=== PATIENT | female | born 1970 | race African-American/Black ===

== ENCOUNTER 2017-03-31 08:49 | Inpatient (IN) | payer OTHER ==
[2017-03-31 09:19] VITALS: BMI 19.3
--- NOTE | 2017-03-31 11:04 | HP ---
COWS - Scale Resting Pulse: 0= [place] 80 or Below Sweatin= Chills/Flushing Restless Observation: 3= Extraneous Movement Pupil Size: 2= Moderately Dilated Bone or Joint Aches: 4=Acute Joint/Muscle Pain Runny Nose/ Eye Tearin= Nasal Congestion GI Upset > 30mins: 1= Stomach Cramp Tremor Observation: 1= Tremor [place], Not Seen Yawning Observation: 1= 1-2x During Session Anxiety or Irritability: 1=Feels Anxious/Irritable Goose Flesh Skin: 0=Smooth Skin COWS Score: 15 Admission ROS S - HPI Chief Complaint: DETOX TX FOR HEROIN DEPENDENCE Allergies/Adverse Reactions: Allergies Allergy/AdvReac Type Severity Reaction Status Date / Time No Known Allergies Allergy Verified 03/31/17 10:29 History of Present Illness: 46 Y/O AA/FEMALE WITH A HX OF HEROIN AND COCAINE DEPENDENCE SEEKING DETOX TX Exam Limitations: No Limitations - Ebola screening Have you traveled outside of the country in the last 21 days: No Have you had contact with anyone from an Ebola affected area: No Have you been sick,other than usual withdrawal symptoms: No Do you have a fever: No - Review of Systems Constitutional: Chills, Loss of Appetite, Night Sweats, Changes in sleep, Unintentional Wgt. Loss EENT: reports: Blurred Vision (WEARS RX GLASSES), Tearing, Nose Congestion, Dental Problems (MISSING TEETH) Respiratory: reports: No Symptoms reported Cardiac: reports: Lightheadedness GI: reports: Constipated, Diarrhea, Nausea, Poor Appetite, Poor Fluid Intake, Vomiting, Abdominal cramping : reports: Frequency Musculoskeletal: reports: Back Pain, Joint Pain, Muscle Pain Integumentary: reports: No Symptoms Reported Neuro: reports: Headache, Numbness, Tingling, Unsteady Gait, Dizziness Endocrine: reports: No Symptoms Reported Hematology: reports: Anemia (HX SICKLE CELL TRAIT) Psychiatric: reports: Orientated x3 Other Systems: Reviewed and Negative Patient History - Patient Medical History Hx Anemia: Yes (ALSO " I HAVE SICKLE CELL TRAIT".) Hx Asthma: No Hx Chronic Obstructive Pulmonary Disease (COPD): No Hx Cancer: No Hx Cardiac Disorders: No Hx Congestive Heart Failure: No Hx Hypertension: No Hx Hypercholesterolemia: No Hx Pacemaker: No HX Cerebrovascular Accident: No Hx Seizures: No Hx Dementia: No Hx Diabetes: No Hx Gastrointestinal Disorders: No Hx Liver Disease: No Hx Genitourinary Disorders: No Hx Sexually Transmitted Disorders: No (DENIES) Hx Renal Disease (ESRD): No Hx Thyroid Disease: No Hx Human Immunodeficiency Virus (HIV): No (NEGATIVE HX) Hx Hepatitis C: No Hx Depression: No Hx Suicide Attempt: No (DENIES) Hx Bipolar Disorder: No Hx Schizophrenia: No - Patient Surgical History Past Surgical History: No Hx Neurologic Surgery: No Hx Cataract Extraction: No Hx Cardiac Surgery: No Hx Lung Surgery: No Hx Breast Surgery: No Hx Breast Biopsy: No Hx Abdominal Surgery: No Hx Appendectomy: No Hx Cholecystectomy: No Hx Genitourinary Surgery: No Hx Section: No Hx Orthopedic Surgery: No Hx Hysterectomy: No Anesthesia Reaction: No - PPD History Previous Implant?: Yes Documented Results: Negative w/proof Date: 07/26/16 Results: 0MM PPD to be Administered?: No - Reproductive History Patient is a Female of Child Bearing Age (11 -55 yrs old): Yes Last Menstrual Period: 03/24/17 Patient : No - Smoking Cessation Smoking history: Current every day smoker Have you smoked in the past 12 months: Yes Aproximately how many cigarettes per day: 6 Cigars Per Day: 0 Hx Chewing Tobacco Use: No Initiated information on smoking cessation: Yes 'Breaking Loose' booklet given: 03/31/17 - Substance & Tx. History Hx Alcohol Use: No Hx Substance Use: Yes (HEROIN/COCAINE) Substance Use Type: Cocaine, Heroin Hx Substance Use Treatment: Yes (LAST TX AT [facility] 3 MONTHS AGO) - Substances Abused Heroin Route: Inhalation Frequency: Daily Amount used: 4-5 BAGS Age of first use: 23 Date of Last Use: 03/30/17 Cocaine Route: Smoking Frequency: Daily Amount used: $60 Age of first use: 23 Date of Last Use: 03/30/17 Family Disease History - Family Disease History Family Disease History: Respiratory: Brother, Sister Admission Physical Exam BHS - Vital Signs Vital Signs: Vital Signs - 24 hr 03/31/17 09:16 Temperature 97 F L Pulse Rate 77 Respiratory 20 Rate Blood Pressure 126/93 - Physical General Appearance: Yes: Moderate Distress, Thin, Anxious, Other (DROWSY BUT EASILY AROUSABLE.) HEENTM: Yes: EOMI, Normocephalic, MAREN, Pharynx Normal, Nasal Congestion, Rhinorrhea Respiratory: Yes: Chest Non-Tender, Lungs Clear, Normal Breath Sounds, No Respiratory Distress Neck: Yes: No masses,lesions,Nodules, Supple, Trachea in good position Breast: Yes: Breast Exam Deferred Cardiology: Yes: Regular Rhythm, Regular Rate, S1, S2 Abdominal: Yes: Normal Bowel Sounds, Non Tender, Flat, Soft Genitourinary: Yes: Other (N/C) Back: Yes: Within Normal Limits Musculoskeletal: Yes: full range of Motion, Gait Steady Extremities: Yes: Normal Range of Motion, Non-Tender, Swelling (SLIGHT BILATERAL NON-PITTING.) 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, Fully Oriented, Alert Integumentary: Yes: Dry, Warm Lymphatic: Yes: Within Normal Limits - Diagnostic (1) Opioid dependence with withdrawal Current Visit: Yes Status: Acute (2) Anemia Current Visit: Yes Status: Chronic Qualifiers: Anemia type: iron deficiency Iron deficiency anemia type: inadequate dietary iron intake Qualified Code(s): D50.8 - Other iron deficiency anemias Comment: LAB PENDING (3) Nicotine dependence Current Visit: Yes Status: Acute Qualifiers: Nicotine product type: cigarettes Substance use status: in withdrawal Qualified Code(s): F17.213 - Nicotine dependence, cigarettes, with withdrawal (4) Cocaine dependence, uncomplicated Current Visit: Yes Status: Acute Cleared for Admission [facility] - Detox or Rehab [facility] Level of Care: Medically Managed Detox Regimen/Protocol: Methadone [facility] Breath Alcohol Content Breath Alcohol Content: 0 Urine Pregancy Test - Result Urine Test Results: Negative- NO Line Present Urine Drug Screen - Results Drug Screen Negative: No Urine Drug Screen Results: EMILY-Cocaine, OPI-Opiates
[2017-03-31] MEDS ORDERED: MAGNESIUM HYDROX 2400MG/30ML ORAL SUSPENSION 30 ML CUP PO PRN (11:11)
[2017-03-31] MEDS ORDERED: NICOTINE POLACRILEX 2 MG GUM BUC PRN (11:11)
[2017-03-31] MEDS ORDERED: P-EPHED 60MG/TRIPROLIDI 2.5MG TABLET PO PRN (11:11)
[2017-03-31] MEDS ORDERED: MENTHOL/PHENOL 1 EACH UD MM PRN (11:11)
[2017-03-31] MEDS ORDERED: guaiFENesin/D-METHORPHAN HB 10 ML UNIT-DOSE CUPS PO PRN (11:11)
[2017-03-31] MEDS ORDERED: MAG HYDROX/AL HYDROX/SIMETH 30 ML UNIT-DOSE CUP PO PRN (11:11)
[2017-03-31] MEDS ORDERED: diphenhydrAMINE HCL 50 MG CAPSULE PO PRN (11:11)
[2017-03-31] MEDS ORDERED: LOPERAMIDE HCL 2 MG CAPSULE PO PRN (11:11)
[2017-03-31] MEDS ORDERED: MAGNESIUM CITRATE 300 ML BOTTLE PO PRN (11:11)
[2017-03-31] MEDS ORDERED: METHADONE HCL 10 MG TABLET (FOR DETOX USE ONLY) PO ONE ×2 (12:11→23:00)
[2017-03-31] MEDS: diazePAM 5 MG TABLET PO PRN ×2 (13:39→22:58)
[2017-03-31] MEDS: NICOTINE 14 MG/24 HOURS TOPICAL PATCH TD SCH (13:41)
[2017-03-31 15:42] LABS: MCH 30.5 pg (25.7-33.7); MCHC 33.3 g/dl (32.0-36.0); MEAN CELL VOLUME 91.4 fl (80-96); PLATELET COUNT 240 K/MM3 (134-434); RDW 13.8 % (11.6-15.6); WHITE BLOOD COUNT 4.6 K/mm3 (4.0-10.0)
[2017-03-31 17:25] LABS: ALK PHOS 83 U/L (45-117); ANION GAP 9 (8-16); BILIRUBIN,TOTAL 0.4 mg/dL (0.2-1.0); CALCIUM 9.1 mg/dL (8.5-10.1); CO2 29 mmol/L (21-32); CREATININE 0.8 mg/dL (0.55-1.02); GLUCOSE,RANDOM 83 mg/dL (74-106); SGOT/AST 21 U/L (15-37); SGPT/ALT 30 U/L (12-78); TOT PROT 7.2 g/dl (6.4-8.2)
[2017-03-31 21:22] LABS: URINE APPEARANCE SLCLOUDY; URINE BILIRUBIN NEGATIVE (NEGATIVE); URINE BLOOD NEGATIVE (NEGATIVE); URINE COLOR YELLOW; URINE GLUCOSE (UA) NEGATIVE (NEGATIVE); URINE KETONE NEGATIVE (NEGATIVE); URINE LEUK ESTERASE NEGATIVE (NEGATIVE); URINE NITRITE NEGATIVE (NEGATIVE); URINE PROTEIN NEGATIVE (NEGATIVE)
[2017-03-31] MEDS: THIAMINE HCL 100 MG TABLET (FP) PO SCH (22:58)
[2017-03-31] MEDS: IBUPROFEN 400 MG TABLET (FP) PO PRN (23:00)
[2017-04-01 08:51] LABS: HIV 1 & 2 AB NEGATIVE; HIV 1 AGp24 NEGATIVE
[2017-04-01] MEDS ORDERED: METHADONE HCL 10 MG TABLET (FOR DETOX USE ONLY) PO ONE (10:00)
[2017-04-01] MEDS ORDERED: TRIMETHOBENZAMIDE HCL 300 MG CAPSULE PO PRN (10:16)
--- NOTE | 2017-04-01 10:16 | PN ---
BHS COWS - Scale Resting Pulse: 1= [place] 81-100 Sweatin=Flushed/Facial Moisture Restless Observation: 1= Difficult to Sit Still Pupil Size: 0= Normal to Room Light Bone or Joint Aches: 2= Severe Diffuse Aches Runny Nose/ Eye Tearin= Runny Nose/Eyes GI Upset > 30mins: 0= None Tremor Observation of Outstretched Hands: 2= Slight Tremor Visible Yawning Observation: 2= >3x During Session Anxiety or Irritability: 2=Irritable/Anxious Goose Flesh Skin: 0=Smooth Skin COWS Score: 14 BHS Progress Note (SOAP) Subjective: irritable agitation anxiety restless shakes sweats nausea back ache headache Objective: 04/01/17 10:15 Vital Signs Temperature 97.7 F 04/01/17 10:00 Pulse Rate 88 04/01/17 10:00 Respiratory Rate 18 04/01/17 10:00 Blood Pressure 141/87 04/01/17 10:00 O2 Sat by Pulse Oximetry (%) Laboratory Tests 03/31/17 03/31/17 03/31/17 10:00 10:00 10:00 WBC 4.6 RBC 4.04 Hgb 12.3 Hct 36.9 MCV 91.4 MCH 30.5 MCHC 33.3 RDW 13.8 Plt Count 240 D MPV 10.0 Sodium 143 Potassium 4.1 Chloride 105 Carbon Dioxide 29 Anion Gap 9 BUN 8 D Creatinine 0.8 Creat Clearance w eGFR > 60 Random Glucose 83 Calcium 9.1 Total Bilirubin 0.4 AST 21 ALT 30 D Alkaline Phosphatase 83 D Total Protein 7.2 Albumin 4.0 Urine Color Urine Appearance Urine pH Urine Protein Urine Glucose (UA) Urine Ketones Urine Blood Urine Nitrite Urine Bilirubin Urine Urobilinogen Ur Leukocyte Esterase RPR Titer Nonreactive HIV 1&2 Antibody Screen HIV P24 Antigen 03/31/17 03/31/17 10:40 20:59 WBC RBC Hgb Hct MCV MCH MCHC RDW Plt Count MPV Sodium Potassium Chloride Carbon Dioxide Anion Gap BUN Creatinine Creat Clearance w eGFR Random Glucose Calcium Total Bilirubin AST ALT Alkaline Phosphatase Total Protein Albumin Urine Color Yellow Urine Appearance Slcloudy Urine pH 7.0 Urine Protein Negative Urine Glucose (UA) Negative Urine Ketones Negative Urine Blood Negative Urine Nitrite Negative Urine Bilirubin Negative Urine Urobilinogen 2.0 H Ur Leukocyte Esterase Negative RPR Titer HIV 1&2 Antibody Screen Negative HIV P24 Antigen Negative awake/alert ambulating no acute distress Assessment: 04/01/17 10:16 withdrawal sx Plan: continue detox increase fluids tigan prn motrin prn
[2017-04-01] MEDS: PRENATAL VITAMINS W/ FOLIC ACID TABLET (FP) PO SCH (10:46)
[2017-04-01] MEDS: diazePAM 5 MG TABLET PO PRN ×3 (10:46→22:30)
[2017-04-01] MEDS: IBUPROFEN 400 MG TABLET (FP) PO PRN ×2 (10:47→20:33)
[2017-04-01] MEDS: NICOTINE 14 MG/24 HOURS TOPICAL PATCH TD SCH (10:47)
[2017-04-01] MEDS: THIAMINE HCL 100 MG TABLET (FP) PO SCH (22:30)
[2017-04-02] MEDS: ACETAMINOPHEN 325 MG TABLET (FP) PO PRN ×2 (08:39→22:30)
--- NOTE | 2017-04-02 09:16 | PN ---
BHS COWS - Scale Resting Pulse: 0= [place] 80 or Below Sweatin=Flushed/Facial Moisture Restless Observation: 1= Difficult to Sit Still Pupil Size: 0= Normal to Room Light Bone or Joint Aches: 2= Severe Diffuse Aches Runny Nose/ Eye Tearin= Nasal Congestion GI Upset > 30mins: 0= None Tremor Observation of Outstretched Hands: 2= Slight Tremor Visible Yawning Observation: 2= >3x During Session Anxiety or Irritability: 2=Irritable/Anxious Goose Flesh Skin: 0=Smooth Skin COWS Score: 12 S Progress Note (SOAP) Subjective: irritable agitation interrupted sleep headache agitation Objective: 04/02/17 09:15 Vital Signs Temperature 98.2 F 04/02/17 06:27 Pulse Rate 77 04/02/17 06:27 Respiratory Rate 18 04/02/17 06:27 Blood Pressure 119/71 04/02/17 06:27 O2 Sat by Pulse Oximetry (%) Laboratory Tests 03/31/17 03/31/17 03/31/17 10:00 10:00 10:00 WBC 4.6 RBC 4.04 Hgb 12.3 Hct 36.9 MCV 91.4 MCH 30.5 MCHC 33.3 RDW 13.8 Plt Count 240 D MPV 10.0 Sodium 143 Potassium 4.1 Chloride 105 Carbon Dioxide 29 Anion Gap 9 BUN 8 D Creatinine 0.8 Creat Clearance w eGFR > 60 Random Glucose 83 Calcium 9.1 Total Bilirubin 0.4 AST 21 ALT 30 D Alkaline Phosphatase 83 D Total Protein 7.2 Albumin 4.0 Urine Color Urine Appearance Urine pH Ur Specific [place] Urine Protein Urine Glucose (UA) Urine Ketones Urine Blood Urine Nitrite Urine Bilirubin Urine Urobilinogen Ur Leukocyte Esterase RPR Titer Nonreactive HIV 1&2 Antibody Screen HIV P24 Antigen 03/31/17 03/31/17 10:40 20:59 WBC RBC Hgb Hct MCV MCH MCHC RDW Plt Count MPV Sodium Potassium Chloride Carbon Dioxide Anion Gap BUN Creatinine Creat Clearance w eGFR Random Glucose Calcium Total Bilirubin AST ALT Alkaline Phosphatase Total Protein Albumin Urine Color Yellow Urine Appearance Slcloudy Urine pH 7.0 Ur Specific [place] 1.015 Urine Protein Negative Urine Glucose (UA) Negative Urine Ketones Negative Urine Blood Negative Urine Nitrite Negative Urine Bilirubin Negative Urine Urobilinogen 2.0 H Ur Leukocyte Esterase Negative RPR Titer HIV 1&2 Antibody Screen Negative HIV P24 Antigen Negative awake/alert ambulating no acute distress Assessment: 04/02/17 09:16 withdrawal sx Plan: continue detox increase fluids tylenol or motrin prn
[2017-04-02] MEDS ORDERED: METHADONE HCL 5 MG TABLET (FOR DETOX USE ONLY) PO ONE (10:00)
[2017-04-02] MEDS: NICOTINE 14 MG/24 HOURS TOPICAL PATCH TD SCH (10:37)
[2017-04-02] MEDS: diazePAM 5 MG TABLET PO PRN ×2 (10:37→22:30)
[2017-04-02] MEDS: IBUPROFEN 400 MG TABLET (FP) PO PRN ×2 (10:37→11:57)
[2017-04-02] MEDS: PRENATAL VITAMINS W/ FOLIC ACID TABLET (FP) PO SCH (10:37)
--- NOTE | 2017-04-02 20:03 | EKG ---
Test Reason : Blood Pressure : / mmHG Vent. Rate : 070 BPM Atrial Rate : 070 BPM P-R Int : 148 ms QRS Dur : 086 ms QT Int : 406 ms P-R-T Axes : -88 081 056 degrees QTc Int : 438 ms UNUSUAL P AXIS, POSSIBLE ECTOPIC ATRIAL RHYTHM WITH OCCASIONAL PREMATURE VENTRICULAR COMPLEXES MINIMAL VOLTAGE CRITERIA FOR LVH, MAY BE NORMAL VARIANT ABNORMAL ECG NO PREVIOUS ECGS AVAILABLE Confirmed by SHEIKH ISMAEL, MEGHNA ([id number] on 04/02/2017 8:02:59 PM Referred By: Annie Smith Confirmed By:MEGHNA BELCHER MD
[2017-04-02] MEDS: THIAMINE HCL 100 MG TABLET (FP) PO SCH (22:30)
[2017-04-03] MEDS: IBUPROFEN 400 MG TABLET (FP) PO PRN (05:39)
[2017-04-03] MEDS: diazePAM 5 MG TABLET PO PRN ×2 (05:39→10:57)
[2017-04-03] MEDS ORDERED: METHADONE HCL 5 MG TABLET (FOR DETOX USE ONLY) PO ONE (10:00)
[2017-04-03 10:45] VITALS: BP 108/89; PULSE 91; TEMP 98.4
[2017-04-03] MEDS: PRENATAL VITAMINS W/ FOLIC ACID TABLET (FP) PO SCH (10:57)
[2017-04-03] MEDS: ACETAMINOPHEN 325 MG TABLET (FP) PO PRN (10:57)
[2017-04-03] MEDS: NICOTINE 14 MG/24 HOURS TOPICAL PATCH TD SCH (10:59)
--- NOTE | 2017-04-03 11:52 | PN ---
BHS Progress Note (SOAP) Subjective: sweats body aches interrupted sleep Objective: 04/03/17 11:51 Vital Signs Temperature 98.4 F 04/03/17 10:44 Pulse Rate 91 H 04/03/17 10:44 Respiratory Rate 18 04/03/17 10:44 Blood Pressure 108/89 04/03/17 10:44 O2 Sat by Pulse Oximetry (%) awake/alert ambulating no acute distress Assessment: 04/03/17 11:51 withdrawal sx Plan: continue detox increase fluids
--- NOTE | 2017-04-03 14:01 | PN ---
S Progress Note Note: pt states " I need to go home and deal with my personal issues with my son." Pt insists to leave and signed out AMA.
--- NOTE | 2017-04-03 14:03 | DS ---
[facility] Detox Discharge Summary Admission Date: 03/31/17 Discharge Date: 04/03/17 - History Present History: Cocaine Dependence, Opioid Dependence - Physical Exam Results Vital Signs: Vital Signs Temperature 98.4 F 04/03/17 10:44 Pulse Rate 91 H 04/03/17 10:44 Respiratory Rate 18 04/03/17 10:44 Blood Pressure 108/89 04/03/17 10:44 O2 Sat by Pulse Oximetry (%) - Treatment Hospital Course: Responded well, Discharged Condition Good - Medication Discharge Medications: Ambulatory Orders Docusate Sodium [Colace -] 100 mg PO BID #60 capsule 08/01/16 Ergocalciferol [Drisdol -] 50,000 unit PO Q7D@1000 #7 capsule 08/01/16 Ferrous Sulfate [Feosol] 325 mg PO BID #60 ud 08/01/16 - Diagnosis (1) Cocaine dependence, uncomplicated Current Visit: Yes Status: Chronic (2) Nicotine dependence Current Visit: Yes Status: Chronic Qualifiers: Nicotine product type: cigarettes Substance use status: uncomplicated Qualified Code(s): F17.210 - Nicotine dependence, cigarettes, uncomplicated (3) Opioid dependence with withdrawal Current Visit: Yes Status: Chronic (4) Anemia Current Visit: Yes Status: Chronic Qualifiers: Anemia type: iron deficiency Iron deficiency anemia type: inadequate dietary iron intake Qualified Code(s): D50.8 - Other iron deficiency anemias (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
[2017-04-04] MEDS ORDERED: METHADONE HCL 10 MG TABLET (FOR DETOX USE ONLY) PO ONE (10:00)
[2017-04-05] MEDS ORDERED: METHADONE HCL 5 MG TABLET (FOR DETOX USE ONLY) PO ONE (06:00)
== END 2017-04-03 13:52 | disposition left against medical advice (07) | DRG 770 ==
LOC: YASAS 08:49 → Y6N 12:01
PROVIDERS: ADMIT Internal Medicine; ATTEND Internal Medicine
PROC: HZ2ZZZZ Detoxification Services for Substance Abuse Treatment (ICD-10-PCS; principal; 2017-03-31)
DX: F11.23 Opioid dependence with withdrawal (principal); F14.20 Cocaine dependence, uncomplicated; F17.210 Nicotine dependence, cigarettes, uncomplicated; F19.282 Other psychoactive substance dependence with psychoactive substance-induced sleep disorder; D50.9 Iron deficiency anemia, unspecified; D57.3 Sickle-cell trait
CPT/HCPCS: 36415; 80053; 81003; 85027; 86593; 87389; 93005; 93010

== ENCOUNTER 2017-05-06 13:23 | Inpatient (IN) | payer OTHER ==
[2017-05-06 15:08] VITALS: BMI 18.7
[2017-05-06] MEDS ORDERED: MAGNESIUM HYDROX 2400MG/30ML ORAL SUSPENSION 30 ML CUP PO PRN (16:23)
[2017-05-06] MEDS ORDERED: LOPERAMIDE HCL 2 MG CAPSULE PO PRN (16:23)
[2017-05-06] MEDS ORDERED: guaiFENesin/D-METHORPHAN HB 10 ML UNIT-DOSE CUPS PO PRN (16:23)
[2017-05-06] MEDS ORDERED: MAG HYDROX/AL HYDROX/SIMETH 30 ML UNIT-DOSE CUP PO PRN (16:23)
[2017-05-06] MEDS ORDERED: MENTHOL/PHENOL 1 EACH UD MM PRN (16:23)
[2017-05-06] MEDS ORDERED: P-EPHED 60MG/TRIPROLIDI 2.5MG TABLET PO PRN (16:23)
[2017-05-06] MEDS ORDERED: diphenhydrAMINE HCL 50 MG CAPSULE PO PRN (16:23)
[2017-05-06] MEDS ORDERED: MAGNESIUM CITRATE 300 ML BOTTLE PO PRN (16:23)
--- NOTE | 2017-05-06 16:27 | HP ---
COWS - Scale Resting Pulse: 0= [place] 80 or Below Sweatin= Chills/Flushing Restless Observation: 1= Difficult to Sit Still Pupil Size: 1= Pupils >than Normal Bone or Joint Aches: 1= Mild Discomfort Runny Nose/ Eye Tearin= Nasal Congestion GI Upset > 30mins: 2= Nausea/Diarrhea Tremor Observation: 2= Slight Tremor Visible Yawning Observation: 1= 1-2x During Session Anxiety or Irritability: 2=Irritable/Anxious Goose Flesh Skin: 3=Piloerection COWS Score: 15 Admission ROS S - HPI Chief Complaint: heroin withdrawal sx, ready to quit signed out AMA last visit Allergies/Adverse Reactions: Allergies Allergy/AdvReac Type Severity Reaction Status Date / Time No Known Allergies Allergy Verified 05/06/17 16:19 History of Present Illness: 46yo f with h/o opioid, cocaine, and nictoien dependence now in withdrawals last used yesteray deneies alcohol or benzodiazepien use PMHX depression , no suicidal ideation or suicide attempts in past. no on any medication, no h/o seizure , or DTS. Exam Limitations: No Limitations - Ebola screening Have you traveled outside of the country in the last 21 days: No Have you had contact with anyone from an Ebola affected area: No Have you been sick,other than usual withdrawal symptoms: No Do you have a fever: No - Review of Systems Constitutional: Chills, Diaphoresis, Malaise, Unintentional Wgt. Loss EENT: reports: Nose Congestion Respiratory: reports: No Symptoms reported Cardiac: reports: No Symptoms Reported GI: reports: Constipated, Nausea, Poor Appetite, Poor Fluid Intake, Abdominal cramping : reports: No Symptoms Reported Musculoskeletal: reports: Back Pain (withdrawal sx), Muscle Pain Integumentary: reports: Flushing, Sweating Neuro: reports: Headache, Weakness Endocrine: reports: No Symptoms Reported Hematology: reports: No Symptoms Reported Psychiatric: reports: Judgement Intact, Orientated x3, Anxious, Depressed Other Systems: Reviewed and Negative Patient History - Patient Medical History Hx Anemia: Yes (ALSO " I HAVE SICKLE CELL TRAIT".) Hx Asthma: No Hx Chronic Obstructive Pulmonary Disease (COPD): No Hx Cancer: No Hx Cardiac Disorders: No Hx Congestive Heart Failure: No Hx Hypertension: No Hx Hypercholesterolemia: No Hx Pacemaker: No HX Cerebrovascular Accident: No Hx Seizures: No Hx Dementia: No Hx Diabetes: No Hx Gastrointestinal Disorders: No Hx Liver Disease: No Hx Genitourinary Disorders: No Hx Sexually Transmitted Disorders: No (DENIES) Hx Renal Disease (ESRD): No Hx Thyroid Disease: No Hx Human Immunodeficiency Virus (HIV): No (NEGATIVE HX) Hx Hepatitis C: No Hx Depression: No Hx Suicide Attempt: No (DENIES) Hx Bipolar Disorder: No Hx Schizophrenia: No - Patient Surgical History Past Surgical History: No Hx Neurologic Surgery: No Hx Cataract Extraction: No Hx Cardiac Surgery: No Hx Lung Surgery: No Hx Breast Surgery: No Hx Breast Biopsy: No Hx Abdominal Surgery: No Hx Appendectomy: No Hx Cholecystectomy: No Hx Genitourinary Surgery: No Hx Section: No Hx Orthopedic Surgery: No Hx Hysterectomy: No Anesthesia Reaction: No - PPD History Previous Implant?: Yes Documented Results: Negative w/proof Date: 07/26/16 Results: 0MM PPD to be Administered?: No - Reproductive History Patient is a Female of Child Bearing Age (11 -55 yrs old): No Last Menstrual Period: 03/24/17 Patient : No - Smoking Cessation Smoking history: Current every day smoker Have you smoked in the past 12 months: Yes Aproximately how many cigarettes per day: 6 Cigars Per Day: 0 Hx Chewing Tobacco Use: No Initiated information on smoking cessation: Yes 'Breaking Loose' booklet given: 05/06/17 - Substance & Tx. History Hx Alcohol Use: No Hx Substance Use: No Substance Use Type: Cocaine, Heroin, Opiates Hx Substance Use Treatment: Yes ([facility] signed out [facility]) - Substances Abused Heroin Route: Inhalation Frequency: Daily Amount used: 5-6 BAGS Age of first use: 23 Date of Last Use: 05/05/17 Crack Route: Smoking Frequency: Daily Amount used: $60 Age of first use: 23 Date of Last Use: 05/05/17 Family Disease History - Family Disease History Family Disease History: Respiratory: Brother, Sister Admission Physical Exam BHS - Vital Signs Vital Signs: Vital Signs - 24 hr 05/06/17 15:04 Temperature 97.8 F Pulse Rate 78 Respiratory 20 Rate Blood Pressure 125/76 - Physical General Appearance: Yes: Appropriately Dressed, Disheveled, Mild Distress, Cachetic, Thin, Tremorous, Irritable, Sweating, Anxious HEENTM: Yes: EOMI, Hearing grossly Normal, Normal ENT Inspection, Normocephalic , Normal Voice, Pharynx Normal, Tm's normal, Nasal Congestion, Rhinorrhea Respiratory: Yes: Within Normal Limits, Chest Non-Tender, Lungs Clear, Normal Breath Sounds, No Respiratory Distress, No Accessory Muscle Use Neck: Yes: Within Normal Limits, No masses,lesions,Nodules, Supple, Trachea in good position Breast: Yes: Breast Exam Deferred Cardiology: Yes: Within Normal Limits, Regular Rhythm, Regular Rate, S1, S2 Abdominal: Yes: Within Normal Limits, Normal Bowel Sounds, Non Tender, Flat, Soft Genitourinary: Yes: Vaginal Discharge Back: Yes: Normal Inspection, Vertebral Tenderness Musculoskeletal: Yes: full range of Motion, Gait Steady, Pelvis Stable, Back pain, Muscle Pain Extremities: Yes: Normal Capillary Refill, Normal Inspection, Normal Range of Motion, Non-Tender, Tremors 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, Fully Oriented, Alert, Motor Strength 5/5, Normal Mood/Affect, Normal Response, Depressed Affect Integumentary: Yes: Normal Color, Warm, Diaphoresis, Moist Lymphatic: Yes: Within Normal Limits - Addiitonal Findings: withdrawal sx - Diagnostic (1) Anemia Current Visit: No Status: Chronic Qualifiers: Anemia type: iron deficiency Iron deficiency anemia type: inadequate dietary iron intake Qualified Code(s): D50.8 - Other iron deficiency anemias Comment: LAB PENDING (2) Cocaine dependence, uncomplicated Current Visit: No Status: Chronic (3) Nicotine dependence Current Visit: No Status: Chronic Qualifiers: Nicotine product type: cigarettes Substance use status: uncomplicated Qualified Code(s): F17.210 - Nicotine dependence, cigarettes, uncomplicated (4) Opioid dependence with withdrawal Current Visit: No Status: Chronic (5) Substance-induced sleep disorder Current Visit: No Status: Chronic Cleared for Admission [facility] - Detox or Rehab [facility] Level of Care: Medically Managed Detox Regimen/Protocol: Methadone [facility] Breath Alcohol Content Breath Alcohol Content: 0 Urine Pregancy Test - Result Urine Test Results: Negative- NO Line Present Urine Drug Screen - Results Drug Screen Negative: No Urine Drug Screen Results: EMILY-Cocaine, OPI-Opiates, MTD-Methadone
[2017-05-06] MEDS ORDERED: METHADONE HCL 10 MG TABLET (FOR DETOX USE ONLY) PO ONE ×2 (17:15→23:00)
[2017-05-06] MEDS: NICOTINE 14 MG/24 HOURS TOPICAL PATCH TD SCH (17:35)
[2017-05-06] MEDS: FERROUS SO4 325 MG TABLET (FP) PO SCH (17:36)
[2017-05-06] MEDS: diazePAM 5 MG TABLET PO PRN ×2 (17:36→22:37)
[2017-05-06] MEDS: THIAMINE HCL 100 MG TABLET (FP) PO SCH (22:37)
[2017-05-06] MEDS: DOCUSATE SODIUM 100 MG CAPSULE (FP) PO SCH (22:37)
[2017-05-06] MEDS: MICONAZOLE NITRATE 100 MG SUPP SUPP.VAG PV SCH (22:56)
[2017-05-06 23:14] LABS: URINE APPEARANCE SLCLOUDY; URINE BILIRUBIN NEGATIVE (NEGATIVE); URINE BLOOD NEGATIVE (NEGATIVE); URINE COLOR YELLOW; URINE GLUCOSE (UA) NEGATIVE (NEGATIVE); URINE KETONE NEGATIVE (NEGATIVE); URINE LEUK ESTERASE TRACE (NEGATIVE); URINE NITRITE NEGATIVE (NEGATIVE); URINE PROTEIN NEGATIVE (NEGATIVE); URINE UROBILINOGEN NEGATIVE mg/dL (0.2-1.0)
[2017-05-06 23:39] LABS: URINE BACTERIA RARE /hpf (NONE SEEN); URINE RBC 2 /hpf (0-3); URINE WBC 4 /hpf (3-5)
[2017-05-07] MEDS: FERROUS SO4 325 MG TABLET (FP) PO SCH ×2 (07:18→16:39)
[2017-05-07] MEDS ORDERED: METHADONE HCL 10 MG TABLET (FOR DETOX USE ONLY) PO ONE (10:00)
[2017-05-07 10:07] LABS: MCH 29.9 pg (25.7-33.7); MCHC 33.5 g/dl (32.0-36.0); MEAN CELL VOLUME 89.1 fl (80-96); MEAN PLT VOLUME 9.6 fl (7.5-11.1); PLATELET COUNT 193 K/MM3 (134-434); RDW 13.7 % (11.6-15.6); WHITE BLOOD COUNT 3.6 K/mm3 (4.0-10.0)
[2017-05-07] MEDS: PRENATAL VITAMINS W/ FOLIC ACID TABLET (FP) PO SCH (10:33)
[2017-05-07] MEDS: NICOTINE 14 MG/24 HOURS TOPICAL PATCH TD SCH (10:34)
[2017-05-07] MEDS: IBUPROFEN 400 MG TABLET (FP) PO PRN ×2 (10:34→22:38)
--- NOTE | 2017-05-07 10:34 | EKG ---
Test Reason : Blood Pressure : / mmHG Vent. Rate : 069 BPM Atrial Rate : 069 BPM P-R Int : 144 ms QRS Dur : 080 ms QT Int : 418 ms P-R-T Axes : 044 081 071 degrees QTc Int : 447 ms NORMAL SINUS RHYTHM NONSPECIFIC T WAVE ABNORMALITY ABNORMAL ECG WHEN COMPARED WITH ECG OF 31-MAR-2017 12:43, SINUS RHYTHM HAS REPLACED ECTOPIC ATRIAL RHYTHM Confirmed by DAMIAN GUEVARA, IZABEL ([id number]) on 05/07/2017 10:34:29 AM Referred By: Confirmed By:IZABEL SALGADO MD
[2017-05-07 10:40] LABS: ALBUMIN 2.9 g/dl (3.4-5.0); ALK PHOS 80 U/L (45-117); ANION GAP 5 (8-16); BILIRUBIN,TOTAL 0.5 mg/dL (0.2-1.0); CALCIUM 8.3 mg/dL (8.5-10.1); CO2 28 mmol/L (21-32); CREATININE 0.6 mg/dL (0.55-1.02); GLUCOSE,RANDOM 110 mg/dL (74-106); SGOT/AST 25 U/L (15-37); SGPT/ALT 27 U/L (12-78); TOT PROT 5.7 g/dl (6.4-8.2)
[2017-05-07] MEDS ORDERED: FLU VACCINE QUAD 60 MCG/0.5 ML (MDV 17-18) IM ONE (12:00)
--- NOTE | 2017-05-07 12:44 | PN ---
BHS COWS - Scale Resting Pulse: 1= [place] 81-100 Sweatin=Flushed/Facial Moisture Restless Observation: 1= Difficult to Sit Still Pupil Size: 0= Normal to Room Light Bone or Joint Aches: 2= Severe Diffuse Aches Runny Nose/ Eye Tearin= Runny Nose/Eyes GI Upset > 30mins: 1= Stomach Cramp Tremor Observation of Outstretched Hands: 2= Slight Tremor Visible Yawning Observation: 2= >3x During Session Anxiety or Irritability: 2=Irritable/Anxious Goose Flesh Skin: 3=Piloerection COWS Score: 18 BHS Progress Note (SOAP) Subjective: shakes sweats interrupted sleep agitation body aches Objective: 05/07/17 12:43 Vital Signs Temperature 98.4 F 05/07/17 10:29 Pulse Rate 82 05/07/17 10:29 Respiratory Rate 18 05/07/17 10:29 Blood Pressure 135/85 05/07/17 10:29 O2 Sat by Pulse Oximetry (%) Laboratory Tests 05/06/17 05/07/17 05/07/17 22:38 07:00 07:00 WBC 3.6 L RBC 3.62 Hgb 10.8 D Hct 32.2 L MCV 89.1 MCH 29.9 MCHC 33.5 RDW 13.7 Plt Count 193 MPV 9.6 Sodium 139 Potassium 4.0 Chloride 106 Carbon Dioxide 28 Anion Gap 5 L BUN 10 D Creatinine 0.6 D Creat Clearance w eGFR > 60 Random Glucose 110 H D Calcium 8.3 L Total Bilirubin 0.5 D AST 25 ALT 27 Alkaline Phosphatase 80 Total Protein 5.7 L D Albumin 2.9 L D Urine Color Yellow Urine Appearance Slcloudy Urine pH 7.0 Ur Specific [place] 1.020 Urine Protein Negative Urine Glucose (UA) Negative Urine Ketones Negative Urine Blood Negative Urine Nitrite Negative Urine Bilirubin Negative Urine Urobilinogen Negative Urine RBC 2 Urine WBC 4 Ur Epithelial Cells Few Urine Bacteria Rare aaox3 ambulating no acute distress Assessment: 05/07/17 12:43 withdrawal sx Plan: continue detox increase fluids
[2017-05-07] MEDS: ACETAMINOPHEN 325 MG TABLET (FP) PO PRN (16:38)
[2017-05-07] MEDS: NICOTINE POLACRILEX 2 MG GUM BC PRN (16:39)
[2017-05-07] MEDS: diazePAM 5 MG TABLET PO PRN (22:29)
[2017-05-07] MEDS: DOCUSATE SODIUM 100 MG CAPSULE (FP) PO SCH (22:29)
[2017-05-07] MEDS: MICONAZOLE NITRATE 100 MG SUPP SUPP.VAG PV SCH (22:29)
[2017-05-07] MEDS: THIAMINE HCL 100 MG TABLET (FP) PO SCH (22:29)
[2017-05-08] MEDS: diazePAM 5 MG TABLET PO PRN ×2 (06:00→17:16)
[2017-05-08] MEDS: IBUPROFEN 400 MG TABLET (FP) PO PRN (06:02)
[2017-05-08] MEDS: FERROUS SO4 325 MG TABLET (FP) PO SCH ×2 (07:01→17:15)
[2017-05-08] MEDS: ACETAMINOPHEN 325 MG TABLET (FP) PO PRN (08:59)
[2017-05-08] MEDS ORDERED: METHADONE HCL 5 MG TABLET (FOR DETOX USE ONLY) PO ONE (10:00)
[2017-05-08] MEDS: PRENATAL VITAMINS W/ FOLIC ACID TABLET (FP) PO SCH (10:43)
[2017-05-08] MEDS: NICOTINE 14 MG/24 HOURS TOPICAL PATCH TD SCH (10:45)
[2017-05-08] MEDS ORDERED: IBUPROFEN 400 MG TABLET (FP) PO PRN (12:57)
--- NOTE | 2017-05-08 13:01 | PN ---
[facility] CIWA - CIWA Score Nausea/Vomitin-No Nausea/No Vomiting Muscle Tremors: 4-Moderate,w/Arms Extend Anxiety: 4-Mod. Anxious/Guarded Agitation: 3 Paroxysmal Sweats: 3 Orientation: 0-Oriented Tacttile Disturbances: 0-None Auditory Disturbances: 0-None Visual Disturbances: 0-None Headache: 0-None Present CIWA-Ar Total Score: 14 BHS Progress Note (SOAP) Subjective: low back pain sweats irritable interrupted sleep Objective: 05/08/17 12:59 Vital Signs Temperature 96.8 F L 05/08/17 09:55 Pulse Rate 92 H 05/08/17 09:55 Respiratory Rate 18 05/08/17 09:55 Blood Pressure 115/85 05/08/17 09:55 O2 Sat by Pulse Oximetry (%) Laboratory Tests 05/06/17 05/07/17 05/07/17 22:38 07:00 07:00 WBC 3.6 L RBC 3.62 Hgb 10.8 D Hct 32.2 L MCV 89.1 MCH 29.9 MCHC 33.5 RDW 13.7 Plt Count 193 MPV 9.6 Sodium 139 Potassium 4.0 Chloride 106 Carbon Dioxide 28 Anion Gap 5 L BUN 10 D Creatinine 0.6 D Creat Clearance w eGFR > 60 Random Glucose 110 H D Calcium 8.3 L Total Bilirubin 0.5 D AST 25 ALT 27 Alkaline Phosphatase 80 Total Protein 5.7 L D Albumin 2.9 L D Urine Color Yellow Urine Appearance Slcloudy Urine pH 7.0 Ur Specific [place] 1.020 Urine Protein Negative Urine Glucose (UA) Negative Urine Ketones Negative Urine Blood Negative Urine Nitrite Negative Urine Bilirubin Negative Urine Urobilinogen Negative Urine RBC 2 Urine WBC 4 Ur Epithelial Cells Few Urine Bacteria Rare RPR Titer 05/07/17 07:00 WBC RBC Hgb Hct MCV MCH MCHC RDW Plt Count MPV Sodium Potassium Chloride Carbon Dioxide Anion Gap BUN Creatinine Creat Clearance w eGFR Random Glucose Calcium Total Bilirubin AST ALT Alkaline Phosphatase Total Protein Albumin Urine Color Urine Appearance Urine pH Ur Specific [place] Urine Protein Urine Glucose (UA) Urine Ketones Urine Blood Urine Nitrite Urine Bilirubin Urine Urobilinogen Urine RBC Urine WBC Ur Epithelial Cells Urine Bacteria RPR Titer Nonreactive aaox3 lying in bed no acute distress Assessment: 05/08/17 13:00 withdrawals sx Plan: continue detox increase fluids lidocaine patch naproxyen bid
[2017-05-08] MEDS ORDERED: LIDOCAINE 5% TOPICAL PATCH TP ONE (14:07)
[2017-05-08] MEDS ORDERED: NAPROXEN 500 MG TABLET (FP) PO ONE (14:08)
[2017-05-08] MEDS: DOCUSATE SODIUM 100 MG CAPSULE (FP) PO SCH (22:43)
[2017-05-08] MEDS: LIDOCAINE PATCH REMOVAL MC SCH (22:44)
[2017-05-08] MEDS: MICONAZOLE NITRATE 100 MG SUPP SUPP.VAG PV SCH (22:44)
[2017-05-08] MEDS: hydrOXYzine PAMOATE 50 MG CAPSULE (FP) PO PRN (22:44)
[2017-05-08] MEDS: NAPROXEN 500 MG TABLET (FP) PO SCH (22:44)
[2017-05-08] MEDS: THIAMINE HCL 100 MG TABLET (FP) PO SCH (22:44)
[2017-05-09] MEDS: diazePAM 5 MG TABLET PO PRN ×2 (06:13→11:05)
[2017-05-09] MEDS: FERROUS SO4 325 MG TABLET (FP) PO SCH ×2 (07:56→17:27)
--- NOTE | 2017-05-09 08:42 | PN ---
BHS Progress Note (SOAP) Subjective: nausea, sweats, interrupted sleep, anxiety, tremors, body aches Objective: 05/09/17 08:40 Vital Signs - 24 hr 05/08/17 05/08/17 05/08/17 09:55 13:42 17:15 Temperature 96.8 F L 98.2 F 97.9 F Pulse Rate 92 H 81 71 Respiratory 18 18 18 Rate Blood Pressure 115/85 122/84 112/58 05/08/17 05/09/17 05/09/17 21:42 00:30 03:30 Temperature 98.1 F Pulse Rate 64 Respiratory 18 18 18 Rate Blood Pressure 112/84 05/09/17 07:24 Temperature 97.5 F L Pulse Rate 82 Respiratory 18 Rate Blood Pressure 121/72 Laboratory Tests 05/06/17 05/07/17 05/07/17 22:38 07:00 07:00 WBC 3.6 L RBC 3.62 Hgb 10.8 D Hct 32.2 L MCV 89.1 MCH 29.9 MCHC 33.5 RDW 13.7 Plt Count 193 MPV 9.6 Sodium 139 Potassium 4.0 Chloride 106 Carbon Dioxide 28 Anion Gap 5 L BUN 10 D Creatinine 0.6 D Creat Clearance w eGFR > 60 Random Glucose 110 H D Calcium 8.3 L Total Bilirubin 0.5 D AST 25 ALT 27 Alkaline Phosphatase 80 Total Protein 5.7 L D Albumin 2.9 L D Urine Color Yellow Urine Appearance Slcloudy Urine pH 7.0 Ur Specific [place] 1.020 Urine Protein Negative Urine Glucose (UA) Negative Urine Ketones Negative Urine Blood Negative Urine Nitrite Negative Urine Bilirubin Negative Urine Urobilinogen Negative Urine RBC 2 Urine WBC 4 Ur Epithelial Cells Few Urine Bacteria Rare RPR Titer 05/07/17 07:00 WBC RBC Hgb Hct MCV MCH MCHC RDW Plt Count MPV Sodium Potassium Chloride Carbon Dioxide Anion Gap BUN Creatinine Creat Clearance w eGFR Random Glucose Calcium Total Bilirubin AST ALT Alkaline Phosphatase Total Protein Albumin Urine Color Urine Appearance Urine pH Ur Specific [place] Urine Protein Urine Glucose (UA) Urine Ketones Urine Blood Urine Nitrite Urine Bilirubin Urine Urobilinogen Urine RBC Urine WBC Ur Epithelial Cells Urine Bacteria RPR Titer Nonreactive Assessment: 05/09/17 08:40 withdrawal sx Plan: cont detox, fluids, encourage ambulation
[2017-05-09] MEDS ORDERED: METHADONE HCL 5 MG TABLET (FOR DETOX USE ONLY) PO ONE (10:00)
[2017-05-09] MEDS: cloNIDine HCL 0.1 MG TABLET PO SCH ×2 (11:05→23:41)
[2017-05-09] MEDS: PRENATAL VITAMINS W/ FOLIC ACID TABLET (FP) PO SCH (11:05)
[2017-05-09] MEDS: NAPROXEN 500 MG TABLET (FP) PO SCH ×2 (11:05→21:40)
[2017-05-09] MEDS: PANTOPRAZOLE 40 MG TABLET (FP) PO SCH (11:06)
[2017-05-09] MEDS: LORATADINE 10 MG TABLET PO SCH (11:06)
[2017-05-09] MEDS: LIDOCAINE 5% TOPICAL PATCH TP SCH (11:06)
[2017-05-09] MEDS: FLUTICASONE PROP 0.05% 16 GM NASAL SPRAY NS SCH (11:06)
[2017-05-09] MEDS: NICOTINE 14 MG/24 HOURS TOPICAL PATCH TD SCH (11:10)
[2017-05-09] MEDS: THIAMINE HCL 100 MG TABLET (FP) PO SCH (21:40)
[2017-05-09] MEDS: DOCUSATE SODIUM 100 MG CAPSULE (FP) PO SCH (21:40)
[2017-05-09] MEDS ORDERED: ZOLPIDEM TARTRATE 10 MG TABLET (PARK CARE ONLY) PO PRN (22:00)
[2017-05-09] MEDS: LIDOCAINE PATCH REMOVAL MC SCH (23:41)
[2017-05-09] MEDS: MICONAZOLE NITRATE 100 MG SUPP SUPP.VAG PV SCH (23:41)
[2017-05-10] MEDS: hydrOXYzine PAMOATE 50 MG CAPSULE (FP) PO PRN (06:12)
[2017-05-10] MEDS: FERROUS SO4 325 MG TABLET (FP) PO SCH ×2 (08:04→17:10)
[2017-05-10] MEDS ORDERED: METHADONE HCL 10 MG TABLET (FOR DETOX USE ONLY) PO ONE (10:00)
[2017-05-10] MEDS: PRENATAL VITAMINS W/ FOLIC ACID TABLET (FP) PO SCH (10:32)
[2017-05-10] MEDS: FLUTICASONE PROP 0.05% 16 GM NASAL SPRAY NS SCH (10:32)
[2017-05-10] MEDS: cloNIDine HCL 0.1 MG TABLET PO SCH ×2 (10:32→22:36)
[2017-05-10] MEDS: LORATADINE 10 MG TABLET PO SCH (10:33)
[2017-05-10] MEDS: NAPROXEN 500 MG TABLET (FP) PO SCH ×2 (10:34→22:36)
[2017-05-10] MEDS: PANTOPRAZOLE 40 MG TABLET (FP) PO SCH (10:34)
[2017-05-10] MEDS: NICOTINE 14 MG/24 HOURS TOPICAL PATCH TD SCH (10:36)
[2017-05-10] MEDS: LIDOCAINE 5% TOPICAL PATCH TP SCH (10:36)
--- NOTE | 2017-05-10 15:50 | PN ---
BHS Progress Note (SOAP) Subjective: alert,irrtiable,interrupted sleep Objective: 05/10/17 15:49 Vital Signs Temperature 97.7 F 05/10/17 15:08 Pulse Rate 80 05/10/17 15:08 Respiratory Rate 18 05/10/17 15:08 Blood Pressure 108/87 05/10/17 15:08 O2 Sat by Pulse Oximetry (%) Assessment: 05/10/17 15:49 withdrawal symptom Plan: continue detox,discharge in am
[2017-05-10] MEDS: ACETAMINOPHEN 325 MG TABLET (FP) PO PRN (19:30)
[2017-05-10] MEDS: LIDOCAINE PATCH REMOVAL MC SCH (21:24)
[2017-05-10 21:35] VITALS: TEMP 98.2
[2017-05-10] MEDS: THIAMINE HCL 100 MG TABLET (FP) PO SCH (22:36)
[2017-05-10] MEDS: DOCUSATE SODIUM 100 MG CAPSULE (FP) PO SCH (22:36)
[2017-05-10] MEDS: MICONAZOLE NITRATE 100 MG SUPP SUPP.VAG PV SCH (22:36)
[2017-05-11] MEDS ORDERED: METHADONE HCL 5 MG TABLET (FOR DETOX USE ONLY) PO ONE (06:00)
[2017-05-11] MEDS: FERROUS SO4 325 MG TABLET (FP) PO SCH (07:58)
--- NOTE | 2017-05-11 08:27 | DS ---
[facility] Detox Discharge Summary Admission Date: 05/06/17 Discharge Date: 05/11/17 - History Present History: Cocaine Dependence, Opioid Dependence Additional Comments: FOLLOW UP WITH [facility] ARRANGEMENT Pertinent Past History: ANEMIA NICOTINE DEPENDENCE - Physical Exam Results Vital Signs: Vital Signs Temperature 98.2 F 05/11/17 06:00 Pulse Rate 83 05/11/17 06:00 Respiratory Rate 18 05/11/17 06:00 Blood Pressure 110/78 05/11/17 06:00 O2 Sat by Pulse Oximetry (%) Pertinent Admission Physical Exam Findings: WITHDRAWAL SYMPTOM - Treatment Hospital Course: Detox Protocol Followed, Detoxed Safely, Responded well, Discharged Condition Good, Rehab Referral Accepted Patient has Accepted a Rehab Referral to: [facility] - Medication Discharge Medications: Ambulatory Orders Docusate Sodium [Colace -] 100 mg PO BID #60 capsule 08/01/16 Ergocalciferol [Vitamin D2] 50,000 unit PO Q7D@1000 #7 capsule 08/01/16 Ferrous Sulfate [Feosol] 325 mg PO BID #60 ud 08/01/16 - Diagnosis (1) Opioid dependence with withdrawal Current Visit: Yes Status: Chronic (2) Cocaine dependence, uncomplicated Current Visit: Yes Status: Chronic (3) Anemia Current Visit: No Status: Chronic Qualifiers: Anemia type: iron deficiency Iron deficiency anemia type: inadequate dietary iron intake Qualified Code(s): D50.8 - Other iron deficiency anemias (4) Nicotine dependence Current Visit: No Status: Chronic Qualifiers: Nicotine product type: cigarettes Substance use status: uncomplicated Qualified Code(s): F17.210 - Nicotine dependence, cigarettes, uncomplicated (5) Substance-induced sleep disorder Current Visit: No Status: Chronic - AMA Did Patient Leave Against Medical Advice: No
[2017-05-11 10:09] VITALS: BP 131/72; PULSE 85
[2017-05-11] MEDS: FLUTICASONE PROP 0.05% 16 GM NASAL SPRAY NS SCH (10:41)
[2017-05-11] MEDS: cloNIDine HCL 0.1 MG TABLET PO SCH (10:42)
[2017-05-11] MEDS: PANTOPRAZOLE 40 MG TABLET (FP) PO SCH (10:42)
[2017-05-11] MEDS: LORATADINE 10 MG TABLET PO SCH (10:42)
[2017-05-11] MEDS: PRENATAL VITAMINS W/ FOLIC ACID TABLET (FP) PO SCH (10:42)
[2017-05-11] MEDS: NAPROXEN 500 MG TABLET (FP) PO SCH (10:42)
[2017-05-11] MEDS: LIDOCAINE 5% TOPICAL PATCH TP SCH (10:44)
[2017-05-11] MEDS: NICOTINE POLACRILEX 2 MG GUM BC PRN (10:44)
[2017-05-11] MEDS: NICOTINE 14 MG/24 HOURS TOPICAL PATCH TD SCH (11:12)
== END 2017-05-11 11:35 | disposition other institution (70) | DRG 773 ==
LOC: YASAS 13:23 → Y6N 16:54
PROVIDERS: ADMIT Internal Medicine; ATTEND Internal Medicine
PROC: HZ2ZZZZ Detoxification Services for Substance Abuse Treatment (ICD-10-PCS; principal; 2017-05-06)
DX: F11.23 Opioid dependence with withdrawal (principal); F14.20 Cocaine dependence, uncomplicated; F17.210 Nicotine dependence, cigarettes, uncomplicated; F19.282 Other psychoactive substance dependence with psychoactive substance-induced sleep disorder; D50.9 Iron deficiency anemia, unspecified
CPT/HCPCS: 36415; 80053; 81003; 81015; 85027; 86593; 90688; 93005; 93010; G0008

== ENCOUNTER 2017-05-11 11:42 | Inpatient (IN) | payer OTHER ==
[2017-05-11] MEDS ORDERED: MENTHOL/PHENOL 1 EACH UD MM PRN (13:05)
[2017-05-11] MEDS ORDERED: LOPERAMIDE HCL 2 MG CAPSULE PO PRN (13:05)
[2017-05-11] MEDS ORDERED: NICOTINE POLACRILEX 2 MG GUM BUC PRN (13:05)
[2017-05-11] MEDS ORDERED: MAGNESIUM HYDROX 2400MG/30ML ORAL SUSPENSION 30 ML CUP PO PRN (13:05)
[2017-05-11] MEDS ORDERED: P-EPHED 60MG/TRIPROLIDI 2.5MG TABLET PO PRN (13:05)
[2017-05-11] MEDS ORDERED: MAGNESIUM CITRATE 300 ML BOTTLE PO PRN (13:05)
[2017-05-11] MEDS ORDERED: IBUPROFEN 400 MG TABLET (FP) PO PRN (13:05)
[2017-05-11] MEDS ORDERED: guaiFENesin/D-METHORPHAN HB 10 ML UNIT-DOSE CUPS PO PRN (13:05)
--- NOTE | 2017-05-11 13:10 | HP ---
Admission [facility] - [facility] Allergies/Adverse Reactions: Allergies Allergy/AdvReac Type Severity Reaction Status Date / Time No Known Allergies Allergy Verified 05/06/17 16:19 - Ebola screening Have you traveled outside of the country in the last 21 days: No Have you had contact with anyone from an Ebola affected area: No Do you have a fever: No Patient History - Patient Medical History Hx Anemia: Yes (ALSO " I HAVE SICKLE CELL TRAIT".) Hx Asthma: No Hx Chronic Obstructive Pulmonary Disease (COPD): No Hx Cancer: No Hx Cardiac Disorders: No Hx Congestive Heart Failure: No Hx Hypertension: No Hx Hypercholesterolemia: No Hx Pacemaker: No HX Cerebrovascular Accident: No Hx Seizures: No Hx Dementia: No Hx Diabetes: No Hx Gastrointestinal Disorders: No Hx Liver Disease: No Hx Genitourinary Disorders: No Hx Sexually Transmitted Disorders: No Hx Renal Disease (ESRD): No Hx Thyroid Disease: No Hx Human Immunodeficiency Virus (HIV): No (NEGATIVE HX) Hx Hepatitis C: No Hx Depression: Yes Hx Suicide Attempt: No Hx Bipolar Disorder: No Hx Schizophrenia: No - Patient Surgical History Past Surgical History: No Hx Neurologic Surgery: No Hx Cataract Extraction: No Hx Cardiac Surgery: No Hx Lung Surgery: No Hx Breast Surgery: No Hx Breast Biopsy: No Hx Abdominal Surgery: No Hx Appendectomy: No Hx Cholecystectomy: No Hx Genitourinary Surgery: No Hx Section: No Hx Orthopedic Surgery: No Hx Hysterectomy: No Anesthesia Reaction: No - PPD History Previous Implant?: Yes Documented Results: Negative w/proof Date: 07/26/16 Results: 0mm - Reproductive History Last Menstrual Period: 05/05/17 - Smoking Cessation Smoking history: Current every day smoker Have you smoked in the past 12 months: Yes Aproximately how many cigarettes per day: 6 Cigars Per Day: 0 Hx Chewing Tobacco Use: No Initiated information on smoking cessation: Yes 'Breaking Loose' booklet given: 05/11/17 - Substances Abused Crack Route: Smoking Frequency: Daily Amount used: $60 Age of first use: 23 Date of Last Use: 05/05/17 Heroin Route: Inhalation Frequency: Daily Amount used: 5-6 bags Age of first use: 23 Date of Last Use: 05/05/17 Family Disease History - Family Disease History Family Disease History: Respiratory: Brother, Sister Admission Physical Exam S - Vital Signs Vital Signs: Vital Signs - 24 hr 05/11/17 12:07 Temperature 98.1 F Pulse Rate 79 Respiratory 18 Rate Blood Pressure 100/65 BHS Breath Alcohol Content Breath Alcohol Content: 0 Inpatient Rehab Admission - Initial Determination Are CD services needed?: Yes Free of communicable disease: Yes Not in need of hospitalization: Yes - Rehab Admission Criteria Poor recovery environment: Yes Comorbidities: Yes Patient is meeting Inpatient Rehab admission criteria:: Yes
--- NOTE | 2017-05-11 13:11 | HP ---
DONALD [facility] Rehab Assess/Revision - Admission History Admitted to Rehab from: [facility] Date of Admission to Rehab: 05/11/17 - Vital signs Vital Signs: Vital Signs Period Temp Pulse Resp BP Sys/Topete Pulse Ox Last 24 Hr 98.1 F 79 18 100/65 - Findings Detox History & Physical reviewed: Yes Concur with findings: Yes Comments/Additional Findings: FOR REHAB PROTOCOL
[2017-05-11] MEDS: ACETAMINOPHEN 325 MG TABLET (FP) PO PRN (20:18)
[2017-05-11] MEDS: MAG HYDROX/AL HYDROX/SIMETH 30 ML UNIT-DOSE CUP PO PRN (20:21)
[2017-05-11] MEDS: NAPROXEN 500 MG TABLET (FP) PO SCH (21:47)
[2017-05-11] MEDS: DOCUSATE SODIUM 100 MG CAPSULE (FP) PO SCH (21:47)
[2017-05-11] MEDS: THIAMINE HCL 100 MG TABLET (FP) PO SCH (21:47)
[2017-05-11] MEDS: MICONAZOLE NITRATE 100 MG SUPP SUPP.VAG PV SCH (21:48)
[2017-05-11] MEDS: FERROUS SO4 325 MG TABLET (FP) PO SCH (21:48)
[2017-05-12] MEDS: ACETAMINOPHEN 325 MG TABLET (FP) PO PRN ×2 (06:09→17:11)
[2017-05-12] MEDS: PRENATAL VITAMINS W/ FOLIC ACID TABLET (FP) PO SCH (09:45)
[2017-05-12] MEDS: FERROUS SO4 325 MG TABLET (FP) PO SCH ×2 (09:45→21:46)
[2017-05-12] MEDS: PANTOPRAZOLE 40 MG TABLET (FP) PO SCH (09:45)
[2017-05-12] MEDS: NAPROXEN 500 MG TABLET (FP) PO SCH ×2 (09:46→21:48)
[2017-05-12] MEDS: FLUTICASONE PROP 0.05% 16 GM NASAL SPRAY NS SCH (09:46)
[2017-05-12] MEDS: LIDOCAINE 5% TOPICAL PATCH TP SCH (09:46)
--- NOTE | 2017-05-12 09:46 | HP ---
Psychiatrist Admission - Data Date of interview: 05/12/17 Admission source: [address] [place] [address] Identifying data: This is the second admission to [address] [place] [address] for this 46 yeaRS OLD AA FEMALE MOTHER OF 11 CHILDREN,UNDOMICILED ,SUPPORTED BY PA. Medical History: Significant for traits of sickle cell anemia. Psychiatric History: Patient reports some sleeping difficulties on and off.She was on Ambien 10 mg po hs prn for insomnia with good response.Patient is willing to start Belsomra 10 mg po hs as needed. Physical/Sexual Abuse/Trauma History: denies history of abuse. Vital Signs: Vital Signs - 24 hr 05/11/17 05/12/17 05/12/17 12:07 03:30 06:57 Temperature 98.1 F 98.4 F Pulse Rate 79 81 Respiratory 18 18 18 Rate Blood Pressure 100/65 100/67 Allergies/Adverse Reactions: Allergies Allergy/AdvReac Type Severity Reaction Status Date / Time No Known Allergies Allergy Verified 05/06/17 16:19 Date of last physical exam: 05/06/17 Concur with the findings of this exam: Yes - Substance Abuse/Tx History Hx Alcohol Use: No Hx Substance Use: Yes (crack/cocaine since 23 yo,heroin sniffing since 23 yo about 6 bags daily) Substance Use Type: Cocaine, Heroin Hx Substance Use Treatment: Yes (completed this program in Jul 2016) Mental Status Exam - Mental Status Exam Alert and Oriented to: Time, Place, Person Cognitive Function: Grossly Intact Patient Appearance: Unkempt Mood: Anxious Affect: Mood Congruent Patient Behavior: Cooperative Speech Pattern: Clear Voice Loudness: Normal Thought Process: Goal Oriented Thought Disorder: Not Present Hallucinations: Denies Suicidal Ideation: Denies Homicidal Ideation: Denies Insight/Judgement: Fair Sleep: Difficulty falling asleep Appetite: Good Muscle strength/Tone: Normal Gait/Station: Normal Psychiatric Findings - Problem List ([place] 1, 2,3) (1) Anemia Current Visit: Yes Status: Chronic Qualifiers: Anemia type: iron deficiency Iron deficiency anemia type: inadequate dietary iron intake Qualified Code(s): D50.8 - Other iron deficiency anemias Comment: LAB PENDING (2) Nicotine dependence Current Visit: Yes Status: Chronic Qualifiers: Nicotine product type: cigarettes Substance use status: uncomplicated Qualified Code(s): F17.210 - Nicotine dependence, cigarettes, uncomplicated (3) Substance-induced sleep disorder Current Visit: Yes Status: Chronic (4) Cocaine dependence Current Visit: Yes Status: Chronic (5) Opioid dependence Current Visit: Yes Status: Chronic - Initial Treatment Plan Initial Treatment Plan: Belsomra 10 mg po hs.Will monitor progress.
[2017-05-12 13:53] LABS: HIV 1 & 2 AB NEGATIVE; HIV 1 AGp24 NEGATIVE
[2017-05-12] MEDS ORDERED: FLUCONAZOLE 50 MG TABLET PO ONE (15:13)
[2017-05-12] MEDS: hydrOXYzine PAMOATE 50 MG CAPSULE (FP) PO PRN (17:12)
[2017-05-12] MEDS: THIAMINE HCL 100 MG TABLET (FP) PO SCH (21:45)
[2017-05-12] MEDS: DOCUSATE SODIUM 100 MG CAPSULE (FP) PO SCH (21:46)
[2017-05-12] MEDS: MICONAZOLE NITRATE 100 MG SUPP SUPP.VAG PV SCH (21:47)
[2017-05-12] MEDS ORDERED: SUVOREXANT 10 MG TABLET PO PRN (22:00)
[2017-05-13] MEDS: ACETAMINOPHEN 325 MG TABLET (FP) PO PRN ×2 (06:18→18:14)
[2017-05-13] MEDS: hydrOXYzine PAMOATE 50 MG CAPSULE (FP) PO PRN (08:30)
[2017-05-13] MEDS: LIDOCAINE 5% TOPICAL PATCH TP SCH (10:13)
[2017-05-13] MEDS: PANTOPRAZOLE 40 MG TABLET (FP) PO SCH (10:13)
[2017-05-13] MEDS: NAPROXEN 500 MG TABLET (FP) PO SCH ×2 (10:13→21:51)
[2017-05-13] MEDS: PRENATAL VITAMINS W/ FOLIC ACID TABLET (FP) PO SCH (10:14)
[2017-05-13] MEDS: FERROUS SO4 325 MG TABLET (FP) PO SCH ×2 (10:14→21:51)
[2017-05-13] MEDS: FLUTICASONE PROP 0.05% 16 GM NASAL SPRAY NS SCH (10:14)
[2017-05-13] MEDS: MAG HYDROX/AL HYDROX/SIMETH 30 ML UNIT-DOSE CUP PO PRN (18:14)
[2017-05-13] MEDS: MICONAZOLE NITRATE 100 MG SUPP SUPP.VAG PV SCH (21:51)
[2017-05-13] MEDS: DOCUSATE SODIUM 100 MG CAPSULE (FP) PO SCH (21:51)
[2017-05-13] MEDS: THIAMINE HCL 100 MG TABLET (FP) PO SCH (21:51)
[2017-05-14] MEDS: hydrOXYzine PAMOATE 50 MG CAPSULE (FP) PO PRN ×2 (07:00→16:47)
[2017-05-14] MEDS: ACETAMINOPHEN 325 MG TABLET (FP) PO PRN ×2 (07:00→16:48)
[2017-05-14] MEDS: FERROUS SO4 325 MG TABLET (FP) PO SCH ×2 (10:39→21:44)
[2017-05-14] MEDS: FLUTICASONE PROP 0.05% 16 GM NASAL SPRAY NS SCH (10:39)
[2017-05-14] MEDS: LIDOCAINE 5% TOPICAL PATCH TP SCH (10:40)
[2017-05-14] MEDS: PANTOPRAZOLE 40 MG TABLET (FP) PO SCH (10:40)
[2017-05-14] MEDS: PRENATAL VITAMINS W/ FOLIC ACID TABLET (FP) PO SCH (10:40)
[2017-05-14] MEDS: NAPROXEN 500 MG TABLET (FP) PO SCH ×2 (10:40→21:44)
[2017-05-14] MEDS: THIAMINE HCL 100 MG TABLET (FP) PO SCH (21:44)
[2017-05-14] MEDS: DOCUSATE SODIUM 100 MG CAPSULE (FP) PO SCH (21:44)
[2017-05-14] MEDS: MICONAZOLE NITRATE 100 MG SUPP SUPP.VAG PV SCH (21:45)
[2017-05-15] MEDS: ACETAMINOPHEN 325 MG TABLET (FP) PO PRN ×2 (07:42→17:48)
[2017-05-15] MEDS: FERROUS SO4 325 MG TABLET (FP) PO SCH ×2 (10:32→22:07)
[2017-05-15] MEDS: PANTOPRAZOLE 40 MG TABLET (FP) PO SCH (10:32)
[2017-05-15] MEDS: PRENATAL VITAMINS W/ FOLIC ACID TABLET (FP) PO SCH (10:32)
[2017-05-15] MEDS: hydrOXYzine PAMOATE 50 MG CAPSULE (FP) PO PRN ×2 (10:33→17:48)
[2017-05-15] MEDS: NAPROXEN 500 MG TABLET (FP) PO SCH ×2 (10:33→22:07)
[2017-05-15] MEDS: LIDOCAINE 5% TOPICAL PATCH TP SCH (10:45)
[2017-05-15] MEDS: FLUTICASONE PROP 0.05% 16 GM NASAL SPRAY NS SCH (10:46)
[2017-05-15] MEDS ORDERED: PT OWN MED DRAWER 7, Y5N ONE (10:47)
[2017-05-15] MEDS: THIAMINE HCL 100 MG TABLET (FP) PO SCH (22:07)
[2017-05-15] MEDS: MICONAZOLE NITRATE 100 MG SUPP SUPP.VAG PV SCH (22:07)
[2017-05-15] MEDS: DOCUSATE SODIUM 100 MG CAPSULE (FP) PO SCH (22:07)
[2017-05-15] MEDS: diphenhydrAMINE HCL 50 MG CAPSULE PO PRN (23:42)
[2017-05-16] MEDS: hydrOXYzine PAMOATE 50 MG CAPSULE (FP) PO PRN (07:09)
[2017-05-16] MEDS: ACETAMINOPHEN 325 MG TABLET (FP) PO PRN (07:09)
[2017-05-16 07:44] VITALS: TEMP 98.2
[2017-05-16] MEDS ORDERED: PT OWN MED DRAWER 7, Y5N ONE ×2 (08:38→19:39)
[2017-05-16] MEDS: PRENATAL VITAMINS W/ FOLIC ACID TABLET (FP) PO SCH (10:34)
[2017-05-16] MEDS: FERROUS SO4 325 MG TABLET (FP) PO SCH ×2 (10:34→21:36)
[2017-05-16] MEDS: FLUTICASONE PROP 0.05% 16 GM NASAL SPRAY NS SCH (10:35)
[2017-05-16] MEDS: PANTOPRAZOLE 40 MG TABLET (FP) PO SCH (10:35)
[2017-05-16] MEDS: NAPROXEN 500 MG TABLET (FP) PO SCH ×2 (10:35→21:36)
[2017-05-16] MEDS: LIDOCAINE 5% TOPICAL PATCH TP SCH (10:36)
[2017-05-16] MEDS: AMITRIPTYLINE HCL 25 MG TABLET (FP) PO SCH ×2 (13:34→21:36)
--- NOTE | 2017-05-16 13:39 | PN ---
Psychiatric Progress Note Vital Signs: Vital Signs Period Temp Pulse Resp BP Sys/Topete Pulse Ox Last 24 Hr 98.2 F 80 16-16 142/68 Date of Session: 05/16/17 Chief Complaint:: Eduardo still nervious during the day,cant sleep without medications." HPI: Patient addressed Opioid,Cocaine dependence comorbid with Substance induced mood disorder. Current Medications: Active Medications Generic Name Dose Route Start Last Admin Trade Name Freq PRN Reason Stop Dose Admin Acetaminophen 650 mg 05/11/17 13:05 05/16/17 07:09 Tylenol - PO 650 mg Q4H PRN Administration FEVER OR PAIN Al Hydroxide/Mg Hydroxide 30 ml 05/11/17 13:05 05/13/17 18:14 Mylanta Oral Suspension - PO 30 ml Q6H PRN Administration DYSPEPSIA Amitriptyline HCl 25 mg 05/16/17 14:00 Elavil - PO TID BABATUNDE Diphenhydramine HCl 50 mg 05/11/17 13:05 05/15/17 23:42 Benadryl - PO 50 mg HSMR1 PRN Administration FOR ITCHING Docusate Sodium 300 mg 05/11/17 22:00 05/15/17 22:07 Colace - PO Not Given HS BABATUNDE Ergocalciferol 50,000 unit 05/18/17 10:00 Drisdol - PO Q7D@1000 BABATUNDE Eucalyptus/Menthol/Phenol/Sorbitol 1 each 05/11/17 13:05 Cepastat Lozenge - MM Q4H PRN SORE THROAT Ferrous Sulfate 325 mg 05/11/17 22:00 05/16/17 10:34 Feosol - PO 325 mg BID BABATUNDE Administration Fluticasone Propionate 2 spray 05/12/17 10:00 05/16/17 10:35 Flonase - NS 2 spray DAILY BABATUNDE Administration Guaifenesin 10 ml 05/11/17 13:05 Robitussin Dm - PO Q6H PRN COUGH Hydroxyzine Pamoate 50 mg 05/11/17 13:05 05/16/17 07:09 Vistaril - PO 50 mg Q4H PRN Administration AGITATION Lidocaine 1 patch 05/12/17 10:00 05/16/17 10:36 Lidoderm Patch - TP 1 patch DAILY BABATUNDE Administration Loperamide HCl 4 mg 05/11/17 13:05 Imodium - PO Q6H PRN DIARRHEA Magnesium Hydroxide 30 ml 05/11/17 13:05 Milk Of Magnesia - PO DAILY PRN CONSTIPATION Miconazole Nitrate 100 mg 05/11/17 22:00 05/15/17 22:07 Monistat-7 Vaginal Suppository - PV Not Given HS BABATUNDE Naproxen 500 mg 05/11/17 22:00 05/16/17 10:35 Naprosyn - PO 500 mg BID BABATUNDE Administration Nicotine Polacrilex 2 mg 05/11/17 13:05 Nicorette Gum - BUC Q2H PRN NICOTINE REPLACEMENT RX Pantoprazole Sodium 40 mg 05/12/17 10:00 05/16/17 10:35 Protonix - PO 40 mg DAILY BABATUNDE Administration Multivit/Folic Acid/Iron 1 tab 05/12/17 10:00 05/16/17 10:34 Vitamins (Sjr) - PO 1 tab DAILY BABATUNDE Administration Pseudoephedrine/Triprolidine 1 combo 05/11/17 13:05 Actifed - PO TID PRN NASAL CONGESTION Thiamine HCl 100 mg 05/11/17 22:00 05/15/17 22:07 Vitamin B1 - PO Not Given HS [facility] Current Side Effect: No Lab tests ordered: No Lab tests reviewed: Yes Provider note:: Start Elavil 25 mg po tid,continue Belsomra 10 mg po hs. Total face to face time:: 30 Psychiatric Treatment Plan - Problem List (1) Anemia Current Visit: Yes Qualifiers: Anemia type: iron deficiency Iron deficiency anemia type: inadequate dietary iron intake Qualified Code(s): D50.8 - Other iron deficiency anemias Comment: LAB PENDING (2) Nicotine dependence Current Visit: Yes Qualifiers: Nicotine product type: cigarettes Substance use status: uncomplicated Qualified Code(s): F17.210 - Nicotine dependence, cigarettes, uncomplicated (3) Substance-induced sleep disorder Current Visit: Yes (4) Cocaine dependence Current Visit: Yes (5) Opioid dependence Current Visit: Yes
[2017-05-16] MEDS: DOCUSATE SODIUM 100 MG CAPSULE (FP) PO SCH (21:35)
[2017-05-16] MEDS: THIAMINE HCL 100 MG TABLET (FP) PO SCH (21:35)
[2017-05-16] MEDS: diphenhydrAMINE HCL 50 MG CAPSULE PO PRN (21:36)
[2017-05-16] MEDS: MICONAZOLE NITRATE 100 MG SUPP SUPP.VAG PV SCH (21:54)
[2017-05-16] MEDS ORDERED: SUVOREXANT 10 MG TABLET PO PRN (22:00)
[2017-05-17] MEDS: AMITRIPTYLINE HCL 25 MG TABLET (FP) PO SCH (07:00)
[2017-05-17 07:12] VITALS: BP 124/81; PULSE 89
[2017-05-17] MEDS: ACETAMINOPHEN 325 MG TABLET (FP) PO PRN (08:34)
[2017-05-17] MEDS ORDERED: PT OWN MED DRAWER 7, Y5N ONE ×2 (08:50→11:20)
[2017-05-17] MEDS: NAPROXEN 500 MG TABLET (FP) PO SCH (09:40)
[2017-05-17] MEDS: FLUTICASONE PROP 0.05% 16 GM NASAL SPRAY NS SCH (09:40)
[2017-05-17] MEDS: FERROUS SO4 325 MG TABLET (FP) PO SCH (09:40)
[2017-05-17] MEDS: LIDOCAINE 5% TOPICAL PATCH TP SCH (09:41)
[2017-05-17] MEDS: PRENATAL VITAMINS W/ FOLIC ACID TABLET (FP) PO SCH (09:41)
[2017-05-17] MEDS: PANTOPRAZOLE 40 MG TABLET (FP) PO SCH (09:41)
[2017-05-18] MEDS ORDERED: ERGOCALCIFEROL (VITAMIN D2) 50,000 UNIT CAPSULE (FP) PO SCH (10:00)
== END 2017-05-17 11:32 | disposition left against medical advice (07) | DRG 770 ==
LOC: YASAS 11:42 → Y3E 11:43 → Y6N 05-15 08:58 → Y3E 05-15 09:01
PROVIDERS: ADMIT Psychiatry & Neurology Psychiatry; ATTEND Psychiatry & Neurology Psychiatry
PROC: HZ42ZZZ Group Counseling for Substance Abuse Treatment, Cognitive-Behavioral (ICD-10-PCS; principal; 2017-05-11)
DX: F11.20 Opioid dependence, uncomplicated (principal); F14.20 Cocaine dependence, uncomplicated; F17.210 Nicotine dependence, cigarettes, uncomplicated; F19.282 Other psychoactive substance dependence with psychoactive substance-induced sleep disorder; F32.9 Major depressive disorder, single episode, unspecified; D50.8 Other iron deficiency anemias
CPT/HCPCS: 36415; 87389

== ENCOUNTER 2017-06-30 11:08 | Inpatient (IN) | payer OTHER ==
[2017-06-30 12:01] VITALS: BMI 19.2
--- NOTE | 2017-06-30 15:00 | HP ---
COWS - Scale Resting Pulse: 0= [place] 80 or Below Sweatin=Flushed/Facial Moisture Restless Observation: 3= Extraneous Movement Pupil Size: 2= Moderately Dilated Bone or Joint Aches: 2= Severe Diffuse Aches Runny Nose/ Eye Tearin= Runny Nose/Eyes GI Upset > 30mins: 3= Vomiting/Diarrhea Tremor Observation: 2= Slight Tremor Visible Yawning Observation: 2= >3x During Session Anxiety or Irritability: 2=Irritable/Anxious Goose Flesh Skin: 0=Smooth Skin COWS Score: 20 Admission ROS S - HPI Chief Complaint: I AM HERE NEED HELP TO STOP USING HEROIN AND COCAINE Allergies/Adverse Reactions: Allergies Allergy/AdvReac Type Severity Reaction Status Date / Time No Known Allergies Allergy Verified 06/30/17 14:54 History of Present Illness: THIS 46 YEARS OLD FEMALE WITH HEROIN AND COCAINE DEPENDENCE,SEEKING DETOX,LAST TREATMENT [facility] 05/11/17 TO 05/17/17 ANEMIA DEPRESSION WEIGHT LOSS LONGEST PERIOD OF SOBRIETY 8 AND HALF YEARS Exam Limitations: No Limitations - Ebola screening Have you traveled outside of the country in the last 21 days: No (N) Have you had contact with anyone from an Ebola affected area: No Have you been sick,other than usual withdrawal symptoms: No Do you have a fever: No - Review of Systems Constitutional: Chills, Loss of Appetite, Malaise, Night Sweats, Changes in sleep, Weakness, Unintentional Wgt. Loss EENT: reports: Tearing, Nose Congestion Respiratory: reports: No Symptoms reported Cardiac: reports: Palpitations GI: reports: Diarrhea, Nausea, Vomiting, Abdominal cramping : reports: No Symptoms Reported Musculoskeletal: reports: Back Pain, Muscle Pain Integumentary: reports: Dryness Neuro: reports: Headache, Tremors Endocrine: reports: No Symptoms Reported Hematology: reports: No Symptoms Reported Psychiatric: reports: No Sypmtoms Reported, Judgement Intact, Mood/Affect Appropiate, Depressed Patient History - Patient Medical History Hx Anemia: Yes (ALSO " I HAVE SICKLE CELL TRAIT".) Hx Asthma: No Hx Chronic Obstructive Pulmonary Disease (COPD): No Hx Cancer: No Hx Cardiac Disorders: No Hx Congestive Heart Failure: No Hx Hypertension: No Hx Hypercholesterolemia: No Hx Pacemaker: No HX Cerebrovascular Accident: No Hx Seizures: No Hx Dementia: No Hx Diabetes: No Hx Gastrointestinal Disorders: No Hx Liver Disease: No Hx Genitourinary Disorders: No Hx Sexually Transmitted Disorders: No Hx Renal Disease (ESRD): No Hx Thyroid Disease: No Hx Human Immunodeficiency Virus (HIV): No (NEGATIVE HX 05/04) Hx Hepatitis C: No Hx Depression: Yes (NO MED) Hx Suicide Attempt: No Hx Bipolar Disorder: No Hx Schizophrenia: No Other Medical History: NO SUICIDAL,NO HOMICIDAL - Patient Surgical History Past Surgical History: No Hx Neurologic Surgery: No Hx Cataract Extraction: No Hx Cardiac Surgery: No Hx Lung Surgery: No Hx Breast Surgery: No Hx Breast Biopsy: No Hx Abdominal Surgery: No Hx Appendectomy: No Hx Cholecystectomy: No Hx Genitourinary Surgery: No Hx Section: No Hx Orthopedic Surgery: No Hx Hysterectomy: No Anesthesia Reaction: No - PPD History Previous Implant?: Yes Documented Results: Negative w/proof Date: 07/26/16 Results: 0mm PPD to be Administered?: No - Reproductive History Patient is a Female of Child Bearing Age (11 -55 yrs old): Yes Last Menstrual Period: 05/05/17 Patient : No - Smoking Cessation Smoking history: Current every day smoker Have you smoked in the past 12 months: Yes Aproximately how many cigarettes per day: 6 Cigars Per Day: 0 Hx Chewing Tobacco Use: No Initiated information on smoking cessation: Yes 'Breaking Loose' booklet given: 06/30/17 - Substances Abused Heroin Route: Inhalation Frequency: Daily Amount used: 6-7 BAGS Age of first use: 23 Date of Last Use: 06/29/17 Crack Route: Smoking Frequency: Daily Amount used: $60 Age of first use: 23 Date of Last Use: 06/29/17 Family Disease History - Family Disease History Family Disease History: Respiratory: Brother, Sister Admission Physical Exam BHS - Vital Signs Vital Signs: Vital Signs - 24 hr 06/30/17 11:58 Temperature 96.5 F L Pulse Rate 73 Respiratory 18 Rate Blood Pressure 117/65 - Physical General Appearance: Yes: Moderate Distress, Tremorous, Irritable, Sweating, Anxious HEENTM: Yes: Normal ENT Inspection, MAREN, Pharynx Normal Respiratory: Yes: Lungs Clear, Normal Breath Sounds, No Respiratory Distress Neck: Yes: Within Normal Limits, Supple, Trachea in good position Breast: Yes: Within Normal Limits Cardiology: Yes: Within Normal Limits, Regular Rhythm, Regular Rate, S1, S2 Abdominal: Yes: Within Normal Limits, Normal Bowel Sounds, Non Tender, Flat, Soft Genitourinary: Yes: Within Normal Limits Back: Yes: Within Normal Limits, Muscle Spasm Musculoskeletal: Yes: Back pain, Joint Stiffness, Muscle Pain Extremities: Yes: Within Normal Limits, Normal Range of Motion, Tremors 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, Fully Oriented, Alert, Motor Strength 5/5 Integumentary: Yes: Dry Lymphatic: Yes: Within Normal Limits - Diagnostic (1) Anemia Current Visit: No Status: Chronic Qualifiers: Anemia type: iron deficiency Iron deficiency anemia type: inadequate dietary iron intake Qualified Code(s): D50.8 - Other iron deficiency anemias Comment: LAB PENDING (2) Cocaine dependence, uncomplicated Current Visit: No Status: Chronic (3) Nicotine dependence Current Visit: No Status: Chronic Qualifiers: Nicotine product type: cigarettes Substance use status: uncomplicated Qualified Code(s): F17.210 - Nicotine dependence, cigarettes, uncomplicated (4) Opioid dependence with withdrawal Current Visit: No Status: Chronic (5) Depression Current Visit: Yes Status: Acute Cleared for Admission [facility] - Detox or Rehab [facility] Level of Care: Medically Managed Detox Regimen/Protocol: Methadone [facility] Breath Alcohol Content Breath Alcohol Content: 0 Urine Pregancy Test - Result Urine Test Results: Negative- NO Line Present Urine Drug Screen - Results Drug Screen Negative: No Urine Drug Screen Results: EMILY-Cocaine, OPI-Opiates
[2017-06-30] MEDS ORDERED: NICOTINE POLACRILEX 2 MG GUM BUC PRN (15:17)
[2017-06-30] MEDS ORDERED: P-EPHED 60MG/TRIPROLIDI 2.5MG TABLET PO PRN (15:17)
[2017-06-30] MEDS ORDERED: MAGNESIUM HYDROX 2400MG/30ML ORAL SUSPENSION 30 ML CUP PO PRN (15:17)
[2017-06-30] MEDS ORDERED: MENTHOL/PHENOL 1 EACH UD MM PRN (15:17)
[2017-06-30] MEDS ORDERED: MAG HYDROX/AL HYDROX/SIMETH 30 ML UNIT-DOSE CUP PO PRN (15:17)
[2017-06-30] MEDS ORDERED: LOPERAMIDE HCL 2 MG CAPSULE PO PRN (15:17)
[2017-06-30] MEDS ORDERED: MAGNESIUM CITRATE 300 ML BOTTLE PO PRN (15:17)
[2017-06-30] MEDS ORDERED: guaiFENesin/D-METHORPHAN HB 10 ML UNIT-DOSE CUPS PO PRN (15:17)
[2017-06-30] MEDS ORDERED: METHADONE HCL 10 MG TABLET (FOR DETOX USE ONLY) PO ONE ×2 (15:26→23:00)
[2017-06-30 17:34] LABS: URINE APPEARANCE SLCLOUDY; URINE BILIRUBIN NEGATIVE (NEGATIVE); URINE BLOOD 1+ (NEGATIVE); URINE COLOR YELLOW; URINE GLUCOSE (UA) NEGATIVE (NEGATIVE); URINE KETONE NEGATIVE (NEGATIVE); URINE NITRITE NEGATIVE (NEGATIVE); URINE PROTEIN NEGATIVE (NEGATIVE); URINE UROBILINOGEN NEGATIVE mg/dL (0.2-1.0)
[2017-06-30 17:44] LABS: URINE BACTERIA RARE /hpf (NONE SEEN); URINE MUCUS RARE; URINE RBC 3; URINE WBC 3
[2017-06-30] MEDS ORDERED: METHADONE HCL 10 MG TABLET (FOR DETOX USE ONLY) ONE (18:13)
[2017-06-30] MEDS: diazePAM 5 MG TABLET PO PRN (18:23)
[2017-06-30 20:17] LABS: URINE LEUK ESTERASE Negative (NEGATIVE)
[2017-06-30] MEDS: FERROUS SO4 325 MG TABLET (FP) PO SCH (22:19)
[2017-06-30] MEDS: THIAMINE HCL 100 MG TABLET (FP) PO SCH (22:19)
[2017-07-01 09:57] LABS: MCH 29.7 pg (25.7-33.7); MCHC 33.1 g/dl (32.0-36.0); MEAN CELL VOLUME 89.9 fl (80-96); MEAN PLT VOLUME 9.5 fl (7.5-11.1); PLATELET COUNT 218 K/MM3 (134-434); RDW 14.8 % (11.6-15.6); WHITE BLOOD COUNT 4.5 K/mm3 (4.0-10.0)
[2017-07-01] MEDS ORDERED: METHADONE HCL 10 MG TABLET (FOR DETOX USE ONLY) PO ONE (10:00)
[2017-07-01 10:07] LABS: ALBUMIN 3.7 g/dl (3.4-5.0); ANION GAP 6 (8-16); BILIRUBIN,TOTAL 0.4 mg/dL (0.2-1.0); CALCIUM 8.4 mg/dL (8.5-10.1); CO2 27 mmol/L (21-32); CREATININE 0.7 mg/dL (0.55-1.02); GLUCOSE,RANDOM 118 mg/dL (74-106); SGOT/AST 11 U/L (15-37); SGPT/ALT 23 U/L (12-78); TOT PROT 6.5 g/dl (6.4-8.2)
[2017-07-01 10:08] LABS: ALK PHOS 70 U/L (45-117)
[2017-07-01] MEDS: diazePAM 5 MG TABLET PO PRN (10:25)
[2017-07-01] MEDS: FERROUS SO4 325 MG TABLET (FP) PO SCH ×2 (10:25→22:34)
[2017-07-01] MEDS: IBUPROFEN 400 MG TABLET (FP) PO PRN (10:25)
[2017-07-01] MEDS: PRENATAL VITAMINS W/ FOLIC ACID TABLET (FP) PO SCH (10:25)
--- NOTE | 2017-07-01 13:38 | CONSULT ---
[facility] Psychiatric Consult - Data Date of interview: 07/01/17 Admission source: [facility] Identifying data: Readmission to [facility] for this 46 y/o AA female seeking detox treatment on for heroin and cocaine dependence.Patient is ,a mother of eleven,homeless,unemployed and supported on food stamps. Substance Abuse History: Ms Canseco admits to actice use of crack/cocaine and heroin. Smoking history: Current every day smoker. Have you smoked in the past 12 months: Yes. Aproximately how many cigarettes per day: 6. Cigars Per Day: 0. Hx Chewing Tobacco Use: No. Initiated information on smoking cessation : Yes. 'Breaking Loose' booklet given: 06/30/17. - Substances Abused. Heroin. Route: Inhalation. Frequency: Daily. Amount used: 6-7 BAGS. Age of first use: 23. Date of Last Use: 06/29/17. Crack. Route: Smoking. Frequency: Daily. Amount used: $60. Age of first use: 23. Date of Last Use: 06/29/17 Medical History: Noted history of sickle cell trait. Psychiatric History: Patient admits to a remote history of a psychiatric hospitalization at [facility].Diagnosed at the time with MDD.No recollection of prescribed medications.No OPD care.Ms Canseco reports no connection with mental healthcare providers for several years.Denies history of suicide attempts. Physical/Sexual Abuse/Trauma History: Patient denies. Additional Comment: Urine Drug Screen Results: EMILY-Cocaine, OPI-Opiates.Noted. Mental Status Exam - Mental Status Exam Alert and Oriented to: Time, Place, Person Cognitive Function: Grossly Intact Patient Appearance: Well Groomed Mood: Nervous, Withdrawn Affect: Mood Congruent Patient Behavior: Fatigued, Appropriate, Cooperative Speech Pattern: Clear Voice Loudness: Normal Thought Process: Intact, Goal Oriented Thought Disorder: Not Present Hallucinations: Denies Suicidal Ideation: Denies Homicidal Ideation: Denies Insight/Judgement: Poor Sleep: Well Appetite: Good Muscle strength/Tone: Normal Gait/Station: Normal Psychiatric Findings - Problem List ([place] 1, 2,3) (1) Opioid dependence with withdrawal Current Visit: Yes Status: Acute (2) Cocaine dependence, uncomplicated Current Visit: Yes Status: Acute (3) Nicotine dependence Current Visit: Yes Status: Acute Qualifiers: Nicotine product type: cigarettes Substance use status: uncomplicated Qualified Code(s): F17.210 - Nicotine dependence, cigarettes, uncomplicated - Initial Treatment Plan Initial Treatment Plan: Psychoeducation.Detoxification.Observation.
[2017-07-01] MEDS: THIAMINE HCL 100 MG TABLET (FP) PO SCH (22:34)
[2017-07-02] MEDS ORDERED: METHADONE HCL 5 MG TABLET (FOR DETOX USE ONLY) PO ONE (10:00)
[2017-07-02] MEDS: PRENATAL VITAMINS W/ FOLIC ACID TABLET (FP) PO SCH (10:41)
[2017-07-02] MEDS: diazePAM 5 MG TABLET PO PRN ×3 (10:41→22:13)
[2017-07-02] MEDS: FERROUS SO4 325 MG TABLET (FP) PO SCH ×2 (10:43→22:12)
--- NOTE | 2017-07-02 11:14 | PN ---
BHS COWS - Scale Resting Pulse: 1= [place] 81-100 Sweatin=Flushed/Facial Moisture Restless Observation: 1= Difficult to Sit Still Pupil Size: 0= Normal to Room Light Bone or Joint Aches: 2= Severe Diffuse Aches Runny Nose/ Eye Tearin= Runny Nose/Eyes GI Upset > 30mins: 2= Nausea/Diarrhea Tremor Observation of Outstretched Hands: 2= Slight Tremor Visible Yawning Observation: 2= >3x During Session Anxiety or Irritability: 2=Irritable/Anxious Goose Flesh Skin: 0=Smooth Skin COWS Score: 16 BHS Progress Note (SOAP) Subjective: sweats shakes interrupted sleep agitation Objective: 07/02/17 11:14 Vital Signs Temperature 97.8 F 07/02/17 10:07 Pulse Rate 85 07/02/17 10:07 Respiratory Rate 18 07/02/17 10:07 Blood Pressure 104/74 07/02/17 10:07 O2 Sat by Pulse Oximetry (%) Laboratory Tests 06/30/17 07/01/17 07/01/17 15:30 05:45 05:45 WBC 4.5 RBC 3.82 Hgb 11.4 Hct 34.4 MCV 89.9 MCH 29.7 MCHC 33.1 RDW 14.8 Plt Count 218 MPV 9.5 Sodium 142 Potassium 3.9 Chloride 109 H Carbon Dioxide 27 Anion Gap 6 L BUN 13 D Creatinine 0.7 Creat Clearance w eGFR > 60 Random Glucose 118 H Calcium 8.4 L Total Bilirubin 0.4 AST 11 L D ALT 23 Alkaline Phosphatase 70 Total Protein 6.5 Albumin 3.7 D Urine Color Yellow Urine Appearance Slcloudy Urine pH 5.0 D Ur Specific [place] 1.015 Urine Protein Negative Urine Glucose (UA) Negative Urine Ketones Negative Urine Blood 1+ H Urine Nitrite Negative Urine Bilirubin Negative Urine Urobilinogen Negative Ur Leukocyte Esterase Negative Urine WBC (Auto) 3 Urine RBC (Auto) 3 Ur Epithelial Cells Rare Urine Bacteria Rare Urine Mucus Rare RPR Titer 07/01/17 05:45 WBC RBC Hgb Hct MCV MCH MCHC RDW Plt Count MPV Sodium Potassium Chloride Carbon Dioxide Anion Gap BUN Creatinine Creat Clearance w eGFR Random Glucose Calcium Total Bilirubin AST ALT Alkaline Phosphatase Total Protein Albumin Urine Color Urine Appearance Urine pH Ur Specific [place] Urine Protein Urine Glucose (UA) Urine Ketones Urine Blood Urine Nitrite Urine Bilirubin Urine Urobilinogen Ur Leukocyte Esterase Urine WBC (Auto) Urine RBC (Auto) Ur Epithelial Cells Urine Bacteria Urine Mucus RPR Titer Nonreactive
--- NOTE | 2017-07-02 11:18 | PN ---
BHS COWS - Scale Resting Pulse: 1= [place] 81-100 Sweatin=Flushed/Facial Moisture Restless Observation: 1= Difficult to Sit Still Pupil Size: 0= Normal to Room Light Bone or Joint Aches: 2= Severe Diffuse Aches Runny Nose/ Eye Tearin= Runny Nose/Eyes GI Upset > 30mins: 0= None Tremor Observation of Outstretched Hands: 2= Slight Tremor Visible Yawning Observation: 2= >3x During Session Anxiety or Irritability: 2=Irritable/Anxious Goose Flesh Skin: 0=Smooth Skin COWS Score: 14 BHS Progress Note (SOAP) Subjective: agitation anxiety sweats shakes body aches interrupted sleep Objective: 07/01/17 11:17 Vital Signs - 24 hr 07/01/17 07/01/17 07/01/17 13:13 17:46 21:46 Temperature 95.9 F L 96.8 F L 99.2 F Pulse Rate 87 76 84 Respiratory 18 18 18 Rate Blood Pressure 110/75 100/61 112/70 07/02/17 07/02/17 07/02/17 00:30 06:28 10:07 Temperature 98 F 97.8 F Pulse Rate 74 85 Respiratory 18 18 18 Rate Blood Pressure 117/66 104/74 Laboratory Tests 06/30/17 07/01/17 07/01/17 15:30 05:45 05:45 WBC 4.5 RBC 3.82 Hgb 11.4 Hct 34.4 MCV 89.9 MCH 29.7 MCHC 33.1 RDW 14.8 Plt Count 218 MPV 9.5 Sodium 142 Potassium 3.9 Chloride 109 H Carbon Dioxide 27 Anion Gap 6 L BUN 13 D Creatinine 0.7 Creat Clearance w eGFR > 60 Random Glucose 118 H Calcium 8.4 L Total Bilirubin 0.4 AST 11 L D ALT 23 Alkaline Phosphatase 70 Total Protein 6.5 Albumin 3.7 D Urine Color Yellow Urine Appearance Slcloudy Urine pH 5.0 D Ur Specific [place] 1.015 Urine Protein Negative Urine Glucose (UA) Negative Urine Ketones Negative Urine Blood 1+ H Urine Nitrite Negative Urine Bilirubin Negative Urine Urobilinogen Negative Ur Leukocyte Esterase Negative Urine WBC (Auto) 3 Urine RBC (Auto) 3 Ur Epithelial Cells Rare Urine Bacteria Rare Urine Mucus Rare RPR Titer 07/01/17 05:45 WBC RBC Hgb Hct MCV MCH MCHC RDW Plt Count MPV Sodium Potassium Chloride Carbon Dioxide Anion Gap BUN Creatinine Creat Clearance w eGFR Random Glucose Calcium Total Bilirubin AST ALT Alkaline Phosphatase Total Protein Albumin Urine Color Urine Appearance Urine pH Ur Specific [place] Urine Protein Urine Glucose (UA) Urine Ketones Urine Blood Urine Nitrite Urine Bilirubin Urine Urobilinogen Ur Leukocyte Esterase Urine WBC (Auto) Urine RBC (Auto) Ur Epithelial Cells Urine Bacteria Urine Mucus RPR Titer Nonreactive Assessment: 07/01/17 11:18 withdrawal sx Plan: continue detox increase fluids
--- NOTE | 2017-07-02 12:13 | EKG ---
Test Reason : Blood Pressure : / mmHG Vent. Rate : 083 BPM Atrial Rate : 083 BPM P-R Int : 132 ms QRS Dur : 082 ms QT Int : 360 ms P-R-T Axes : -18 078 041 degrees QTc Int : 423 ms NORMAL SINUS RHYTHM NONSPECIFIC T WAVE ABNORMALITY ABNORMAL ECG WHEN COMPARED WITH ECG OF 30-JUN-2017 18:43, PREMATURE VENTRICULAR COMPLEXES ARE NO LONGER PRESENT T WAVE INVERSION NOW EVIDENT IN INFERIOR LEADS Confirmed by IZABEL SALGADO MD ([id number]) on 07/02/2017 12:13:28 PM Referred By: Confirmed By:IZABEL SALGADO MD
--- NOTE | 2017-07-02 12:14 | EKG ---
Test Reason : Blood Pressure : / mmHG Vent. Rate : 063 BPM Atrial Rate : 063 BPM P-R Int : 148 ms QRS Dur : 088 ms QT Int : 448 ms P-R-T Axes : 033 075 068 degrees QTc Int : 458 ms SINUS RHYTHM WITH OCCASIONAL PREMATURE VENTRICULAR COMPLEXES ABNORMAL ECG WHEN COMPARED WITH ECG OF 06-MAY-2017 16:40, PREMATURE VENTRICULAR COMPLEXES ARE NOW PRESENT Confirmed by DAMIAN GUEVARA, IZABEL ([id number]) on 07/02/2017 12:14:16 PM Referred By: Confirmed By:IZABEL SALGADO MD
[2017-07-02] MEDS: IBUPROFEN 400 MG TABLET (FP) PO PRN (12:50)
[2017-07-02] MEDS: THIAMINE HCL 100 MG TABLET (FP) PO SCH (22:12)
[2017-07-03] MEDS: diazePAM 5 MG TABLET PO PRN (07:18)
[2017-07-03] MEDS: IBUPROFEN 400 MG TABLET (FP) PO PRN (07:18)
[2017-07-03] MEDS ORDERED: METHADONE HCL 5 MG TABLET (FOR DETOX USE ONLY) PO ONE (10:00)
[2017-07-03] MEDS: PRENATAL VITAMINS W/ FOLIC ACID TABLET (FP) PO SCH (10:32)
[2017-07-03] MEDS: FERROUS SO4 325 MG TABLET (FP) PO SCH ×2 (10:33→22:16)
[2017-07-03] MEDS: ACETAMINOPHEN 325 MG TABLET (FP) PO PRN (10:34)
[2017-07-03] MEDS: IBUPROFEN 600 MG TABLET (FP) PO PRN ×2 (12:00→22:16)
--- NOTE | 2017-07-03 13:30 | PN ---
BHS COWS - Scale Resting Pulse: 1= [place] 81-100 Sweatin= Chills/Flushing Restless Observation: 3= Extraneous Movement Pupil Size: 1= Pupils >than Normal Bone or Joint Aches: 2= Severe Diffuse Aches Runny Nose/ Eye Tearin= Runny Nose/Eyes GI Upset > 30mins: 2= Nausea/Diarrhea Tremor Observation of Outstretched Hands: 2= Slight Tremor Visible Yawning Observation: 1= 1-2x During Session Anxiety or Irritability: 2=Irritable/Anxious Goose Flesh Skin: 0=Smooth Skin COWS Score: 17 BHS Progress Note (SOAP) Subjective: ALERT,IRRITABLE,ANXIOUS,INTERRUPTED SLEEP,TREMOR,PAIN IN THE BODY AND BACK Objective: 07/03/17 13:28 Vital Signs Temperature 98.2 F 07/03/17 10:45 Pulse Rate 97 H 07/03/17 10:45 Respiratory Rate 18 07/03/17 10:45 Blood Pressure 130/85 07/03/17 10:45 O2 Sat by Pulse Oximetry (%) Assessment: 07/03/17 13:28 WITHDRAWAL SYMPTOM Plan: CONTINUE DETOX,LOW BACK PAIN,MOTRIN INCEASE TO 600 MGS PO Q 6HRS PRN FOR PAIN
[2017-07-03] MEDS: THIAMINE HCL 100 MG TABLET (FP) PO SCH (22:16)
[2017-07-03] MEDS: hydrOXYzine PAMOATE 25 MG CAPSULE (FP) PO PRN (22:16)
[2017-07-04] MEDS ORDERED: METHADONE HCL 10 MG TABLET (FOR DETOX USE ONLY) PO ONE (10:00)
[2017-07-04] MEDS: PRENATAL VITAMINS W/ FOLIC ACID TABLET (FP) PO SCH (10:30)
[2017-07-04] MEDS: FERROUS SO4 325 MG TABLET (FP) PO SCH ×2 (10:30→22:07)
[2017-07-04] MEDS: IBUPROFEN 600 MG TABLET (FP) PO PRN (10:31)
[2017-07-04] MEDS: hydrOXYzine PAMOATE 25 MG CAPSULE (FP) PO PRN ×3 (10:32→22:07)
--- NOTE | 2017-07-04 10:32 | PN ---
BHS Progress Note (SOAP) Subjective: interrupted sleep, sweats, upset stomach Objective: 07/04/17 10:30 Vital Signs Temperature 98.1 F 07/04/17 06:09 Pulse Rate 78 07/04/17 06:09 Respiratory Rate 18 07/04/17 06:09 Blood Pressure 102/57 07/04/17 06:09 O2 Sat by Pulse Oximetry (%) Laboratory Tests 06/30/17 07/01/17 07/01/17 15:30 05:45 05:45 WBC 4.5 RBC 3.82 Hgb 11.4 Hct 34.4 MCV 89.9 MCH 29.7 MCHC 33.1 RDW 14.8 Plt Count 218 MPV 9.5 Sodium 142 Potassium 3.9 Chloride 109 H Carbon Dioxide 27 Anion Gap 6 L BUN 13 D Creatinine 0.7 Creat Clearance w eGFR > 60 Random Glucose 118 H Calcium 8.4 L Total Bilirubin 0.4 AST 11 L D ALT 23 Alkaline Phosphatase 70 Total Protein 6.5 Albumin 3.7 D Urine Color Yellow Urine Appearance Slcloudy Urine pH 5.0 D Ur Specific [place] 1.015 Urine Protein Negative Urine Glucose (UA) Negative Urine Ketones Negative Urine Blood 1+ H Urine Nitrite Negative Urine Bilirubin Negative Urine Urobilinogen Negative Ur Leukocyte Esterase Negative Urine WBC (Auto) 3 Urine RBC (Auto) 3 Ur Epithelial Cells Rare Urine Bacteria Rare Urine Mucus Rare RPR Titer 07/01/17 05:45 WBC RBC Hgb Hct MCV MCH MCHC RDW Plt Count MPV Sodium Potassium Chloride Carbon Dioxide Anion Gap BUN Creatinine Creat Clearance w eGFR Random Glucose Calcium Total Bilirubin AST ALT Alkaline Phosphatase Total Protein Albumin Urine Color Urine Appearance Urine pH Ur Specific [place] Urine Protein Urine Glucose (UA) Urine Ketones Urine Blood Urine Nitrite Urine Bilirubin Urine Urobilinogen Ur Leukocyte Esterase Urine WBC (Auto) Urine RBC (Auto) Ur Epithelial Cells Urine Bacteria Urine Mucus RPR Titer Nonreactive pt aox3, lying in bed irritable Assessment: 07/04/17 10:31 withdrawal sx's Plan: cont. detox increase fluids vistaril 25mg prn
[2017-07-04] MEDS: THIAMINE HCL 100 MG TABLET (FP) PO SCH (22:07)
[2017-07-05] MEDS ORDERED: METHADONE HCL 5 MG TABLET (FOR DETOX USE ONLY) PO ONE (06:00)
[2017-07-05] MEDS: ACETAMINOPHEN 325 MG TABLET (FP) PO PRN (07:01)
[2017-07-05] MEDS: FERROUS SO4 325 MG TABLET (FP) PO SCH (09:45)
[2017-07-05] MEDS: PRENATAL VITAMINS W/ FOLIC ACID TABLET (FP) PO SCH (09:45)
--- NOTE | 2017-07-05 10:35 | DS ---
[facility] Detox Discharge Summary Admission Date: 06/30/17 Discharge Date: 07/05/17 - History Present History: Cocaine Dependence, Opioid Dependence - Physical Exam Results Vital Signs: Vital Signs Temperature 97.9 F 07/05/17 06:00 Pulse Rate 78 07/05/17 06:00 Respiratory Rate 18 07/05/17 06:00 Blood Pressure 122/70 07/05/17 06:00 O2 Sat by Pulse Oximetry (%) - Medication Discharge Medications: Ambulatory Orders Ergocalciferol [Vitamin D2] 50,000 unit PO Q7D@1000 #7 capsule 08/01/16 Ferrous Sulfate [Feosol] 325 mg PO BID #60 ud 08/01/16
[2017-07-05 10:57] VITALS: BP 115/63; PULSE 93; TEMP 98.2
[2017-07-07] MEDS ORDERED: ERGOCALCIFEROL (VITAMIN D2) 50,000 UNIT CAPSULE (FP) PO SCH ×2 (10:00)
== END 2017-07-05 10:13 | disposition home or self-care (01) | DRG 773 ==
LOC: YASAS 11:08 → Y6N 14:30
PROVIDERS: ADMIT Internal Medicine; ATTEND Internal Medicine
PROC: HZ2ZZZZ Detoxification Services for Substance Abuse Treatment (ICD-10-PCS; principal; 2017-06-30)
DX: F11.23 Opioid dependence with withdrawal (principal); F14.20 Cocaine dependence, uncomplicated; F17.210 Nicotine dependence, cigarettes, uncomplicated; F32.9 Major depressive disorder, single episode, unspecified; D57.3 Sickle-cell trait
CPT/HCPCS: 36415; 80053; 81003; 81015; 85027; 86593; 93005; 93010

== ENCOUNTER 2017-08-03 08:35 | Inpatient (IN) | payer OTHER ==
[2017-08-03 10:33] VITALS: BMI 19.7
--- NOTE | 2017-08-03 11:39 | HP ---
COWS - Scale Resting Pulse: 0= [place] 80 or Below Sweatin= Chills/Flushing Restless Observation: 3= Extraneous Movement Pupil Size: 1= Pupils >than Normal Bone or Joint Aches: 2= Severe Diffuse Aches Runny Nose/ Eye Tearin= Runny Nose/Eyes GI Upset > 30mins: 3= Vomiting/Diarrhea Tremor Observation: 2= Slight Tremor Visible Yawning Observation: 2= >3x During Session Anxiety or Irritability: 2=Irritable/Anxious Goose Flesh Skin: 0=Smooth Skin COWS Score: 18 Admission ROS S - HPI Chief Complaint: I NEED HELP TO STOP USING HEROIN AND COCAINE Allergies/Adverse Reactions: Allergies Allergy/AdvReac Type Severity Reaction Status Date / Time No Known Allergies Allergy Verified 08/03/17 11:07 History of Present Illness: THIS 47 YEARS OLD FEMALE WITH HEROIN AND COCAINE DEPENDENCE,[facility] DETOX,LAST TREATMENT [facility] 06/30/17 TO 07/05/17 MULTIPLE ADMISSIONS IN DETOX,MANAGING DIRECTOR ATLAS USING OF HEROIN NICOTINE DEPENDENCE WEIGHT LOSS LONGEST PERIOD OF SOBRIETY 8 YEARS , - Ebola screening Have you traveled outside of the country in the last 21 days: No Have you had contact with anyone from an Ebola affected area: No Have you been sick,other than usual withdrawal symptoms: No - Review of Systems Constitutional: Chills, Loss of Appetite, Malaise, Night Sweats, Changes in sleep, Weakness, Unintentional Wgt. Loss EENT: reports: Tearing, Nose Congestion Respiratory: reports: No Symptoms reported Cardiac: reports: No Symptoms Reported GI: reports: Diarrhea, Nausea, Vomiting, Abdominal cramping : reports: No Symptoms Reported Musculoskeletal: reports: Back Pain, Joint Pain, Muscle Pain Integumentary: reports: Dryness Neuro: reports: Headache, Tremors Endocrine: reports: No Symptoms Reported Hematology: reports: No Symptoms Reported (SICKLE CELL TRAIT) Psychiatric: reports: No Sypmtoms Reported, Judgement Intact, Mood/Affect Appropiate Patient History - Patient Medical History Hx Anemia: Yes (ALSO " I HAVE SICKLE CELL TRAIT".) Hx Asthma: No Hx Chronic Obstructive Pulmonary Disease (COPD): No Hx Cancer: No Hx Cardiac Disorders: No Hx Congestive Heart Failure: No Hx Hypertension: No Hx Hypercholesterolemia: No Hx Pacemaker: No HX Cerebrovascular Accident: No Hx Seizures: No Hx Dementia: No Hx Diabetes: No Hx Gastrointestinal Disorders: No Hx Liver Disease: No Hx Genitourinary Disorders: No Hx Sexually Transmitted Disorders: No Hx Renal Disease (ESRD): No Hx Thyroid Disease: No Hx Human Immunodeficiency Virus (HIV): No (NEGATIVE HX 05/04) Hx Hepatitis C: No Hx Depression: No Hx Suicide Attempt: No Hx Bipolar Disorder: No Hx Schizophrenia: No Other Medical History: NO SUICIDAL,NO HOMICIDAL - Patient Surgical History Past Surgical History: No Hx Neurologic Surgery: No Hx Cataract Extraction: No Hx Cardiac Surgery: No Hx Lung Surgery: No Hx Breast Surgery: No Hx Breast Biopsy: No Hx Abdominal Surgery: No Hx Appendectomy: No Hx Cholecystectomy: No Hx Genitourinary Surgery: No Hx Section: No Hx Orthopedic Surgery: No Hx Hysterectomy: No Anesthesia Reaction: No - PPD History Previous Implant?: Yes Documented Results: Negative w/o proof Implanted On Prior [facility] Admission?: Yes Date: 07/26/16 Results: 0 mm PPD to be Administered?: Yes - Reproductive History Patient is a Female of Child Bearing Age (11 -55 yrs old): Yes Last Menstrual Period: 08/01/17 Patient : No - Smoking Cessation Smoking history: Current every day smoker Have you smoked in the past 12 months: Yes Aproximately how many cigarettes per day: 6 Cigars Per Day: 0 Hx Chewing Tobacco Use: No Initiated information on smoking cessation: Yes 'Breaking Loose' booklet given: 08/03/17 - Substance & Tx. History Hx Alcohol Use: No Hx Substance Use: Yes Substance Use Type: Cocaine, Heroin Hx Substance Use Treatment: Yes ([facility] 06/30/17 TO 07/05/17) - Substances Abused Heroin Route: Inhalation Frequency: Daily Amount used: 7 bags Age of first use: 23 Date of Last Use: 08/02/17 Crack Route: Smoking Frequency: Daily Amount used: $60 Age of first use: 23 Date of Last Use: 08/02/17 Family Disease History - Family Disease History Family Disease History: Respiratory: Brother, Sister, Other: Father (DSA, ) Admission Physical Exam BHS - Vital Signs Vital Signs: Vital Signs - 24 hr 08/03/17 10:29 Temperature 96.8 F L Pulse Rate 77 Respiratory 20 Rate Blood Pressure 111/74 - Physical General Appearance: Yes: Moderate Distress, Tremorous, Irritable, Sweating, Anxious HEENTM: Yes: Normal ENT Inspection, MAREN, Pharynx Normal Respiratory: Yes: Lungs Clear, Normal Breath Sounds, No Respiratory Distress Neck: Yes: Within Normal Limits, Supple, Trachea in good position Breast: Yes: Breast Exam Deferred Cardiology: Yes: Within Normal Limits, Regular Rhythm, Regular Rate, S1, S2 Abdominal: Yes: Within Normal Limits, Normal Bowel Sounds, Non Tender, Flat, Soft Genitourinary: Yes: Within Normal Limits Back: Yes: Within Normal Limits Musculoskeletal: Yes: Within Normal Limits, Back pain, Muscle Pain Extremities: Yes: Within Normal Limits, Normal Range of Motion, Tremors 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, Alert, Motor Strength 5/5 Integumentary: Yes: Dry Lymphatic: Yes: Within Normal Limits - Diagnostic (1) Opioid dependence with withdrawal Current Visit: No Status: Acute (2) Cocaine dependence, uncomplicated Current Visit: No Status: Acute (3) Nicotine dependence Current Visit: No Status: Chronic Qualifiers: Nicotine product type: cigarettes Substance use status: uncomplicated Qualified Code(s): F17.210 - Nicotine dependence, cigarettes, uncomplicated (4) Sickle cell trait Current Visit: Yes Status: Acute Cleared for Admission [facility] - Detox or Rehab [facility] Level of Care: Medically Managed Detox Regimen/Protocol: Methadone [facility] Breath Alcohol Content Breath Alcohol Content: 0 Urine Pregancy Test - Result Urine Test Results: Negative- NO Line Present Urine Drug Screen - Results Drug Screen Negative: No Urine Drug Screen Results: EMILY-Cocaine, OPI-Opiates, MTD-Methadone
[2017-08-03] MEDS ORDERED: MENTHOL/PHENOL 1 EACH UD MM PRN (11:48)
[2017-08-03] MEDS ORDERED: NICOTINE POLACRILEX 2 MG GUM BUC PRN (11:48)
[2017-08-03] MEDS ORDERED: MAG HYDROX/AL HYDROX/SIMETH 30 ML UNIT-DOSE CUP PO PRN (11:48)
[2017-08-03] MEDS ORDERED: MAGNESIUM HYDROX 2400MG/30ML ORAL SUSPENSION 30 ML CUP PO PRN (11:48)
[2017-08-03] MEDS ORDERED: MAGNESIUM CITRATE 300 ML BOTTLE PO PRN (11:48)
[2017-08-03] MEDS ORDERED: METHADONE HCL 10 MG TABLET (FOR DETOX USE ONLY) PO ONE ×2 (11:48→23:00)
[2017-08-03] MEDS ORDERED: P-EPHED 60MG/TRIPROLIDI 2.5MG TABLET PO PRN (11:48)
[2017-08-03] MEDS ORDERED: guaiFENesin/D-METHORPHAN HB 10 ML UNIT-DOSE CUPS PO PRN (11:48)
[2017-08-03] MEDS ORDERED: LOPERAMIDE HCL 2 MG CAPSULE PO PRN (11:48)
[2017-08-03] MEDS ORDERED: hydrOXYzine PAMOATE 25 MG CAPSULE (FP) PO PRN (11:48)
[2017-08-03] MEDS: diazePAM 5 MG TABLET PO PRN ×3 (12:56→22:26)
[2017-08-03 16:05] LABS: URINE APPEARANCE SLCLOUDY; URINE BILIRUBIN NEGATIVE (NEGATIVE); URINE BLOOD 1+ (NEGATIVE); URINE COLOR YELLOW; URINE GLUCOSE (UA) NEGATIVE (NEGATIVE); URINE KETONE NEGATIVE (NEGATIVE); URINE LEUK ESTERASE NEGATIVE (NEGATIVE); URINE NITRITE NEGATIVE (NEGATIVE); URINE PROTEIN NEGATIVE (NEGATIVE)
[2017-08-03 16:09] LABS: CALCIUM OXALATE CRYSTALS FEW /hpf (NONE SEEN); URINE BACTERIA FEW /hpf (NONE SEEN); URINE MUCUS RARE; URINE RBC 5 /hpf (0-3); URINE WBC 1 /hpf (3-5)
[2017-08-03 20:10] LABS: URINE LEUK ESTERASE Negative (NEGATIVE)
[2017-08-03] MEDS: THIAMINE HCL 100 MG TABLET (FP) PO SCH (22:25)
[2017-08-03] MEDS: FERROUS SO4 325 MG TABLET (FP) PO SCH (22:25)
[2017-08-04] MEDS: diazePAM 5 MG TABLET PO PRN ×3 (07:21→22:18)
[2017-08-04] MEDS: IBUPROFEN 400 MG TABLET (FP) PO PRN (09:47)
[2017-08-04] MEDS ORDERED: METHADONE HCL 10 MG TABLET (FOR DETOX USE ONLY) PO ONE (10:00)
[2017-08-04 10:01] LABS: MCHC 32.6 g/dl (32.0-36.0); MEAN CELL VOLUME 91.9 fl (80-96); MEAN PLT VOLUME 9.8 fl (7.5-11.1); PLATELET COUNT 186 K/MM3 (134-434); RDW 14.2 % (11.6-15.6); WHITE BLOOD COUNT 3.9 K/mm3 (4.0-10.0)
[2017-08-04 10:22] LABS: ALBUMIN 3.3 g/dl (3.4-5.0); ALK PHOS 65 U/L (45-117); ANION GAP 6 (8-16); BILIRUBIN,TOTAL 0.5 mg/dL (0.2-1.0); CALCIUM 8.2 mg/dL (8.5-10.1); CO2 27 mmol/L (21-32); CREATININE 0.8 mg/dL (0.55-1.02); GLUCOSE,RANDOM 93 mg/dL (74-106); SGOT/AST 15 U/L (15-37); SGPT/ALT 22 U/L (12-78); TOT PROT 6.1 g/dl (6.4-8.2)
[2017-08-04] MEDS: PRENATAL VITAMINS W/ FOLIC ACID TABLET (FP) PO SCH (10:44)
[2017-08-04] MEDS: FERROUS SO4 325 MG TABLET (FP) PO SCH ×2 (10:44→22:17)
--- NOTE | 2017-08-04 11:04 | PN ---
BHS COWS - Scale Resting Pulse: 1= [place] 81-100 Sweatin=Flushed/Facial Moisture Restless Observation: 1= Difficult to Sit Still Pupil Size: 0= Normal to Room Light Bone or Joint Aches: 2= Severe Diffuse Aches Runny Nose/ Eye Tearin= Runny Nose/Eyes GI Upset > 30mins: 1= Stomach Cramp Tremor Observation of Outstretched Hands: 2= Slight Tremor Visible Yawning Observation: 2= >3x During Session Anxiety or Irritability: 2=Irritable/Anxious Goose Flesh Skin: 0=Smooth Skin COWS Score: 15 BHS Progress Note (SOAP) Subjective: back aches irritable agitation anxiety sweats shakes interrupted sleep Objective: 08/04/17 11:03 Vital Signs Temperature 98.4 F 08/04/17 10:49 Pulse Rate 95 H 08/04/17 10:49 Respiratory Rate 18 08/04/17 10:49 Blood Pressure 131/86 08/04/17 10:49 O2 Sat by Pulse Oximetry (%) Laboratory Tests 08/03/17 08/04/17 08/04/17 13:42 07:00 07:00 WBC 3.9 L RBC 4.13 Hgb 12.4 Hct 38.0 MCV 91.9 MCH 30.0 MCHC 32.6 RDW 14.2 Plt Count 186 MPV 9.8 Sodium 142 Potassium 4.1 Chloride 109 H Carbon Dioxide 27 Anion Gap 6 L BUN 15 Creatinine 0.8 Creat Clearance w eGFR > 60 Random Glucose 93 D Calcium 8.2 L Total Bilirubin 0.5 D AST 15 D ALT 22 Alkaline Phosphatase 65 Total Protein 6.1 L Albumin 3.3 L Urine Color Yellow Urine Appearance Slcloudy Urine pH 6.0 Ur Specific [place] 1.014 Urine Protein Negative Urine Glucose (UA) Negative Urine Ketones Negative Urine Blood 1+ H Urine Nitrite Negative Urine Bilirubin Negative Urine Urobilinogen 2.0 H Ur Leukocyte Esterase Negative Urine WBC (Auto) 1 Urine RBC (Auto) 5 Ur Epithelial Cells Rare Calcium Oxalate Crystal Few Urine Bacteria Few Urine Mucus Rare aaox3 ambulating no acute distress Assessment: 08/04/17 11:04 withdrawal sx Plan: continue detox increase fluids lidocaine patch
[2017-08-04 11:29] LABS: HIV 1 & 2 AB NEGATIVE; HIV 1 AGp24 NEGATIVE
[2017-08-04] MEDS: LIDOCAINE 5% TOPICAL PATCH TP SCH (14:06)
[2017-08-04] MEDS: ACETAMINOPHEN 325 MG TABLET (FP) PO PRN (14:07)
[2017-08-04] MEDS: THIAMINE HCL 100 MG TABLET (FP) PO SCH (22:17)
[2017-08-04] MEDS: LIDOCAINE PATCH REMOVAL MC SCH (23:31)
--- NOTE | 2017-08-05 01:56 | EKG ---
Test Reason : Blood Pressure : / mmHG Vent. Rate : 064 BPM Atrial Rate : 064 BPM P-R Int : 136 ms QRS Dur : 084 ms QT Int : 418 ms P-R-T Axes : 053 077 065 degrees QTc Int : 431 ms NORMAL SINUS RHYTHM NONSPECIFIC T WAVE ABNORMALITY ABNORMAL ECG WHEN COMPARED WITH ECG OF 01-JUL-2017 09:34, T WAVE VARIATION Confirmed by HUBER KOO MD ([id number]) on 08/05/2017 1:56:07 AM Referred By: Confirmed By:HUBER KOO MD
[2017-08-05] MEDS: diazePAM 5 MG TABLET PO PRN ×3 (02:13→22:31)
[2017-08-05] MEDS: IBUPROFEN 400 MG TABLET (FP) PO PRN ×2 (05:47→16:25)
[2017-08-05] MEDS ORDERED: METHADONE HCL 5 MG TABLET (FOR DETOX USE ONLY) PO ONE (10:00)
[2017-08-05] MEDS: PRENATAL VITAMINS W/ FOLIC ACID TABLET (FP) PO SCH (10:16)
[2017-08-05] MEDS: FERROUS SO4 325 MG TABLET (FP) PO SCH ×2 (10:16→22:31)
--- NOTE | 2017-08-05 10:24 | PN ---
BHS COWS - Scale Resting Pulse: 0= [place] 80 or Below Sweatin=Flushed/Facial Moisture Restless Observation: 1= Difficult to Sit Still Pupil Size: 0= Normal to Room Light Bone or Joint Aches: 2= Severe Diffuse Aches Runny Nose/ Eye Tearin= Runny Nose/Eyes GI Upset > 30mins: 0= None Tremor Observation of Outstretched Hands: 2= Slight Tremor Visible Yawning Observation: 2= >3x During Session Anxiety or Irritability: 2=Irritable/Anxious Goose Flesh Skin: 0=Smooth Skin COWS Score: 13 BHS Progress Note (SOAP) Subjective: body aches sweats chills headache interrupted sleep Objective: 08/05/17 10:22 Vital Signs Temperature 96.4 F L 08/05/17 06:19 Pulse Rate 78 08/05/17 06:19 Respiratory Rate 18 08/05/17 06:19 Blood Pressure 123/74 08/05/17 06:19 O2 Sat by Pulse Oximetry (%) Laboratory Tests 08/03/17 08/04/17 08/04/17 13:42 07:00 07:00 WBC 3.9 L RBC 4.13 Hgb 12.4 Hct 38.0 MCV 91.9 MCH 30.0 MCHC 32.6 RDW 14.2 Plt Count 186 MPV 9.8 Sodium Potassium Chloride Carbon Dioxide Anion Gap BUN Creatinine Creat Clearance w eGFR Random Glucose Calcium Total Bilirubin AST ALT Alkaline Phosphatase Total Protein Albumin Urine Color Yellow Urine Appearance Slcloudy Urine pH 6.0 Ur Specific [place] 1.014 Urine Protein Negative Urine Glucose (UA) Negative Urine Ketones Negative Urine Blood 1+ H Urine Nitrite Negative Urine Bilirubin Negative Urine Urobilinogen 2.0 H Ur Leukocyte Esterase Negative Urine WBC (Auto) 1 Urine RBC (Auto) 5 Ur Epithelial Cells Rare Calcium Oxalate Crystal Few Urine Bacteria Few Urine Mucus Rare RPR Titer HIV 1&2 Antibody Screen Negative HIV P24 Antigen Negative 08/04/17 08/04/17 07:00 07:00 WBC RBC Hgb Hct MCV MCH MCHC RDW Plt Count MPV Sodium 142 Potassium 4.1 Chloride 109 H Carbon Dioxide 27 Anion Gap 6 L BUN 15 Creatinine 0.8 Creat Clearance w eGFR > 60 Random Glucose 93 D Calcium 8.2 L Total Bilirubin 0.5 D AST 15 D ALT 22 Alkaline Phosphatase 65 Total Protein 6.1 L Albumin 3.3 L Urine Color Urine Appearance Urine pH Ur Specific [place] Urine Protein Urine Glucose (UA) Urine Ketones Urine Blood Urine Nitrite Urine Bilirubin Urine Urobilinogen Ur Leukocyte Esterase Urine WBC (Auto) Urine RBC (Auto) Ur Epithelial Cells Calcium Oxalate Crystal Urine Bacteria Urine Mucus RPR Titer Nonreactive HIV 1&2 Antibody Screen HIV P24 Antigen aaox3 ambulating no acute distress Assessment: 08/05/17 10:23 withdrawal sx Plan: continue detox increase fluids motrin 800mg flexiril prn lidocaine patch
[2017-08-05] MEDS: LIDOCAINE 5% TOPICAL PATCH TP SCH (11:12)
[2017-08-05] MEDS: THIAMINE HCL 100 MG TABLET (FP) PO SCH (22:31)
[2017-08-05] MEDS: LIDOCAINE PATCH REMOVAL MC SCH (22:31)
[2017-08-06] MEDS: ACETAMINOPHEN 325 MG TABLET (FP) PO PRN (05:52)
[2017-08-06] MEDS: diazePAM 5 MG TABLET PO PRN ×2 (05:52→10:18)
[2017-08-06] MEDS ORDERED: METHADONE HCL 5 MG TABLET (FOR DETOX USE ONLY) PO ONE (10:00)
[2017-08-06] MEDS: FERROUS SO4 325 MG TABLET (FP) PO SCH ×2 (10:18→22:17)
[2017-08-06] MEDS: PRENATAL VITAMINS W/ FOLIC ACID TABLET (FP) PO SCH (10:18)
[2017-08-06] MEDS: LIDOCAINE 5% TOPICAL PATCH TP SCH (10:19)
--- NOTE | 2017-08-06 10:26 | PN ---
BHS Progress Note (SOAP) Subjective: agitation sweats shakes irritable Objective: 08/06/17 10:25 Vital Signs Temperature 98.1 F 08/06/17 06:13 Pulse Rate 84 08/06/17 06:13 Respiratory Rate 18 08/06/17 06:13 Blood Pressure 123/75 08/06/17 06:13 O2 Sat by Pulse Oximetry (%) Laboratory Tests 08/03/17 08/04/17 08/04/17 13:42 07:00 07:00 WBC 3.9 L RBC 4.13 Hgb 12.4 Hct 38.0 MCV 91.9 MCH 30.0 MCHC 32.6 RDW 14.2 Plt Count 186 MPV 9.8 Sodium Potassium Chloride Carbon Dioxide Anion Gap BUN Creatinine Creat Clearance w eGFR Random Glucose Calcium Total Bilirubin AST ALT Alkaline Phosphatase Total Protein Albumin Urine Color Yellow Urine Appearance Slcloudy Urine pH 6.0 Ur Specific [place] 1.014 Urine Protein Negative Urine Glucose (UA) Negative Urine Ketones Negative Urine Blood 1+ H Urine Nitrite Negative Urine Bilirubin Negative Urine Urobilinogen 2.0 H Ur Leukocyte Esterase Negative Urine WBC (Auto) 1 Urine RBC (Auto) 5 Ur Epithelial Cells Rare Calcium Oxalate [place] Few Urine Bacteria Few Urine Mucus Rare RPR Titer HIV 1&2 Antibody Screen Negative HIV P24 Antigen Negative 08/04/17 08/04/17 07:00 07:00 WBC RBC Hgb Hct MCV MCH MCHC RDW Plt Count MPV Sodium 142 Potassium 4.1 Chloride 109 H Carbon Dioxide 27 Anion Gap 6 L BUN 15 Creatinine 0.8 Creat Clearance w eGFR > 60 Random Glucose 93 D Calcium 8.2 L Total Bilirubin 0.5 D AST 15 D ALT 22 Alkaline Phosphatase 65 Total Protein 6.1 L Albumin 3.3 L Urine Color Urine Appearance Urine pH Ur Specific [place] Urine Protein Urine Glucose (UA) Urine Ketones Urine Blood Urine Nitrite Urine Bilirubin Urine Urobilinogen Ur Leukocyte Esterase Urine WBC (Auto) Urine RBC (Auto) Ur Epithelial Cells Calcium Oxalate Crystal Urine Bacteria Urine Mucus RPR Titer Nonreactive HIV 1&2 Antibody Screen HIV P24 Antigen aaox3 ambulating no acute distress Assessment: 08/06/17 10:26 withdrawal sx Plan: continue detox increase fluids
[2017-08-06] MEDS: IBUPROFEN 400 MG TABLET (FP) PO PRN (14:25)
[2017-08-06] MEDS: THIAMINE HCL 100 MG TABLET (FP) PO SCH (22:17)
[2017-08-06] MEDS: LIDOCAINE PATCH REMOVAL MC SCH (22:18)
[2017-08-07] MEDS: IBUPROFEN 400 MG TABLET (FP) PO PRN ×2 (02:27→16:38)
[2017-08-07] MEDS: ACETAMINOPHEN 325 MG TABLET (FP) PO PRN (05:55)
[2017-08-07] MEDS ORDERED: METHADONE HCL 10 MG TABLET (FOR DETOX USE ONLY) PO ONE (10:00)
[2017-08-07] MEDS: FERROUS SO4 325 MG TABLET (FP) PO SCH ×2 (10:24→22:33)
[2017-08-07] MEDS: PRENATAL VITAMINS W/ FOLIC ACID TABLET (FP) PO SCH (10:24)
[2017-08-07] MEDS: LIDOCAINE 5% TOPICAL PATCH TP SCH (10:24)
--- NOTE | 2017-08-07 10:46 | PN ---
BHS Progress Note (SOAP) Subjective: anxiety sweats Objective: 08/07/17 10:46 Vital Signs Temperature 97.2 F L 08/07/17 09:35 Pulse Rate 88 08/07/17 09:35 Respiratory Rate 18 08/07/17 09:35 Blood Pressure 117/69 08/07/17 09:35 O2 Sat by Pulse Oximetry (%) aaox3 ambulating no acute distress Assessment: 08/07/17 10:46 mild withdrawal sx Plan: continue detox increase fluids d/c in am
[2017-08-07] MEDS: THIAMINE HCL 100 MG TABLET (FP) PO SCH (22:33)
[2017-08-07] MEDS: LIDOCAINE PATCH REMOVAL MC SCH (22:33)
[2017-08-08] MEDS ORDERED: METHADONE HCL 5 MG TABLET (FOR DETOX USE ONLY) PO ONE (06:00)
[2017-08-08] MEDS: IBUPROFEN 400 MG TABLET (FP) PO PRN (08:15)
--- NOTE | 2017-08-08 09:11 | DS ---
[facility] Detox Discharge Summary Admission Date: 08/03/17 Discharge Date: 08/08/17 - History Present History: Cannabis Dependence, Opioid Dependence - Physical Exam Results Vital Signs: Vital Signs Temperature 97.5 F L 08/08/17 06:00 Pulse Rate 78 08/08/17 06:00 Respiratory Rate 18 08/08/17 06:00 Blood Pressure 117/68 08/08/17 06:00 O2 Sat by Pulse Oximetry (%) - Treatment Hospital Course: Detox Protocol Followed, Detoxed Safely, Responded well, Discharged Condition Good, Rehab Referral Accepted - Medication Discharge Medications: Ambulatory Orders Ergocalciferol [Vitamin D2] 50,000 unit PO Q7D@1000 #7 capsule 08/01/16 Ferrous Sulfate [Feosol] 325 mg PO BID #60 ud 08/01/16 - Diagnosis (1) Sickle cell trait Current Visit: No Status: Suspected (2) Cocaine dependence, uncomplicated Current Visit: Yes Status: Chronic (3) Depression Current Visit: No Status: Acute (4) Opioid dependence with withdrawal Current Visit: Yes Status: Chronic (5) Anemia Current Visit: No Status: Chronic Qualifiers: Anemia type: iron deficiency Iron deficiency anemia type: inadequate dietary iron intake Qualified Code(s): D50.8 - Other iron deficiency anemias (6) Nicotine dependence Current Visit: Yes Status: Chronic Qualifiers: Nicotine product type: cigarettes Substance use status: uncomplicated Qualified Code(s): F17.210 - Nicotine dependence, cigarettes, uncomplicated (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
[2017-08-08] MEDS: FERROUS SO4 325 MG TABLET (FP) PO SCH (10:06)
[2017-08-08] MEDS: PRENATAL VITAMINS W/ FOLIC ACID TABLET (FP) PO SCH (10:06)
[2017-08-08] MEDS: LIDOCAINE 5% TOPICAL PATCH TP SCH (10:06)
[2017-08-08 10:13] VITALS: BP 118/69; PULSE 84; TEMP 98.1
[2017-08-10] MEDS ORDERED: ERGOCALCIFEROL (VITAMIN D2) 50,000 UNIT CAPSULE (FP) PO SCH (10:00)
== END 2017-08-08 11:22 | disposition home or self-care (01) | DRG 773 ==
LOC: YASAS 08:35 → Y6N 11:54
PROVIDERS: ADMIT Internal Medicine; ATTEND Internal Medicine
PROC: HZ2ZZZZ Detoxification Services for Substance Abuse Treatment (ICD-10-PCS; principal; 2017-08-03)
DX: F11.23 Opioid dependence with withdrawal (principal); F14.20 Cocaine dependence, uncomplicated; F17.210 Nicotine dependence, cigarettes, uncomplicated; F32.9 Major depressive disorder, single episode, unspecified; F19.282 Other psychoactive substance dependence with psychoactive substance-induced sleep disorder; D50.8 Other iron deficiency anemias; D57.3 Sickle-cell trait
CPT/HCPCS: 36415; 80053; 81003; 81015; 85027; 86593; 87389; 93005; 93010

== ENCOUNTER 2017-09-18 11:58 | Inpatient (IN) | payer MEDICARE ==
[2017-09-18 12:22] VITALS: BMI 20.6
[2017-09-18] MEDS ORDERED: NICOTINE POLACRILEX 2 MG GUM BUC PRN (13:13)
[2017-09-18] MEDS ORDERED: MAGNESIUM CITRATE 300 ML BOTTLE PO PRN (13:13)
[2017-09-18] MEDS ORDERED: guaiFENesin/D-METHORPHAN HB 10 ML UNIT-DOSE CUPS PO PRN (13:13)
[2017-09-18] MEDS ORDERED: MENTHOL/PHENOL 1 EACH UD MM PRN (13:13)
[2017-09-18] MEDS ORDERED: MAGNESIUM HYDROX 2400MG/30ML ORAL SUSPENSION 30 ML CUP PO PRN (13:13)
[2017-09-18] MEDS ORDERED: MAG HYDROX/AL HYDROX/SIMETH 30 ML UNIT-DOSE CUP PO PRN (13:13)
[2017-09-18] MEDS ORDERED: P-EPHED 60MG/TRIPROLIDI 2.5MG TABLET PO PRN (13:13)
[2017-09-18] MEDS ORDERED: LOPERAMIDE HCL 2 MG CAPSULE PO PRN (13:13)
--- NOTE | 2017-09-18 13:13 | HP ---
COWS - Scale Resting Pulse: 0= [place] 80 or Below Sweatin= Chills/Flushing Restless Observation: 3= Extraneous Movement Pupil Size: 1= Pupils >than Normal Bone or Joint Aches: 2= Severe Diffuse Aches Runny Nose/ Eye Tearin= Runny Nose/Eyes GI Upset > 30mins: 2= Nausea/Diarrhea Tremor Observation: 2= Slight Tremor Visible Yawning Observation: 1= 1-2x During Session Anxiety or Irritability: 2=Irritable/Anxious Goose Flesh Skin: 0=Smooth Skin COWS Score: 16 Admission [facility] Chief Complaint: withdrawal sx Allergies/Adverse Reactions: Allergies Allergy/AdvReac Type Severity Reaction Status Date / Time No Known Allergies Allergy Verified 09/18/17 13:08 History of Present Illness: 47 years old female with long history of opioid nicotine dependence has weight loss and depression is admitted to detox Exam Limitations: No Limitations - Ebola screening Have you traveled outside of the country in the last 21 days: No Have you had contact with anyone from an Ebola affected area: No Have you been sick,other than usual withdrawal symptoms: No Do you have a fever: No - Review of Systems Constitutional: Loss of Appetite, Changes in sleep, Unintentional Wgt. Loss, Unexplained wgt Loss EENT: reports: No Symptoms Reported Respiratory: reports: No Symptoms reported Cardiac: reports: No Symptoms Reported GI: reports: Diarrhea, Nausea, Poor Appetite, Poor Fluid Intake, Indigestion, Abdominal cramping : reports: No Symptoms Reported Musculoskeletal: reports: Back Pain, Joint Pain, Muscle Pain, Neck Pain Integumentary: reports: No Symptoms Reported Neuro: reports: Tremors Endocrine: reports: No Symptoms Reported Hematology: reports: No Symptoms Reported Psychiatric: reports: Judgement Intact, Orientated x3, Anxious, Depressed Other Systems: Reviewed and Negative Patient History - Patient Medical History Hx Anemia: Yes (ALSO " I HAVE SICKLE CELL TRAIT".) Hx Asthma: No Hx Chronic Obstructive Pulmonary Disease (COPD): No Hx Cancer: No Hx Cardiac Disorders: No Hx Congestive Heart Failure: No Hx Hypertension: No Hx Hypercholesterolemia: No Hx Pacemaker: No HX Cerebrovascular Accident: No Hx Seizures: No Hx Dementia: No Hx Diabetes: No Hx Gastrointestinal Disorders: No Hx Liver Disease: No Hx Genitourinary Disorders: No Hx Sexually Transmitted Disorders: No Hx Renal Disease (ESRD): No Hx Thyroid Disease: No Hx Human Immunodeficiency Virus (HIV): No (NEGATIVE HX 05/04) Hx Hepatitis C: No Hx Depression: Yes Hx Suicide Attempt: No Hx Bipolar Disorder: No Hx Schizophrenia: No - Patient Surgical History Past Surgical History: No Hx Neurologic Surgery: No Hx Cataract Extraction: No Hx Cardiac Surgery: No Hx Lung Surgery: No Hx Breast Surgery: No Hx Breast Biopsy: No Hx Abdominal Surgery: No Hx Appendectomy: No Hx Cholecystectomy: No Hx Genitourinary Surgery: No Hx Section: No Hx Orthopedic Surgery: No Hx Hysterectomy: No - PPD History Previous Implant?: No Implanted On Prior [facility] Admission?: Yes Date: 07/26/16 Results: 0 mm PPD to be Administered?: Yes - Reproductive History Patient is a Female of Child Bearing Age (11 -55 yrs old): Yes Last Menstrual Period: 08/01/17 Patient : No - Smoking Cessation Smoking history: Current every day smoker Have you smoked in the past 12 months: Yes Aproximately how many cigarettes per day: 6 Cigars Per Day: 0 Hx Chewing Tobacco Use: No Initiated information on smoking cessation: Yes 'Breaking Loose' booklet given: 09/18/17 - Substance & Tx. History Hx Alcohol Use: No Hx Substance Use: Yes Substance Use Type: Cocaine, Opiates Hx Substance Use Treatment: Yes (07/2017 [facility] - Substances Abused Heroin Route: Inhalation Frequency: Daily Amount used: 10 bags Age of first use: 23 Date of Last Use: 09/17/17 Crack Route: Inhalation Frequency: Daily Amount used: $40 Age of first use: 23 Date of Last Use: 09/17/17 Family Disease History - Family Disease History Family Disease History: Respiratory: Brother, Sister, Other: Father (DSA, ) Admission Physical Exam S - Vital Signs Vital Signs: Vital Signs - 24 hr 09/18/17 12:19 Temperature 97.6 F Pulse Rate 79 Respiratory 20 Rate Blood Pressure 108/62 - Physical General Appearance: Yes: Appropriately Dressed, Moderate Distress, Thin, Tremorous, Irritable, Sweating, Anxious HEENTM: Yes: Hearing grossly Normal, Normal ENT Inspection, Normocephalic, Normal Voice, Microcephalic Respiratory: Yes: Chest Non-Tender, Normal Breath Sounds, No Respiratory Distress, No Accessory Muscle Use Neck: Yes: Supple, Trachea in good position Breast: Yes: Breasts Symetrical Cardiology: Yes: Regular Rhythm, Regular Rate, S1, S2 Abdominal: Yes: Non Tender, Soft, Increased Bowel Sounds Genitourinary: Yes: Within Normal Limits Back: Yes: Normal Inspection Musculoskeletal: Yes: full range of Motion, Gait Steady, Back pain, Muscle Pain Extremities: Yes: Normal Inspection, Normal Range of Motion, Non-Tender, Tremors Neurological: Yes: Fully Oriented, Alert, Motor Strength 5/5, Normal Response, Depressed Affect Integumentary: Yes: Warm Lymphatic: Yes: Within Normal Limits - Diagnostic (1) Depression Current Visit: Yes Status: Suspected Qualifiers: Depression Type: dysthymia Qualified Code(s): F34.1 - Dysthymic disorder (2) Cocaine dependence, uncomplicated Current Visit: Yes Status: Chronic (3) Nicotine dependence Current Visit: Yes Status: Acute Qualifiers: Nicotine product type: cigarettes Substance use status: in withdrawal Qualified Code(s): F17.213 - Nicotine dependence, cigarettes, with withdrawal (4) Opioid dependence with withdrawal Current Visit: Yes Status: Acute Cleared for Admission [facility] - Detox or Rehab [facility] Level of Care: Medically Managed Detox Regimen/Protocol: Methadone [facility] Breath Alcohol Content Breath Alcohol Content: 0 Urine Pregancy Test - Result Urine Test Results: Negative- NO Line Present Urine Drug Screen - Results Drug Screen Negative: No Urine Drug Screen Results: EMILY-Cocaine, OPI-Opiates
[2017-09-18] MEDS ORDERED: METHADONE HCL 10 MG TABLET (FOR DETOX USE ONLY) PO ONE ×2 (13:50→23:00)
--- NOTE | 2017-09-18 15:32 | CONSULT ---
[facility] Psychiatric Consult - Data Date of interview: 09/18/17 Admission source: [facility] Identifying data: This is 47 years old female with no psychiatric hospitalization history intoxicated with: Opioids, Cocaine and Nicotine Substance Abuse History: - Smoking Cessation. Smoking history: Current every day smoker. Have you smoked in the past 12 months: Yes. Aproximately how many cigarettes per day: 6. Cigars Per Day: 0. Hx Chewing Tobacco Use: No. Initiated information on smoking cessation: Yes. 'Breaking Loose' booklet given : 09/18/17. - Substance & Tx. History. Hx Alcohol Use: No. Hx Substance Use: Yes. Substance Use Type: Cocaine, Opiates. Hx Substance Use Treatment: Yes ( [facility]). - Substances Abused. Heroin. Route: Inhalation. Frequency: Daily. Amount used: 10 bags. Age of first use: 23. Date of Last Use: 09/17/17. Crack. Route: Inhalation. Frequency: Daily. Amount used: $ 40. Age of first use: 23. Date of Last Use: 09/17/17 Medical History: Denies Psychiatric History: Patiemnt reports history of depression,. denies suicidal history, reports no medications taking prior to admission Physical/Sexual Abuse/Trauma History: Denies Additional Comment: Observation. Detox Unit Care Protocol Mental Status Exam - Mental Status Exam Alert and Oriented to: Person Cognitive Function: Fair Patient Appearance: Well Groomed Mood: Apprehensive Affect: Mood Congruent Patient Behavior: Cooperative Speech Pattern: Appropriate Voice Loudness: Normal Thought Process: Goal Oriented Thought Disorder: Being Controlled Hallucinations: Denies Suicidal Ideation: Denies Homicidal Ideation: Denies Insight/Judgement: Fair Sleep: Difficulty falling asleep Appetite: Fair Muscle strength/Tone: Normal Gait/Station: Normal Additional Comments: Observation. 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 Detox Unit Care Protocol
[2017-09-18] MEDS: diazePAM 5 MG TABLET PO PRN (15:35)
[2017-09-18 18:15] LABS: URINE APPEARANCE SLCLOUDY; URINE BILIRUBIN NEGATIVE (NEGATIVE); URINE BLOOD 3+ (NEGATIVE); URINE COLOR YELLOW; URINE GLUCOSE (UA) NEGATIVE (NEGATIVE); URINE KETONE NEGATIVE (NEGATIVE); URINE LEUK ESTERASE NEGATIVE (NEGATIVE); URINE NITRITE NEGATIVE (NEGATIVE); URINE PROTEIN NEGATIVE (NEGATIVE)
[2017-09-18 18:28] LABS: EPI CELLS FEW /HPF (FEW); URINE HYALINE CAST 2 /lpf; URINE MUCUS RARE
[2017-09-18] MEDS: THIAMINE HCL 100 MG TABLET (FP) PO SCH (22:20)
[2017-09-18] MEDS: RANITIDINE HCL 150 MG TABLET (FP) PO SCH (22:20)
[2017-09-19] MEDS ORDERED: METHADONE HCL 10 MG TABLET (FOR DETOX USE ONLY) PO ONE (10:00)
[2017-09-19 10:05] LABS: HEMATOCRIT 35.3 % (32.4-45.2); HEMOGLOBIN 11.6 GM/dL (10.7-15.3); MCH 30.4 pg (25.7-33.7); MCHC 32.8 g/dl (32.0-36.0); MEAN CELL VOLUME 92.8 fl (80-96); PLATELET COUNT 236 K/MM3 (134-434); RDW 13.7 % (11.6-15.6); WHITE BLOOD COUNT 3.6 K/mm3 (4.0-10.0)
[2017-09-19 10:12] LABS: ANION GAP 9 (8-16); BLOOD UREA NITROGEN 9 mg/dL (7-18); CALCIUM 8.4 mg/dL (8.5-10.1); CHLORIDE 107 mmol/L (98-107); CO2 24 mmol/L (21-32); GLUCOSE,RANDOM 111 mg/dL (74-106); POTASSIUM 3.9 mmol/L (3.5-5.1); SGPT/ALT 26 U/L (12-78); SODIUM 140 mmol/L (136-145)
[2017-09-19 10:17] LABS: ALK PHOS 80 U/L (45-117); BILIRUBIN,TOTAL 0.5 mg/dL (0.2-1.0); CREATININE 0.9 mg/dL (0.55-1.02); SGOT/AST 21 U/L (15-37)
--- NOTE | 2017-09-19 10:17 | EKG ---
Test Reason : Blood Pressure : / mmHG Vent. Rate : 077 BPM Atrial Rate : 077 BPM P-R Int : 156 ms QRS Dur : 096 ms QT Int : 422 ms P-R-T Axes : 074 076 071 degrees QTc Int : 477 ms NORMAL SINUS RHYTHM T WAVE ABNORMALITY, CONSIDER ANTERIOR ISCHEMIA PROLONGED QT ABNORMAL ECG WHEN COMPARED WITH ECG OF 18-SEP-2017 15:12, NO SIGNIFICANT CHANGE WAS FOUND Confirmed by SAURABH ALTAMIRANO MD ([id number]) on 09/19/2017 10:16:55 AM Referred By: Confirmed By:SAURABH ALTAMIRANO MD
--- NOTE | 2017-09-19 10:17 | EKG ---
Test Reason : Blood Pressure : / mmHG Vent. Rate : 067 BPM Atrial Rate : 067 BPM P-R Int : 148 ms QRS Dur : 084 ms QT Int : 410 ms P-R-T Axes : 056 077 066 degrees QTc Int : 433 ms NORMAL SINUS RHYTHM T WAVE ABNORMALITY, CONSIDER ANTERIOR ISCHEMIA ABNORMAL ECG WHEN COMPARED WITH ECG OF 03-AUG-2017 12:43, NO SIGNIFICANT CHANGE WAS FOUND Confirmed by SAURABH ALTAMIRANO MD ([id number]) on 09/19/2017 10:17:29 AM Referred By: Confirmed By:SAURABH ALTAMIRANO MD
[2017-09-19] MEDS: PRENATAL VITAMINS W/ FOLIC ACID TABLET (FP) PO SCH (10:41)
[2017-09-19] MEDS: diazePAM 5 MG TABLET PO PRN ×2 (10:41→22:20)
[2017-09-19] MEDS: RANITIDINE HCL 150 MG TABLET (FP) PO SCH ×2 (10:42→22:20)
[2017-09-19] MEDS: NICOTINE 14 MG/24 HOURS TOPICAL PATCH TD SCH (10:42)
[2017-09-19] MEDS ORDERED: FLU VACCINE QUAD 60 MCG/0.5 ML (MDV 17-18) IM ONE (12:00)
--- NOTE | 2017-09-19 14:06 | PN ---
BHS COWS - Scale Resting Pulse: 1= [place] [id number] Sweatin= Chills/Flushing Restless Observation: 3= Extraneous Movement Pupil Size: 1= Pupils >than Normal Bone or Joint Aches: 2= Severe Diffuse Aches Runny Nose/ Eye Tearin= Runny Nose/Eyes GI Upset > 30mins: 2= Nausea/Diarrhea Tremor Observation of Outstretched Hands: 2= Slight Tremor Visible Yawning Observation: 1= 1-2x During Session Anxiety or Irritability: 2=Irritable/Anxious Goose Flesh Skin: 0=Smooth Skin COWS Score: 17 BHS Progress Note (SOAP) Subjective: ALERT,IRRITABLE,ANXIOUS,INTERRUPTED SLEEP,PAIN IN THE BODY AND BACK Objective: 09/19/17 14:04 Vital Signs Temperature 97.9 F 09/19/17 10:15 Pulse Rate 85 09/19/17 10:15 Respiratory Rate 18 09/19/17 10:15 Blood Pressure 134/82 09/19/17 10:15 O2 Sat by Pulse Oximetry (%) Laboratory Last Values WBC 3.6 K/mm3 (4.0-10.0) L 09/19/17 06:00 RBC 3.80 M/mm3 (3.60-5.2) 09/19/17 06:00 Hgb 11.6 GM/dL (10.7-15.3) 09/19/17 06:00 Hct 35.3 % (32.4-45.2) 09/19/17 06:00 MCV 92.8 fl (80-96) 09/19/17 06:00 MCH 30.4 pg (25.7-33.7) 09/19/17 06:00 MCHC 32.8 g/dl (32.0-36.0) 09/19/17 06:00 RDW 13.7 % (11.6-15.6) 09/19/17 06:00 Plt Count 236 K/MM3 (134-434) D 09/19/17 06:00 MPV 10.0 fl (7.5-11.1) 09/19/17 06:00 Sodium 140 mmol/L (136-145) 09/19/17 06:00 Potassium 3.9 mmol/L (3.5-5.1) 09/19/17 06:00 Chloride 107 mmol/L (98-107) 09/19/17 06:00 Carbon Dioxide 24 mmol/L (21-32) 09/19/17 06:00 Anion Gap 9 (8-16) 09/19/17 06:00 BUN 9 mg/dL (7-18) 09/19/17 06:00 Creatinine 0.9 mg/dL (0.55-1.02) 09/19/17 06:00 Creat Clearance w eGFR > 60 (>60) 09/19/17 06:00 Random Glucose 111 mg/dL (74-106) H 09/19/17 06:00 Calcium 8.4 mg/dL (8.5-10.1) L 09/19/17 06:00 Total Bilirubin 0.5 mg/dL (0.2-1.0) 09/19/17 06:00 AST 21 U/L (15-37) 09/19/17 06:00 ALT 26 U/L (12-78) 09/19/17 06:00 Alkaline Phosphatase 80 U/L (45-117) 09/19/17 06:00 Total Protein 7.0 g/dl (6.4-8.2) 09/19/17 06:00 Albumin 4.0 g/dl (3.4-5.0) 09/19/17 06:00 Urine Color Yellow 09/18/17 17:00 Urine Appearance Slcloudy 09/18/17 17:00 Urine pH 5.0 (5.0-8.0) 09/18/17 17:00 Ur Specific [place] 1.018 (1.001-1.035) 09/18/17 17:00 Urine Protein Negative (NEGATIVE) 09/18/17 17:00 Urine Glucose (UA) Negative (NEGATIVE) 09/18/17 17:00 Urine Ketones Negative (NEGATIVE) 09/18/17 17:00 Urine Blood 3+ (NEGATIVE) H 09/18/17 17:00 Urine Nitrite Negative (NEGATIVE) 09/18/17 17:00 Urine Bilirubin Negative (NEGATIVE) 09/18/17 17:00 Urine Urobilinogen 2.0 mg/dL (0.2-1.0) H 09/18/17 17:00 Ur Leukocyte Esterase Negative (NEGATIVE) 09/18/17 17:00 Urine WBC (Auto) 5 /hpf (3-5) 09/18/17 17:00 Urine RBC (Auto) 29 /hpf (0-3) 09/18/17 17:00 Ur Epithelial Cells Few /HPF (FEW) 09/18/17 17:00 Hyaline Casts 2 /lpf 09/18/17 17:00 Urine Mucus Rare 09/18/17 17:00 RPR Titer Nonreactive (NONREACTIVE) 09/19/17 06:00 Assessment: 09/19/17 14:05 WITHDRAWAL SYMPTOM Plan: CONTINUE DETOX
[2017-09-19] MEDS: THIAMINE HCL 100 MG TABLET (FP) PO SCH (22:20)
[2017-09-20] MEDS: ACETAMINOPHEN 325 MG TABLET (FP) PO PRN ×2 (08:47→14:09)
[2017-09-20] MEDS ORDERED: METHADONE HCL 5 MG TABLET (FOR DETOX USE ONLY) PO ONE (10:00)
[2017-09-20] MEDS: PRENATAL VITAMINS W/ FOLIC ACID TABLET (FP) PO SCH (10:34)
[2017-09-20] MEDS: diazePAM 5 MG TABLET PO PRN ×2 (10:34→22:38)
[2017-09-20] MEDS: RANITIDINE HCL 150 MG TABLET (FP) PO SCH ×2 (10:34→22:38)
[2017-09-20] MEDS: NICOTINE 14 MG/24 HOURS TOPICAL PATCH TD SCH (10:34)
[2017-09-20 10:38] LABS: URINE APPEARANCE CLEAR; URINE BILIRUBIN NEGATIVE (NEGATIVE); URINE BLOOD NEGATIVE (NEGATIVE); URINE COLOR STRAW; URINE GLUCOSE (UA) NEGATIVE (NEGATIVE); URINE KETONE NEGATIVE (NEGATIVE); URINE LEUK ESTERASE NEGATIVE (NEGATIVE); URINE NITRITE NEGATIVE (NEGATIVE); URINE PROTEIN NEGATIVE (NEGATIVE); URINE UROBILINOGEN NEGATIVE mg/dL (0.2-1.0)
--- NOTE | 2017-09-20 12:38 | PN ---
BHS COWS - Scale Resting Pulse: 1= [place] 81-100 Sweatin= Chills/Flushing Restless Observation: 3= Extraneous Movement Pupil Size: 1= Pupils >than Normal Bone or Joint Aches: 2= Severe Diffuse Aches Runny Nose/ Eye Tearin= Runny Nose/Eyes GI Upset > 30mins: 2= Nausea/Diarrhea Tremor Observation of Outstretched Hands: 2= Slight Tremor Visible Yawning Observation: 1= 1-2x During Session Anxiety or Irritability: 2=Irritable/Anxious Goose Flesh Skin: 0=Smooth Skin COWS Score: 17 S Progress Note (SOAP) Subjective: ALERT,IRRITABLE,ANXIOUS,INTERRUPTED SLEEP,TREMOR,PAIN IN THE BODY AND ABCK Objective: 09/20/17 12:34 Vital Signs Temperature 97.9 F 09/20/17 10:13 Pulse Rate 82 09/20/17 10:13 Respiratory Rate 18 09/20/17 10:13 Blood Pressure 150/86 09/20/17 10:13 O2 Sat by Pulse Oximetry (%) NO CHEST PAIN,NO SOB,NO DIZZINESS Laboratory Last Values WBC 3.6 K/mm3 (4.0-10.0) L 09/19/17 06:00 RBC 3.80 M/mm3 (3.60-5.2) 09/19/17 06:00 Hgb 11.6 GM/dL (10.7-15.3) 09/19/17 06:00 Hct 35.3 % (32.4-45.2) 09/19/17 06:00 MCV 92.8 fl (80-96) 09/19/17 06:00 MCH 30.4 pg (25.7-33.7) 09/19/17 06:00 MCHC 32.8 g/dl (32.0-36.0) 09/19/17 06:00 RDW 13.7 % (11.6-15.6) 09/19/17 06:00 Plt Count 236 K/MM3 (134-434) D 09/19/17 06:00 MPV 10.0 fl (7.5-11.1) 09/19/17 06:00 Sodium 140 mmol/L (136-145) 09/19/17 06:00 Potassium 3.9 mmol/L (3.5-5.1) 09/19/17 06:00 Chloride 107 mmol/L (98-107) 09/19/17 06:00 Carbon Dioxide 24 mmol/L (21-32) 09/19/17 06:00 Anion Gap 9 (8-16) 09/19/17 06:00 BUN 9 mg/dL (7-18) 09/19/17 06:00 Creatinine 0.9 mg/dL (0.55-1.02) 09/19/17 06:00 Creat Clearance w eGFR > 60 (>60) 09/19/17 06:00 Random Glucose 111 mg/dL (74-106) H 09/19/17 06:00 Calcium 8.4 mg/dL (8.5-10.1) L 09/19/17 06:00 Total Bilirubin 0.5 mg/dL (0.2-1.0) 09/19/17 06:00 AST 21 U/L (15-37) 09/19/17 06:00 ALT 26 U/L (12-78) 09/19/17 06:00 Alkaline Phosphatase 80 U/L (45-117) 09/19/17 06:00 Total Protein 7.0 g/dl (6.4-8.2) 09/19/17 06:00 Albumin 4.0 g/dl (3.4-5.0) 09/19/17 06:00 Urine Color Straw 09/20/17 08:15 Urine Appearance Clear 09/20/17 08:15 Urine pH 5.0 (5.0-8.0) 09/20/17 08:15 Ur Specific [place] 1.011 (1.001-1.035) 09/20/17 08:15 Urine Protein Negative (NEGATIVE) 09/20/17 08:15 Urine Glucose (UA) Negative (NEGATIVE) 09/20/17 08:15 Urine Ketones Negative (NEGATIVE) 09/20/17 08:15 Urine Blood Negative (NEGATIVE) 09/20/17 08:15 Urine Nitrite Negative (NEGATIVE) 09/20/17 08:15 Urine Bilirubin Negative (NEGATIVE) 09/20/17 08:15 Urine Urobilinogen Negative mg/dL (0.2-1.0) 09/20/17 08:15 Ur Leukocyte Esterase Negative (NEGATIVE) 09/20/17 08:15 Urine WBC (Auto) 5 /hpf (3-5) 09/18/17 17:00 Urine RBC (Auto) 29 /hpf (0-3) 09/18/17 17:00 Ur Epithelial Cells Few /HPF (FEW) 09/18/17 17:00 Hyaline Casts 2 /lpf 09/18/17 17:00 Urine Mucus Rare 09/18/17 17:00 RPR Titer Nonreactive (NONREACTIVE) 09/19/17 06:00 Hepatitis C Antibody <0.1 s/co ratio (0.0-0.9) 09/18/17 14:00 09/20/17 12:39 Laboratory Results - last 24 hr 09/18/17 09/20/17 14:00 08:15 Urine Color Straw Urine Appearance Clear Urine pH 5.0 Ur Specific [place] 1.011 Urine Protein Negative Urine Glucose (UA) Negative Urine Ketones Negative Urine Blood Negative Urine Nitrite Negative Urine Bilirubin Negative Urine Urobilinogen Negative Ur Leukocyte Esterase Negative Hepatitis C Antibody <0.1 Assessment: 09/20/17 12:40 WITHDRAWAL SYMPTOM Plan: CONTINUE DETOX,BGM MONITOING INITIAL GLUCOSE 111
[2017-09-20] MEDS: THIAMINE HCL 100 MG TABLET (FP) PO SCH (22:38)
[2017-09-21] MEDS ORDERED: METHADONE HCL 5 MG TABLET (FOR DETOX USE ONLY) PO ONE (10:00)
[2017-09-21] MEDS: PRENATAL VITAMINS W/ FOLIC ACID TABLET (FP) PO SCH (10:32)
[2017-09-21] MEDS: diazePAM 5 MG TABLET PO PRN (10:32)
[2017-09-21] MEDS: NICOTINE 14 MG/24 HOURS TOPICAL PATCH TD SCH (10:33)
[2017-09-21] MEDS: RANITIDINE HCL 150 MG TABLET (FP) PO SCH ×2 (10:33→22:11)
[2017-09-21] MEDS: ACETAMINOPHEN 325 MG TABLET (FP) PO PRN ×2 (10:33→15:15)
--- NOTE | 2017-09-21 11:14 | PN ---
BHS Progress Note (SOAP) Subjective: joint aches sweat irritable anxiety Objective: 09/21/17 11:17 Vital Signs Temperature 99.5 F 09/21/17 10:17 Pulse Rate 87 09/21/17 10:17 Respiratory Rate 18 09/21/17 10:17 Blood Pressure 127/72 09/21/17 10:17 O2 Sat by Pulse Oximetry (%) Laboratory Last Values WBC 3.6 K/mm3 (4.0-10.0) L 09/19/17 06:00 RBC 3.80 M/mm3 (3.60-5.2) 09/19/17 06:00 Hgb 11.6 GM/dL (10.7-15.3) 09/19/17 06:00 Hct 35.3 % (32.4-45.2) 09/19/17 06:00 MCV 92.8 fl (80-96) 09/19/17 06:00 MCH 30.4 pg (25.7-33.7) 09/19/17 06:00 MCHC 32.8 g/dl (32.0-36.0) 09/19/17 06:00 RDW 13.7 % (11.6-15.6) 09/19/17 06:00 Plt Count 236 K/MM3 (134-434) D 09/19/17 06:00 MPV 10.0 fl (7.5-11.1) 09/19/17 06:00 Sodium 140 mmol/L (136-145) 09/19/17 06:00 Potassium 3.9 mmol/L (3.5-5.1) 09/19/17 06:00 Chloride 107 mmol/L (98-107) 09/19/17 06:00 Carbon Dioxide 24 mmol/L (21-32) 09/19/17 06:00 Anion Gap 9 (8-16) 09/19/17 06:00 BUN 9 mg/dL (7-18) 09/19/17 06:00 Creatinine 0.9 mg/dL (0.55-1.02) 09/19/17 06:00 Creat Clearance w eGFR > 60 (>60) 09/19/17 06:00 POC Glucometer 225 UNITS (80-120) 09/21/17 06:30 Random Glucose 111 mg/dL (74-106) H 09/19/17 06:00 Calcium 8.4 mg/dL (8.5-10.1) L 09/19/17 06:00 Total Bilirubin 0.5 mg/dL (0.2-1.0) 09/19/17 06:00 AST 21 U/L (15-37) 09/19/17 06:00 ALT 26 U/L (12-78) 09/19/17 06:00 Alkaline Phosphatase 80 U/L (45-117) 09/19/17 06:00 Total Protein 7.0 g/dl (6.4-8.2) 09/19/17 06:00 Albumin 4.0 g/dl (3.4-5.0) 09/19/17 06:00 Urine Color Straw 09/20/17 08:15 Urine Appearance Clear 09/20/17 08:15 Urine pH 5.0 (5.0-8.0) 09/20/17 08:15 Ur Specific [place] 1.011 (1.001-1.035) 09/20/17 08:15 Urine Protein Negative (NEGATIVE) 09/20/17 08:15 Urine Glucose (UA) Negative (NEGATIVE) 09/20/17 08:15 Urine Ketones Negative (NEGATIVE) 09/20/17 08:15 Urine Blood Negative (NEGATIVE) 09/20/17 08:15 Urine Nitrite Negative (NEGATIVE) 09/20/17 08:15 Urine Bilirubin Negative (NEGATIVE) 09/20/17 08:15 Urine Urobilinogen Negative mg/dL (0.2-1.0) 09/20/17 08:15 Ur Leukocyte Esterase Negative (NEGATIVE) 09/20/17 08:15 Urine WBC (Auto) 5 /hpf (3-5) 09/18/17 17:00 Urine RBC (Auto) 29 /hpf (0-3) 09/18/17 17:00 Ur Epithelial Cells Few /HPF (FEW) 09/18/17 17:00 Hyaline Casts 2 /lpf 09/18/17 17:00 Urine Mucus Rare 09/18/17 17:00 RPR Titer Nonreactive (NONREACTIVE) 09/19/17 06:00 Hepatitis C Antibody <0.1 s/co ratio (0.0-0.9) 09/18/17 14:00 lab noted Assessment: 09/21/17 11:17 withdrawal sx Plan: continue detox
[2017-09-21] MEDS: THIAMINE HCL 100 MG TABLET (FP) PO SCH (22:11)
--- NOTE | 2017-09-22 09:19 | PN ---
BHS Progress Note (SOAP) Subjective: mild joint ache feeling better today little stuffy nose calm interact with peers and staff Objective: 09/22/17 09:18 Vital Signs Temperature 98.2 F 09/22/17 06:27 Pulse Rate 78 09/22/17 06:27 Respiratory Rate 18 09/22/17 06:27 Blood Pressure 122/70 09/22/17 06:27 O2 Sat by Pulse Oximetry (%) Laboratory Last Values WBC 3.6 K/mm3 (4.0-10.0) L 09/19/17 06:00 RBC 3.80 M/mm3 (3.60-5.2) 09/19/17 06:00 Hgb 11.6 GM/dL (10.7-15.3) 09/19/17 06:00 Hct 35.3 % (32.4-45.2) 09/19/17 06:00 MCV 92.8 fl (80-96) 09/19/17 06:00 MCH 30.4 pg (25.7-33.7) 09/19/17 06:00 MCHC 32.8 g/dl (32.0-36.0) 09/19/17 06:00 RDW 13.7 % (11.6-15.6) 09/19/17 06:00 Plt Count 236 K/MM3 (134-434) D 09/19/17 06:00 MPV 10.0 fl (7.5-11.1) 09/19/17 06:00 Sodium 140 mmol/L (136-145) 09/19/17 06:00 Potassium 3.9 mmol/L (3.5-5.1) 09/19/17 06:00 Chloride 107 mmol/L (98-107) 09/19/17 06:00 Carbon Dioxide 24 mmol/L (21-32) 09/19/17 06:00 Anion Gap 9 (8-16) 09/19/17 06:00 BUN 9 mg/dL (7-18) 09/19/17 06:00 Creatinine 0.9 mg/dL (0.55-1.02) 09/19/17 06:00 Creat Clearance w eGFR > 60 (>60) 09/19/17 06:00 POC Glucometer 91 UNITS (80-120) 09/22/17 08:04 Random Glucose 111 mg/dL (74-106) H 09/19/17 06:00 Calcium 8.4 mg/dL (8.5-10.1) L 09/19/17 06:00 Total Bilirubin 0.5 mg/dL (0.2-1.0) 09/19/17 06:00 AST 21 U/L (15-37) 09/19/17 06:00 ALT 26 U/L (12-78) 09/19/17 06:00 Alkaline Phosphatase 80 U/L (45-117) 09/19/17 06:00 Total Protein 7.0 g/dl (6.4-8.2) 09/19/17 06:00 Albumin 4.0 g/dl (3.4-5.0) 09/19/17 06:00 Urine Color Straw 09/20/17 08:15 Urine Appearance Clear 09/20/17 08:15 Urine pH 5.0 (5.0-8.0) 09/20/17 08:15 Ur Specific [place] 1.011 (1.001-1.035) 09/20/17 08:15 Urine Protein Negative (NEGATIVE) 09/20/17 08:15 Urine Glucose (UA) Negative (NEGATIVE) 09/20/17 08:15 Urine Ketones Negative (NEGATIVE) 09/20/17 08:15 Urine Blood Negative (NEGATIVE) 09/20/17 08:15 Urine Nitrite Negative (NEGATIVE) 09/20/17 08:15 Urine Bilirubin Negative (NEGATIVE) 09/20/17 08:15 Urine Urobilinogen Negative mg/dL (0.2-1.0) 09/20/17 08:15 Ur Leukocyte Esterase Negative (NEGATIVE) 09/20/17 08:15 Urine WBC (Auto) 5 /hpf (3-5) 09/18/17 17:00 Urine RBC (Auto) 29 /hpf (0-3) 09/18/17 17:00 Ur Epithelial Cells Few /HPF (FEW) 09/18/17 17:00 Hyaline Casts 2 /lpf 09/18/17 17:00 Urine Mucus Rare 09/18/17 17:00 RPR Titer Nonreactive (NONREACTIVE) 09/19/17 06:00 Hepatitis C Antibody <0.1 s/co ratio (0.0-0.9) 09/18/17 14:00 lab noted Assessment: 09/22/17 09:19 mild withdrawal sx Plan: continue detox
[2017-09-22] MEDS ORDERED: METHADONE HCL 10 MG TABLET (FOR DETOX USE ONLY) PO ONE (10:00)
[2017-09-22] MEDS: PRENATAL VITAMINS W/ FOLIC ACID TABLET (FP) PO SCH (10:25)
[2017-09-22] MEDS: NICOTINE 14 MG/24 HOURS TOPICAL PATCH TD SCH (10:25)
[2017-09-22] MEDS: RANITIDINE HCL 150 MG TABLET (FP) PO SCH ×2 (10:25→22:30)
[2017-09-22] MEDS: THIAMINE HCL 100 MG TABLET (FP) PO SCH (22:29)
[2017-09-23] MEDS ORDERED: METHADONE HCL 5 MG TABLET (FOR DETOX USE ONLY) PO ONE (06:00)
--- NOTE | 2017-09-23 09:22 | DS ---
[facility] Detox Discharge Summary Admission Date: 09/18/17 Discharge Date: 09/23/17 - History Present History: Opioid Dependence - Physical Exam Results Vital Signs: Vital Signs Temperature 97.0 F L 09/23/17 06:00 Pulse Rate 70 09/23/17 06:00 Respiratory Rate 18 09/23/17 06:00 Blood Pressure 121/56 09/23/17 06:00 O2 Sat by Pulse Oximetry (%) Pertinent Admission Physical Exam Findings: Vital Signs Temperature 97.0 F L 09/23/17 06:00 Pulse Rate 70 09/23/17 06:00 Respiratory Rate 18 09/23/17 06:00 Blood Pressure 121/56 09/23/17 06:00 O2 Sat by Pulse Oximetry (%) Laboratory Last Values WBC 3.6 K/mm3 (4.0-10.0) L 09/19/17 06:00 RBC 3.80 M/mm3 (3.60-5.2) 09/19/17 06:00 Hgb 11.6 GM/dL (10.7-15.3) 09/19/17 06:00 Hct 35.3 % (32.4-45.2) 09/19/17 06:00 MCV 92.8 fl (80-96) 09/19/17 06:00 MCH 30.4 pg (25.7-33.7) 09/19/17 06:00 MCHC 32.8 g/dl (32.0-36.0) 09/19/17 06:00 RDW 13.7 % (11.6-15.6) 09/19/17 06:00 Plt Count 236 K/MM3 (134-434) D 09/19/17 06:00 MPV 10.0 fl (7.5-11.1) 09/19/17 06:00 Sodium 140 mmol/L (136-145) 09/19/17 06:00 Potassium 3.9 mmol/L (3.5-5.1) 09/19/17 06:00 Chloride 107 mmol/L (98-107) 09/19/17 06:00 Carbon Dioxide 24 mmol/L (21-32) 09/19/17 06:00 Anion Gap 9 (8-16) 09/19/17 06:00 BUN 9 mg/dL (7-18) 09/19/17 06:00 Creatinine 0.9 mg/dL (0.55-1.02) 09/19/17 06:00 Creat Clearance w eGFR > 60 (>60) 09/19/17 06:00 POC Glucometer 113 UNITS (80-120) 09/23/17 05:31 Random Glucose 111 mg/dL (74-106) H 09/19/17 06:00 Calcium 8.4 mg/dL (8.5-10.1) L 09/19/17 06:00 Total Bilirubin 0.5 mg/dL (0.2-1.0) 09/19/17 06:00 AST 21 U/L (15-37) 09/19/17 06:00 ALT 26 U/L (12-78) 09/19/17 06:00 Alkaline Phosphatase 80 U/L (45-117) 09/19/17 06:00 Total Protein 7.0 g/dl (6.4-8.2) 09/19/17 06:00 Albumin 4.0 g/dl (3.4-5.0) 09/19/17 06:00 Urine Color Straw 09/20/17 08:15 Urine Appearance Clear 09/20/17 08:15 Urine pH 5.0 (5.0-8.0) 09/20/17 08:15 Ur Specific [place] 1.011 (1.001-1.035) 09/20/17 08:15 Urine Protein Negative (NEGATIVE) 09/20/17 08:15 Urine Glucose (UA) Negative (NEGATIVE) 09/20/17 08:15 Urine Ketones Negative (NEGATIVE) 09/20/17 08:15 Urine Blood Negative (NEGATIVE) 09/20/17 08:15 Urine Nitrite Negative (NEGATIVE) 09/20/17 08:15 Urine Bilirubin Negative (NEGATIVE) 09/20/17 08:15 Urine Urobilinogen Negative mg/dL (0.2-1.0) 09/20/17 08:15 Ur Leukocyte Esterase Negative (NEGATIVE) 09/20/17 08:15 Urine WBC (Auto) 5 /hpf (3-5) 09/18/17 17:00 Urine RBC (Auto) 29 /hpf (0-3) 09/18/17 17:00 Ur Epithelial Cells Few /HPF (FEW) 09/18/17 17:00 Hyaline Casts 2 /lpf 09/18/17 17:00 Urine Mucus Rare 09/18/17 17:00 RPR Titer Nonreactive (NONREACTIVE) 09/19/17 06:00 Hepatitis C Antibody <0.1 s/co ratio (0.0-0.9) 09/18/17 14:00 lab noted - Treatment Hospital Course: Detox Protocol Followed, Detoxed Safely, Responded well, Discharged Condition Good, Rehab Referral Accepted Patient has Accepted a Rehab Referral to: as per counselor arranged - Medication Discharge Medications: Ambulatory Orders Ergocalciferol [Vitamin D2] 50,000 unit PO Q7D@1000 #7 capsule 08/01/16 Ferrous Sulfate [Feosol] 325 mg PO BID #60 ud 08/01/16 - Diagnosis (1) Depression Current Visit: Yes Status: Suspected Qualifiers: Depression Type: dysthymia Qualified Code(s): F34.1 - Dysthymic disorder (2) Cocaine dependence, uncomplicated Current Visit: Yes Status: Chronic (3) Nicotine dependence Current Visit: Yes Status: Acute Qualifiers: Nicotine product type: cigarettes Substance use status: in withdrawal Qualified Code(s): F17.213 - Nicotine dependence, cigarettes, with withdrawal (4) Opioid dependence with withdrawal Current Visit: Yes Status: Acute - AMA Did Patient Leave Against Medical Advice: No
[2017-09-23] MEDS: PRENATAL VITAMINS W/ FOLIC ACID TABLET (FP) PO SCH (11:04)
[2017-09-23] MEDS: NICOTINE 14 MG/24 HOURS TOPICAL PATCH TD SCH (11:04)
[2017-09-23] MEDS: RANITIDINE HCL 150 MG TABLET (FP) PO SCH (11:04)
[2017-09-23 11:28] VITALS: BP 116/68; PULSE 76; TEMP 97.7
== END 2017-09-23 11:25 | disposition other institution (70) | DRG 773 ==
LOC: YASAS 11:58 → Y6N 13:47
PROVIDERS: ADMIT Internal Medicine; ATTEND Internal Medicine
PROC: HZ2ZZZZ Detoxification Services for Substance Abuse Treatment (ICD-10-PCS; principal; 2017-09-18)
DX: F11.23 Opioid dependence with withdrawal (principal); F14.20 Cocaine dependence, uncomplicated; F17.213 Nicotine dependence, cigarettes, with withdrawal; F34.1 Dysthymic disorder; D57.3 Sickle-cell trait; D64.9 Anemia, unspecified
CPT/HCPCS: 36415; 80053; 81003; 81015; 82962; 85027; 86593; 86803; 93005; 93010

== ENCOUNTER 2017-09-23 11:35 | Inpatient (IN) | payer OTHER ==
[2017-09-23] MEDS ORDERED: MAGNESIUM CITRATE 300 ML BOTTLE PO PRN (12:51)
[2017-09-23] MEDS ORDERED: P-EPHED 60MG/TRIPROLIDI 2.5MG TABLET PO PRN (12:51)
[2017-09-23] MEDS ORDERED: guaiFENesin/D-METHORPHAN HB 10 ML UNIT-DOSE CUPS PO PRN (12:51)
[2017-09-23] MEDS ORDERED: IBUPROFEN 400 MG TABLET (FP) PO PRN (12:51)
[2017-09-23] MEDS ORDERED: MAG HYDROX/AL HYDROX/SIMETH 30 ML UNIT-DOSE CUP PO PRN (12:51)
[2017-09-23] MEDS ORDERED: LOPERAMIDE HCL 2 MG CAPSULE PO PRN (12:51)
[2017-09-23] MEDS ORDERED: MENTHOL/PHENOL 1 EACH UD MM PRN (12:51)
[2017-09-23] MEDS ORDERED: NICOTINE POLACRILEX 2 MG GUM BUC PRN (12:51)
[2017-09-23] MEDS ORDERED: MAGNESIUM HYDROX 2400MG/30ML ORAL SUSPENSION 30 ML CUP PO PRN (12:51)
--- NOTE | 2017-09-23 12:51 | HP ---
DONALD GUEVARA Rehab Assess/Revision - Admission History Admitted to Rehab from: [facility] Date of Admission to Rehab: 09/22/17 - Findings Detox History & Physical reviewed: Yes Concur with findings: Yes Comments/Additional Findings: transferred from detox to rehab admission as per protocol
[2017-09-23] MEDS ORDERED: NICOTINE 14 MG/24 HOURS TOPICAL PATCH TD PRN (13:00)
[2017-09-23] MEDS: THIAMINE HCL 100 MG TABLET (FP) PO SCH (21:22)
[2017-09-24] MEDS: ACETAMINOPHEN 325 MG TABLET (FP) PO PRN (06:57)
[2017-09-24] MEDS: PRENATAL VITAMINS W/ FOLIC ACID TABLET (FP) PO SCH (10:20)
--- NOTE | 2017-09-24 11:59 | HP ---
Psychiatrist Admission - Data Date of interview: 09/24/17 Admission source: [address] [place] [address] Identifying data: This is the third admission to [address] [place] [address] for this 47 years old AA mother of 11 children.10 kids are grown and youngest 9 yo resides with his father.Patient is homeless, supported by family. Medical History: Sickle cell traits. Psychiatric History: patient reports some sleeping difficulties on and off,was on Ambien 10 mg po hs,Belsomra 10 mg po hs pRN for insomnia,states that above medications didnt help much.Patient is wiling to start Remeron 15 mg po hs prn for insomnia. Physical/Sexual Abuse/Trauma History: denies Vital Signs: Vital Signs - 24 hr 09/24/17 09/24/17 09/24/17 00:30 03:30 07:45 Temperature 98.1 F Pulse Rate 80 Respiratory 18 18 18 Rate Blood Pressure 96/54 09/24/17 09:21 Temperature Pulse Rate 96 H Respiratory Rate Blood Pressure 110/64 Allergies/Adverse Reactions: Allergies Allergy/AdvReac Type Severity Reaction Status Date / Time No Known Allergies Allergy Verified 09/18/17 13:08 Date of last physical exam: 09/18/17 Concur with the findings of this exam: Yes - Substance Abuse/Tx History Hx Alcohol Use: No Hx Substance Use: Yes (reports smoking crack/cocaine since 23 yo,heroin since 23 yo(6 bags daily)) Substance Use Type: Cocaine, Heroin Hx Substance Use Treatment: Yes (patient left this program in Apr 2017.) Mental Status Exam - Mental Status Exam Alert and Oriented to: Time, Place, Person Cognitive Function: Grossly Intact Mood: Euthymic Affect: Mood Congruent Patient Behavior: Cooperative Speech Pattern: Clear Voice Loudness: Normal Thought Process: Goal Oriented Thought Disorder: Not Present Hallucinations: Denies Suicidal Ideation: Denies Homicidal Ideation: Denies Insight/Judgement: Fair Sleep: Difficulty falling asleep Appetite: Good Muscle strength/Tone: Normal Gait/Station: Normal Psychiatric Findings - Problem List ([place] 1, 2,3) (1) Nicotine dependence Current Visit: Yes Status: Chronic Qualifiers: Nicotine product type: cigarettes Substance use status: in withdrawal Qualified Code(s): F17.213 - Nicotine dependence, cigarettes, with withdrawal (2) Anemia Current Visit: Yes Status: Chronic Qualifiers: Anemia type: iron deficiency Iron deficiency anemia type: inadequate dietary iron intake Qualified Code(s): D50.8 - Other iron deficiency anemias Comment: LAB PENDING (3) Cocaine dependence, uncomplicated Current Visit: Yes Status: Chronic (4) Substance-induced sleep disorder Current Visit: Yes Status: Chronic (5) Sickle cell trait Current Visit: Yes Status: Chronic (6) Opioid dependence Current Visit: Yes Status: Chronic - Initial Treatment Plan Initial Treatment Plan: Remeron 15 mg po hs.Will monitor progress.
--- NOTE | 2017-09-24 13:43 | PN ---
[facility] Progress Note (SOAP) Subjective: pt states she takes vitamin D weekly Objective: 09/24/17 13:42 Vital Signs Temperature 98.1 F 09/24/17 07:45 Pulse Rate 96 H 09/24/17 09:21 Respiratory Rate 18 09/24/17 07:45 Blood Pressure 110/64 09/24/17 09:21 O2 Sat by Pulse Oximetry (%) aaox3 ambulating no acute distress Assessment: 09/24/17 13:42 continue with new order Plan: vitamin d 50,000 weekly starting .
[2017-09-24] MEDS ORDERED: MIRTAZAPINE 15 MG TABLET (FP) PO PRN (13:51)
[2017-09-24] MEDS ORDERED: PT OWN MED DRAWER 7, Y5N ONE (16:00)
[2017-09-24] MEDS: THIAMINE HCL 100 MG TABLET (FP) PO SCH (21:25)
[2017-09-25] MEDS ORDERED: PT OWN MED DRAWER 7, Y5N ONE (08:27)
[2017-09-25] MEDS ORDERED: ERGOCALCIFEROL (VITAMIN D2) 50,000 UNIT CAPSULE (FP) PO SCH (10:00)
[2017-09-25] MEDS: PRENATAL VITAMINS W/ FOLIC ACID TABLET (FP) PO SCH (10:04)
[2017-09-25] MEDS: THIAMINE HCL 100 MG TABLET (FP) PO SCH (21:31)
[2017-09-26] MEDS: PRENATAL VITAMINS W/ FOLIC ACID TABLET (FP) PO SCH (10:31)
[2017-09-26] MEDS: THIAMINE HCL 100 MG TABLET (FP) PO SCH (21:31)
[2017-09-27] MEDS: PRENATAL VITAMINS W/ FOLIC ACID TABLET (FP) PO SCH (09:52)
[2017-09-27] MEDS: ACETAMINOPHEN 325 MG TABLET (FP) PO PRN (12:42)
[2017-09-27] MEDS: THIAMINE HCL 100 MG TABLET (FP) PO SCH (21:24)
[2017-09-28 07:12] VITALS: BP 105/68; PULSE 78; TEMP 97.8
[2017-09-28] MEDS: PRENATAL VITAMINS W/ FOLIC ACID TABLET (FP) PO SCH (09:40)
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
== END 2017-09-28 17:30 | disposition left against medical advice (07) | DRG 770 ==
LOC: YASAS 11:35 → Y3E 11:36
PROVIDERS: ADMIT Psychiatry & Neurology Psychiatry; ATTEND Psychiatry & Neurology Psychiatry
PROC: HZ42ZZZ Group Counseling for Substance Abuse Treatment, Cognitive-Behavioral (ICD-10-PCS; principal; 2017-09-23)
DX: F11.20 Opioid dependence, uncomplicated (principal); F14.20 Cocaine dependence, uncomplicated; F17.210 Nicotine dependence, cigarettes, uncomplicated; F19.282 Other psychoactive substance dependence with psychoactive substance-induced sleep disorder; D50.8 Other iron deficiency anemias; D57.3 Sickle-cell trait; Y04.0XXA Assault by unarmed brawl or fight, initial encounter
CPT/HCPCS: 36415; 82962; 87389

== ENCOUNTER 2017-10-23 08:34 | Inpatient (IN) | payer OTHER ==
[2017-10-23 09:39] VITALS: BMI 20.6
--- NOTE | 2017-10-23 10:34 | HP ---
COWS - Scale Resting Pulse: 0= [place] 80 or Below Sweatin= Chills/Flushing Restless Observation: 1= Difficult to Sit Still Pupil Size: 1= Pupils >than Normal Bone or Joint Aches: 1= Mild Discomfort Runny Nose/ Eye Tearin= Nasal Congestion GI Upset > 30mins: 2= Nausea/Diarrhea Tremor Observation: 1= Tremor [place], Not Seen Yawning Observation: 1= 1-2x During Session Anxiety or Irritability: 2=Irritable/Anxious Goose Flesh Skin: 3=Piloerection COWS Score: 14 Admission [facility] Chief Complaint: heroin withdrawal sx Allergies/Adverse Reactions: Allergies Allergy/AdvReac Type Severity Reaction Status Date / Time No Known Allergies Allergy Verified 10/23/17 09:35 History of Present Illness: 47 yo f with oud using heroin and daily and smoking crack cocianer equesting inpatient detoxification from heroin because of withdrawal sx. no si PMHX sicle cell trait and anmeia recent wt loss, requesting ensure. no h/o seiuzres, DTS. Exam Limitations: No Limitations - Ebola screening Have you traveled outside of the country in the last 21 days: No Have you had contact with anyone from an Ebola affected area: No Have you been sick,other than usual withdrawal symptoms: No Do you have a fever: No - Review of Systems Constitutional: Chills, Diaphoresis, Night Sweats, Changes in sleep, Unintentional Wgt. Loss EENT: reports: Tearing, Nose Congestion Respiratory: reports: No Symptoms reported Cardiac: reports: No Symptoms Reported GI: reports: Diarrhea, Nausea, Poor Appetite, Poor Fluid Intake, Vomiting, Indigestion, Abdominal cramping : reports: No Symptoms Reported Musculoskeletal: reports: Back Pain, Joint Pain, Muscle Pain Integumentary: reports: Flushing, Sweating Neuro: reports: No Symptoms reported Endocrine: reports: Increased Thirst Hematology: reports: No Symptoms Reported Psychiatric: reports: Judgement Intact, Mood/Affect Appropiate, Orientated x3, Anxious, Depressed Other Systems: Reviewed and Negative Patient History - Patient Medical History Hx Anemia: Yes (ALSO " I HAVE SICKLE CELL TRAIT".) Hx Asthma: No Hx Chronic Obstructive Pulmonary Disease (COPD): No Hx Cancer: No Hx Cardiac Disorders: No Hx Congestive Heart Failure: No Hx Hypertension: No Hx Hypercholesterolemia: No Hx Pacemaker: No HX Cerebrovascular Accident: No Hx Seizures: No Hx Dementia: No Hx Diabetes: No Hx Gastrointestinal Disorders: No Hx Liver Disease: No Hx Genitourinary Disorders: No Hx Sexually Transmitted Disorders: No Hx Renal Disease (ESRD): No Hx Thyroid Disease: No Hx Human Immunodeficiency Virus (HIV): No (NEGATIVE HX 05/04) Hx Hepatitis C: No Hx Depression: Yes (when withdrawing) Hx Suicide Attempt: No Hx Bipolar Disorder: No (no SI at this time) Hx Schizophrenia: No - Patient Surgical History Past Surgical History: No Hx Neurologic Surgery: No Hx Cataract Extraction: No Hx Cardiac Surgery: No Hx Lung Surgery: No Hx Breast Surgery: No Hx Breast Biopsy: No Hx Abdominal Surgery: No Hx Appendectomy: No Hx Cholecystectomy: No Hx Genitourinary Surgery: No Hx Section: No Hx Orthopedic Surgery: No Hx Hysterectomy: No Anesthesia Reaction: No - PPD History Previous Implant?: Yes Documented Results: Negative w/proof Implanted On Prior R Admission?: Yes Date: 09/20/17 Results: 0 mm PPD to be Administered?: No - Reproductive History Patient is a Female of Child Bearing Age (11 -55 yrs old): Yes Last Menstrual Period: 10/16/17 Patient : No - Smoking Cessation Smoking history: Current every day smoker Have you smoked in the past 12 months: Yes Aproximately how many cigarettes per day: 6 Cigars Per Day: 0 Hx Chewing Tobacco Use: No Initiated information on smoking cessation: Yes 'Breaking Loose' booklet given: 10/23/17 - Substance & Tx. History Hx Alcohol Use: No Hx Substance Use: Yes Substance Use Type: Cocaine, Heroin, Opiates Hx Substance Use Treatment: Yes ( [facility] detox) - Substances Abused Heroin Route: Inhalation Frequency: Daily Amount used: 7-8 BAGS Age of first use: 23 Date of Last Use: 10/22/17 Crack Route: Smoking Frequency: Daily Amount used: $40 Age of first use: 23 Date of Last Use: 10/22/17 Family Disease History - Family Disease History Family Disease History: Respiratory: Brother, Sister, Other: Father (DSA, ) Admission Physical Exam BHS - Vital Signs Vital Signs: Vital Signs - 24 hr 10/23/17 09:37 Temperature 97.8 F Pulse Rate 73 Respiratory 20 Rate Blood Pressure 116/73 - Physical General Appearance: Yes: Nourished, Appropriately Dressed, Disheveled, Mild Distress, Thin, Tremorous, Irritable, Sweating, Anxious HEENTM: Yes: EOMI, Hearing grossly Normal, Normocephalic, Normal Voice, MAREN, Pharynx Normal, Nasal Congestion, Rhinorrhea Respiratory: Yes: Within Normal Limits, Chest Non-Tender, Lungs Clear, Normal Breath Sounds, No Respiratory Distress, No Accessory Muscle Use Neck: Yes: Within Normal Limits, No masses,lesions,Nodules, Supple, Trachea in good position Breast: Yes: Breast Exam Deferred Cardiology: Yes: Within Normal Limits, Regular Rhythm, Regular Rate, S1, S2 Abdominal: Yes: Within Normal Limits, Normal Bowel Sounds, Non Tender, Flat, Soft, Increased Bowel Sounds Genitourinary: Yes: Within Normal Limits Back: Yes: Within Normal Limits, Normal Inspection Musculoskeletal: Yes: full range of Motion, Gait Steady, Pelvis Stable, Back pain Extremities: Yes: Within Normal Limits, Normal Capillary Refill, Normal Inspection, Normal Range of Motion, Non-Tender Neurological: Yes: supervisor order takers II-XII NML intact, Fully Oriented, Alert, Motor Strength 5/5, Normal Response, Depressed Affect Integumentary: Yes: Normal Color, Warm, Diaphoresis, Moist Lymphatic: Yes: Within Normal Limits - Addiitonal Findings: withdrawal sx - Diagnostic (1) Opioid dependence with withdrawal Current Visit: No Status: Acute (2) Anemia Current Visit: No Status: Chronic Qualifiers: Comment: LAB PENDING (3) Cocaine dependence, uncomplicated Current Visit: No Status: Chronic (4) Nicotine dependence Current Visit: No Status: Chronic Qualifiers: (5) Sickle cell trait Current Visit: No Status: Chronic (6) Substance-induced sleep disorder Current Visit: No Status: Chronic (7) Depression Current Visit: No Status: Suspected Qualifiers: (8) Dehydration Current Visit: Yes Status: Acute Cleared for Admission BHS - Detox or Rehab Detox Regimen/Protocol: Methadone BHS Breath Alcohol Content Breath Alcohol Content: 0 Urine Pregancy Test - Result Urine Test Results: Negative- NO Line Present Urine Drug Screen - Results Drug Screen Negative: No Urine Drug Screen Results: EMILY-Cocaine, OPI-Opiates
[2017-10-23] MEDS ORDERED: LOPERAMIDE HCL 2 MG CAPSULE PO PRN (10:35)
[2017-10-23] MEDS ORDERED: guaiFENesin/D-METHORPHAN HB 10 ML UNIT-DOSE CUPS PO PRN (10:35)
[2017-10-23] MEDS ORDERED: ACETAMINOPHEN 325 MG TABLET (FP) PO PRN (10:35)
[2017-10-23] MEDS ORDERED: P-EPHED 60MG/TRIPROLIDI 2.5MG TABLET PO PRN (10:35)
[2017-10-23] MEDS ORDERED: MAGNESIUM CITRATE 300 ML BOTTLE PO PRN (10:35)
[2017-10-23] MEDS ORDERED: MAG HYDROX/AL HYDROX/SIMETH 30 ML UNIT-DOSE CUP PO PRN (10:35)
[2017-10-23] MEDS ORDERED: hydrOXYzine PAMOATE 50 MG CAPSULE (FP) PO PRN (10:35)
[2017-10-23] MEDS ORDERED: diazePAM 5 MG TABLET PO PRN (10:35)
[2017-10-23] MEDS ORDERED: NICOTINE POLACRILEX 2 MG GUM BUC PRN (10:35)
[2017-10-23] MEDS ORDERED: MAGNESIUM HYDROX 2400MG/30ML ORAL SUSPENSION 30 ML CUP PO PRN (10:35)
[2017-10-23] MEDS ORDERED: METHADONE HCL 10 MG TABLET (FOR DETOX USE ONLY) PO ONE ×4 (10:35→23:00)
[2017-10-23] MEDS ORDERED: MENTHOL/PHENOL 1 EACH UD MM PRN (10:35)
[2017-10-23] MEDS ORDERED: NICOTINE 14 MG/24 HOURS TOPICAL PATCH TD SCH (10:45)
[2017-10-23] MEDS: FERROUS SO4 325 MG TABLET (FP) PO SCH ×2 (13:08→22:35)
[2017-10-23] MEDS: diazePAM 5 MG TABLET PO PRN ×2 (13:09→22:35)
--- NOTE | 2017-10-23 15:08 | CONSULT ---
[facility] Psychiatric Consult - Data Date of interview: 10/23/17 Admission source: [facility] Identifying data: This is 47 years old female, , mother of 11, unemployed , homeless, on PA, with no psychiatric hospitalization hiustory, intoxicated with: Opioids, Cocaine and Nicotine, here for detoxification from heroin, reports of withdrawal symptoms. Substance Abuse History: Urine Drug Screen Results: EMILY-Cocaine, OPI-Opiates. Smoking Cessation. Smoking history: Current every day smoker. Have you smoked in the past 12 months: Yes. Aproximately how many cigarettes per day: 6. Cigars Per Day: 0. Hx Chewing Tobacco Use: No. Initiated information on smoking cessation: Yes. 'Breaking Loose' booklet given: 10/23/17. - Substance & Tx. History. Hx Alcohol Use: No. Hx Substance Use: Yes. Substance Use Type : Cocaine, Heroin, Opiates. Hx Substance Use Treatment: Yes ([facility] detox). - Substances Abused. Heroin. Route: Inhalation. Frequency: Daily. Amount used: 7-8 BAGS. Age of first use: 23. Date of Last Use: 10/22/17. Crack. Route: Smoking. Frequency: Daily. Amount used: $40. Age of first use : 23. Date of Last Use: 10/22/17 Medical History: Patient reports sicle cell trait history, Anmeia recent Weightt loss, Psychiatric History: Patient denies past psychiatric history, as per computer there is a history of depression, reports no medications taking prior to admission,. denies suicdal history as well. Physical/Sexual Abuse/Trauma History: Denies Additional Comment: Urine Drug Screen Results: EMILY-Cocaine, OPI-Opiates. Observation. Detox Unit Care Protocol Mental Status Exam - Mental Status Exam Alert and Oriented to: Person Cognitive Function: Fair Patient Appearance: Unkempt Mood: Sad Affect: Flat Patient Behavior: Sedated Speech Pattern: Delayed Voice Loudness: Moderately Soft/Quiet Thought Process: Circumstantial Thought Disorder: Being Controlled Hallucinations: Denies Suicidal Ideation: Denies Homicidal Ideation: Denies Insight/Judgement: Fair Sleep: Difficulty falling asleep Appetite: Weight loss Muscle strength/Tone: Normal Gait/Station: Shuffling Additional Comments: Observation. Detox Unit Care Protocol Psychiatric Findings - Problem List ([place] 1, 2,3) (1) Opioid dependence with withdrawal Current Visit: No Status: Acute (2) Cocaine dependence, uncomplicated Current Visit: No Status: Chronic (3) Nicotine dependence Current Visit: No Status: Chronic Qualifiers: (4) Substance-induced sleep disorder Current Visit: No Status: Suspected - Initial Treatment Plan Initial Treatment Plan: Observation. Detox Unit Care Protocol
--- NOTE | 2017-10-23 15:08 | EKG ---
Test Reason : Blood Pressure : / mmHG Vent. Rate : 068 BPM Atrial Rate : 068 BPM P-R Int : 134 ms QRS Dur : 094 ms QT Int : 404 ms P-R-T Axes : 003 080 059 degrees QTc Int : 429 ms NORMAL SINUS RHYTHM NORMAL ECG WHEN COMPARED WITH ECG OF 18-SEP-2017 18:53, T WAVE INVERSION NO LONGER EVIDENT IN ANTERIOR LEADS Confirmed by BRANDEE GUEVARA, MARI ([id number]) on 10/23/2017 3:08:28 PM Referred By: Confirmed By:MARI IRVIN MD
[2017-10-23 17:10] LABS: URINE APPEARANCE SLCLOUDY; URINE BILIRUBIN NEGATIVE (NEGATIVE); URINE BLOOD NEGATIVE (NEGATIVE); URINE COLOR YELLOW; URINE GLUCOSE (UA) NEGATIVE (NEGATIVE); URINE KETONE NEGATIVE (NEGATIVE); URINE LEUK ESTERASE NEGATIVE (NEGATIVE); URINE NITRITE NEGATIVE (NEGATIVE); URINE PROTEIN NEGATIVE (NEGATIVE); URINE UROBILINOGEN NEGATIVE mg/dL (0.2-1.0)
[2017-10-23] MEDS: THIAMINE HCL 100 MG TABLET (FP) PO SCH (22:34)
[2017-10-24] MEDS: IBUPROFEN 400 MG TABLET (FP) PO PRN ×2 (07:05→14:26)
[2017-10-24] MEDS: diazePAM 5 MG TABLET PO PRN ×4 (07:05→22:17)
[2017-10-24] MEDS ORDERED: METHADONE HCL 10 MG TABLET (FOR DETOX USE ONLY) PO ONE ×2 (10:00)
[2017-10-24 10:28] LABS: HEMATOCRIT 38.4 % (32.4-45.2); HEMOGLOBIN 12.8 GM/dL (10.7-15.3); MCHC 33.3 g/dl (32.0-36.0); MEAN PLT VOLUME 9.6 fl (7.5-11.1); PLATELET COUNT 237 K/MM3 (134-434); RBC 4.13 M/mm3 (3.60-5.2); RDW 13.8 % (11.6-15.6); WHITE BLOOD COUNT 3.4 K/mm3 (4.0-10.0)
[2017-10-24 10:34] LABS: ALBUMIN 3.9 g/dl (3.4-5.0); ANION GAP 5 (8-16); BLOOD UREA NITROGEN 9 mg/dL (7-18); CALCIUM 8.6 mg/dL (8.5-10.1); CHLORIDE 108 mmol/L (98-107); CO2 28 mmol/L (21-32); GLUCOSE,RANDOM 94 mg/dL (74-106); POTASSIUM 4.1 mmol/L (3.5-5.1); SGPT/ALT 20 U/L (12-78); SODIUM 141 mmol/L (136-145)
[2017-10-24 10:36] LABS: ALK PHOS 68 U/L (45-117); BILIRUBIN,TOTAL 0.5 mg/dL (0.2-1.0); CREATININE 0.9 mg/dL (0.55-1.02); SGOT/AST 13 U/L (15-37); TOT PROT 6.8 g/dl (6.4-8.2)
[2017-10-24] MEDS: FERROUS SO4 325 MG TABLET (FP) PO SCH ×2 (10:37→22:17)
[2017-10-24] MEDS: PRENATAL VITAMINS W/ FOLIC ACID TABLET (FP) PO SCH (10:37)
--- NOTE | 2017-10-24 10:48 | PN ---
[facility] COWS - Scale Resting Pulse: 1= [place] 81-100 Sweatin=Flushed/Facial Moisture Restless Observation: 1= Difficult to Sit Still Pupil Size: 1= Pupils >than Normal Bone or Joint Aches: 2= Severe Diffuse Aches Runny Nose/ Eye Tearin= Nasal Congestion GI Upset > 30mins: 1= Stomach Cramp Tremor Observation of Outstretched Hands: 1= Tremor [place], Not Seen Yawning Observation: 0= None Anxiety or Irritability: 1=Feels Anxious/Irritable Goose Flesh Skin: 0=Smooth Skin COWS Score: 11 BHS Progress Note (SOAP) Subjective: interrupted sleep, sweats, lbp, Objective: 10/24/17 10:46 Vital Signs Temperature 98.2 F 10/24/17 09:48 Pulse Rate 92 H 10/24/17 09:48 Respiratory Rate 18 10/24/17 09:48 Blood Pressure 127/77 10/24/17 09:48 O2 Sat by Pulse Oximetry (%) Laboratory Tests 10/23/17 10/24/17 10/24/17 16:00 05:50 05:50 WBC 3.4 L RBC 4.13 Hgb 12.8 D Hct 38.4 MCV 93.0 MCH 31.0 MCHC 33.3 RDW 13.8 Plt Count 237 MPV 9.6 Sodium 141 Potassium 4.1 Chloride 108 H Carbon Dioxide 28 Anion Gap 5 L BUN 9 Creatinine 0.9 Creat Clearance w eGFR > 60 Random Glucose 94 Calcium 8.6 Total Bilirubin 0.5 AST 13 L ALT 20 Alkaline Phosphatase 68 Total Protein 6.8 Albumin 3.9 Urine Color Yellow Urine Appearance Slcloudy Urine pH 5.0 Ur Specific [place] 1.018 Urine Protein Negative Urine Glucose (UA) Negative Urine Ketones Negative Urine Blood Negative Urine Nitrite Negative Urine Bilirubin Negative Urine Urobilinogen Negative Ur Leukocyte Esterase Negative pt aox3 in nad , lying in bed Assessment: 10/24/17 10:47 withdrawal sx's lbp Plan: cont. detox increase fluids motrin prn
[2017-10-24] MEDS: THIAMINE HCL 100 MG TABLET (FP) PO SCH (22:17)
[2017-10-25] MEDS: diazePAM 5 MG TABLET PO PRN ×2 (06:32→16:53)
[2017-10-25] MEDS: IBUPROFEN 400 MG TABLET (FP) PO PRN ×3 (06:33→16:54)
[2017-10-25] MEDS ORDERED: METHADONE HCL 5 MG TABLET (FOR DETOX USE ONLY) PO ONE ×2 (10:00)
[2017-10-25] MEDS: FERROUS SO4 325 MG TABLET (FP) PO SCH (10:43)
[2017-10-25] MEDS: PRENATAL VITAMINS W/ FOLIC ACID TABLET (FP) PO SCH (10:44)
--- NOTE | 2017-10-25 17:03 | PN ---
BHS COWS - Scale Resting Pulse: 1= [place] 81-100 Sweatin=Flushed/Facial Moisture Restless Observation: 1= Difficult to Sit Still Pupil Size: 0= Normal to Room Light Bone or Joint Aches: 1= Mild Discomfort Runny Nose/ Eye Tearin= Nasal Congestion GI Upset > 30mins: 1= Stomach Cramp Tremor Observation of Outstretched Hands: 2= Slight Tremor Visible Yawning Observation: 1= 1-2x During Session Anxiety or Irritability: 2=Irritable/Anxious Goose Flesh Skin: 0=Smooth Skin COWS Score: 12 BHS Progress Note (SOAP) Subjective: sweats shakes difficulty sleeping Objective: 10/25/17 17:03 A & O x 3 Vital Signs Temperature 98.1 F 10/25/17 14:35 Pulse Rate 82 10/25/17 14:35 Respiratory Rate 18 10/25/17 14:35 Blood Pressure 124/68 10/25/17 14:35 O2 Sat by Pulse Oximetry (%) Assessment: 10/25/17 17:03 withdrawal sx Plan: continue detox
[2017-10-25 18:01] VITALS: BP 158/78; PULSE 65; TEMP 96.8
--- NOTE | 2017-10-25 19:16 | DS ---
[facility] Detox Discharge Summary Admission Date: 10/23/17 Discharge Date: 10/25/17 - History Additional Comments: pt insisted on leaving prior to discharge. Pt was A & O x 3 and had steady gait - Physical Exam Results Vital Signs: Vital Signs Temperature 96.8 F L 10/25/17 18:00 Pulse Rate 65 10/25/17 18:00 Respiratory Rate 18 10/25/17 18:00 Blood Pressure 158/78 10/25/17 18:00 O2 Sat by Pulse Oximetry (%) Pertinent Admission Physical Exam Findings: withdrawal sx - Medication Discharge Medications: Ambulatory Orders Ergocalciferol [Vitamin D2] 50,000 unit PO Q7D@1000 #4 capsule 09/28/17 Ferrous Sulfate [Feosol] 325 mg PO BID #60 ud 09/28/17 - Diagnosis (1) Opioid dependence with withdrawal Status: Chronic (2) Cocaine dependence, uncomplicated Status: Chronic (3) Dehydration Status: Acute (4) Anemia Status: Chronic Qualifiers: (5) Nicotine dependence Status: Chronic Qualifiers: Nicotine product type: cigarettes Substance use status: uncomplicated Qualified Code(s): F17.210 - Nicotine dependence, cigarettes, uncomplicated (6) Sickle cell trait Status: Chronic (7) Depression Status: Suspected Qualifiers: (8) Substance-induced sleep disorder Status: Suspected - AMA Did Patient Leave Against Medical Advice: Yes
[2017-10-26] MEDS ORDERED: METHADONE HCL 5 MG TABLET (FOR DETOX USE ONLY) PO ONE ×2 (10:00)
[2017-10-27] MEDS ORDERED: METHADONE HCL 10 MG TABLET (FOR DETOX USE ONLY) PO ONE ×2 (10:00)
[2017-10-28] MEDS ORDERED: METHADONE HCL 5 MG TABLET (FOR DETOX USE ONLY) PO ONE ×2 (06:00)
== END 2017-10-25 06:30 | disposition left against medical advice (07) | DRG 770 ==
LOC: YASAS 08:34 → Y6N 11:15
PROVIDERS: ADMIT Internal Medicine; ATTEND Internal Medicine
PROC: HZ2ZZZZ Detoxification Services for Substance Abuse Treatment (ICD-10-PCS; principal; 2017-10-23)
DX: F10.230 Alcohol dependence with withdrawal, uncomplicated (principal); F14.20 Cocaine dependence, uncomplicated; F17.210 Nicotine dependence, cigarettes, uncomplicated; F32.9 Major depressive disorder, single episode, unspecified; F19.282 Other psychoactive substance dependence with psychoactive substance-induced sleep disorder; D57.3 Sickle-cell trait; D64.9 Anemia, unspecified; E86.0 Dehydration; M54.5 Low back pain
CPT/HCPCS: 36415; 80053; 81003; 85027; 86593; 93005; 93010

== ENCOUNTER 2017-12-08 10:13 | Inpatient (IN) | payer OTHER ==
[2017-12-08 10:41] VITALS: BMI 19.3
--- NOTE | 2017-12-08 12:48 | HP ---
COWS - Scale Resting Pulse: 1= [place] 81-100 Sweatin=Flushed/Facial Moisture Restless Observation: 3= Extraneous Movement Pupil Size: 2= Moderately Dilated Bone or Joint Aches: 2= Severe Diffuse Aches Runny Nose/ Eye Tearin= Runny Nose/Eyes GI Upset > 30mins: 3= Vomiting/Diarrhea Tremor Observation: 2= Slight Tremor Visible Yawning Observation: 2= >3x During Session Anxiety or Irritability: 2=Irritable/Anxious Goose Flesh Skin: 0=Smooth Skin COWS Score: 21 Admission ROS BHS - HPI Chief Complaint: i need help to stop using heroin and cocaine Allergies/Adverse Reactions: Allergies Allergy/AdvReac Type Severity Reaction Status Date / Time No Known Allergies Allergy Verified 12/08/17 12:38 History of Present Illness: this 47 years old female with heroin and cocaine dependence,seeking detox,last detox [facility] 10/23/17 t0 10/25/17 not completed weight loss anemia nicotine dependence longest period of sobriety 8 and half years multiple admissions in the past Exam Limitations: No Limitations - Ebola screening Have you traveled outside of the country in the last 21 days: No Have you had contact with anyone from an Ebola affected area: No Have you been sick,other than usual withdrawal symptoms: No Do you have a fever: No - Review of Systems Constitutional: Chills, Loss of Appetite, Malaise, Night Sweats, Changes in sleep, Weakness, Unintentional Wgt. Loss EENT: reports: Tearing, Nose Congestion Respiratory: reports: No Symptoms reported Cardiac: reports: No Symptoms Reported GI: reports: Diarrhea, Nausea, Vomiting, Abdominal cramping : reports: No Symptoms Reported Musculoskeletal: reports: No Symptoms Reported, Back Pain, Joint Pain, Muscle Pain Integumentary: reports: Dryness Neuro: reports: Headache, Tremors Endocrine: reports: No Symptoms Reported Hematology: reports: Anemia Psychiatric: reports: Judgement Intact, Mood/Affect Appropiate, Orientated x3 Patient History - Patient Medical History Hx Anemia: Yes (ALSO " I HAVE SICKLE CELL TRAIT".) Hx Asthma: No Hx Chronic Obstructive Pulmonary Disease (COPD): No Hx Cancer: No Hx Cardiac Disorders: No Hx Congestive Heart Failure: No Hx Hypertension: No Hx Hypercholesterolemia: No Hx Pacemaker: No HX Cerebrovascular Accident: No Hx Seizures: No Hx Dementia: No Hx Diabetes: No Hx Gastrointestinal Disorders: No Hx Liver Disease: No Hx Genitourinary Disorders: No Hx Sexually Transmitted Disorders: No Hx Renal Disease (ESRD): No Hx Thyroid Disease: No Hx Human Immunodeficiency Virus (HIV): No (NEGATIVE HX 05/04) Hx Hepatitis C: No Hx Depression: Yes (when withdrawing) Hx Suicide Attempt: No Hx Bipolar Disorder: No (no SI at this time) Hx Schizophrenia: No Other Medical History: no suicidal,no homicidal - Patient Surgical History Past Surgical History: No Hx Neurologic Surgery: No Hx Cataract Extraction: No Hx Cardiac Surgery: No Hx Lung Surgery: No Hx Breast Surgery: No Hx Breast Biopsy: No Hx Abdominal Surgery: No Hx Appendectomy: No Hx Cholecystectomy: No Hx Genitourinary Surgery: No Hx Section: No Hx Orthopedic Surgery: No Hx Hysterectomy: No Anesthesia Reaction: No - PPD History Previous Implant?: Yes Documented Results: Negative w/proof Implanted On Prior [facility] Admission?: Yes Date: 09/20/17 Results: 0 mm PPD to be Administered?: No - Reproductive History Patient is a Female of Child Bearing Age (11 -55 yrs old): Yes Last Menstrual Period: 10/16/17 Patient : No - Smoking Cessation Smoking history: Current every day smoker Have you smoked in the past 12 months: Yes Aproximately how many cigarettes per day: 6 Cigars Per Day: 0 Hx Chewing Tobacco Use: No Initiated information on smoking cessation: Yes 'Breaking Loose' booklet given: 12/08/17 - Substance & Tx. History Hx Alcohol Use: No Hx Substance Use: Yes Substance Use Type: Cocaine, Heroin Hx Substance Use Treatment: Yes ([facility] 10/23/17 to 10/25/17) - Substances Abused Heroin Route: Inhalation Frequency: Daily Amount used: 12 BAGS Age of first use: 16 Date of Last Use: 12/07/17 Cocaine Route: Smoking Frequency: Daily Amount used: $40 Age of first use: 23 Date of Last Use: 12/07/17 Family Disease History - Family Disease History Family Disease History: Respiratory: Brother, Sister, Other: Father (DSA, ) Admission Physical Exam BHS - Vital Signs Vital Signs: Vital Signs - 24 hr 12/08/17 10:38 Temperature 97.6 F Pulse Rate 87 Respiratory 18 Rate Blood Pressure 124/82 - Physical General Appearance: Yes: Moderate Distress, Tremorous, Irritable, Sweating HEENTM: Yes: Normocephalic, MAREN, Pharynx Normal Respiratory: Yes: Lungs Clear, Normal Breath Sounds, No Respiratory Distress Neck: Yes: Within Normal Limits Breast: Yes: Within Normal Limits Cardiology: Yes: Within Normal Limits, Regular Rhythm, Regular Rate, S1, S2 Abdominal: Yes: Within Normal Limits, Normal Bowel Sounds, Non Tender, Flat, Soft Genitourinary: Yes: Within Normal Limits Back: Yes: Within Normal Limits, Normal Inspection, Muscle Spasm Musculoskeletal: Yes: full range of Motion, Back pain, Joint Stiffness, Muscle Pain Extremities: Yes: Within Normal Limits, Normal Range of Motion, Tremors 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, Alert, Motor Strength 5/5, Normal Mood /Affect Integumentary: Yes: Dry Lymphatic: Yes: Within Normal Limits - Diagnostic (1) Opioid dependence with withdrawal Current Visit: No Status: Chronic (2) Dehydration Current Visit: No Status: Acute (3) Cocaine dependence, uncomplicated Current Visit: No Status: Chronic (4) Nicotine dependence Current Visit: No Status: Chronic Qualifiers: Nicotine product type: cigarettes Substance use status: uncomplicated Qualified Code(s): F17.210 - Nicotine dependence, cigarettes, uncomplicated (5) Sickle cell trait Current Visit: No Status: Chronic (6) Weight loss Current Visit: Yes Status: Acute Cleared for Admission [facility] - Detox or Rehab [facility] Level of Care: Medically Managed Detox Regimen/Protocol: Methadone [facility] Breath Alcohol Content Breath Alcohol Content: 0 Urine Pregancy Test - Result Urine Test Results: Negative- NO Line Present Urine Drug Screen - Results Drug Screen Negative: No Urine Drug Screen Results: EMILY-Cocaine, OPI-Opiates
[2017-12-08] MEDS ORDERED: MAGNESIUM HYDROX 2400MG/30ML ORAL SUSPENSION 30 ML CUP PO PRN (12:58)
[2017-12-08] MEDS ORDERED: NICOTINE POLACRILEX 2 MG GUM BC PRN (12:58)
[2017-12-08] MEDS ORDERED: MENTHOL/PHENOL 1 EACH UD MM PRN (12:58)
[2017-12-08] MEDS ORDERED: P-EPHED 60MG/TRIPROLIDI 2.5MG TABLET PO PRN (12:58)
[2017-12-08] MEDS ORDERED: ACETAMINOPHEN 325 MG TABLET (FP) PO PRN (12:58)
[2017-12-08] MEDS ORDERED: MAGNESIUM CITRATE 300 ML BOTTLE PO PRN (12:58)
[2017-12-08] MEDS ORDERED: guaiFENesin/D-METHORPHAN HB 10 ML UNIT-DOSE CUPS PO PRN (12:58)
[2017-12-08] MEDS ORDERED: LOPERAMIDE HCL 2 MG CAPSULE PO PRN (12:58)
[2017-12-08] MEDS ORDERED: MAG HYDROX/AL HYDROX/SIMETH 30 ML UNIT-DOSE CUP PO PRN (12:58)
[2017-12-08] MEDS ORDERED: METHADONE HCL 10 MG TABLET (FOR DETOX USE ONLY) PO ONE ×2 (13:05→23:00)
[2017-12-08] MEDS: diazePAM 5 MG TABLET PO PRN ×2 (15:13→22:26)
[2017-12-08] MEDS: FERROUS SO4 325 MG TABLET (FP) PO SCH (17:56)
[2017-12-08] MEDS ORDERED: MELATONIN 5 MG TABLETS PO PRN (22:00)
[2017-12-08] MEDS: THIAMINE HCL 100 MG TABLET (FP) PO SCH (22:26)
[2017-12-09 03:48] LABS: URINE APPEARANCE SLCLOUDY; URINE BILIRUBIN NEGATIVE (<2.0 mg/dL); URINE BLOOD 2+ (NEGATIVE); URINE COLOR YELLOW; URINE GLUCOSE (UA) 1+ (NEGATIVE); URINE KETONE NEGATIVE (NEGATIVE); URINE LEUK ESTERASE NEGATIVE (NEGATIVE); URINE NITRITE NEGATIVE (NEGATIVE); URINE PROTEIN NEGATIVE (NEGATIVE)
[2017-12-09 04:00] LABS: EPI CELLS FEW /HPF (FEW); URINE BACTERIA RARE /hpf (NONE SEEN); URINE MUCUS RARE
[2017-12-09] MEDS: FERROUS SO4 325 MG TABLET (FP) PO SCH ×2 (07:01→17:19)
[2017-12-09] MEDS ORDERED: METHADONE HCL 10 MG TABLET (FOR DETOX USE ONLY) PO ONE (10:00)
--- NOTE | 2017-12-09 10:09 | PN ---
S COWS - Scale Resting Pulse: 1= [place] 81-100 Sweatin= Chills/Flushing Restless Observation: 1= Difficult to Sit Still Pupil Size: 2= Moderately Dilated Bone or Joint Aches: 2= Severe Diffuse Aches Runny Nose/ Eye Tearin= Nasal Congestion GI Upset > 30mins: 2= Nausea/Diarrhea Tremor Observation of Outstretched Hands: 2= Slight Tremor Visible Yawning Observation: 2= >3x During Session Anxiety or Irritability: 2=Irritable/Anxious Goose Flesh Skin: 3=Piloerection COWS Score: 19 BHS Progress Note (SOAP) Subjective: joint pain body ache sweat tremor gi distress restlessness anxiety Objective: 12/09/17 10:08 Vital Signs Temperature 98.2 F 12/09/17 07:08 Pulse Rate 72 12/09/17 07:08 Respiratory Rate 18 12/09/17 07:08 Blood Pressure 143/80 12/09/17 07:08 O2 Sat by Pulse Oximetry (%) Laboratory Last Values Urine Color Yellow 12/08/17 22:50 Urine Appearance Slcloudy 12/08/17 22:50 Urine pH 6.0 (5.0-8.0) 12/08/17 22:50 Ur Specific [place] 1.014 (1.001-1.035) 12/08/17 22:50 Urine Protein Negative (NEGATIVE) 12/08/17 22:50 Urine Glucose (UA) 1+ (NEGATIVE) H 12/08/17 22:50 Urine Ketones Negative (NEGATIVE) 12/08/17 22:50 Urine Blood 2+ (NEGATIVE) H 12/08/17 22:50 Urine Nitrite Negative (NEGATIVE) 12/08/17 22:50 Urine Bilirubin Negative (<2.0 mg/dL) 12/08/17 22:50 Urine Urobilinogen 2.0 mg/dL (0.2-1.0) H 12/08/17 22:50 Ur Leukocyte Esterase Negative (NEGATIVE) 12/08/17 22:50 Urine WBC (Auto) None /hpf (3-5) 12/08/17 22:50 Urine RBC (Auto) 3 /hpf (0-3) 12/08/17 22:50 Ur Epithelial Cells Few /HPF (FEW) 12/08/17 22:50 Urine Bacteria Rare /hpf (NONE SEEN) 12/08/17 22:50 Urine Mucus Rare 12/08/17 22:50 HIV 1&2 Antibody Screen Negative 12/08/17 12:00 HIV P24 Antigen Negative 12/08/17 12:00 lab noted Assessment: 12/09/17 10:08 withdrawal sx Plan: continue detox
[2017-12-09 10:11] LABS: HEMATOCRIT 33.3 % (32.4-45.2); HEMOGLOBIN 11.3 GM/dL (10.7-15.3); MCH 30.8 pg (25.7-33.7); MCHC 33.8 g/dl (32.0-36.0); MEAN CELL VOLUME 90.9 fl (80-96); MEAN PLT VOLUME 9.8 fl (7.5-11.1); PLATELET COUNT 251 K/MM3 (134-434); RBC 3.67 M/mm3 (3.60-5.2); RDW 12.9 % (11.6-15.6); WHITE BLOOD COUNT 3.3 K/mm3 (4.0-10.0)
[2017-12-09] MEDS: PRENATAL VITAMINS W/ FOLIC ACID TABLET (FP) PO SCH (11:00)
[2017-12-09 11:12] LABS: CHLORIDE 108 mmol/L (98-107); POTASSIUM 3.9 mmol/L (3.5-5.1); SODIUM 142 mmol/L (136-145)
[2017-12-09 11:18] LABS: ALBUMIN 3.5 g/dl (3.4-5.0); ALK PHOS 82 U/L (45-117); ANION GAP 6 (8-16); BILIRUBIN,TOTAL 0.3 mg/dL (0.2-1.0); BLOOD UREA NITROGEN 8 mg/dL (7-18); CALCIUM 8.4 mg/dL (8.5-10.1); CO2 28 mmol/L (21-32); CREATININE 0.8 mg/dL (0.55-1.02); GLUCOSE,RANDOM 103 mg/dL (74-106); SGOT/AST 21 U/L (15-37); SGPT/ALT 20 U/L (12-78); TOT PROT 6.6 g/dl (6.4-8.2)
--- NOTE | 2017-12-09 13:37 | EKG ---
Test Reason : Blood Pressure : / mmHG Vent. Rate : 069 BPM Atrial Rate : 069 BPM P-R Int : 130 ms QRS Dur : 088 ms QT Int : 426 ms P-R-T Axes : 058 073 061 degrees QTc Int : 456 ms NORMAL SINUS RHYTHM NONSPECIFIC T WAVE ABNORMALITY ABNORMAL ECG WHEN COMPARED WITH ECG OF 23-OCT-2017 13:25, T WAVE INVERSION NOW EVIDENT IN ANTERIOR LEADS Confirmed by MD SHADY, JIA ([id number]) on 12/09/2017 1:37:20 PM Referred By: Confirmed By:JIA CARUSO MD
[2017-12-09] MEDS: diazePAM 5 MG TABLET PO PRN ×2 (17:17→22:55)
[2017-12-09] MEDS: IBUPROFEN 400 MG TABLET (FP) PO PRN (17:17)
[2017-12-09 18:34] LABS: URINE APPEARANCE SLCLOUDY; URINE BILIRUBIN NEGATIVE (<2.0 mg/dL); URINE BLOOD 2+ (NEGATIVE); URINE COLOR LTYELLOW; URINE GLUCOSE (UA) NEGATIVE (NEGATIVE); URINE KETONE NEGATIVE (NEGATIVE); URINE NITRITE NEGATIVE (NEGATIVE); URINE PROTEIN NEGATIVE (NEGATIVE); URINE UROBILINOGEN NEGATIVE mg/dL (0.2-1.0)
[2017-12-09 18:35] LABS: URINE LEUK ESTERASE 1+ (NEGATIVE)
[2017-12-09 18:50] LABS: EPI CELLS FEW /HPF (FEW)
[2017-12-09] MEDS: THIAMINE HCL 100 MG TABLET (FP) PO SCH (22:55)
[2017-12-09] MEDS: hydrOXYzine PAMOATE 25 MG CAPSULE (FP) PO PRN (22:55)
[2017-12-10] MEDS: FERROUS SO4 325 MG TABLET (FP) PO SCH ×2 (08:00→17:52)
[2017-12-10] MEDS ORDERED: METHADONE HCL 5 MG TABLET (FOR DETOX USE ONLY) PO ONE (10:00)
[2017-12-10] MEDS: IBUPROFEN 400 MG TABLET (FP) PO PRN (10:03)
[2017-12-10] MEDS: diazePAM 5 MG TABLET PO PRN ×3 (10:05→22:31)
[2017-12-10] MEDS: PRENATAL VITAMINS W/ FOLIC ACID TABLET (FP) PO SCH (10:05)
[2017-12-10] MEDS ORDERED: GABAPENTIN 100 MG CAPSULE (FP) PO ONE (11:10)
--- NOTE | 2017-12-10 11:50 | PN ---
BHS COWS - Scale Resting Pulse: 1= [place] 81-100 Sweatin= Chills/Flushing Restless Observation: 1= Difficult to Sit Still Pupil Size: 2= Moderately Dilated Bone or Joint Aches: 2= Severe Diffuse Aches Runny Nose/ Eye Tearin= Nasal Congestion GI Upset > 30mins: 2= Nausea/Diarrhea Tremor Observation of Outstretched Hands: 1= Tremor [place], Not Seen Yawning Observation: 2= >3x During Session Anxiety or Irritability: 2=Irritable/Anxious Goose Flesh Skin: 0=Smooth Skin COWS Score: 15 BHS Progress Note (SOAP) Subjective: sweat tremor trouble sleeping at night anxiety restlessness running nose gi distress Objective: 12/10/17 11:48 Vital Signs Temperature 98.1 F 12/10/17 10:46 Pulse Rate 120 H 12/10/17 10:46 Respiratory Rate 20 12/10/17 10:46 Blood Pressure 135/84 12/10/17 10:46 O2 Sat by Pulse Oximetry (%) Laboratory Last Values WBC 3.3 K/mm3 (4.0-10.0) L 12/09/17 06:00 RBC 3.67 M/mm3 (3.60-5.2) 12/09/17 06:00 Hgb 11.3 GM/dL (10.7-15.3) D 12/09/17 06:00 Hct 33.3 % (32.4-45.2) 12/09/17 06:00 MCV 90.9 fl (80-96) 12/09/17 06:00 MCH 30.8 pg (25.7-33.7) 12/09/17 06:00 MCHC 33.8 g/dl (32.0-36.0) 12/09/17 06:00 RDW 12.9 % (11.6-15.6) 12/09/17 06:00 Plt Count 251 K/MM3 (134-434) 12/09/17 06:00 MPV 9.8 fl (7.5-11.1) 12/09/17 06:00 Sodium 142 mmol/L (136-145) 12/09/17 06:00 Potassium 3.9 mmol/L (3.5-5.1) 12/09/17 06:00 Chloride 108 mmol/L (98-107) H 12/09/17 06:00 Carbon Dioxide 28 mmol/L (21-32) 12/09/17 06:00 Anion Gap 6 (8-16) L 12/09/17 06:00 BUN 8 mg/dL (7-18) 12/09/17 06:00 Creatinine 0.8 mg/dL (0.55-1.02) 12/09/17 06:00 Creat Clearance w eGFR > 60 (>60) 12/09/17 06:00 Random Glucose 103 mg/dL (74-106) 12/09/17 06:00 Calcium 8.4 mg/dL (8.5-10.1) L 12/09/17 06:00 Total Bilirubin 0.3 mg/dL (0.2-1.0) D 12/09/17 06:00 AST 21 U/L (15-37) 12/09/17 06:00 ALT 20 U/L (12-78) 12/09/17 06:00 Alkaline Phosphatase 82 U/L (45-117) 12/09/17 06:00 Total Protein 6.6 g/dl (6.4-8.2) 12/09/17 06:00 Albumin 3.5 g/dl (3.4-5.0) 12/09/17 06:00 Urine Color Ltyellow 12/09/17 13:40 Urine Appearance Slcloudy 12/09/17 13:40 Urine pH 8.0 (5.0-8.0) D 12/09/17 13:40 Ur Specific [place] 1.008 (1.001-1.035) 12/09/17 13:40 Urine Protein Negative (NEGATIVE) 12/09/17 13:40 Urine Glucose (UA) Negative (NEGATIVE) 12/09/17 13:40 Urine Ketones Negative (NEGATIVE) 12/09/17 13:40 Urine Blood 2+ (NEGATIVE) H 12/09/17 13:40 Urine Nitrite Negative (NEGATIVE) 12/09/17 13:40 Urine Bilirubin Negative (<2.0 mg/dL) 12/09/17 13:40 Urine Urobilinogen Negative mg/dL (0.2-1.0) 12/09/17 13:40 Ur Leukocyte Esterase 1+ (NEGATIVE) H 12/09/17 13:40 Urine WBC (Auto) 1 /hpf (3-5) 12/09/17 13:40 Urine RBC (Auto) <1 /hpf (0-3) 12/09/17 13:40 Ur Epithelial Cells Few /HPF (FEW) 12/09/17 13:40 Urine Bacteria Rare /hpf (NONE SEEN) 12/08/17 22:50 Urine Mucus Rare 12/08/17 22:50 RPR Titer Nonreactive (NONREACTIVE) 12/09/17 06:00 HIV 1&2 Antibody Screen Negative 12/08/17 12:00 HIV P24 Antigen Negative 12/08/17 12:00 lab noted Assessment: 12/10/17 11:49 withdrawal sx Plan: continue detox
[2017-12-10] MEDS: THIAMINE HCL 100 MG TABLET (FP) PO SCH (22:31)
[2017-12-11] MEDS: FERROUS SO4 325 MG TABLET (FP) PO SCH ×2 (08:00→16:47)
[2017-12-11] MEDS ORDERED: METHADONE HCL 5 MG TABLET (FOR DETOX USE ONLY) PO ONE (10:00)
[2017-12-11] MEDS: IBUPROFEN 400 MG TABLET (FP) PO PRN (10:02)
[2017-12-11] MEDS: PRENATAL VITAMINS W/ FOLIC ACID TABLET (FP) PO SCH (11:01)
[2017-12-11] MEDS: diazePAM 5 MG TABLET PO PRN (11:01)
--- NOTE | 2017-12-11 11:41 | PN ---
BHS Progress Note (SOAP) Subjective: feeling better denies body ache no tremor less sweat alert oriented x 3 patient wants to go to aftercare 12/12/17 as per counselor arranged patient stated that she is ready to go to aftercare Objective: 12/11/17 11:44 Vital Signs Temperature 98.2 F 12/11/17 10:25 Pulse Rate 87 12/11/17 10:25 Respiratory Rate 16 12/11/17 10:25 Blood Pressure 129/81 12/11/17 10:25 O2 Sat by Pulse Oximetry (%) Laboratory Last Values WBC 3.3 K/mm3 (4.0-10.0) L 12/09/17 06:00 RBC 3.67 M/mm3 (3.60-5.2) 12/09/17 06:00 Hgb 11.3 GM/dL (10.7-15.3) D 12/09/17 06:00 Hct 33.3 % (32.4-45.2) 12/09/17 06:00 MCV 90.9 fl (80-96) 12/09/17 06:00 MCH 30.8 pg (25.7-33.7) 12/09/17 06:00 MCHC 33.8 g/dl (32.0-36.0) 12/09/17 06:00 RDW 12.9 % (11.6-15.6) 12/09/17 06:00 Plt Count 251 K/MM3 (134-434) 12/09/17 06:00 MPV 9.8 fl (7.5-11.1) 12/09/17 06:00 Sodium 142 mmol/L (136-145) 12/09/17 06:00 Potassium 3.9 mmol/L (3.5-5.1) 12/09/17 06:00 Chloride 108 mmol/L (98-107) H 12/09/17 06:00 Carbon Dioxide 28 mmol/L (21-32) 12/09/17 06:00 Anion Gap 6 (8-16) L 12/09/17 06:00 BUN 8 mg/dL (7-18) 12/09/17 06:00 Creatinine 0.8 mg/dL (0.55-1.02) 12/09/17 06:00 Creat Clearance w eGFR > 60 (>60) 12/09/17 06:00 Random Glucose 103 mg/dL (74-106) 12/09/17 06:00 Calcium 8.4 mg/dL (8.5-10.1) L 12/09/17 06:00 Total Bilirubin 0.3 mg/dL (0.2-1.0) D 12/09/17 06:00 AST 21 U/L (15-37) 12/09/17 06:00 ALT 20 U/L (12-78) 12/09/17 06:00 Alkaline Phosphatase 82 U/L (45-117) 12/09/17 06:00 Total Protein 6.6 g/dl (6.4-8.2) 12/09/17 06:00 Albumin 3.5 g/dl (3.4-5.0) 12/09/17 06:00 Urine Color Ltyellow 12/09/17 13:40 Urine Appearance Slcloudy 12/09/17 13:40 Urine pH 8.0 (5.0-8.0) D 12/09/17 13:40 Ur Specific [employer] [place] 1.008 (1.001-1.035) 12/09/17 13:40 Urine Protein Negative (NEGATIVE) 12/09/17 13:40 Urine Glucose (UA) Negative (NEGATIVE) 12/09/17 13:40 Urine Ketones Negative (NEGATIVE) 12/09/17 13:40 Urine Blood 2+ (NEGATIVE) H 12/09/17 13:40 Urine Nitrite Negative (NEGATIVE) 12/09/17 13:40 Urine Bilirubin Negative (<2.0 mg/dL) 12/09/17 13:40 Urine Urobilinogen Negative mg/dL (0.2-1.0) 12/09/17 13:40 Ur Leukocyte Esterase 1+ (NEGATIVE) H 12/09/17 13:40 Urine WBC (Auto) 1 /hpf (3-5) 12/09/17 13:40 Urine RBC (Auto) <1 /hpf (0-3) 12/09/17 13:40 Ur Epithelial Cells Few /HPF (FEW) 12/09/17 13:40 Urine Bacteria Rare /hpf (NONE SEEN) 12/08/17 22:50 Urine Mucus Rare 12/08/17 22:50 RPR Titer Nonreactive (NONREACTIVE) 12/09/17 06:00 HIV 1&2 Antibody Screen Negative 12/08/17 12:00 HIV P24 Antigen Negative 12/08/17 12:00 lab noted Assessment: 12/11/17 11:44 mild withdrawal sx Plan: medically supervised detox
[2017-12-11] MEDS: hydrOXYzine PAMOATE 25 MG CAPSULE (FP) PO PRN (14:45)
[2017-12-11] MEDS: THIAMINE HCL 100 MG TABLET (FP) PO SCH (22:35)
[2017-12-12] MEDS ORDERED: METHADONE HCL 5 MG TABLET (FOR DETOX USE ONLY) PO ONE (06:00)
[2017-12-12 06:19] VITALS: TEMP 98.2
[2017-12-12] MEDS ORDERED: METHADONE HCL 10 MG TABLET PO ONE (06:37)
[2017-12-12] MEDS: FERROUS SO4 325 MG TABLET (FP) PO SCH (07:16)
--- NOTE | 2017-12-12 09:01 | DS ---
[facility] Detox Discharge Summary Admission Date: 12/08/17 Discharge Date: 12/12/17 - History Present History: Cocaine Dependence, Opioid Dependence Pertinent Past History: anxiety, depression and insomnia - Physical Exam Results Vital Signs: Vital Signs Temperature 98.2 F 12/12/17 06:00 Pulse Rate 83 12/12/17 06:00 Respiratory Rate 18 12/12/17 06:00 Blood Pressure 133/68 12/12/17 06:00 O2 Sat by Pulse Oximetry (%) Laboratory Tests 12/08/17 12/08/17 12/09/17 12:00 22:50 06:00 WBC 3.3 L RBC 3.67 Hgb 11.3 D Hct 33.3 MCV 90.9 MCH 30.8 MCHC 33.8 RDW 12.9 Plt Count 251 MPV 9.8 Sodium Potassium Chloride Carbon Dioxide Anion Gap BUN Creatinine Creat Clearance w eGFR Random Glucose Calcium Total Bilirubin AST ALT Alkaline Phosphatase Total Protein Albumin Urine Color Yellow Urine Appearance Slcloudy Urine pH 6.0 Ur Specific [place] 1.014 Urine Protein Negative Urine Glucose (UA) 1+ H Urine Ketones Negative Urine Blood 2+ H Urine Nitrite Negative Urine Bilirubin Negative Urine Urobilinogen 2.0 H Ur Leukocyte Esterase Negative Urine WBC (Auto) None Urine RBC (Auto) 3 Ur Epithelial Cells Few Urine Bacteria Rare Urine Mucus Rare RPR Titer HIV 1&2 Antibody Screen Negative HIV P24 Antigen Negative 12/09/17 12/09/17 12/09/17 06:00 06:00 13:40 WBC RBC Hgb Hct MCV MCH MCHC RDW Plt Count MPV Sodium 142 Potassium 3.9 Chloride 108 H Carbon Dioxide 28 Anion Gap 6 L BUN 8 Creatinine 0.8 Creat Clearance w eGFR > 60 Random Glucose 103 Calcium 8.4 L Total Bilirubin 0.3 D AST 21 ALT 20 Alkaline Phosphatase 82 Total Protein 6.6 Albumin 3.5 Urine Color Ltyellow Urine Appearance Slcloudy Urine pH 8.0 D Ur Specific [place] 1.008 Urine Protein Negative Urine Glucose (UA) Negative Urine Ketones Negative Urine Blood 2+ H Urine Nitrite Negative Urine Bilirubin Negative Urine Urobilinogen Negative Ur Leukocyte Esterase 1+ H Urine WBC (Auto) 1 Urine RBC (Auto) <1 Ur Epithelial Cells Few Urine Bacteria Urine Mucus RPR Titer Nonreactive HIV 1&2 Antibody Screen HIV P24 Antigen Pertinent Admission Physical Exam Findings: withdrawal sx, dehydration - Treatment Hospital Course: Detox Protocol Followed, Detoxed Safely, Responded well, Discharged Condition Good, Rehab Referral Accepted Patient has Accepted a Rehab Referral to: Yes, [facility] today - Diagnosis (1) Weight loss Current Visit: Yes Status: Acute (2) Dehydration Current Visit: No Status: Acute (3) Anemia Current Visit: No Status: Chronic Qualifiers: (4) Cocaine dependence, uncomplicated Current Visit: No Status: Chronic (5) Nicotine dependence Current Visit: No Status: Chronic Qualifiers: Nicotine product type: cigarettes Substance use status: uncomplicated Qualified Code(s): F17.210 - Nicotine dependence, cigarettes, uncomplicated (6) Opioid dependence with withdrawal Current Visit: No Status: Chronic (7) Sickle cell trait Current Visit: No Status: Chronic (8) Depression Current Visit: No Status: Suspected Qualifiers: (9) Substance-induced sleep disorder Current Visit: No Status: Suspected
[2017-12-12] MEDS: IBUPROFEN 400 MG TABLET (FP) PO PRN (09:24)
[2017-12-12] MEDS ORDERED: METHADONE HCL 10 MG TABLET (FOR DETOX USE ONLY) PO ONE (10:00)
[2017-12-12 10:43] VITALS: BP 129/74; PULSE 86
[2017-12-13] MEDS ORDERED: METHADONE HCL 5 MG TABLET (FOR DETOX USE ONLY) PO ONE (06:00)
[2017-12-15] MEDS ORDERED: ERGOCALCIFEROL (VITAMIN D2) 50,000 UNIT CAPSULE (FP) PO SCH (10:00)
== END 2017-12-12 10:05 | disposition home or self-care (01) | DRG 773 ==
LOC: YASAS 10:13 → Y6N 12:50
PROVIDERS: ADMIT Internal Medicine; ATTEND Internal Medicine
PROC: HZ2ZZZZ Detoxification Services for Substance Abuse Treatment (ICD-10-PCS; principal; 2017-12-08)
DX: F11.23 Opioid dependence with withdrawal (principal); F14.20 Cocaine dependence, uncomplicated; F17.210 Nicotine dependence, cigarettes, uncomplicated; F19.282 Other psychoactive substance dependence with psychoactive substance-induced sleep disorder; F32.9 Major depressive disorder, single episode, unspecified; D64.9 Anemia, unspecified; D57.3 Sickle-cell trait; E86.0 Dehydration; R63.4 Abnormal weight loss; Z68.1 Body mass index [BMI] 19.9 or less, adult
CPT/HCPCS: 36415; 80053; 81003; 81015; 85027; 86593; 87389; 93005; 93010

== ENCOUNTER 2018-01-22 11:55 | Inpatient (IN) | payer OTHER ==
[2018-01-22 13:02] VITALS: BMI 29.8
--- NOTE | 2018-01-22 16:29 | HP ---
COWS - Scale Resting Pulse: 1= [place] 81-100 Sweatin=Flushed/Facial Moisture Restless Observation: 1= Difficult to Sit Still Pupil Size: 0= Normal to Room Light Bone or Joint Aches: 2= Severe Diffuse Aches Runny Nose/ Eye Tearin= Runny Nose/Eyes GI Upset > 30mins: 0= None Tremor Observation: 2= Slight Tremor Visible Yawning Observation: 2= >3x During Session Anxiety or Irritability: 2=Irritable/Anxious Goose Flesh Skin: 3=Piloerection COWS Score: 17 Admission ROS S - HPI Chief Complaint: I want to live and see my kids. Allergies/Adverse Reactions: Allergies Allergy/AdvReac Type Severity Reaction Status Date / Time No Known Allergies Allergy Verified 01/22/18 14:45 History of Present Illness: pt is a 47yr old female with a history of heroin and cocaine dependence seeking detox for treatment. Exam Limitations: No Limitations - Ebola screening Have you traveled outside of the country in the last 21 days: No (N) Have you had contact with anyone from an Ebola affected area: No Have you been sick,other than usual withdrawal symptoms: No Do you have a fever: No - Review of Systems Constitutional: Chills, Diaphoresis, Loss of Appetite, Night Sweats, Changes in sleep, Unintentional Wgt. Loss EENT: reports: Tearing, Nose Congestion Respiratory: reports: No Symptoms reported Cardiac: reports: No Symptoms Reported GI: reports: Diarrhea, Poor Appetite, Poor Fluid Intake : reports: No Symptoms Reported Musculoskeletal: reports: No Symptoms Reported, Back Pain, Muscle Pain Integumentary: reports: Flushing, Sweating Neuro: reports: Headache, Tremors Endocrine: reports: Excessive Sweating Hematology: reports: Anemia, Other (sickle cell trait) Psychiatric: reports: Judgement Intact, Mood/Affect Appropiate, Orientated x3, Agitated, Anxious Other Systems: Reviewed and Negative Patient History - Patient Medical History Hx Anemia: Yes (ALSO " I HAVE SICKLE CELL TRAIT".) Hx Asthma: No Hx Chronic Obstructive Pulmonary Disease (COPD): No Hx Cancer: No Hx Cardiac Disorders: No Hx Congestive Heart Failure: No Hx Hypertension: No Hx Hypercholesterolemia: No Hx Pacemaker: No HX Cerebrovascular Accident: No Hx Seizures: No Hx Dementia: No Hx Diabetes: No Hx Gastrointestinal Disorders: No Hx Liver Disease: No Hx Genitourinary Disorders: No Hx Sexually Transmitted Disorders: No Hx Renal Disease (ESRD): No Hx Thyroid Disease: No Hx Human Immunodeficiency Virus (HIV): No (NEGATIVE HX 05/04) Hx Hepatitis C: No Hx Depression: Yes (when withdrawing) Hx Suicide Attempt: No (denies) Hx Bipolar Disorder: No (no SI at this time) Hx Schizophrenia: No - Patient Surgical History Past Surgical History: No Hx Neurologic Surgery: No Hx Cataract Extraction: No Hx Cardiac Surgery: No Hx Lung Surgery: No Hx Breast Surgery: No Hx Breast Biopsy: No Hx Abdominal Surgery: No Hx Appendectomy: No Hx Cholecystectomy: No Hx Genitourinary Surgery: No Hx Section: No Hx Orthopedic Surgery: No Hx Hysterectomy: No Anesthesia Reaction: No - PPD History Previous Implant?: Yes Documented Results: Negative w/proof Implanted On Prior [facility] Admission?: Yes Date: 09/20/17 Results: NEGATIVE PPD to be Administered?: No - Reproductive History Patient is a Female of Child Bearing Age (11 -55 yrs old): Yes Last Menstrual Period: 12/21/17 Patient : No - Smoking Cessation Smoking history: Current every day smoker Have you smoked in the past 12 months: Yes Aproximately how many cigarettes per day: 6 Cigars Per Day: 0 Hx Chewing Tobacco Use: No Initiated information on smoking cessation: Yes 'Breaking Loose' booklet given: 01/22/18 - Substance & Tx. History Hx Alcohol Use: No Hx Substance Use: Yes Substance Use Type: Cocaine, Heroin Hx Substance Use Treatment: Yes (last detox [facility] 11/2017) - Substances Abused Heroin Route: Inhalation Frequency: Daily Amount used: 7-8 BAGS DAILY Age of first use: 23 Date of Last Use: 01/22/18 Crack Route: Smoking Frequency: Daily Amount used: $60 Age of first use: 23 Date of Last Use: 01/22/18 Family Disease History - Family Disease History Family Disease History: Respiratory: Brother, Sister, Other: Father (DSA, ) Admission Physical Exam S - Vital Signs Vital Signs: Vital Signs - 24 hr 01/22/18 12:51 Pulse Rate 84 Respiratory 18 Rate Blood Pressure 114/74 - Physical General Appearance: Yes: Appropriately Dressed, Tremorous, Irritable, Sweating, Anxious HEENTM: Yes: Normal Voice, Nasal Congestion, Rhinorrhea Respiratory: Yes: Chest Non-Tender, Lungs Clear, Normal Breath Sounds Neck: Yes: No masses,lesions,Nodules Breast: Yes: Within Normal Limits Cardiology: Yes: Regular Rhythm, Regular Rate, S1, S2 Abdominal: Yes: Normal Bowel Sounds, Non Tender, Soft Genitourinary: Yes: Within Normal Limits Back: Yes: Normal Inspection Musculoskeletal: Yes: full range of Motion, Back pain Extremities: Yes: Normal Capillary Refill, Normal Inspection, Tremors Neurological: Yes: Fully Oriented, Alert, Normal Response Integumentary: Yes: Normal Color Lymphatic: Yes: Within Normal Limits - Diagnostic (1) Nicotine dependence Current Visit: Yes Status: Chronic Qualifiers: Nicotine product type: cigarettes Substance use status: uncomplicated Qualified Code(s): F17.210 - Nicotine dependence, cigarettes, uncomplicated (2) Opioid dependence with withdrawal Current Visit: Yes Status: Chronic (3) Sickle cell trait Current Visit: Yes Status: Suspected Cleared for Admission [facility] - Detox or Rehab [facility] Level of Care: Medically Managed Detox Regimen/Protocol: Methadone [facility] Breath Alcohol Content Breath Alcohol Content: 0 Urine Pregancy Test - Result Urine Test Results: Negative- NO Line Present Urine Drug Screen - Results Drug Screen Negative: No Urine Drug Screen Results: EMILY-Cocaine, OPI-Opiates, MTD-Methadone
[2018-01-22] MEDS ORDERED: P-EPHED 60MG/TRIPROLIDI 2.5MG TABLET PO PRN (16:31)
[2018-01-22] MEDS ORDERED: NICOTINE POLACRILEX 4 MG GUM BC PRN (16:31)
[2018-01-22] MEDS ORDERED: LOPERAMIDE HCL 2 MG CAPSULE PO PRN (16:31)
[2018-01-22] MEDS ORDERED: MENTHOL/PHENOL 1 EACH UD MM PRN (16:31)
[2018-01-22] MEDS ORDERED: MAGNESIUM HYDROX 2400MG/30ML ORAL SUSPENSION 30 ML CUP PO PRN (16:31)
[2018-01-22] MEDS ORDERED: ACETAMINOPHEN 325 MG TABLET (FP) PO PRN (16:31)
[2018-01-22] MEDS ORDERED: MAGNESIUM CITRATE 300 ML BOTTLE PO PRN (16:31)
[2018-01-22] MEDS ORDERED: MAG HYDROX/AL HYDROX/SIMETH 30 ML UNIT-DOSE CUP PO PRN (16:31)
[2018-01-22] MEDS ORDERED: guaiFENesin/D-METHORPHAN HB 10 ML UNIT-DOSE CUPS PO PRN (16:31)
[2018-01-22] MEDS ORDERED: METHADONE HCL 10 MG TABLET (FOR DETOX USE ONLY) PO ONE ×2 (17:45→23:00)
[2018-01-22] MEDS: THIAMINE HCL 100 MG TABLET (FP) PO SCH (22:32)
[2018-01-22] MEDS: diazePAM 5 MG TABLET PO PRN (22:32)
[2018-01-22] MEDS: METHYL SALICYLATE/MENTHOL OINT 30 GM TUBE TP SCH (22:46)
[2018-01-22 23:17] LABS: URINE APPEARANCE SLCLOUDY; URINE BILIRUBIN NEGATIVE (<2.0 mg/dL); URINE BLOOD 1+ (NEGATIVE); URINE COLOR YELLOW; URINE GLUCOSE (UA) NEGATIVE (NEGATIVE); URINE KETONE NEGATIVE (NEGATIVE); URINE LEUK ESTERASE NEGATIVE (NEGATIVE); URINE NITRITE NEGATIVE (NEGATIVE); URINE UROBILINOGEN NEGATIVE mg/dL (0.2-1.0)
[2018-01-22 23:25] LABS: URINE PROTEIN 1+ (NEGATIVE)
[2018-01-22 23:31] LABS: EPI CELLS RARE /HPF (FEW); URINE BACTERIA RARE /hpf (NONE SEEN); URINE HYALINE CAST 3 /lpf; URINE MUCUS RARE
[2018-01-23] MEDS ORDERED: METHADONE HCL 10 MG TABLET (FOR DETOX USE ONLY) PO ONE (10:00)
[2018-01-23 10:28] LABS: HEMATOCRIT 32.6 % (32.4-45.2); HEMOGLOBIN 11.1 GM/dL (10.7-15.3); MCH 30.4 pg (25.7-33.7); MEAN CELL VOLUME 89.4 fl (80-96); PLATELET COUNT 220 K/MM3 (134-434); RBC 3.64 M/mm3 (3.60-5.2); WHITE BLOOD COUNT 3.7 K/mm3 (4.0-10.0)
[2018-01-23] MEDS: PRENATAL VITAMINS W/ FOLIC ACID TABLET (FP) PO SCH (10:41)
[2018-01-23] MEDS: diazePAM 5 MG TABLET PO PRN ×3 (10:41→22:24)
[2018-01-23] MEDS: NICOTINE 21 MG/24 HOURS TOPICAL PATCH TD SCH (10:41)
[2018-01-23] MEDS: METHYL SALICYLATE/MENTHOL OINT 30 GM TUBE TP SCH ×2 (10:42→22:34)
[2018-01-23 10:45] LABS: CHLORIDE 105 mmol/L (98-107); POTASSIUM 4.4 mmol/L (3.5-5.1); SODIUM 139 mmol/L (136-145)
[2018-01-23 11:17] LABS: ALBUMIN 3.5 g/dl (3.4-5.0); ALK PHOS 73 U/L (45-117); ANION GAP 7 (8-16); BILIRUBIN,TOTAL 0.6 mg/dL (0.2-1.0); BLOOD UREA NITROGEN 12 mg/dL (7-18); CALCIUM 8.8 mg/dL (8.5-10.1); CO2 27 mmol/L (21-32); CREATININE 0.7 mg/dL (0.55-1.02); GLUCOSE,RANDOM 116 mg/dL (74-106); SGOT/AST 19 U/L (15-37); SGPT/ALT 26 U/L (12-78); TOT PROT 6.4 g/dl (6.4-8.2)
--- NOTE | 2018-01-23 14:46 | PN ---
BHS COWS - Scale Resting Pulse: 0= [place] 80 or Below Sweatin= Chills/Flushing Restless Observation: 3= Extraneous Movement Pupil Size: 1= Pupils >than Normal Bone or Joint Aches: 2= Severe Diffuse Aches Runny Nose/ Eye Tearin= Runny Nose/Eyes GI Upset > 30mins: 2= Nausea/Diarrhea Tremor Observation of Outstretched Hands: 2= Slight Tremor Visible Yawning Observation: 1= 1-2x During Session Anxiety or Irritability: 2=Irritable/Anxious Goose Flesh Skin: 0=Smooth Skin COWS Score: 16 S Progress Note (SOAP) Subjective: alert,irritable,anxious,interrupted sleep,pain in the body and back Objective: 01/23/18 14:44 Vital Signs Temperature 96.8 F L 01/23/18 14:15 Pulse Rate 78 01/23/18 14:15 Respiratory Rate 18 01/23/18 14:15 Blood Pressure 111/75 01/23/18 14:15 O2 Sat by Pulse Oximetry (%) ekg nsr with sinus arrhythmia inverted t in v2,v3 qt 424/467 no chest pain,no sob,no dizziness Laboratory Last Values WBC 3.7 K/mm3 (4.0-10.0) L 01/23/18 07:30 RBC 3.64 M/mm3 (3.60-5.2) 01/23/18 07:30 Hgb 11.1 GM/dL (10.7-15.3) 01/23/18 07:30 Hct 32.6 % (32.4-45.2) 01/23/18 07:30 MCV 89.4 fl (80-96) 01/23/18 07:30 MCH 30.4 pg (25.7-33.7) 01/23/18 07:30 MCHC 34.0 g/dl (32.0-36.0) 01/23/18 07:30 RDW 14.0 % (11.6-15.6) 01/23/18 07:30 Plt Count 220 K/MM3 (134-434) 01/23/18 07:30 MPV 9.0 fl (7.5-11.1) 01/23/18 07:30 Sodium 139 mmol/L (136-145) 01/23/18 07:30 Potassium 4.4 mmol/L (3.5-5.1) 01/23/18 07:30 Chloride 105 mmol/L (98-107) 01/23/18 07:30 Carbon Dioxide 27 mmol/L (21-32) 01/23/18 07:30 Anion Gap 7 (8-16) L 01/23/18 07:30 BUN 12 mg/dL (7-18) 01/23/18 07:30 Creatinine 0.7 mg/dL (0.55-1.02) 01/23/18 07:30 Creat Clearance w eGFR > 60 (>60) 01/23/18 07:30 Random Glucose 116 mg/dL (74-106) H 01/23/18 07:30 Calcium 8.8 mg/dL (8.5-10.1) 01/23/18 07:30 Total Bilirubin 0.6 mg/dL (0.2-1.0) D 01/23/18 07:30 AST 19 U/L (15-37) 01/23/18 07:30 ALT 26 U/L (12-78) 01/23/18 07:30 Alkaline Phosphatase 73 U/L (45-117) 01/23/18 07:30 Total Protein 6.4 g/dl (6.4-8.2) 01/23/18 07:30 Albumin 3.5 g/dl (3.4-5.0) 01/23/18 07:30 Urine Color Yellow 01/22/18 23:10 Urine Appearance Slcloudy 01/22/18 23:10 Urine pH 5.0 (5.0-8.0) D 01/22/18 23:10 Ur Specific [place] 1.015 (1.001-1.035) 01/22/18 23:10 Urine Protein 1+ (NEGATIVE) H 01/22/18 23:10 Urine Glucose (UA) Negative (NEGATIVE) 01/22/18 23:10 Urine Ketones Negative (NEGATIVE) 01/22/18 23:10 Urine Blood 1+ (NEGATIVE) H 01/22/18 23:10 Urine Nitrite Negative (NEGATIVE) 01/22/18 23:10 Urine Bilirubin Negative (<2.0 mg/dL) 01/22/18 23:10 Urine Urobilinogen Negative mg/dL (0.2-1.0) 01/22/18 23:10 Ur Leukocyte Esterase Negative (NEGATIVE) 01/22/18 23:10 Urine WBC (Auto) 2 /hpf (3-5) 01/22/18 23:10 Urine RBC (Auto) 2 /hpf (0-3) 01/22/18 23:10 Ur Epithelial Cells Rare /HPF (FEW) 01/22/18 23:10 Urine Bacteria Rare /hpf (NONE SEEN) 01/22/18 23:10 Hyaline Casts 3 /lpf 01/22/18 23:10 Urine Mucus Rare 01/22/18 23:10 RPR Titer Nonreactive (NONREACTIVE) 01/23/18 07:30 Assessment: 01/23/18 14:47 withdrawal symptom Plan: continue detox
[2018-01-23] MEDS: IBUPROFEN 400 MG TABLET (FP) PO PRN (17:09)
[2018-01-23] MEDS: MELATONIN 5 MG TABLETS PO PRN (22:23)
[2018-01-23] MEDS: THIAMINE HCL 100 MG TABLET (FP) PO SCH (22:23)
[2018-01-24] MEDS ORDERED: METHADONE HCL 5 MG TABLET (FOR DETOX USE ONLY) PO ONE (10:00)
[2018-01-24] MEDS: PRENATAL VITAMINS W/ FOLIC ACID TABLET (FP) PO SCH (10:31)
[2018-01-24] MEDS: diazePAM 5 MG TABLET PO PRN ×3 (10:32→22:02)
[2018-01-24] MEDS: NICOTINE 21 MG/24 HOURS TOPICAL PATCH TD SCH (10:32)
[2018-01-24] MEDS: METHYL SALICYLATE/MENTHOL OINT 30 GM TUBE TP SCH ×2 (10:32→22:08)
--- NOTE | 2018-01-24 14:34 | PN ---
BHS COWS - Scale Resting Pulse: 1= [place] 81-100 Sweatin= Chills/Flushing Restless Observation: 3= Extraneous Movement Pupil Size: 1= Pupils >than Normal Bone or Joint Aches: 2= Severe Diffuse Aches Runny Nose/ Eye Tearin= Nasal Congestion GI Upset > 30mins: 2= Nausea/Diarrhea Tremor Observation of Outstretched Hands: 2= Slight Tremor Visible Yawning Observation: 1= 1-2x During Session Anxiety or Irritability: 2=Irritable/Anxious Goose Flesh Skin: 0=Smooth Skin COWS Score: 16 BHS Progress Note (SOAP) Subjective: alert,irritable,anxious,interrupted sleep,tremor,pain in the body and back Objective: 01/24/18 14:32 Vital Signs Period Temp Pulse Resp BP Sys/Topete Pulse Ox Last 24 Hr 95.7 F-98.4 F 76-86 16-20 107-130/69-78 01/24/18 14:33 Vital Signs Temperature 98.4 F 01/24/18 10:55 Pulse Rate 86 01/24/18 10:55 Respiratory Rate 16 01/24/18 10:55 Blood Pressure 111/78 01/24/18 10:55 O2 Sat by Pulse Oximetry (%) 01/24/18 14:33 Laboratory Last Values WBC 3.7 K/mm3 (4.0-10.0) L 01/23/18 07:30 RBC 3.64 M/mm3 (3.60-5.2) 01/23/18 07:30 Hgb 11.1 GM/dL (10.7-15.3) 01/23/18 07:30 Hct 32.6 % (32.4-45.2) 01/23/18 07:30 MCV 89.4 fl (80-96) 01/23/18 07:30 MCH 30.4 pg (25.7-33.7) 01/23/18 07:30 MCHC 34.0 g/dl (32.0-36.0) 01/23/18 07:30 RDW 14.0 % (11.6-15.6) 01/23/18 07:30 Plt Count 220 K/MM3 (134-434) 01/23/18 07:30 MPV 9.0 fl (7.5-11.1) 01/23/18 07:30 Sodium 139 mmol/L (136-145) 01/23/18 07:30 Potassium 4.4 mmol/L (3.5-5.1) 01/23/18 07:30 Chloride 105 mmol/L (98-107) 01/23/18 07:30 Carbon Dioxide 27 mmol/L (21-32) 01/23/18 07:30 Anion Gap 7 (8-16) L 01/23/18 07:30 BUN 12 mg/dL (7-18) 01/23/18 07:30 Creatinine 0.7 mg/dL (0.55-1.02) 01/23/18 07:30 Creat Clearance w eGFR > 60 (>60) 01/23/18 07:30 Random Glucose 116 mg/dL (74-106) H 01/23/18 07:30 Calcium 8.8 mg/dL (8.5-10.1) 01/23/18 07:30 Total Bilirubin 0.6 mg/dL (0.2-1.0) D 01/23/18 07:30 AST 19 U/L (15-37) 01/23/18 07:30 ALT 26 U/L (12-78) 01/23/18 07:30 Alkaline Phosphatase 73 U/L (45-117) 01/23/18 07:30 Total Protein 6.4 g/dl (6.4-8.2) 01/23/18 07:30 Albumin 3.5 g/dl (3.4-5.0) 01/23/18 07:30 Urine Color Yellow 01/22/18 23:10 Urine Appearance Slcloudy 01/22/18 23:10 Urine pH 5.0 (5.0-8.0) D 01/22/18 23:10 Ur Specific [place] 1.015 (1.001-1.035) 01/22/18 23:10 Urine Protein 1+ (NEGATIVE) H 01/22/18 23:10 Urine Glucose (UA) Negative (NEGATIVE) 01/22/18 23:10 Urine Ketones Negative (NEGATIVE) 01/22/18 23:10 Urine Blood 1+ (NEGATIVE) H 01/22/18 23:10 Urine Nitrite Negative (NEGATIVE) 01/22/18 23:10 Urine Bilirubin Negative (<2.0 mg/dL) 01/22/18 23:10 Urine Urobilinogen Negative mg/dL (0.2-1.0) 01/22/18 23:10 Ur Leukocyte Esterase Negative (NEGATIVE) 01/22/18 23:10 Urine WBC (Auto) 2 /hpf (3-5) 01/22/18 23:10 Urine RBC (Auto) 2 /hpf (0-3) 01/22/18 23:10 Ur Epithelial Cells Rare /HPF (FEW) 01/22/18 23:10 Urine Bacteria Rare /hpf (NONE SEEN) 01/22/18 23:10 Hyaline Casts 3 /lpf 01/22/18 23:10 Urine Mucus Rare 01/22/18 23:10 RPR Titer Nonreactive (NONREACTIVE) 01/23/18 07:30 HIV 1&2 Antibody Screen Negative 01/23/18 10:00 HIV P24 Antigen Negative 01/23/18 10:00 Assessment: 01/24/18 14:34 withdrawal symptom Plan: continue detox
--- NOTE | 2018-01-24 14:52 | EKG ---
Test Reason : Blood Pressure : / mmHG Vent. Rate : 073 BPM Atrial Rate : 073 BPM P-R Int : 142 ms QRS Dur : 086 ms QT Int : 424 ms P-R-T Axes : 051 080 072 degrees QTc Int : 467 ms NORMAL SINUS RHYTHM WITH SINUS ARRHYTHMIA NONSPECIFIC T WAVE ABNORMALITY PROLONGED QT ABNORMAL ECG WHEN COMPARED WITH ECG OF 08-DEC-2017 15:08, NO SIGNIFICANT CHANGE WAS FOUND Confirmed by MD Ruben, Cuauhtemoc ([id number]) on 01/24/2018 2:51:39 PM Referred By: Confirmed By:Cuauhtemoc Miranda MD
[2018-01-24] MEDS: hydrOXYzine PAMOATE 50 MG CAPSULE (FP) PO PRN (22:02)
[2018-01-24] MEDS: IBUPROFEN 400 MG TABLET (FP) PO PRN (22:02)
[2018-01-24] MEDS: THIAMINE HCL 100 MG TABLET (FP) PO SCH (22:02)
[2018-01-25] MEDS ORDERED: METHADONE HCL 5 MG TABLET (FOR DETOX USE ONLY) PO ONE (10:00)
[2018-01-25] MEDS: diazePAM 5 MG TABLET PO PRN ×2 (10:27→15:10)
[2018-01-25] MEDS: PRENATAL VITAMINS W/ FOLIC ACID TABLET (FP) PO SCH (10:27)
[2018-01-25] MEDS: METHYL SALICYLATE/MENTHOL OINT 30 GM TUBE TP SCH ×2 (10:28→22:23)
[2018-01-25] MEDS: NICOTINE 21 MG/24 HOURS TOPICAL PATCH TD SCH (10:28)
--- NOTE | 2018-01-25 11:31 | PN ---
BHS Progress Note (SOAP) Subjective: joint pain body ache sweat tremor trouble sleep at night anxiety irritable Objective: 01/25/18 11:30 Vital Signs Temperature 98.0 F 01/25/18 10:00 Pulse Rate 91 H 01/25/18 10:00 Respiratory Rate 18 01/25/18 10:00 Blood Pressure 130/81 01/25/18 10:00 O2 Sat by Pulse Oximetry (%) Laboratory Last Values WBC 3.7 K/mm3 (4.0-10.0) L 01/23/18 07:30 RBC 3.64 M/mm3 (3.60-5.2) 01/23/18 07:30 Hgb 11.1 GM/dL (10.7-15.3) 01/23/18 07:30 Hct 32.6 % (32.4-45.2) 01/23/18 07:30 MCV 89.4 fl (80-96) 01/23/18 07:30 MCH 30.4 pg (25.7-33.7) 01/23/18 07:30 MCHC 34.0 g/dl (32.0-36.0) 01/23/18 07:30 RDW 14.0 % (11.6-15.6) 01/23/18 07:30 Plt Count 220 K/MM3 (134-434) 01/23/18 07:30 MPV 9.0 fl (7.5-11.1) 01/23/18 07:30 Sodium 139 mmol/L (136-145) 01/23/18 07:30 Potassium 4.4 mmol/L (3.5-5.1) 01/23/18 07:30 Chloride 105 mmol/L (98-107) 01/23/18 07:30 Carbon Dioxide 27 mmol/L (21-32) 01/23/18 07:30 Anion Gap 7 (8-16) L 01/23/18 07:30 BUN 12 mg/dL (7-18) 01/23/18 07:30 Creatinine 0.7 mg/dL (0.55-1.02) 01/23/18 07:30 Creat Clearance w eGFR > 60 (>60) 01/23/18 07:30 Random Glucose 116 mg/dL (74-106) H 01/23/18 07:30 Calcium 8.8 mg/dL (8.5-10.1) 01/23/18 07:30 Total Bilirubin 0.6 mg/dL (0.2-1.0) D 01/23/18 07:30 AST 19 U/L (15-37) 01/23/18 07:30 ALT 26 U/L (12-78) 01/23/18 07:30 Alkaline Phosphatase 73 U/L (45-117) 01/23/18 07:30 Total Protein 6.4 g/dl (6.4-8.2) 01/23/18 07:30 Albumin 3.5 g/dl (3.4-5.0) 01/23/18 07:30 Urine Color Yellow 01/22/18 23:10 Urine Appearance Slcloudy 01/22/18 23:10 Urine pH 5.0 (5.0-8.0) D 01/22/18 23:10 Ur Specific [place] 1.015 (1.001-1.035) 01/22/18 23:10 Urine Protein 1+ (NEGATIVE) H 01/22/18 23:10 Urine Glucose (UA) Negative (NEGATIVE) 01/22/18 23:10 Urine Ketones Negative (NEGATIVE) 01/22/18 23:10 Urine Blood 1+ (NEGATIVE) H 01/22/18 23:10 Urine Nitrite Negative (NEGATIVE) 01/22/18 23:10 Urine Bilirubin Negative (<2.0 mg/dL) 01/22/18 23:10 Urine Urobilinogen Negative mg/dL (0.2-1.0) 01/22/18 23:10 Ur Leukocyte Esterase Negative (NEGATIVE) 01/22/18 23:10 Urine WBC (Auto) 2 /hpf (3-5) 01/22/18 23:10 Urine RBC (Auto) 2 /hpf (0-3) 01/22/18 23:10 Ur Epithelial Cells Rare /HPF (FEW) 01/22/18 23:10 Urine Bacteria Rare /hpf (NONE SEEN) 01/22/18 23:10 Hyaline Casts 3 /lpf 01/22/18 23:10 Urine Mucus Rare 01/22/18 23:10 RPR Titer Nonreactive (NONREACTIVE) 01/23/18 07:30 HIV 1&2 Antibody Screen Negative 01/23/18 10:00 HIV P24 Antigen Negative 01/23/18 10:00 lab noted Assessment: 01/25/18 11:30 withdrawal sx Plan: continue detox
[2018-01-25] MEDS: hydrOXYzine PAMOATE 50 MG CAPSULE (FP) PO PRN (22:23)
[2018-01-25] MEDS: THIAMINE HCL 100 MG TABLET (FP) PO SCH (22:23)
[2018-01-26] MEDS: IBUPROFEN 400 MG TABLET (FP) PO PRN ×2 (08:37→19:39)
[2018-01-26] MEDS ORDERED: METHADONE HCL 10 MG TABLET (FOR DETOX USE ONLY) PO ONE (10:00)
[2018-01-26] MEDS: PRENATAL VITAMINS W/ FOLIC ACID TABLET (FP) PO SCH (10:50)
[2018-01-26] MEDS: NICOTINE 21 MG/24 HOURS TOPICAL PATCH TD SCH (10:50)
[2018-01-26] MEDS: METHYL SALICYLATE/MENTHOL OINT 30 GM TUBE TP SCH ×2 (10:50→22:44)
--- NOTE | 2018-01-26 11:43 | PN ---
BHS Progress Note (SOAP) Subjective: feeling better less sweat no tremor discuss aftercare [place] Objective: 01/26/18 12:23 Vital Signs Temperature 97.9 F 01/26/18 10:00 Pulse Rate 92 H 01/26/18 10:00 Respiratory Rate 20 01/26/18 10:00 Blood Pressure 124/71 01/26/18 10:00 O2 Sat by Pulse Oximetry (%) Laboratory Last Values WBC 3.7 K/mm3 (4.0-10.0) L 01/23/18 07:30 RBC 3.64 M/mm3 (3.60-5.2) 01/23/18 07:30 Hgb 11.1 GM/dL (10.7-15.3) 01/23/18 07:30 Hct 32.6 % (32.4-45.2) 01/23/18 07:30 MCV 89.4 fl (80-96) 01/23/18 07:30 MCH 30.4 pg (25.7-33.7) 01/23/18 07:30 MCHC 34.0 g/dl (32.0-36.0) 01/23/18 07:30 RDW 14.0 % (11.6-15.6) 01/23/18 07:30 Plt Count 220 K/MM3 (134-434) 01/23/18 07:30 MPV 9.0 fl (7.5-11.1) 01/23/18 07:30 Sodium 139 mmol/L (136-145) 01/23/18 07:30 Potassium 4.4 mmol/L (3.5-5.1) 01/23/18 07:30 Chloride 105 mmol/L (98-107) 01/23/18 07:30 Carbon Dioxide 27 mmol/L (21-32) 01/23/18 07:30 Anion Gap 7 (8-16) L 01/23/18 07:30 BUN 12 mg/dL (7-18) 01/23/18 07:30 Creatinine 0.7 mg/dL (0.55-1.02) 01/23/18 07:30 Creat Clearance w eGFR > 60 (>60) 01/23/18 07:30 Random Glucose 116 mg/dL (74-106) H 01/23/18 07:30 Calcium 8.8 mg/dL (8.5-10.1) 01/23/18 07:30 Total Bilirubin 0.6 mg/dL (0.2-1.0) D 01/23/18 07:30 AST 19 U/L (15-37) 01/23/18 07:30 ALT 26 U/L (12-78) 01/23/18 07:30 Alkaline Phosphatase 73 U/L (45-117) 01/23/18 07:30 Total Protein 6.4 g/dl (6.4-8.2) 01/23/18 07:30 Albumin 3.5 g/dl (3.4-5.0) 01/23/18 07:30 Urine Color Yellow 01/22/18 23:10 Urine Appearance Slcloudy 01/22/18 23:10 Urine pH 5.0 (5.0-8.0) D 01/22/18 23:10 Ur Specific [place] 1.015 (1.001-1.035) 01/22/18 23:10 Urine Protein 1+ (NEGATIVE) H 01/22/18 23:10 Urine Glucose (UA) Negative (NEGATIVE) 01/22/18 23:10 Urine Ketones Negative (NEGATIVE) 01/22/18 23:10 Urine Blood 1+ (NEGATIVE) H 01/22/18 23:10 Urine Nitrite Negative (NEGATIVE) 01/22/18 23:10 Urine Bilirubin Negative (<2.0 mg/dL) 01/22/18 23:10 Urine Urobilinogen Negative mg/dL (0.2-1.0) 01/22/18 23:10 Ur Leukocyte Esterase Negative (NEGATIVE) 01/22/18 23:10 Urine WBC (Auto) 2 /hpf (3-5) 01/22/18 23:10 Urine RBC (Auto) 2 /hpf (0-3) 01/22/18 23:10 Ur Epithelial Cells Rare /HPF (FEW) 01/22/18 23:10 Urine Bacteria Rare /hpf (NONE SEEN) 01/22/18 23:10 Hyaline Casts 3 /lpf 01/22/18 23:10 Urine Mucus Rare 01/22/18 23:10 RPR Titer Nonreactive (NONREACTIVE) 01/23/18 07:30 HIV 1&2 Antibody Screen Negative 01/23/18 10:00 HIV P24 Antigen Negative 01/23/18 10:00 lab noted Assessment: 01/26/18 12:23 mild withdrawal sx Plan: medically supervised detox
[2018-01-26] MEDS: hydrOXYzine PAMOATE 50 MG CAPSULE (FP) PO PRN (22:42)
[2018-01-26] MEDS: THIAMINE HCL 100 MG TABLET (FP) PO SCH (22:42)
[2018-01-26] MEDS: MELATONIN 5 MG TABLETS PO PRN (22:43)
[2018-01-27] MEDS ORDERED: METHADONE HCL 5 MG TABLET (FOR DETOX USE ONLY) PO ONE (06:00)
--- NOTE | 2018-01-27 09:23 | DS ---
[facility] Detox Discharge Summary Admission Date: 01/22/18 Discharge Date: 01/27/18 - History Present History: Opioid Dependence Additional Comments: 47 years old female admitted 01/22/18 for opiate withdrawal sx completed opiate detox regimen tolerated well denies opiate withdrawal sx alert oriented x 3 no acute distress aftercare [place] / [facility] brief motivational intervention on relapse prevention - Physical Exam Results Vital Signs: Vital Signs Temperature 97.7 F 01/27/18 06:00 Pulse Rate 77 01/27/18 06:00 Respiratory Rate 18 01/27/18 06:00 Blood Pressure 128/73 01/27/18 06:00 O2 Sat by Pulse Oximetry (%) Pertinent Admission Physical Exam Findings: opiate withdrawal sx Vital Signs Temperature 97.7 F 01/27/18 06:00 Pulse Rate 77 01/27/18 06:00 Respiratory Rate 18 01/27/18 06:00 Blood Pressure 128/73 01/27/18 06:00 O2 Sat by Pulse Oximetry (%) Laboratory Last Values WBC 3.7 K/mm3 (4.0-10.0) L 01/23/18 07:30 RBC 3.64 M/mm3 (3.60-5.2) 01/23/18 07:30 Hgb 11.1 GM/dL (10.7-15.3) 01/23/18 07:30 Hct 32.6 % (32.4-45.2) 01/23/18 07:30 MCV 89.4 fl (80-96) 01/23/18 07:30 MCH 30.4 pg (25.7-33.7) 01/23/18 07:30 MCHC 34.0 g/dl (32.0-36.0) 01/23/18 07:30 RDW 14.0 % (11.6-15.6) 01/23/18 07:30 Plt Count 220 K/MM3 (134-434) 01/23/18 07:30 MPV 9.0 fl (7.5-11.1) 01/23/18 07:30 Sodium 139 mmol/L (136-145) 01/23/18 07:30 Potassium 4.4 mmol/L (3.5-5.1) 01/23/18 07:30 Chloride 105 mmol/L (98-107) 06/08/18 07:30 Carbon Dioxide 27 mmol/L (21-32) 01/23/18 07:30 Anion Gap 7 (8-16) L 01/23/18 07:30 BUN 12 mg/dL (7-18) 01/23/18 07:30 Creatinine 0.7 mg/dL (0.55-1.02) 01/23/18 07:30 Creat Clearance w eGFR > 60 (>60) 01/23/18 07:30 Random Glucose 116 mg/dL (74-106) H 01/23/18 07:30 Calcium 8.8 mg/dL (8.5-10.1) 01/23/18 07:30 Total Bilirubin 0.6 mg/dL (0.2-1.0) D 01/23/18 07:30 AST 19 U/L (15-37) 01/23/18 07:30 ALT 26 U/L (12-78) 01/23/18 07:30 Alkaline Phosphatase 73 U/L (45-117) 01/23/18 07:30 Total Protein 6.4 g/dl (6.4-8.2) 01/23/18 07:30 Albumin 3.5 g/dl (3.4-5.0) 01/23/18 07:30 Urine Color Yellow 01/22/18 23:10 Urine Appearance Slcloudy 01/22/18 23:10 Urine pH 5.0 (5.0-8.0) D 01/22/18 23:10 Ur Specific [place] 1.015 (1.001-1.035) 01/22/18 23:10 Urine Protein 1+ (NEGATIVE) H 01/22/18 23:10 Urine Glucose (UA) Negative (NEGATIVE) 01/22/18 23:10 Urine Ketones Negative (NEGATIVE) 01/22/18 23:10 Urine Blood 1+ (NEGATIVE) H 01/22/18 23:10 Urine Nitrite Negative (NEGATIVE) 01/22/18 23:10 Urine Bilirubin Negative (<2.0 mg/dL) 01/22/18 23:10 Urine Urobilinogen Negative mg/dL (0.2-1.0) 01/22/18 23:10 Ur Leukocyte Esterase Negative (NEGATIVE) 01/22/18 23:10 Urine WBC (Auto) 2 /hpf (3-5) 01/22/18 23:10 Urine RBC (Auto) 2 /hpf (0-3) 01/22/18 23:10 Ur Epithelial Cells Rare /HPF (FEW) 01/22/18 23:10 Urine Bacteria Rare /hpf (NONE SEEN) 01/22/18 23:10 Hyaline Casts 3 /lpf 01/22/18 23:10 Urine Mucus Rare 01/22/18 23:10 RPR Titer Nonreactive (NONREACTIVE) 01/23/18 07:30 HIV 1&2 Antibody Screen Negative 01/23/18 10:00 HIV P24 Antigen Negative 01/23/18 10:00 lab noted - Treatment Hospital Course: Detox Protocol Followed, Detoxed Safely, Responded well, Discharged Condition Good, Rehab Referral Accepted Patient has Accepted a Rehab Referral to: [facility] - Medication Discharge Medications: Ambulatory Orders NK [No Known Home Medication] 01/22/18 - Diagnosis (1) Nicotine dependence Current Visit: Yes Status: Acute Qualifiers: Nicotine product type: cigarettes Substance use status: in withdrawal Qualified Code(s): F17.213 - Nicotine dependence, cigarettes, with withdrawal (2) Opioid dependence with withdrawal Current Visit: Yes Status: Acute - AMA Did Patient Leave Against Medical Advice: No
[2018-01-27 09:56] VITALS: BP 150/66; PULSE 97; TEMP 98.8
== END 2018-01-27 10:16 | disposition home or self-care (01) | DRG 773 ==
LOC: YASAS 11:55 → Y6N 17:12
PROVIDERS: ADMIT Surgery; ATTEND Surgery
PROC: HZ2ZZZZ Detoxification Services for Substance Abuse Treatment (ICD-10-PCS; principal; 2018-01-22)
DX: F11.23 Opioid dependence with withdrawal (principal); F17.213 Nicotine dependence, cigarettes, with withdrawal; D57.3 Sickle-cell trait; E86.0 Dehydration; I49.9 Cardiac arrhythmia, unspecified; Z87.898 Personal history of other specified conditions
CPT/HCPCS: 36415; 80053; 81003; 81015; 85027; 86593; 87389; 93005; 93010

== ENCOUNTER 2018-10-26 10:46 | Inpatient (IN) | payer OTHER ==
[2018-10-26 11:16] VITALS: BMI 20.1
--- NOTE | 2018-10-26 13:35 | HP ---
COWS - Scale Resting Pulse: 0= [place] 80 or Below Sweatin= Chills/Flushing Restless Observation: 3= Extraneous Movement Pupil Size: 1= Pupils >than Normal Bone or Joint Aches: 2= Severe Diffuse Aches Runny Nose/ Eye Tearin= Runny Nose/Eyes GI Upset > 30mins: 3= Vomiting/Diarrhea Tremor Observation: 2= Slight Tremor Visible Yawning Observation: 2= >3x During Session Anxiety or Irritability: 2=Irritable/Anxious Goose Flesh Skin: 0=Smooth Skin COWS Score: 18 CIWA Score - Admission Criteria [facility] Guidelines: Admission for Medically Managed Detox: Requires at least one of the followin. CIWA greater than 12 2. Seizures within the past 24 hours 3. Delirium tremens within the past 24 hours 4. Hallucinations within the past 24 hours 5. Acute intervention needed for co occurring medical disorder 6. Acute intervention needed for co occurring psychiatric disorder 7. Severe withdrawal that cannot be handled at a lower level of care (continued vomiting, continued diarrhea, abnormal vital signs) requiring intravenous medication and/or fluids 8. Admission ROS S - HPI Chief Complaint: i need help to stop using heroin and crack Allergies/Adverse Reactions: Allergies Allergy/AdvReac Type Severity Reaction Status Date / Time No Known Allergies Allergy Verified 10/26/18 13:21 History of Present Illness: this 48 years old female with heroin and cocaine dependence,seeking detox, withdrawal symptom, multiple admissions in detox but keep relapsing nicotine dependence 8 cigarette/day weight loss longest period of sobriety 8 and half years Exam Limitations: No Limitations - Ebola screening Have you traveled outside of the country in the last 21 days: No Have you had contact with anyone from an Ebola affected area: No Have you been sick,other than usual withdrawal symptoms: No - Review of Systems Constitutional: Chills, Loss of Appetite, Malaise, Night Sweats, Changes in sleep, Weakness, Unintentional Wgt. Loss EENT: reports: Tearing, Nose Congestion Respiratory: reports: No Symptoms reported, See HPI Cardiac: reports: No Symptoms Reported GI: reports: Diarrhea, Nausea, Vomiting, Abdominal cramping Musculoskeletal: reports: Back Pain, Joint Pain, Muscle Pain Integumentary: reports: Dryness Neuro: reports: Headache, Tremors Endocrine: reports: No Symptoms Reported Hematology: reports: No Symptoms Reported Psychiatric: reports: No Sypmtoms Reported, Judgement Intact, Mood/Affect Appropiate, Orientated x3 Other Systems: Reviewed and Negative Patient History - Patient Medical History Hx Anemia: No (ALSO " I HAVE SICKLE CELL TRAIT".) Hx Asthma: No Hx Chronic Obstructive Pulmonary Disease (COPD): No Hx Cancer: No Hx Cardiac Disorders: No Hx Congestive Heart Failure: No Hx Hypertension: No Hx Hypercholesterolemia: No Hx Pacemaker: No HX Cerebrovascular Accident: No Hx Seizures: No Hx Dementia: No Hx Diabetes: No Hx Gastrointestinal Disorders: No Hx Liver Disease: No Hx Genitourinary Disorders: No Hx Sexually Transmitted Disorders: No Hx Renal Disease (ESRD): No Hx Thyroid Disease: No Hx Human Immunodeficiency Virus (HIV): No (NEGATIVE HX 08/04) Hx Hepatitis C: No Hx Depression: No Hx Suicide Attempt: No Hx Bipolar Disorder: No Hx Schizophrenia: No Other Medical History: no suicidal,no homicidal - Patient Surgical History Past Surgical History: No Hx Neurologic Surgery: No Hx Cataract Extraction: No Hx Cardiac Surgery: No Hx Lung Surgery: No Hx Breast Surgery: No Hx Breast Biopsy: No Hx Abdominal Surgery: No Hx Appendectomy: No Hx Cholecystectomy: No Hx Genitourinary Surgery: No Hx Section: No Hx Orthopedic Surgery: No Hx Hysterectomy: No Anesthesia Reaction: No - PPD History Previous Implant?: Yes Documented Results: Negative w/o proof Implanted On Prior [facility] Admission?: Yes Date: 09/20/17 Results: 0 mm PPD to be Administered?: Yes - Reproductive History Patient is a Female of Child Bearing Age (11 -55 yrs old): Yes Last Menstrual Period: 10/23/18 Patient : No - Smoking Cessation Smoking history: Current every day smoker Have you smoked in the past 12 months: Yes Aproximately how many cigarettes per day: 8 Cigars Per Day: 0 Hx Chewing Tobacco Use: No Initiated information on smoking cessation: Yes 'Breaking Loose' booklet given: 10/26/18 - Substance & Tx. History Hx Alcohol Use: No Hx Substance Use: Yes Substance Use Type: Cocaine, Heroin Hx Substance Use Treatment: Yes ([facility] 08/04 completed) - Substances Abused Heroin Route: Inhalation Frequency: Daily Amount used: 8-9 bags Age of first use: 23 Date of Last Use: 10/26/18 Crack Route: Smoking Frequency: Daily Amount used: $80 Age of first use: 23 Date of Last Use: 10/26/18 Family Disease History - Family Disease History Family Disease History: Respiratory: Brother, Sister, Other: Father (DSA, ) Admission Physical Exam [facility] - Vital Signs Vital Signs: Vital Signs - 24 hr 10/26/18 11:14 Temperature 97.6 F Pulse Rate 78 Respiratory 18 Rate Blood Pressure 131/76 - Physical General Appearance: Yes: Moderate Distress, Sweating, Anxious HEENTM: Yes: Normal ENT Inspection, MAREN, Pharynx Normal Respiratory: Yes: Lungs Clear, Normal Breath Sounds, No Respiratory Distress Neck: Yes: Within Normal Limits, Supple, Trachea in good position Breast: Yes: Breast Exam Deferred Cardiology: Yes: Within Normal Limits, Regular Rhythm, Regular Rate, S1, S2 Abdominal: Yes: Within Normal Limits, Normal Bowel Sounds, Non Tender, Flat, Soft Genitourinary: Yes: Within Normal Limits Back: Yes: Within Normal Limits, Normal Inspection Musculoskeletal: Yes: full range of Motion, Back pain, Muscle Pain Extremities: Yes: Within Normal Limits, Tremors Neurological: Yes: farebox repairer II-XII NML intact, Fully Oriented, Alert, Motor Strength 5/5 Integumentary: Yes: Dry Lymphatic: Yes: Within Normal Limits - Diagnostic (1) Dehydration Current Visit: No Status: Acute (2) Nicotine dependence Current Visit: No Status: Acute Qualifiers: Nicotine product type: cigarettes Substance use status: in withdrawal Qualified Code(s): F17.213 - Nicotine dependence, cigarettes, with withdrawal (3) Opioid dependence with withdrawal Current Visit: No Status: Acute (4) Weight loss Current Visit: No Status: Acute (5) Cocaine dependence, uncomplicated Current Visit: No Status: Chronic (6) Sickle cell trait Current Visit: No Status: Suspected Cleared for Admission [facility] - Detox or Rehab [facility] Level of Care: Medically Managed Detox Regimen/Protocol: Methadone [facility] Breath Alcohol Content Breath Alcohol Content: 0 Urine Pregancy Test - Result Urine Test Results: Negative - NO Line Present Urine Drug Screen - Results Drug Screen Negative: No Urine Drug Screen Results: EMILY-Cocaine, OPI-Opiates, MTD-Methadone, FEN-Fentanyl Inpatient Rehab Admission - Rehab Decision to Admit Inpatient rehab admission?: No
[2018-10-26] MEDS ORDERED: BISMUTH SUBSALICYLATE 262 MG/15 ML BTL PO PRN (13:47)
[2018-10-26] MEDS ORDERED: clonazePAM 0.5 MG TABLET PO PRN (13:47)
[2018-10-26] MEDS ORDERED: MAGNESIUM CITRATE 300 ML BOTTLE PO PRN (13:47)
[2018-10-26] MEDS ORDERED: MENTHOL/PHENOL 1 EACH UD MM PRN (13:47)
[2018-10-26] MEDS ORDERED: MELATONIN 5 MG TABLETS PO PRN (13:47)
[2018-10-26] MEDS ORDERED: METHOCARBAMOL 500 MG TABLET PO PRN (13:47)
[2018-10-26] MEDS ORDERED: ACETAMINOPHEN 325 MG TABLET (FP) PO PRN ×2 (13:47)
[2018-10-26] MEDS ORDERED: cloNIDine HCL 0.1 MG TABLET PO PRN (13:47)
[2018-10-26] MEDS ORDERED: MAG HYDROX/AL HYDROX/SIMETH 30 ML UNIT-DOSE CUP PO PRN (13:47)
[2018-10-26] MEDS ORDERED: MAGNESIUM HYDROX 2400MG/30ML ORAL SUSPENSION 30 ML CUP PO PRN (13:47)
[2018-10-26] MEDS ORDERED: METHADONE HCL 10 MG TABLET (FOR DETOX USE ONLY) PO ONE ×2 (14:15→23:00)
[2018-10-26] MEDS: IBUPROFEN 400 MG TABLET (FP) PO PRN (17:30)
[2018-10-26] MEDS: THIAMINE HCL 100 MG TABLET (FP) PO SCH (22:17)
[2018-10-27] MEDS ORDERED: METHADONE HCL 5 MG TABLET (FOR DETOX USE ONLY) PO ONE (10:00)
[2018-10-27 10:24] LABS: ALBUMIN 4.4 g/dl (3.4-5.0); ALK PHOS 65 U/L (45-117); ANION GAP 6 MMOL/L (8-16); BILIRUBIN,TOTAL 0.4 mg/dL (0.2-1); BLOOD UREA NITROGEN 8 mg/dL (7-18); CALCIUM 9.1 mg/dL (8.5-10.1); CHLORIDE 109 mmol/L (98-107); CO2 28 mmol/L (21-32); CREATININE 0.8 mg/dL (0.55-1.3); GLUCOSE,RANDOM 104 mg/dL (74-106); POTASSIUM 3.7 mmol/L (3.5-5.1); SGOT/AST 13 U/L (15-37); SGPT/ALT 18 U/L (13-61); SODIUM 142 mmol/L (136-145); TOT PROT 7.5 g/dl (6.4-8.2)
[2018-10-27] MEDS: PRENATAL VITAMINS W/ FOLIC ACID TABLET (FP) PO SCH (10:27)
[2018-10-27 10:28] LABS: HEMATOCRIT 32.7 % (32.4-45.2); HEMOGLOBIN 11.3 GM/dL (10.7-15.3); MCHC 34.5 g/dl (32.0-36.0); MEAN CELL VOLUME 92.6 fl (80-96); MEAN PLT VOLUME 9.6 fl (7.5-11.1); PLATELET COUNT 253 K/MM3 (134-434); RBC 3.53 M/mm3 (3.60-5.2); RDW 13.1 % (11.6-15.6); WHITE BLOOD COUNT 4.9 K/mm3 (4.0-10.0)
[2018-10-27] MEDS: hydrOXYzine PAMOATE 25 MG CAPSULE (FP) PO PRN (10:29)
[2018-10-27 11:23] LABS: SICKLE CELL SCREEN POSITIVE (NEGATIVE)
--- NOTE | 2018-10-27 14:20 | PN ---
BHS COWS - Scale Resting Pulse: 0= [place] 80 or Below Sweatin= Chills/Flushing Restless Observation: 1= Difficult to Sit Still Pupil Size: 1= Pupils >than Normal Bone or Joint Aches: 2= Severe Diffuse Aches Runny Nose/ Eye Tearin= Nasal Congestion GI Upset > 30mins: 1= Stomach Cramp Tremor Observation of Outstretched Hands: 2= Slight Tremor Visible Yawning Observation: 2= >3x During Session Anxiety or Irritability: 2=Irritable/Anxious Goose Flesh Skin: 0=Smooth Skin COWS Score: 13 BHS Progress Note (SOAP) Subjective: stuffy nose tremor sweating irritable restlessness Objective: 10/27/18 14:19 Vital Signs Temperature 99.1 F 10/27/18 13:37 Pulse Rate 64 10/27/18 13:37 Respiratory Rate 18 10/27/18 13:37 Blood Pressure 121/71 10/27/18 13:37 O2 Sat by Pulse Oximetry (%) Laboratory Last Values WBC 4.9 K/mm3 (4.0-10.0) 10/27/18 06:00 RBC 3.53 M/mm3 (3.60-5.2) L 10/27/18 06:00 Hgb 11.3 GM/dL (10.7-15.3) 10/27/18 06:00 Hct 32.7 % (32.4-45.2) 10/27/18 06:00 MCV 92.6 fl (80-96) 10/27/18 06:00 MCH 32.0 pg (25.7-33.7) 10/27/18 06:00 MCHC 34.5 g/dl (32.0-36.0) 10/27/18 06:00 RDW 13.1 % (11.6-15.6) 10/27/18 06:00 Plt Count 253 K/MM3 (134-434) 10/27/18 06:00 MPV 9.6 fl (7.5-11.1) 10/27/18 06:00 Sickle Cell Screen Positive (NEGATIVE) 10/27/18 06:00 Sodium 142 mmol/L (136-145) 10/27/18 06:00 Potassium 3.7 mmol/L (3.5-5.1) 10/27/18 06:00 Chloride 109 mmol/L (98-107) H 10/27/18 06:00 Carbon Dioxide 28 mmol/L (21-32) 10/27/18 06:00 Anion Gap 6 MMOL/L (8-16) L 10/27/18 06:00 BUN 8 mg/dL (7-18) 10/27/18 06:00 Creatinine 0.8 mg/dL (0.55-1.3) 10/27/18 06:00 Creat Clearance w eGFR > 60 (>60) 10/27/18 06:00 Random Glucose 104 mg/dL (74-106) 10/27/18 06:00 Calcium 9.1 mg/dL (8.5-10.1) 10/27/18 06:00 Total Bilirubin 0.4 mg/dL (0.2-1) 10/27/18 06:00 AST 13 U/L (15-37) L 10/27/18 06:00 ALT 18 U/L (13-61) 10/27/18 06:00 Alkaline Phosphatase 65 U/L (45-117) 10/27/18 06:00 Total Protein 7.5 g/dl (6.4-8.2) 10/27/18 06:00 Albumin 4.4 g/dl (3.4-5.0) 10/27/18 06:00 lab noted Assessment: 10/27/18 14:20 withdrawal sx Plan: continue detox
[2018-10-27] MEDS: IBUPROFEN 400 MG TABLET (FP) PO PRN (14:42)
[2018-10-27] MEDS: SODIUM CHLORIDE NASAL SPRAY 44 ML BOTTLE NS SCH ×2 (14:52→22:13)
[2018-10-27 17:31] LABS: URINE APPEARANCE CLOUDY; URINE BILIRUBIN NEGATIVE (<2.0 mg/dL); URINE COLOR AMBER; URINE GLUCOSE (UA) NEGATIVE (NEGATIVE); URINE KETONE NEGATIVE (NEGATIVE); URINE LEUK ESTERASE NEGATIVE (NEGATIVE); URINE NITRITE POSITIVE (NEGATIVE); URINE PROTEIN 2+ (NEGATIVE); URINE UROBILINOGEN NEGATIVE mg/dL (0.2-1.0)
[2018-10-27 18:01] LABS: CALCIUM OXALATE CRYSTALS MODERATE /hpf (NONE SEEN); EPI CELLS RARE /HPF (FEW); URINE BACTERIA RARE /hpf (NONE SEEN); URINE HYALINE CAST 5 /lpf; URINE MUCUS RARE
[2018-10-27] MEDS: THIAMINE HCL 100 MG TABLET (FP) PO SCH (22:13)
[2018-10-28] MEDS: SODIUM CHLORIDE NASAL SPRAY 44 ML BOTTLE NS SCH ×3 (06:20→22:28)
[2018-10-28] MEDS ORDERED: METHADONE HCL 10 MG TABLET (FOR DETOX USE ONLY) PO ONE (10:00)
[2018-10-28] MEDS: PRENATAL VITAMINS W/ FOLIC ACID TABLET (FP) PO SCH (10:24)
[2018-10-28] MEDS: hydrOXYzine PAMOATE 25 MG CAPSULE (FP) PO PRN (10:25)
--- NOTE | 2018-10-28 14:13 | PN ---
BHS COWS - Scale Resting Pulse: 0= [place] 80 or Below Sweatin= Chills/Flushing Restless Observation: 0= Sits Still Pupil Size: 1= Pupils >than Normal Bone or Joint Aches: 1= Mild Discomfort Runny Nose/ Eye Tearin= Nasal Congestion GI Upset > 30mins: 1= Stomach Cramp Tremor Observation of Outstretched Hands: 1= Tremor [place], Not Seen Yawning Observation: 1= 1-2x During Session Anxiety or Irritability: 1=Feels Anxious/Irritable Goose Flesh Skin: 0=Smooth Skin COWS Score: 8 S Progress Note (SOAP) Subjective: feeling better less body aches mild sweating more energy Objective: 10/28/18 14:17 Vital Signs Temperature 97.8 F 10/28/18 13:28 Pulse Rate 72 10/28/18 13:28 Respiratory Rate 18 10/28/18 13:28 Blood Pressure 131/72 10/28/18 13:28 O2 Sat by Pulse Oximetry (%) Laboratory Last Values WBC 4.9 K/mm3 (4.0-10.0) 10/27/18 06:00 RBC 3.53 M/mm3 (3.60-5.2) L 10/27/18 06:00 Hgb 11.3 GM/dL (10.7-15.3) 10/27/18 06:00 Hct 32.7 % (32.4-45.2) 10/27/18 06:00 MCV 92.6 fl (80-96) 10/27/18 06:00 MCH 32.0 pg (25.7-33.7) 10/27/18 06:00 MCHC 34.5 g/dl (32.0-36.0) 10/27/18 06:00 RDW 13.1 % (11.6-15.6) 10/27/18 06:00 Plt Count 253 K/MM3 (134-434) 10/27/18 06:00 MPV 9.6 fl (7.5-11.1) 10/27/18 06:00 Sickle Cell Screen Positive (NEGATIVE) 10/27/18 06:00 Sodium 142 mmol/L (136-145) 10/27/18 06:00 Potassium 3.7 mmol/L (3.5-5.1) 10/27/18 06:00 Chloride 109 mmol/L (98-107) H 10/27/18 06:00 Carbon Dioxide 28 mmol/L (21-32) 10/27/18 06:00 Anion Gap 6 MMOL/L (8-16) L 10/27/18 06:00 BUN 8 mg/dL (7-18) 10/27/18 06:00 Creatinine 0.8 mg/dL (0.55-1.3) 10/27/18 06:00 Creat Clearance w eGFR > 60 (>60) 10/27/18 06:00 Random Glucose 104 mg/dL (74-106) 10/27/18 06:00 Calcium 9.1 mg/dL (8.5-10.1) 10/27/18 06:00 Total Bilirubin 0.4 mg/dL (0.2-1) 10/27/18 06:00 AST 13 U/L (15-37) L 10/27/18 06:00 ALT 18 U/L (13-61) 10/27/18 06:00 Alkaline Phosphatase 65 U/L (45-117) 10/27/18 06:00 Total Protein 7.5 g/dl (6.4-8.2) 10/27/18 06:00 Albumin 4.4 g/dl (3.4-5.0) 10/27/18 06:00 Urine Color [place] 10/27/18 15:45 Urine Appearance Cloudy 10/27/18 15:45 Urine pH 5.0 (5.0-8.0) 10/27/18 15:45 Ur Specific [place] 1.015 (1.010-1.035) 10/27/18 15:45 Urine Protein 2+ (NEGATIVE) H 10/27/18 15:45 Urine Glucose (UA) Negative (NEGATIVE) 10/27/18 15:45 Urine Ketones Negative (NEGATIVE) 10/27/18 15:45 Urine Blood 1+ (NEGATIVE) H 10/27/18 15:45 Urine Nitrite Positive (NEGATIVE) 10/27/18 15:45 Urine Bilirubin Negative (<2.0 mg/dL) 10/27/18 15:45 Urine Urobilinogen Negative mg/dL (0.2-1.0) 10/27/18 15:45 Ur Leukocyte Esterase Negative (NEGATIVE) 10/27/18 15:45 Urine WBC (Auto) 2 /hpf (3-5) 10/27/18 15:45 Urine RBC (Auto) 2 /hpf (0-3) 10/27/18 15:45 Ur Epithelial Cells Rare /HPF (FEW) 10/27/18 15:45 Calcium Oxalate Crystal Moderate /hpf (NONE SEEN) 10/27/18 15:45 Urine Bacteria Rare /hpf (NONE SEEN) 10/27/18 15:45 Hyaline Casts 5 /lpf 10/27/18 15:45 Urine Mucus Rare 10/27/18 15:45 RPR Titer Nonreactive (NONREACTIVE) 10/27/18 06:00 lab noted Assessment: 10/28/18 14:18 withdrawal sx Plan: continue detox
[2018-10-28 22:17] VITALS: TEMP 98.4
[2018-10-28] MEDS: THIAMINE HCL 100 MG TABLET (FP) PO SCH (22:28)
[2018-10-29] MEDS ORDERED: METHADONE HCL 5 MG TABLET (FOR DETOX USE ONLY) PO ONE (06:00)
[2018-10-29 06:34] VITALS: BP 117/66; PULSE 75
[2018-10-29] MEDS: SODIUM CHLORIDE NASAL SPRAY 44 ML BOTTLE NS SCH (07:44)
[2018-10-29 16:26] LABS: HGB SOLUBILITY Positive (Negative); Hgb A 57.5 % (96.4-98.8); Hgb C 0 % (0.0); Hgb F 0 % (0.0-2.0); Hgb S 38.1 % (0.0)
--- NOTE | 2018-10-29 19:26 | DS ---
[facility] Detox Discharge Summary Admission Date: 10/26/18 Discharge Date: 10/29/18 - History Present History: Cocaine Dependence, Opioid Dependence Additional Comments: PATIENT GOING TO [facility] ([place], [place]) FOR AFTERCARE. PATIENT WAS DISCHARGED IN DETOX UNIT IN STABLE MEDICAL CONDITION. Pertinent Past History: Nicotine Dependence, Weight Loss, History of Sickle Cell Trait, Dehydration. - Physical Exam Results Vital Signs: Vital Signs Temperature 98.4 F 10/29/18 06:34 Pulse Rate 75 10/29/18 06:34 Respiratory Rate 8 L 10/29/18 06:34 Blood Pressure 117/66 10/29/18 06:34 O2 Sat by Pulse Oximetry (%) Pertinent Admission Physical Exam Findings: WITHDRAWAL SYMPTOMS. Laboratory Tests 10/27/18 10/27/18 10/27/18 06:00 06:00 06:00 WBC 4.9 RBC 3.53 L Hgb 11.3 Hct 32.7 MCV 92.6 MCH 32.0 MCHC 34.5 RDW 13.1 Plt Count 253 MPV 9.6 Sickle Cell Screen Positive Hemoglobin A Hemoglobin A2 Hemoglobin C Hemoglobin S Variant Hemoglobin Hemoglobin Interpret Maternal Rh Hemoglobin Solubility Sodium 142 Potassium 3.7 Chloride 109 H Carbon Dioxide 28 Anion Gap 6 L BUN 8 Creatinine 0.8 Creat Clearance w eGFR > 60 Random Glucose 104 Calcium 9.1 Total Bilirubin 0.4 AST 13 L ALT 18 Alkaline Phosphatase 65 Total Protein 7.5 Albumin 4.4 Urine Color Urine Appearance Urine pH Ur Specific [place] Urine Protein Urine Glucose (UA) Urine Ketones Urine Blood Urine Nitrite Urine Bilirubin Urine Urobilinogen Ur Leukocyte Esterase Urine WBC (Auto) Urine RBC (Auto) Ur Epithelial Cells Calcium Oxalate Crystal Urine Bacteria Hyaline Casts Urine Mucus RPR Titer Nonreactive 10/27/18 10/27/18 06:00 15:45 WBC RBC Hgb Hct MCV MCH MCHC RDW Plt Count MPV Sickle Cell Screen Hemoglobin A 57.5 L Hemoglobin A2 4.4 H Hemoglobin C 0 Hemoglobin S 38.1 H Variant Hemoglobin 0.0 Hemoglobin Interpret Maternal Rh 0 Hemoglobin Solubility Positive H Sodium Potassium Chloride Carbon Dioxide Anion Gap BUN Creatinine Creat Clearance w eGFR Random Glucose Calcium Total Bilirubin AST ALT Alkaline Phosphatase Total Protein Albumin Urine Color [place] Urine Appearance Cloudy Urine pH 5.0 Ur Specific [place] 1.015 Urine Protein 2+ H Urine Glucose (UA) Negative Urine Ketones Negative Urine Blood 1+ H Urine Nitrite Positive Urine Bilirubin Negative Urine Urobilinogen Negative Ur Leukocyte Esterase Negative Urine WBC (Auto) 2 Urine RBC (Auto) 2 Ur Epithelial Cells Rare Calcium Oxalate Crystal Moderate Urine Bacteria Rare Hyaline Casts 5 Urine Mucus Rare RPR Titer LABS NOTED. - Treatment Hospital Course: Detox Protocol Followed, Detoxed Safely, Responded well, Discharged Condition Good, Rehab Referral Accepted Patient has Accepted a Rehab Referral to: [facility] ([place], [place]). - Medication Discharge Medications: Ambulatory Orders Naloxone HCl [Narcan] 4 mg NS ASDIR PRN #1 spray 10/28/18 - Diagnosis (1) Dehydration Status: Acute (2) Nicotine dependence Status: Acute Qualifiers: Nicotine product type: cigarettes Substance use status: in withdrawal Qualified Code(s): F17.213 - Nicotine dependence, cigarettes, with withdrawal (3) Opioid dependence with withdrawal Status: Acute (4) Weight loss Status: Acute (5) Cocaine dependence, uncomplicated Status: Chronic (6) Sickle cell trait Status: Suspected - AMA Did Patient Leave Against Medical Advice: No
== END 2018-10-29 08:45 | disposition home or self-care (01) | DRG 773 ==
LOC: YASAS 10:46 → Y3N 13:41
PROVIDERS: ADMIT Surgery; ATTEND Surgery
PROC: HZ2ZZZZ Detoxification Services for Substance Abuse Treatment (ICD-10-PCS; principal; 2018-10-26)
DX: F11.23 Opioid dependence with withdrawal (principal); F14.20 Cocaine dependence, uncomplicated; F17.213 Nicotine dependence, cigarettes, with withdrawal; D57.3 Sickle-cell trait; E86.0 Dehydration; R63.4 Abnormal weight loss; Z68.20 Body mass index [BMI] 20.0-20.9, adult
CPT/HCPCS: 36415; 80053; 81003; 81015; 83021; 85027; 85660; 86593

== ENCOUNTER 2018-11-19 10:52 | Inpatient (IN) | payer OTHER ==
--- NOTE | 2018-11-19 12:02 | HP ---
COWS - Scale Resting Pulse: 0= [place] 80 or Below Sweatin=Flushed/Facial Moisture Restless Observation: 1= Difficult to Sit Still Pupil Size: 0= Normal to Room Light Bone or Joint Aches: 2= Severe Diffuse Aches Runny Nose/ Eye Tearin= Runny Nose/Eyes GI Upset > 30mins: 1= Stomach Cramp Tremor Observation: 2= Slight Tremor Visible Yawning Observation: 2= >3x During Session Anxiety or Irritability: 2=Irritable/Anxious Goose Flesh Skin: 0=Smooth Skin COWS Score: 14 CIWA Score - Admission Criteria [facility]ASAS Guidelines: Admission for Medically Managed Detox: Requires at least one of the followin. CIWA greater than 12 2. Seizures within the past 24 hours 3. Delirium tremens within the past 24 hours 4. Hallucinations within the past 24 hours 5. Acute intervention needed for co occurring medical disorder 6. Acute intervention needed for co occurring psychiatric disorder 7. Severe withdrawal that cannot be handled at a lower level of care (continued vomiting, continued diarrhea, abnormal vital signs) requiring intravenous medication and/or fluids 8. Admission ROS [facility] - [facility] Chief Complaint: I am trying to go to a care home program but I need detox first. Allergies/Adverse Reactions: Allergies Allergy/AdvReac Type Severity Reaction Status Date / Time No Known Allergies Allergy Verified 11/19/18 11:25 History of Present Illness: pt is a 48yrold female with a history of heroin and crack/cocaine dependence seeking detox for treatment. Exam Limitations: No Limitations - Ebola screening Have you traveled outside of the country in the last 21 days: No Have you had contact with anyone from an Ebola affected area: No Have you been sick,other than usual withdrawal symptoms: No Do you have a fever: No - Review of Systems Constitutional: Chills, Diaphoresis, Loss of Appetite, Night Sweats, Changes in sleep EENT: reports: No Symptoms Reported Respiratory: reports: No Symptoms reported Cardiac: reports: No Symptoms Reported GI: reports: Constipated, Nausea, Poor Appetite, Poor Fluid Intake, Indigestion : reports: No Symptoms Reported Musculoskeletal: reports: Back Pain, Joint Pain Integumentary: reports: Flushing, Sweating Neuro: reports: Tingling, Tremors Endocrine: reports: Excessive Sweating, Flushing, Intolerance to Cold, Intolerance to Heat Hematology: reports: No Symptoms Reported Psychiatric: reports: Judgement Intact, Mood/Affect Appropiate, Orientated x3, Agitated, Anxious Other Systems: Reviewed and Negative Patient History - Patient Medical History Hx Anemia: No (ALSO " I HAVE SICKLE CELL TRAIT".) Hx Asthma: No Hx Chronic Obstructive Pulmonary Disease (COPD): No Hx Cancer: No Hx Cardiac Disorders: No Hx Congestive Heart Failure: No Hx Hypertension: No Hx Hypercholesterolemia: No Hx Pacemaker: No HX Cerebrovascular Accident: No Hx Seizures: No Hx Dementia: No Hx Diabetes: No Hx Gastrointestinal Disorders: No Hx Liver Disease: No Hx Genitourinary Disorders: No Hx Sexually Transmitted Disorders: No Hx Renal Disease (ESRD): No Hx Thyroid Disease: No Hx Human Immunodeficiency Virus (HIV): No (negative) Hx Hepatitis C: No (negative) Hx Depression: No Hx Suicide Attempt: No (pt denies) Hx Bipolar Disorder: No Hx Schizophrenia: No - Patient Surgical History Past Surgical History: No Hx Neurologic Surgery: No Hx Cataract Extraction: No Hx Cardiac Surgery: No Hx Lung Surgery: No Hx Breast Surgery: No Hx Breast Biopsy: No Hx Abdominal Surgery: No Hx Appendectomy: No Hx Cholecystectomy: No Hx Genitourinary Surgery: No Hx Section: No Hx Orthopedic Surgery: No Hx Hysterectomy: No Anesthesia Reaction: No - PPD History Previous Implant?: No Documented Results: Negative w/proof Date: 10/29/18 Results: 0 mm PPD to be Administered?: No - Reproductive History Patient is a Female of Child Bearing Age (11 -55 yrs old): Yes Last Menstrual Period: 11/09/18 Patient : No - Smoking Cessation Smoking history: Current every day smoker Have you smoked in the past 12 months: Yes Aproximately how many cigarettes per day: 8 Cigars Per Day: 0 Hx Chewing Tobacco Use: No Initiated information on smoking cessation: Yes 'Breaking Loose' booklet given: 11/19/18 - Substance & Tx. History Hx Alcohol Use: No Hx Substance Use: Yes Substance Use Type: Cocaine, Heroin Hx Substance Use Treatment: Yes (last detox 10/2018 [facility]) - Substances abused Heroin Substance route: Inhalation Frequency: Daily Amount used: 8 bags Age of first use: 23 Date of last use: 11/18/18 Crack Substance route: Smoking Frequency: Daily Amount used: $60 Age of first use: 23 Date of last use: 11/19/18 Other Other (specify): Street methadone Substance route: Oral Frequency: 1-3 times last 30 days Amount used: 10mg Age of first use: 47 Date of last use: 11/17/18 Family Disease History - Family Disease History Family Disease History: Respiratory: Brother, Sister, Other: Father (DSA, ) Admission Physical Exam [facility] - Vital Signs Vital Signs: Vital Signs - 24 hr 11/19/18 11:25 Temperature 98.8 F Pulse Rate 74 Respiratory 18 Rate Blood Pressure 108/74 - Physical General Appearance: Yes: Appropriately Dressed, Moderate Distress, Tremorous, Irritable, Sweating, Anxious HEENTM: Yes: Hearing grossly Normal, Normal Voice, Nasal Congestion, Rhinorrhea Respiratory: Yes: Lungs Clear, Normal Breath Sounds, No Respiratory Distress Neck: Yes: No masses,lesions,Nodules Breast: Yes: Within Normal Limits Cardiology: Yes: Regular Rhythm, Regular Rate, S1, S2 Abdominal: Yes: Normal Bowel Sounds, Non Tender, Soft Genitourinary: Yes: Within Normal Limits Back: Yes: Normal Inspection Musculoskeletal: Yes: Back pain, Muscle Pain Extremities: Yes: Normal Capillary Refill, Normal Inspection, Normal Range of Motion, Tremors Neurological: Yes: Fully Oriented, Alert, Normal Response Integumentary: Yes: Normal Color, Diaphoresis Lymphatic: Yes: Within Normal Limits - Diagnostic (1) Nicotine dependence Current Visit: Yes Status: Chronic Qualifiers: Nicotine product type: cigarettes Substance use status: uncomplicated Qualified Code(s): F17.210 - Nicotine dependence, cigarettes, uncomplicated (2) Opioid dependence with withdrawal Current Visit: Yes Status: Chronic (3) Weight loss Current Visit: No Status: Acute (4) Cocaine dependence, uncomplicated Current Visit: Yes Status: Chronic (5) Sickle cell trait Current Visit: No Status: Suspected (6) Substance-induced sleep disorder Current Visit: No Status: Suspected Cleared for Admission [facility] - Detox or Rehab [facility] Level of Care: Medically Managed Detox Regimen/Protocol: Methadone Claeared for Rehab Admission: No Breathalyzer - Breathalyzer Breathalyzer: 0 POC Urine test - Test device test lot number: [id number] Expiration date: 04/17/20 - Control test control: Yes - Result Urine Test Results: Negative - NO line present Urine Drug Screen - Test Device Lot number: [id number] Expiration date: 11/15/19 - Control Is test valid?: Yes - Results Drug screen NEGATIVE: No Urine drug screen results: EMILY-Cocaine, MOP-Opiates, MTD-Methadone Inpatient Rehab Admission - Rehab Decision to Admit Inpatient rehab admission?: No
[2018-11-19] MEDS ORDERED: MELATONIN 5 MG TABLETS PO PRN (12:08)
[2018-11-19] MEDS ORDERED: MENTHOL/PHENOL 1 EACH UD MM PRN (12:08)
[2018-11-19] MEDS ORDERED: P-EPHED 60MG/TRIPROLIDI 2.5MG TABLET PO PRN (12:08)
[2018-11-19] MEDS ORDERED: ACETAMINOPHEN 325 MG TABLET (FP) PO PRN (12:08)
[2018-11-19] MEDS ORDERED: BISMUTH SUBSALICYLATE 524 MG/30 ML UD PO PRN (12:08)
[2018-11-19] MEDS ORDERED: MAGNESIUM CITRATE 300 ML BOTTLE PO PRN (12:08)
[2018-11-19] MEDS ORDERED: cloNIDine HCL 0.1 MG TABLET PO PRN (12:08)
[2018-11-19] MEDS ORDERED: MAGNESIUM HYDROX 2400MG/30ML ORAL SUSPENSION 30 ML CUP PO PRN (12:08)
[2018-11-19] MEDS ORDERED: MAG HYDROX/AL HYDROX/SIMETH 30 ML UNIT-DOSE CUP PO PRN (12:08)
[2018-11-19] MEDS ORDERED: NICOTINE POLACRILEX 4 MG GUM BUC PRN (12:08)
[2018-11-19] MEDS ORDERED: hydrOXYzine PAMOATE 25 MG CAPSULE (FP) PO PRN (12:08)
[2018-11-19] MEDS ORDERED: METHADONE HCL 10 MG TABLET (FOR DETOX USE ONLY) PO ONE ×2 (13:45→23:00)
[2018-11-19 15:51] LABS: HEMATOCRIT 34.8 % (32.4-45.2); HEMOGLOBIN 11.8 GM/dL (10.7-15.3); MCH 31.6 pg (25.7-33.7); MCHC 33.8 g/dl (32.0-36.0); MEAN CELL VOLUME 93.3 fl (80-96); MEAN PLT VOLUME 9.6 fl (7.5-11.1); PLATELET COUNT 267 K/MM3 (134-434); RBC 3.73 M/mm3 (3.60-5.2); RDW 13.5 % (11.6-15.6); WHITE BLOOD COUNT 6.4 K/mm3 (4.0-10.0)
[2018-11-19 15:58] LABS: ALBUMIN 4.2 g/dl (3.4-5.0); ALK PHOS 62 U/L (45-117); ANION GAP 6 MMOL/L (8-16); BILIRUBIN,TOTAL 0.6 mg/dL (0.2-1); BLOOD UREA NITROGEN 18 mg/dL (7-18); CALCIUM 9.3 mg/dL (8.5-10.1); CHLORIDE 103 mmol/L (98-107); CO2 27 mmol/L (21-32); CREATININE 0.9 mg/dL (0.55-1.3); GLUCOSE,RANDOM 114 mg/dL (74-106); POTASSIUM 4.3 mmol/L (3.5-5.1); SGOT/AST 19 U/L (15-37); SGPT/ALT 16 U/L (13-61); SODIUM 137 mmol/L (136-145); TOT PROT 7.5 g/dl (6.4-8.2)
[2018-11-19] MEDS: ACETAMINOPHEN 325 MG TABLET (FP) PO PRN (16:55)
[2018-11-19] MEDS: diazePAM 5 MG TABLET PO PRN (22:08)
[2018-11-19] MEDS: BACLOFEN 10 MG TABLET (FP) PO PRN (22:08)
[2018-11-19] MEDS: THIAMINE HCL 100 MG TABLET (FP) PO SCH (22:08)
[2018-11-20] MEDS ORDERED: METHADONE HCL 10 MG TABLET (FOR DETOX USE ONLY) PO ONE (10:00)
[2018-11-20] MEDS: PRENATAL VITAMINS W/ FOLIC ACID TABLET (FP) PO SCH (10:11)
[2018-11-20] MEDS: IBUPROFEN 400 MG TABLET (FP) PO PRN (11:37)
--- NOTE | 2018-11-20 13:14 | PN ---
BHS COWS - Scale Resting Pulse: 0= [place] 80 or Below Sweatin=Flushed/Facial Moisture Restless Observation: 1= Difficult to Sit Still Pupil Size: 0= Normal to Room Light Bone or Joint Aches: 2= Severe Diffuse Aches Runny Nose/ Eye Tearin= Runny Nose/Eyes GI Upset > 30mins: 0= None Tremor Observation of Outstretched Hands: 2= Slight Tremor Visible Yawning Observation: 1= 1-2x During Session Anxiety or Irritability: 2=Irritable/Anxious Goose Flesh Skin: 0=Smooth Skin COWS Score: 12 BHS Progress Note (SOAP) Subjective: body aches sweats shakes restless interrupted sleep Objective: 11/20/18 13:13 Vital Signs Temperature 98.4 F 11/20/18 09:42 Pulse Rate 73 11/20/18 09:42 Respiratory Rate 18 11/20/18 09:42 Blood Pressure 114/55 L 11/20/18 09:42 O2 Sat by Pulse Oximetry (%) Laboratory Tests 11/19/18 11/19/18 11/19/18 12:15 12:15 12:15 WBC 6.4 RBC 3.73 Hgb 11.8 Hct 34.8 MCV 93.3 MCH 31.6 MCHC 33.8 RDW 13.5 Plt Count 267 MPV 9.6 Sodium 137 Potassium 4.3 Chloride 103 Carbon Dioxide 27 Anion Gap 6 L BUN 18 Creatinine 0.9 Creat Clearance w eGFR 66.55 Random Glucose 114 H Calcium 9.3 Total Bilirubin 0.6 AST 19 ALT 16 Alkaline Phosphatase 62 Total Protein 7.5 Albumin 4.2 RPR Titer Nonreactive aaox3 ambulating no acute distress Assessment: 11/20/18 13:13 withdrawal sx Plan: continue detox increase fluids
[2018-11-20] MEDS: diazePAM 5 MG TABLET PO PRN ×2 (17:38→22:38)
[2018-11-20] MEDS: THIAMINE HCL 100 MG TABLET (FP) PO SCH (22:38)
[2018-11-21] MEDS ORDERED: METHADONE HCL 10 MG TABLET (FOR DETOX USE ONLY) PO ONE (10:00)
[2018-11-21] MEDS: BACLOFEN 10 MG TABLET (FP) PO PRN (10:03)
[2018-11-21] MEDS: PRENATAL VITAMINS W/ FOLIC ACID TABLET (FP) PO SCH (10:04)
[2018-11-21] MEDS: IBUPROFEN 400 MG TABLET (FP) PO PRN (10:44)
--- NOTE | 2018-11-21 17:53 | PN ---
BHS COWS - Scale Resting Pulse: 0= [place] 80 or Below Sweatin= Beads of Sweat on Face Restless Observation: 1= Difficult to Sit Still Pupil Size: 0= Normal to Room Light Bone or Joint Aches: 1= Mild Discomfort Runny Nose/ Eye Tearin= Nasal Congestion GI Upset > 30mins: 2= Nausea/Diarrhea Tremor Observation of Outstretched Hands: 2= Slight Tremor Visible Yawning Observation: 1= 1-2x During Session Anxiety or Irritability: 1=Feels Anxious/Irritable Goose Flesh Skin: 0=Smooth Skin COWS Score: 12 BHS Progress Note (SOAP) Subjective: sweats shakes diarrhea Objective: 11/21/18 17:52 A & ox 3 anxious Vital Signs Temperature 99 F 11/21/18 17:44 Pulse Rate 57 L 11/21/18 17:44 Respiratory Rate 18 11/21/18 17:44 Blood Pressure 106/55 L 11/21/18 17:44 O2 Sat by Pulse Oximetry (%) Assessment: 11/21/18 17:52 withdrawal sx Plan: continue detox continue increased hydration
[2018-11-21] MEDS: ACETAMINOPHEN 325 MG TABLET (FP) PO PRN (19:17)
[2018-11-21] MEDS: THIAMINE HCL 100 MG TABLET (FP) PO SCH (22:30)
[2018-11-22] MEDS ORDERED: METHADONE HCL 10 MG TABLET (FOR DETOX USE ONLY) PO ONE (10:00)
[2018-11-22] MEDS: PRENATAL VITAMINS W/ FOLIC ACID TABLET (FP) PO SCH (10:07)
--- NOTE | 2018-11-22 17:06 | PN ---
S Progress Note (SOAP) Subjective: Nasal stuffiness, back pain, chills, interrupted sleep Objective: 11/22/18 17:04 Last Vital Signs Temp Pulse Resp BP Pulse Ox 98.1 F 64 18 136/74 11/22/18 15:51 11/22/18 15:51 11/22/18 15:51 11/22/18 15:51 Laboratory Tests 11/19/18 11/19/18 11/19/18 12:15 12:15 12:15 WBC 6.4 RBC 3.73 Hgb 11.8 Hct 34.8 MCV 93.3 MCH 31.6 MCHC 33.8 RDW 13.5 Plt Count 267 MPV 9.6 Sodium 137 Potassium 4.3 Chloride 103 Carbon Dioxide 27 Anion Gap 6 L BUN 18 Creatinine 0.9 Creat Clearance w eGFR 66.55 Random Glucose 114 H Calcium 9.3 Total Bilirubin 0.6 AST 19 ALT 16 Alkaline Phosphatase 62 Total Protein 7.5 Albumin 4.2 RPR Titer Nonreactive Labs reviewed Assessment: 11/22/18 17:05 Withdrawal symptoms Plan: Continue detox Encouraged PO water hydration Nasal congestion: ocean spray 2 sprays bid
[2018-11-22] MEDS: SODIUM CHLORIDE NASAL SPRAY 44 ML BOTTLE NS SCH (23:04)
[2018-11-22] MEDS: THIAMINE HCL 100 MG TABLET (FP) PO SCH (23:05)
[2018-11-23] MEDS ORDERED: METHADONE HCL 5 MG TABLET (FOR DETOX USE ONLY) PO ONE (06:00)
[2018-11-23 06:43] VITALS: TEMP 97.9
[2018-11-23] MEDS: IBUPROFEN 400 MG TABLET (FP) PO PRN (08:05)
--- NOTE | 2018-11-23 08:58 | DS ---
[facility] Dis[facility] Summary Admission Date: 11/19/18 Discharge Date: 11/23/18 - History Present History: Cocaine Dependence, Opioid Dependence - Physical Exam Results Vital Signs: Vital Signs Temperature 97.9 F 11/23/18 06:00 Pulse Rate 68 11/23/18 06:00 Respiratory Rate 18 11/23/18 06:00 Blood Pressure 127/65 11/23/18 06:00 O2 Sat by Pulse Oximetry (%) - Treatment Hospital Course: Detox Protocol Followed, Detoxed Safely, Responded well, Discharged Condition Good, Rehab Referral Accepted - Medication Discharge Medications: Ambulatory Orders NK [No Known Home Medication] 11/19/18 - Diagnosis (1) Nicotine dependence Current Visit: Yes Status: Chronic Qualifiers: Nicotine product type: cigarettes Substance use status: uncomplicated Qualified Code(s): F17.210 - Nicotine dependence, cigarettes, uncomplicated (2) Opioid dependence with withdrawal Current Visit: Yes Status: Chronic (3) Weight loss Current Visit: No Status: Acute (4) Cocaine dependence, uncomplicated Current Visit: Yes Status: Chronic (5) Sickle cell trait Current Visit: No Status: Suspected (6) Substance-induced sleep disorder Current Visit: No Status: Suspected - AMA Did Patient Leave Against Medical Advice: No ([facility]/ or outpatient )
[2018-11-23 09:31] VITALS: BP 128/78; PULSE 80
[2018-11-23] MEDS: SODIUM CHLORIDE NASAL SPRAY 44 ML BOTTLE NS SCH (11:00)
[2018-11-23] MEDS: PRENATAL VITAMINS W/ FOLIC ACID TABLET (FP) PO SCH (11:00)
== END 2018-11-23 10:40 | disposition home or self-care (01) | DRG 773 ==
LOC: YASAS 10:52 → Y6N 12:41
PROVIDERS: ADMIT Surgery; ATTEND Surgery
PROC: HZ2ZZZZ Detoxification Services for Substance Abuse Treatment (ICD-10-PCS; principal; 2018-11-19)
DX: F11.23 Opioid dependence with withdrawal (principal); F14.20 Cocaine dependence, uncomplicated; F17.210 Nicotine dependence, cigarettes, uncomplicated; F19.282 Other psychoactive substance dependence with psychoactive substance-induced sleep disorder; D57.3 Sickle-cell trait
CPT/HCPCS: 36415; 80053; 85027; 86593; J0475; J0735

== ENCOUNTER 2019-01-26 08:14 | Inpatient (IN) | payer OTHER | END 2019-01-28 18:35 | disposition left against medical advice (07) | LOC: YASAS 08:14 → Y3N 01-27 18:01 ==

== ENCOUNTER 2020-04-01 12:27 | Inpatient (IN) | payer OTHER ==
--- NOTE | 2020-04-01 19:34 | BHS.RME ---
Substance Use & Tx History - Substance Use History Heroin Substance amount: 8 to 9 bgas of heroin Frequency of use: Daily Substance route: Inhalation (ex: sniffing or snorting) Date of Last Use: 03/31/20 Cocaine-Crack Substance amount: 40$ Frequency of use: Daily Substance route: Smoking Date of Last Use: 03/31/20 - Last Treatment Date of last treatment: [facility] 01/26/19 to 01/28/19 not completed Where was last treatment: Detox Physical/Psych/Mental Status - Behavior Eye Contact: Normal - Cooperativeness Cooperativeness: Cooperative - Thinking Thought Processes: Logical Thought content: Future oriented - Physical Health Problems Is patient presently having any pain?: No Does patient presently have any injuries (include location): No Does patient currently have a fever: No COWS - Scale Resting Pulse: 0= [place] 80 or Below Sweatin= Chills/Flushing Restless Observation: 0= Sits Still Pupil Size: 1= Pupils >than Normal Bone or Joint Aches: 2= Severe Diffuse Aches Runny Nose/ Eye Tearin= Runny Nose/Eyes GI Upset > 30mins: 2= Nausea/Diarrhea Tremor Observation: 2= Slight Tremor Visible Yawning Observation: 2= >3x During Session Anxiety or Irritability: 2=Irritable/Anxious Goose Flesh Skin: 3=Piloerection COWS Score: 17
--- NOTE | 2020-04-01 19:42 | HP ---
COWS - Scale Resting Pulse: 0= [place] 80 or Below Sweatin= Chills/Flushing Restless Observation: 0= Sits Still Pupil Size: 1= Pupils >than Normal Bone or Joint Aches: 2= Severe Diffuse Aches Runny Nose/ Eye Tearin= Runny Nose/Eyes GI Upset > 30mins: 2= Nausea/Diarrhea Tremor Observation: 2= Slight Tremor Visible Yawning Observation: 2= >3x During Session Anxiety or Irritability: 2=Irritable/Anxious Goose Flesh Skin: 3=Piloerection COWS Score: 17 CIWA Score - Admission Criteria [facility]ASAS Guidelines: Admission for Medically Managed Detox: Requires at least one of the followin. CIWA greater than 12 2. Seizures within the past 24 hours 3. Delirium tremens within the past 24 hours 4. Hallucinations within the past 24 hours 5. Acute intervention needed for co occurring medical disorder 6. Acute intervention needed for co occurring psychiatric disorder 7. Severe withdrawal that cannot be handled at a lower level of care (continued vomiting, continued diarrhea, abnormal vital signs) requiring intravenous medication and/or fluids 8. Admitting History and Physical - Admission Chief Complaint: i need help to stop using heroinmand crack History of Present Illness: this 49 years old female with heroin dependence and crack dependence seeking detox,seeking detox History Source: Patient Limitations to Obtaining History: No Limitations - Past Medical History ...LMP: 03/28/02 ...: No Heme/Onc: Yes: Anemia - Smoking History Smoking history: Current every day smoker Have you smoked in the past 12 months: Yes Aproximately how many cigarettes per day: 8 - Alcohol/Substance Use Hx Alcohol Use: Yes History of Substance Use: reports: Cocaine, Heroin - Social History Usual Living Arrangement: Yes: Other (living with sister) Do you think of yourself as: Straight/Heterosexual ADL: Support Services Occupation: unemployed History of Recent Travel: No Other Social History: unemployed,no legal issue,nicotine dependence Admission ROS S - HPI Chief Complaint: i need help help to stop using heroin and cocaine Allergies/Adverse Reactions: Allergies Allergy/AdvReac Type Severity Reaction Status Date / Time No Known Allergies Allergy Verified 04/01/20 19:51 History of Present Illness: this 49 yesars old femlae with hetoin and cocaine dependence seeking detox, multiple admissions in detox but keep relapsing,last detox 01/26/19 to 01/28/19 not completed denied seizure denied syncope nicotine dependence longest sobriety 8 and half year plan for rehab after detox Exam Limitations: No Limitations - Ebola screening Have you traveled outside of the country in the last 21 days: No Have you had contact with anyone from an Ebola affected area: No Have you been sick,other than usual withdrawal symptoms: No Do you have a fever: No - Review of Systems Constitutional: Loss of Appetite, Malaise, Night Sweats, Changes in sleep EENT: reports: Tearing, Nose Congestion Respiratory: reports: No Symptoms reported Cardiac: reports: No Symptoms Reported GI: reports: Diarrhea, Nausea, Vomiting, Abdominal cramping : reports: No Symptoms Reported Musculoskeletal: reports: Back Pain, Muscle Pain Integumentary: reports: Dryness Neuro: reports: Headache, Tremors Endocrine: reports: No Symptoms Reported Hematology: reports: Anemia Psychiatric: reports: No Sypmtoms Reported, Judgement Intact, Mood/Affect Appropiate, Orientated x3 Other Systems: Reviewed and Negative Patient History - Patient Medical History Hx Anemia: No (ALSO " I HAVE SICKLE CELL TRAIT".) Hx Asthma: No Hx Chronic Obstructive Pulmonary Disease (COPD): No Hx Cancer: No Hx Cardiac Disorders: No Hx Congestive Heart Failure: No Hx Hypertension: No Hx Hypercholesterolemia: No Hx Pacemaker: No HX Cerebrovascular Accident: No Hx Seizures: No Hx Dementia: No Hx Diabetes: No Hx Gastrointestinal Disorders: No Hx Liver Disease: No Hx Genitourinary Disorders: No Hx Sexually Transmitted Disorders: No Hx Renal Disease (ESRD): No Hx Thyroid Disease: No Hx Human Immunodeficiency Virus (HIV): No (negative last 02/03) Hx Hepatitis C: No (negative) Hx Depression: No Hx Suicide Attempt: No Hx Bipolar Disorder: No Hx Schizophrenia: No Other Medical History: no suicidal,no homicidal - Patient Surgical History Past Surgical History: No Hx Neurologic Surgery: No Hx Cataract Extraction: No Hx Cardiac Surgery: No Hx Lung Surgery: No Hx Breast Surgery: No Hx Breast Biopsy: No Hx Abdominal Surgery: No Hx Appendectomy: No Hx Cholecystectomy: No Hx Genitourinary Surgery: No Hx Section: No Hx Orthopedic Surgery: No Hx Hysterectomy: No Anesthesia Reaction: No - PPD History Previous Implant?: Yes Documented Results: Negative w/o proof Date: 10/29/18 Results: 0 mm PPD to be Administered?: Yes - Reproductive History Patient is a Female of Child Bearing Age (11 -55 yrs old): Yes Last Menstrual Period: 03/28/20 Patient : No - Smoking Cessation Smoking history: Current every day smoker Have you smoked in the past 12 months: Yes Aproximately how many cigarettes per day: 8 Cigars Per Day: 0 Hx Chewing Tobacco Use: No Initiated information on smoking cessation: Yes 'Breaking Loose' booklet given: 04/01/20 - Substance & Tx. History Hx Alcohol Use: No Substance Use Type: Cocaine, Heroin Hx Substance Use Treatment: Yes ([facility] 01/26/19 to 01/28/19 not completed) - Substances abused Heroin Substance route: Inhalation Frequency: Daily Amount used: 8 to 9 bags Age of first use: 23 Date of last use: 03/31/20 Crack Substance route: Smoking Frequency: Daily Amount used: 40$ Age of first use: 23 Date of last use: 03/31/20 Admission Physical Exam [facility] - Vital Signs Vital Signs: t97.2,p66,bp 115/72,r18 - Physical General Appearance: Yes: Moderate Distress, Tremorous, Irritable, Sweating, Anxious HEENTM: Yes: Normal ENT Inspection, MAREN, Pharynx Normal Respiratory: Yes: Lungs Clear, Normal Breath Sounds, No Respiratory Distress Neck: Yes: Within Normal Limits, Supple, Trachea in good position Breast: Yes: Breast Exam Deferred Cardiology: Yes: Within Normal Limits, Regular Rhythm, Regular Rate, S1, S2 Abdominal: Yes: Within Normal Limits, Normal Bowel Sounds, Non Tender, Soft Genitourinary: Yes: Within Normal Limits Back: Yes: Muscle Spasm Musculoskeletal: Yes: Back pain, Muscle Pain Extremities: Yes: Tremors Neurological: Yes: vp care management II-XII NML intact, Alert, Motor Strength 5/5 Integumentary: Yes: Dry Lymphatic: Yes: Within Normal Limits - Diagnostic (1) Opioid dependence with withdrawal Current Visit: No Status: Chronic (2) Cocaine dependence, uncomplicated Current Visit: No Status: Chronic (3) Nicotine dependence Current Visit: No Status: Chronic Qualifiers: Nicotine product type: cigarettes Substance use status: uncomplicated Qualified Code(s): F17.210 - Nicotine dependence, cigarettes, uncomplicated (4) Sickle cell trait Current Visit: No Status: Suspected Cleared for Admission [facility] - Detox or Rehab [facility] Level of Care: Medically Managed Detox Regimen/Protocol: Methadone Breathalyzer - Breathalyzer Breathalyzer: 0 POC Urine test - Test device test lot number: [id number] Expiration date: 04/17/20 - Control test control: Yes Urine Drug Screen - Test Device Lot number: [id number] Expiration date: 11/23/21 - Control Is test valid?: Yes - Results Drug screen NEGATIVE: No Urine drug screen results: EMILY-Cocaine, FEN-Fentanyl, MOP-Opiates, MTD-Methadone Inpatient Rehab Admission - Rehab Decision to Admit Inpatient rehab admission?: No
[2020-04-01] MEDS ORDERED: NALOXONE HCL 0.4 MG/ML VIAL IM PRN (19:51)
[2020-04-01] MEDS ORDERED: MAGNESIUM CITRATE 300 ML BOTTLE PO PRN (19:51)
[2020-04-01] MEDS ORDERED: MENTHOL/PHENOL 1 EACH UD MM PRN (19:51)
[2020-04-01] MEDS ORDERED: BISMUTH SUBSALICYLATE 524 MG/30 ML UD PO PRN (19:51)
[2020-04-01] MEDS ORDERED: MAGNESIUM HYDROX 2400MG/30ML ORAL SUSPENSION 30 ML CUP PO PRN (19:51)
[2020-04-01] MEDS ORDERED: IBUPROFEN 400 MG TABLET (FP) PO PRN (19:51)
[2020-04-01] MEDS ORDERED: cloNIDine HCL 0.1 MG TABLET PO PRN (19:51)
[2020-04-01] MEDS ORDERED: NICOTINE POLACRILEX 2 MG GUM BUC PRN (19:51)
[2020-04-01] MEDS ORDERED: ACETAMINOPHEN 325 MG TABLET (FP) PO PRN (19:51)
[2020-04-01] MEDS ORDERED: MAG HYDROX/AL HYDROX/SIMETH 30 ML UNIT-DOSE CUP PO PRN (19:51)
[2020-04-01 19:58] VITALS: BMI 26.3
[2020-04-01] MEDS ORDERED: ONDANSETRON *ODT* 4 MG TABLET SL ONE (20:15)
[2020-04-01] MEDS ORDERED: METHADONE HCL 10 MG TABLET (FOR DETOX USE ONLY) PO ONE (20:15)
[2020-04-01] MEDS: THIAMINE HCL 100 MG TABLET (FP) PO SCH (23:33)
[2020-04-01] MEDS: MELATONIN 5 MG TABLETS PO SCH (23:34)
[2020-04-01] MEDS: hydrOXYzine PAMOATE 25 MG CAPSULE (FP) PO SCH (23:34)
[2020-04-02] MEDS: hydrOXYzine PAMOATE 25 MG CAPSULE (FP) PO SCH (06:50)
[2020-04-02] MEDS: diazePAM 5 MG TABLET PO PRN ×3 (06:51→22:46)
--- NOTE | 2020-04-02 09:04 | PN ---
BHS COWS - Scale Resting Pulse: 0= [place] 80 or Below Sweatin= Chills/Flushing Restless Observation: 0= Sits Still Pupil Size: 1= Pupils >than Normal Bone or Joint Aches: 1= Mild Discomfort Runny Nose/ Eye Tearin= None GI Upset > 30mins: 2= Nausea/Diarrhea Tremor Observation of Outstretched Hands: 2= Slight Tremor Visible Yawning Observation: 0= None Anxiety or Irritability: 2=Irritable/Anxious Goose Flesh Skin: 3=Piloerection COWS Score: 12 BHS Progress Note (SOAP) Subjective: 49 years old female admitted on 04/01/20 for opiate withdrawal sx management treating with methadone detox regiment anxiousness restlessness increase vistaril to 50mg po requests to be seen by a progressive care unit registered nurse for nutrition evaluation progressive care unit registered nurse referral Objective: 04/02/20 09:02 Vital Signs - 24 hr 04/01/20 04/01/20 04/01/20 19:56 19:59 20:16 Temperature 97.2 F L 97.2 F L Pulse Rate 66 64 Respiratory 18 18 Rate Blood Pressure 115/72 115/72 O2 Sat by Pulse 96 Oximetry (%) 04/01/20 04/02/20 20:22 07:32 Temperature 97.3 F L 97.5 F L Pulse Rate 77 70 Respiratory 18 18 Rate Blood Pressure 94/64 117/65 O2 Sat by Pulse 100 99 Oximetry (%) 04/02/20 09:03 lab pending Assessment: 04/02/20 09:03 opiate withdrawal 04/02/20 09:03 knowledge deficit - nutrition 04/02/20 09:03 anxiety Plan: methadone regiment progressive care unit registered nurse referral vistaril
[2020-04-02] MEDS ORDERED: METHADONE HCL 10 MG TABLET (FOR DETOX USE ONLY) ONE (09:50)
[2020-04-02] MEDS ORDERED: METHADONE HCL 5 MG TABLET (FOR DETOX USE ONLY) ONE (09:50)
[2020-04-02] MEDS ORDERED: METHADONE (DETOX) 20 MG, METHADONE (DETOX) 5 MG PO ONE (10:00)
[2020-04-02 10:45] LABS: HEMATOCRIT 33.6 % (32.4-45.2); HEMOGLOBIN 11.2 GM/dL (10.7-15.3); MCH 29.7 pg (25.7-33.7); MCHC 33.3 g/dl (32.0-36.0); MEAN PLT VOLUME 9.3 fl (7.5-11.1); PLATELET COUNT 226 K/MM3 (134-434); RBC 3.78 M/mm3 (3.60-5.2); RDW 12.9 % (11.6-15.6); WHITE BLOOD COUNT 4.4 K/mm3 (4.0-10.0)
[2020-04-02 10:50] LABS: ALBUMIN 3.4 g/dl (3.4-5.0); BLOOD UREA NITROGEN 13.8 mg/dL (7-18); CALCIUM 8.7 mg/dL (8.5-10.1); CREATININE 0.9 mg/dL (0.55-1.3); POTASSIUM 4.4 mmol/L (3.5-5.1); TOT PROT 6.2 g/dl (6.4-8.2)
[2020-04-02 10:53] LABS: BILIRUBIN,TOTAL 0.4 mg/dL (0.2-1)
[2020-04-02] MEDS: PRENATAL VITAMINS W/ FOLIC ACID TABLET (FP) PO SCH (11:04)
[2020-04-02] MEDS: hydrOXYzine PAMOATE 25 MG CAPSULE (FP) PO PRN (11:04)
[2020-04-02] MEDS: METHOCARBAMOL 500 MG TABLET PO PRN (11:04)
[2020-04-02] MEDS: THIAMINE HCL 100 MG TABLET (FP) PO SCH (22:46)
[2020-04-02] MEDS: MELATONIN 5 MG TABLETS PO SCH (22:47)
[2020-04-03] MEDS: hydrOXYzine PAMOATE 25 MG CAPSULE (FP) PO PRN ×2 (02:24→22:28)
[2020-04-03] MEDS: METHOCARBAMOL 500 MG TABLET PO PRN (02:24)
[2020-04-03] MEDS: diazePAM 5 MG TABLET PO PRN ×3 (06:32→22:27)
--- NOTE | 2020-04-03 09:29 | PN ---
BHS COWS - Scale Resting Pulse: 0= [place] 80 or Below Sweatin= Chills/Flushing Restless Observation: 0= Sits Still Pupil Size: 1= Pupils >than Normal Bone or Joint Aches: 1= Mild Discomfort Runny Nose/ Eye Tearin= None GI Upset > 30mins: 2= Nausea/Diarrhea Tremor Observation of Outstretched Hands: 2= Slight Tremor Visible Yawning Observation: 0= None Anxiety or Irritability: 2=Irritable/Anxious Goose Flesh Skin: 0=Smooth Skin COWS Score: 9 BHS Progress Note (SOAP) Subjective: 49 years old female admitted on 04/01/20 for opiate withdrawal sx management treating with methadone detox regiment report abdominal crampin bentyl 20 mg po x 1 discontinue motrin begin pepcid 20 mg po bid Objective: 04/03/20 09:31 Vital Signs - 24 hr 04/02/20 04/02/20 04/02/20 12:24 17:02 20:42 Temperature 98 F 97.1 F L 97.5 F L Pulse Rate 63 69 72 Respiratory 16 17 18 Rate Blood Pressure 111/74 94/61 104/64 O2 Sat by Pulse 100 99 Oximetry (%) 04/03/20 07:01 Temperature 98.1 F Pulse Rate 61 Respiratory 16 Rate Blood Pressure 114/69 O2 Sat by Pulse 99 Oximetry (%) Laboratory Tests 04/01/20 04/01/20 04/02/20 20:00 20:59 08:00 WBC RBC Hgb Hct MCV MCH MCHC RDW Plt Count MPV Sodium Potassium Chloride Carbon Dioxide Anion Gap BUN Creatinine Est GFR (CKD-EPI)AfAm Est GFR (CKD-EPI)NonAf Random Glucose Calcium Total Bilirubin AST ALT Alkaline Phosphatase Total Protein Albumin POC Urine HCG, Qual Negative Syphilis Serology Non-reactive COVID-19 (CARLO) Not detected 04/02/20 04/02/20 08:00 08:00 WBC 4.4 RBC 3.78 Hgb 11.2 Hct 33.6 MCV 89.0 MCH 29.7 MCHC 33.3 RDW 12.9 Plt Count 226 MPV 9.3 Sodium 139 Potassium 4.4 Chloride 105 Carbon Dioxide 28 Anion Gap 5 L BUN 13.8 Creatinine 0.9 Est GFR (CKD-EPI)AfAm 86.41 Est GFR (CKD-EPI)NonAf 74.55 Random Glucose 109 H Calcium 8.7 Total Bilirubin 0.4 AST 11 L ALT 16 Alkaline Phosphatase 62 Total Protein 6.2 L Albumin 3.4 POC Urine HCG, Qual Syphilis Serology COVID-19 (CARLO) lab noted Assessment: 04/03/20 09:32 opiate withdrawal abdominal cramping Plan: methadone regiment bentyl 20 mg po x 1 pepcid 20 mg po bid
[2020-04-03] MEDS ORDERED: METHADONE HCL 10 MG TABLET (FOR DETOX USE ONLY) PO ONE (10:00)
[2020-04-03] MEDS ORDERED: DICYCLOMINE HCL 10 MG CAPSULE PO ONE (10:00)
[2020-04-03] MEDS: FAMOTIDINE 20 MG TABLET PO SCH ×2 (10:28→23:45)
[2020-04-03] MEDS: PRENATAL VITAMINS W/ FOLIC ACID TABLET (FP) PO SCH (10:28)
[2020-04-03] MEDS: ACETAMINOPHEN 325 MG TABLET (FP) PO PRN (10:32)
[2020-04-03] MEDS: THIAMINE HCL 100 MG TABLET (FP) PO SCH (22:26)
[2020-04-03] MEDS: MELATONIN 5 MG TABLETS PO SCH (22:28)
--- NOTE | 2020-04-04 09:15 | PN ---
BHS COWS - Scale Resting Pulse: 0= [place] 80 or Below Sweatin= Chills/Flushing Restless Observation: 0= Sits Still Pupil Size: 1= Pupils >than Normal Bone or Joint Aches: 1= Mild Discomfort Runny Nose/ Eye Tearin= None GI Upset > 30mins: 2= Nausea/Diarrhea Tremor Observation of Outstretched Hands: 1= Tremor [place], Not Seen Yawning Observation: 0= None Anxiety or Irritability: 1=Feels Anxious/Irritable Goose Flesh Skin: 0=Smooth Skin COWS Score: 7 BHS Progress Note (SOAP) Subjective: 49 years old female admitted on 04/01/20 for opiate withdrawal sx management treating with methadone detox regiment nausea after breakfast zofran 4 mg sl x 1 reports general body aches tylenal 650mg po x 1 Objective: 04/04/20 09:14 Vital Signs - 24 hr 04/03/20 04/03/20 04/03/20 13:07 17:00 21:01 Temperature 98.6 F 98.4 F 98.4 F Pulse Rate 63 67 86 Respiratory 18 16 16 Rate Blood Pressure 101/57 L 109/69 126/89 O2 Sat by Pulse 100 100 Oximetry (%) 04/04/20 06:31 Temperature 97.9 F Pulse Rate 75 Respiratory 18 Rate Blood Pressure 118/72 O2 Sat by Pulse 98 Oximetry (%) Laboratory Tests 04/01/20 04/01/20 04/02/20 20:00 20:59 08:00 WBC RBC Hgb Hct MCV MCH MCHC RDW Plt Count MPV Sodium Potassium Chloride Carbon Dioxide Anion Gap BUN Creatinine Est GFR (CKD-EPI)AfAm Est GFR (CKD-EPI)NonAf Random Glucose Calcium Total Bilirubin AST ALT Alkaline Phosphatase Total Protein Albumin POC Urine HCG, Qual Negative Syphilis Serology Non-reactive COVID-19 (CARLO) Not detected 04/02/20 04/02/20 08:00 08:00 WBC 4.4 RBC 3.78 Hgb 11.2 Hct 33.6 MCV 89.0 MCH 29.7 MCHC 33.3 RDW 12.9 Plt Count 226 MPV 9.3 Sodium 139 Potassium 4.4 Chloride 105 Carbon Dioxide 28 Anion Gap 5 L BUN 13.8 Creatinine 0.9 Est GFR (CKD-EPI)AfAm 86.41 Est GFR (CKD-EPI)NonAf 74.55 Random Glucose 109 H Calcium 8.7 Total Bilirubin 0.4 AST 11 L ALT 16 Alkaline Phosphatase 62 Total Protein 6.2 L Albumin 3.4 POC Urine HCG, Qual Syphilis Serology COVID-19 (CARLO) lab noted Assessment: 04/04/20 09:14 opiate withdrawal nausea general body aches Plan: methadone regiment zofran + tylenal x 1
[2020-04-04] MEDS ORDERED: METHADONE HCL 5 MG TABLET (FOR DETOX USE ONLY) ONE (09:18)
[2020-04-04] MEDS ORDERED: METHADONE HCL 10 MG TABLET (FOR DETOX USE ONLY) ONE (09:18)
[2020-04-04] MEDS ORDERED: ONDANSETRON *ODT* 4 MG TABLET SL ONE (09:30)
[2020-04-04] MEDS ORDERED: ACETAMINOPHEN 325 MG TABLET (FP) PO ONE (09:30)
[2020-04-04] MEDS ORDERED: METHADONE (DETOX) 10 MG, METHADONE (DETOX) 5 MG PO ONE (10:00)
[2020-04-04] MEDS: FAMOTIDINE 20 MG TABLET PO SCH ×2 (10:19→22:35)
[2020-04-04] MEDS: PRENATAL VITAMINS W/ FOLIC ACID TABLET (FP) PO SCH (10:19)
[2020-04-04] MEDS: diazePAM 5 MG TABLET PO PRN ×3 (12:00→19:51)
[2020-04-04] MEDS: METHOCARBAMOL 500 MG TABLET PO PRN ×2 (12:01→22:36)
[2020-04-04] MEDS: hydrOXYzine PAMOATE 25 MG CAPSULE (FP) PO PRN ×2 (15:26→22:35)
[2020-04-04] MEDS: MELATONIN 5 MG TABLETS PO SCH (22:35)
[2020-04-04] MEDS: THIAMINE HCL 100 MG TABLET (FP) PO SCH (22:36)
[2020-04-05] MEDS: hydrOXYzine PAMOATE 25 MG CAPSULE (FP) PO PRN ×3 (06:33→22:58)
[2020-04-05] MEDS: ACETAMINOPHEN 325 MG TABLET (FP) PO PRN ×2 (06:34→14:20)
[2020-04-05] MEDS: METHOCARBAMOL 500 MG TABLET PO PRN ×3 (06:34→22:58)
[2020-04-05] MEDS: FAMOTIDINE 20 MG TABLET PO SCH ×2 (09:31→22:58)
[2020-04-05] MEDS: PRENATAL VITAMINS W/ FOLIC ACID TABLET (FP) PO SCH (09:31)
--- NOTE | 2020-04-05 09:59 | PN ---
BHS COWS - Scale Resting Pulse: 1= [place] 81-100 Sweatin= No chills or Flushing Restless Observation: 0= Sits Still Pupil Size: 0= Normal to Room Light Bone or Joint Aches: 1= Mild Discomfort Runny Nose/ Eye Tearin= None GI Upset > 30mins: 0= None Tremor Observation of Outstretched Hands: 1= Tremor [place], Not Seen Yawning Observation: 1= 1-2x During Session Anxiety or Irritability: 1=Feels Anxious/Irritable Goose Flesh Skin: 0=Smooth Skin COWS Score: 5 BHS Progress Note (SOAP) Subjective: 49 years old female was admitted on 04/01/20 for opiate withdrawal sx management treating with methadone detox regiment slept better at night ms pace requests more valium and more methadone health teaching on negative consequences of benzo mixed with opiate Objective: 04/05/20 10:04 Vital Signs - 24 hr 04/04/20 04/04/20 04/04/20 13:29 17:55 20:50 Temperature 96.9 F L 97.1 F L 96.9 F L Pulse Rate 75 74 85 Respiratory 18 18 18 Rate Blood Pressure 115/70 117/75 131/80 O2 Sat by Pulse 100 100 99 Oximetry (%) 04/05/20 04/05/20 06:19 08:35 Temperature 97.6 F 97.9 F Pulse Rate 74 82 Respiratory 18 18 Rate Blood Pressure 104/49 L 112/72 O2 Sat by Pulse 98 Oximetry (%) Laboratory Tests 04/01/20 04/01/20 04/02/20 20:00 20:59 08:00 WBC RBC Hgb Hct MCV MCH MCHC RDW Plt Count MPV Sodium Potassium Chloride Carbon Dioxide Anion Gap BUN Creatinine Est GFR (CKD-EPI)AfAm Est GFR (CKD-EPI)NonAf Random Glucose Calcium Total Bilirubin AST ALT Alkaline Phosphatase Total Protein Albumin POC Urine HCG, Qual Negative Syphilis Serology Non-reactive COVID-19 (CARLO) Not detected 04/02/20 04/02/20 08:00 08:00 WBC 4.4 RBC 3.78 Hgb 11.2 Hct 33.6 MCV 89.0 MCH 29.7 MCHC 33.3 RDW 12.9 Plt Count 226 MPV 9.3 Sodium 139 Potassium 4.4 Chloride 105 Carbon Dioxide 28 Anion Gap 5 L BUN 13.8 Creatinine 0.9 Est GFR (CKD-EPI)AfAm 86.41 Est GFR (CKD-EPI)NonAf 74.55 Random Glucose 109 H Calcium 8.7 Total Bilirubin 0.4 AST 11 L ALT 16 Alkaline Phosphatase 62 Total Protein 6.2 L Albumin 3.4 POC Urine HCG, Qual Syphilis Serology COVID-19 (CARLO) lab noted Assessment: 04/05/20 10:05 opiate withdrawal Plan: methadone regiment
[2020-04-05] MEDS ORDERED: METHADONE HCL 10 MG TABLET (FOR DETOX USE ONLY) PO ONE (10:00)
[2020-04-05] MEDS: MELATONIN 5 MG TABLETS PO SCH (22:57)
[2020-04-05] MEDS: THIAMINE HCL 100 MG TABLET (FP) PO SCH (22:58)
[2020-04-06] MEDS ORDERED: METHADONE HCL 5 MG TABLET (FOR DETOX USE ONLY) PO ONE (06:00)
[2020-04-06] MEDS: METHOCARBAMOL 500 MG TABLET PO PRN (06:04)
[2020-04-06] MEDS: ACETAMINOPHEN 325 MG TABLET (FP) PO PRN (06:04)
[2020-04-06] MEDS: hydrOXYzine PAMOATE 25 MG CAPSULE (FP) PO PRN (06:04)
[2020-04-06 06:54] VITALS: BP 119/73; PULSE 80; TEMP 97.1
== END 2020-04-06 07:47 | disposition home or self-care (01) | DRG 773 ==
LOC: YASAS 12:27 → Y3N 19:40
PROVIDERS: ADMIT Allergy & Immunology; ATTEND Allergy & Immunology
PROC: HZ2ZZZZ Detoxification Services for Substance Abuse Treatment (ICD-10-PCS; principal; 2020-04-01)
DX: F11.23 Opioid dependence with withdrawal (principal); F14.20 Cocaine dependence, uncomplicated; F17.210 Nicotine dependence, cigarettes, uncomplicated; D57.3 Sickle-cell trait; Z56.0 Unemployment, unspecified
CPT/HCPCS: 36415; 80053; 81025; 85027; 86780; U0003

== ENCOUNTER 2020-05-22 15:36 | Inpatient (IN) | payer OTHER ==
--- NOTE | 2020-05-22 18:32 | BHS.RME ---
Substance Use & Tx History - Substance Use History Alcohol Substance amount: 1 pint of vodka, 4-5 16 oz beers Frequency of use: Daily Substance route: Oral Date of Last Use: 05/22/20 Cocaine-Crack Substance amount: $60 Frequency of use: Daily Substance route: Smoking Date of Last Use: 05/22/20 - Last Treatment Date of last treatment: 2 months ago Where was last treatment: Detox ([facility]) Physical/Psych/Mental Status - Behavior General Behavior: Increased activity (restlessness, agitation) Eye Contact: Normal Other Behaviors: Mannerisms - Cooperativeness Cooperativeness: Friendly - Thinking Thought Processes: Tight - Physical Health Problems Is patient presently having any pain?: Yes (lower back pain) Does patient presently have any injuries (include location): No Does patient currently have a fever: No Is patient : No CIWA Nausea/Vomitin-Mild Nausea/No Vomiting Muscle Tremors: 2 Anxiety: 2 Agitation: 1-Slight > Activity Paroxysmal Sweats: 2 Orientation: 0-Oriented Tacttile Disturbances: 1-Very Mild Itch/Numbness Auditory Disturbances: 0-None Visual Disturbances: 2-Mild Sensitivity Headache: 3-Moderate CIWA-Ar Total Score: 14
[2020-05-22 18:35] VITALS: BMI 25.8
--- NOTE | 2020-05-22 19:10 | HP ---
CIWA Score Nausea/Vomitin-Mild Nausea/No Vomiting Muscle Tremors: 2 Anxiety: 2 Agitation: 1-Slight > Activity Paroxysmal Sweats: 2 Orientation: 0-Oriented Tacttile Disturbances: 1-Very Mild Itch/Numbness Auditory Disturbances: 0-None Visual Disturbances: 2-Mild Sensitivity Headache: 3-Moderate CIWA-Ar Total Score: 14 - Admission Criteria OASAS Guidelines: Admission for Medically Managed Detox: Requires at least one of the followin. CIWA greater than 12 2. Seizures within the past 24 hours 3. Delirium tremens within the past 24 hours 4. Hallucinations within the past 24 hours 5. Acute intervention needed for co occurring medical disorder 6. Acute intervention needed for co occurring psychiatric disorder 7. Severe withdrawal that cannot be handled at a lower level of care (continued vomiting, continued diarrhea, abnormal vital signs) requiring intravenous medication and/or fluids 8. Admitting History and Physical - Admission Chief Complaint: Pt is a 49 yo F presenting for detox from alcohol; "detox from alcohol and I would like to go to rehab." History of Present Illness: Pt is a 49 yo F presenting for detox from alcohol; "detox from alcohol and I would like to go to rehab." Pt was last at [facility] 2 months ago and completed detox but did not go to rehab. Pt reports no period of sobriety since her last visit and now. Pt reports her trigger is seeing her "kids and their father because their father has custody of them." Pt is part of a methadone program - [facility]; last medicated today; methadone dose 30 mg. LMP 05/01/2020; Mammo last year; Pap smear 2 years ago; all without abnormal findings PMH - sickle cell trait; anemia (takes iron) PSH/Psych - none Soc/Domiciled - live with your sister in an apt in the [facility] Legal - none - Substance Use History Alcohol Substance amount: 1 pint of vodka, 4-5 16 oz beers Frequency of use: Daily Substance route: Oral Date of Last Use: 05/22/20 Cocaine-Crack Substance amount: $60 Frequency of use: Daily Substance route: Smoking Date of Last Use: 05/22/20 Heroin pt used 3 bags, 3 days ago; no longer uses it daily - Last Treatment Date of last treatment: 2 months ago Where was last treatment: Detox ([facility]) History Source: Patient Limitations to Obtaining History: No Limitations - Past Medical History ...LMP: 03/28/20 ...: No Heme/Onc: Yes: Anemia - Smoking History Smoking history: Current every day smoker Have you smoked in the past 12 months: Yes Aproximately how many cigarettes per day: 8 - Alcohol/Substance Use Hx Alcohol Use: No History of Substance Use: reports: Cocaine, Heroin - Social History ADL: Support Services Occupation: unemployed History of Recent Travel: No Admission [facility] Allergies/Adverse Reactions: Allergies Allergy/AdvReac Type Severity Reaction Status Date / Time No Known Allergies Allergy Verified 05/22/20 18:34 - Ebola screening Have you traveled outside of the country in the last 21 days: No Have you been sick,other than usual withdrawal symptoms: No Do you have a fever: No - Review of Systems Constitutional: Chills, Diaphoresis, Changes in sleep (insomnia) EENT: reports: Blurred Vision (nearsighted - wears glasses), Nose Congestion (mild x 2 days) Respiratory: reports: No Symptoms reported Cardiac: reports: No Symptoms Reported GI: reports: Nausea, Abdominal cramping (mild), Other : reports: No Symptoms Reported Musculoskeletal: reports: Back Pain (chronic low back pain), Muscle Pain (diffuse muscle aches) Integumentary: reports: No Symptoms Reported Neuro: reports: Headache (moderate headache with visual sensitivity), Tremors (mild) Endocrine: reports: No Symptoms Reported Hematology: reports: Anemia (hx of anemia on supplemental iron) Psychiatric: reports: Orientated x3, Agitated (mild), Anxious (mild) Patient History - Patient Medical History Hx Anemia: No (ALSO " I HAVE SICKLE CELL TRAIT".) Hx Asthma: No Hx Chronic Obstructive Pulmonary Disease (COPD): No Hx Cancer: No Hx Cardiac Disorders: No Hx Congestive Heart Failure: No Hx Hypertension: No Hx Hypercholesterolemia: No Hx Pacemaker: No HX Cerebrovascular Accident: No Hx Seizures: No Hx Dementia: No Hx Diabetes: No Hx Gastrointestinal Disorders: No Hx Liver Disease: No Hx Genitourinary Disorders: No Hx Sexually Transmitted Disorders: No Hx Renal Disease (ESRD): No Hx Thyroid Disease: No Hx Human Immunodeficiency Virus (HIV): No (negative last 02/03) Hx Hepatitis C: No (negative) Hx Depression: No Hx Suicide Attempt: No Hx Bipolar Disorder: No Hx Schizophrenia: No - Patient Surgical History Past Surgical History: No Hx Neurologic Surgery: No Hx Cataract Extraction: No Hx Cardiac Surgery: No Hx Lung Surgery: No Hx Breast Surgery: No Hx Breast Biopsy: No Hx Abdominal Surgery: No Hx Appendectomy: No Hx Cholecystectomy: No Hx Genitourinary Surgery: No Hx Section: No Hx Orthopedic Surgery: No Hx Hysterectomy: No Anesthesia Reaction: No - PPD History Previous Implant?: Yes Documented Results: Negative w/proof Date: 04/03/20 Results: 0 mm - Reproductive History Last Menstrual Period: 03/28/20 Patient : No - Smoking Cessation Smoking history: Current every day smoker Have you smoked in the past 12 months: Yes Aproximately how many cigarettes per day: 10 Cigars Per Day: 0 Hx Chewing Tobacco Use: No Initiated information on smoking cessation: Yes 'Breaking Loose' booklet given: 05/22/20 Admission Physical Exam BHS - Vital Signs Vital Signs: Vital Signs - 24 hr 05/22/20 18:33 Temperature 97.3 F L Pulse Rate 80 Respiratory 18 Rate Blood Pressure 139/93 - Physical General Appearance: Yes: No Apparent Distress, Nourished, Appropriately Dressed, Tremorous (mild), Sweating (mild), Anxious (mild) HEENTM: Yes: EOMI, Hearing grossly Normal, Normocephalic, Normal Voice Respiratory: Yes: Lungs Clear, Normal Breath Sounds, No Respiratory Distress, No Accessory Muscle Use Neck: Yes: Supple, Trachea in good position Breast: Yes: Breast Exam Deferred Cardiology: Yes: Regular Rhythm, Regular Rate Abdominal: Yes: Normal Bowel Sounds, Non Tender, Flat, Soft Genitourinary: Yes: Other (deferred) Back: Yes: Normal Inspection Musculoskeletal: Yes: full range of Motion, Gait Steady Extremities: Yes: Normal Inspection, Normal Range of Motion (mild), Non-Tender, Tremors Neurological: Yes: Fully Oriented, Alert, Motor Strength 5/5, Normal Mood/Affect Integumentary: Yes: Normal Color, Dry, Warm - Diagnostic (1) Alcohol dependence Current Visit: Yes Status: Acute Qualifiers: Substance use status: in withdrawal Complication of substance-induced condition: uncomplicated Qualified Code(s): F10.230 - Alcohol dependence with withdrawal, uncomplicated (2) Methadone maintenance therapy patient Current Visit: Yes Status: Acute (3) Opioid dependence Current Visit: Yes Status: Acute Qualifiers: Substance use status: uncomplicated Qualified Code(s): F11.20 - Opioid dependence, uncomplicated (4) Cocaine dependence, uncomplicated Current Visit: Yes Status: Acute (5) Nicotine dependence Current Visit: Yes Status: Acute Qualifiers: Nicotine product type: cigarettes Substance use status: uncomplicated Qualified Code(s): F17.210 - Nicotine dependence, cigarettes, uncomplicated Cleared for Admission [facility]HS - Detox or Rehab [facility] Level of Care: Medically Managed Detox Regimen/Protocol: Valium Breathalyzer - Breathalyzer Breathalyzer: 0 POC Urine test - Test device test lot number: [id number] Expiration date: 04/17/20 - Control test control: Yes Urine Drug Screen - Test Device Lot number: [id number] Expiration date: 03/21/22 - Control Is test valid?: Yes - Results Drug screen NEGATIVE: No Urine drug screen results: EMILY-Cocaine, FEN-Fentanyl, MOP-Opiates, MTD- Methadone, BZO-Benzodiazepines Inpatient Rehab Admission - Rehab Decision to Admit Inpatient rehab admission?: No
[2020-05-22] MEDS ORDERED: diazePAM 5 MG TABLET PO PRN (19:24)
[2020-05-22] MEDS ORDERED: NICOTINE POLACRILEX 2 MG GUM BUC PRN (19:24)
[2020-05-22] MEDS ORDERED: METHOCARBAMOL 500 MG TABLET PO PRN (19:24)
[2020-05-22] MEDS ORDERED: ONDANSETRON *ODT* 4 MG TABLET SL PRN (19:24)
[2020-05-22] MEDS ORDERED: ACETAMINOPHEN 325 MG TABLET (FP) PO PRN ×2 (19:24)
[2020-05-22] MEDS ORDERED: MENTHOL/PHENOL 1 EACH UD MM PRN (19:24)
[2020-05-22] MEDS ORDERED: MAGNESIUM CITRATE 300 ML BOTTLE PO PRN (19:24)
[2020-05-22] MEDS ORDERED: MAG HYDROX/AL HYDROX/SIMETH 30 ML UNIT-DOSE CUP PO PRN (19:24)
[2020-05-22] MEDS ORDERED: MAGNESIUM HYDROX 2400MG/30ML ORAL SUSPENSION 30 ML CUP PO PRN (19:24)
[2020-05-22] MEDS ORDERED: BISMUTH SUBSALICYLATE 524 MG/30 ML UD PO PRN (19:24)
--- OUTSIDE RECORDS SUMMARY | 2020-05-22 19:42 | XMS ---
:1970 Author Organization [facility] Support Name Relationship Address Phone UE Unavailable Unavailable Unavailable CANDI HAWTHORNE FAMILY/OTHER [phone] [place] [address] CANDI HAWTHORNE Other [address] [place] [address] Re-disclosure Warning The records that you are about to access may contain information from federally- assisted alcohol or drug abuse programs. If such information is present, then the following federally mandated warning applies: This information has been disclosed to you from records protected by federal confidentiality rules (42 CFR part 2). The federal rules prohibit you from making any further disclosure of this information unless further disclosure is expressly permitted by the written consent of the person to whom it pertains or as otherwise permitted by 42 CFR part 2. A general authorization for the release of medical or other information is NOT sufficient for this purpose. The Federal rules restrict any use of the information to criminally investigate or prosecute any alcohol or drug abuse patient.The records that you are about to access may contain highly sensitive health information, the redisclosure of which is protected by Article 27-F of the [facility] Public Health law. If you continue you may haveaccess to information: Regarding HIV / AIDS; Provided by facilities licensed or operated by the [facility] Office of Mental Health; or Provided by the [facility] Office for People With Developmental Disabilities. If such information is present, then the following [facility] mandated warning applies: This information has been disclosed to you from confidential records which are protected by state law. State law prohibits you from making any further disclosure of this information without the specific written consent of the person to whom it pertains, or as otherwise permitted by law. Any unauthorized further disclosure in violation of state law may result in a fine or penitentiary sentence or both. A general authorization for the release of medical or other information is NOT sufficient authorization for further disclosure. Insurance Providers Payer name Policy type Policy ID Covered Covered green party's Policy P franco / Coverage green party ID relationship to Case Inf ormation type case BEACON [id number] SP [id number] [facility] BEACON [id number] SP [id number] [employer] Results ID Date Data Source [id number] 04/01/2020 08:00:00 PM EDT [facility] Name Value Range Interpretation Description Data Sup porting Code Source(s) Document(s ) SARS [facility] coronavirus 2 RNA This lab was ordered by Leighton Preston [address] [facility] and reported by [facility]. Procedure
[2020-05-22] MEDS: NICOTINE 14 MG/24 HOURS TOPICAL PATCH TD SCH (19:59)
--- NOTE | 2020-05-22 20:06 | PN ---
Teaching Attending Note Name of Resident: Alice Corcoran ATTENDING PHYSICIAN STATEMENT I saw and evaluated the patient. I reviewed the resident's note and discussed the case with the resident. I agree with the resident's findings and plan as documented. SUBJECTIVE:49 y.o. female requesting detox from alcohol use , prior detox at this facility March 2020 . MMTP - 30 mg daily . OBJECTIVE: wnwd CIWA 14 Vital Signs - 24 hr 05/22/20 18:33 Temperature 97.3 F L Pulse Rate 80 Respiratory 18 Rate Blood Pressure 139/93 ASSESSMENT AND PLAN: AUD - Valium detox
[2020-05-22] MEDS: diazePAM 5 MG TABLET PO SCH (22:39)
[2020-05-22] MEDS: hydrOXYzine PAMOATE 25 MG CAPSULE (FP) PO SCH (22:39)
[2020-05-22] MEDS: MELATONIN 5 MG TABLETS PO SCH (22:41)
[2020-05-22] MEDS: THIAMINE HCL 100 MG TABLET (FP) PO SCH (22:41)
[2020-05-23] MEDS ORDERED: MASKS NR ONE (07:26)
[2020-05-23] MEDS: hydrOXYzine PAMOATE 25 MG CAPSULE (FP) PO SCH (07:29)
[2020-05-23] MEDS: diazePAM 5 MG TABLET PO SCH ×4 (07:29→22:13)
[2020-05-23] MEDS ORDERED: METHADONE HCL 10 MG TABLET PO ONE (09:02)
[2020-05-23] MEDS ORDERED: METHADONE 40 MG, METHADONE 10 MG PO ONE (09:11)
[2020-05-23] MEDS ORDERED: METHADONE HCL 40 MG DISPERSABLE TABLET ONE (09:48)
[2020-05-23] MEDS ORDERED: METHADONE HCL 10 MG TABLET ONE (09:48)
[2020-05-23 10:17] LABS: HEMATOCRIT 33.9 % (32.4-45.2); HEMOGLOBIN 11.4 GM/dL (10.7-15.3); MCH 29.4 pg (25.7-33.7); MCHC 33.6 g/dl (32.0-36.0); MEAN CELL VOLUME 87.6 fl (80-96); MEAN PLT VOLUME 8.6 fl (7.5-11.1); PLATELET COUNT 275 K/MM3 (134-434); RBC 3.87 M/mm3 (3.60-5.2); RDW 13.5 % (11.6-15.6); WHITE BLOOD COUNT 4.7 K/mm3 (4.0-10.0)
[2020-05-23] MEDS: NICOTINE 14 MG/24 HOURS TOPICAL PATCH TD SCH (10:24)
[2020-05-23] MEDS: PRENATAL VITAMINS W/ FOLIC ACID TABLET (FP) PO SCH (10:24)
[2020-05-23 10:29] LABS: ALBUMIN 3.6 g/dl (3.4-5.0); BILIRUBIN,TOTAL 0.5 mg/dL (0.2-1); BLOOD UREA NITROGEN 18.2 mg/dL (7-18); CALCIUM 8.7 mg/dL (8.5-10.1); CREATININE 0.9 mg/dL (0.55-1.3); POTASSIUM 4.3 mmol/L (3.5-5.1); TOT PROT 6.8 g/dl (6.4-8.2)
--- NOTE | 2020-05-23 11:34 | PN ---
S CIWA - CIWA Score Nausea/Vomitin-No Nausea/No Vomiting Muscle Tremors: 3 Anxiety: 2 Agitation: 3 Paroxysmal Sweats: 2 Orientation: 0-Oriented Tacttile Disturbances: 0-None Auditory Disturbances: 0-None Visual Disturbances: 0-None Headache: 0-None Present CIWA-Ar Total Score: 10 S Progress Note (SOAP) Subjective: restless sweats irritable agitation interrupted sleep Objective: 05/23/20 11:33 Vital Signs Temperature 98.1 F 05/23/20 08:55 Pulse Rate 79 05/23/20 08:55 Respiratory Rate 16 05/23/20 08:55 Blood Pressure 146/64 05/23/20 08:55 O2 Sat by Pulse Oximetry (%) 100 05/23/20 08:55 Laboratory Tests 05/22/20 05/22/20 07:00 07:00 WBC 4.7 RBC 3.87 Hgb 11.4 Hct 33.9 MCV 87.6 MCH 29.4 MCHC 33.6 RDW 13.5 Plt Count 275 D MPV 8.6 Sodium 138 Potassium 4.3 Chloride 104 Carbon Dioxide 28 Anion Gap 6 L BUN 18.2 H Creatinine 0.9 Est GFR (CKD-EPI)AfAm 86.41 Est GFR (CKD-EPI)NonAf 74.55 Random Glucose 92 Calcium 8.7 Total Bilirubin 0.5 AST 12 L ALT 13 Alkaline Phosphatase 74 Total Protein 6.8 Albumin 3.6 labs noted aaox3 lying in bed no acute distress Assessment: 05/23/20 11:33 withdrawal sx Plan: continue detox increase fluids
[2020-05-23] MEDS: MELATONIN 5 MG TABLETS PO SCH (22:13)
[2020-05-23] MEDS: THIAMINE HCL 100 MG TABLET (FP) PO SCH (22:13)
[2020-05-24] MEDS ORDERED: METHADONE HCL 10 MG TABLET ONE (04:41)
[2020-05-24] MEDS ORDERED: METHADONE HCL 40 MG DISPERSABLE TABLET ONE (04:41)
[2020-05-24] MEDS ORDERED: METHADONE HCL 40 MG DISPERSABLE TABLET PO SCH (06:00)
[2020-05-24] MEDS: METHADONE 40 MG, METHADONE 10 MG PO SCH (06:02)
[2020-05-24] MEDS: diazePAM 5 MG TABLET PO SCH ×3 (06:03→23:04)
[2020-05-24] MEDS: PRENATAL VITAMINS W/ FOLIC ACID TABLET (FP) PO SCH (10:24)
[2020-05-24] MEDS: NICOTINE 14 MG/24 HOURS TOPICAL PATCH TD SCH (10:24)
[2020-05-24] MEDS: hydrOXYzine PAMOATE 25 MG CAPSULE (FP) PO PRN (10:29)
--- NOTE | 2020-05-24 13:19 | PN ---
S CIWA - CIWA Score Nausea/Vomitin-No Nausea/No Vomiting Muscle Tremors: 3 Anxiety: 2 Agitation: 2 Paroxysmal Sweats: 2 Orientation: 0-Oriented Tacttile Disturbances: 0-None Auditory Disturbances: 0-None Visual Disturbances: 0-None Headache: 0-None Present CIWA-Ar Total Score: 9 BHS Progress Note (SOAP) Subjective: restless body aches sweats Objective: 05/24/20 13:18 Vital Signs Temperature 96.6 F L 05/24/20 08:50 Pulse Rate 79 05/24/20 08:50 Respiratory Rate 20 05/24/20 08:50 Blood Pressure 124/73 05/24/20 08:50 O2 Sat by Pulse Oximetry (%) 99 05/24/20 08:50 Laboratory Tests 05/22/20 05/22/20 05/22/20 07:00 07:00 07:00 WBC 4.7 RBC 3.87 Hgb 11.4 Hct 33.9 MCV 87.6 MCH 29.4 MCHC 33.6 RDW 13.5 Plt Count 275 D MPV 8.6 Sodium 138 Potassium 4.3 Chloride 104 Carbon Dioxide 28 Anion Gap 6 L BUN 18.2 H Creatinine 0.9 Est GFR (CKD-EPI)AfAm 86.41 Est GFR (CKD-EPI)NonAf 74.55 Random Glucose 92 Calcium 8.7 Total Bilirubin 0.5 AST 12 L ALT 13 Alkaline Phosphatase 74 Total Protein 6.8 Albumin 3.6 POC Urine HCG, Qual Syphilis Serology Non-reactive COVID-19 (CARLO) 05/22/20 05/22/20 18:35 19:25 WBC RBC Hgb Hct MCV MCH MCHC RDW Plt Count MPV Sodium Potassium Chloride Carbon Dioxide Anion Gap BUN Creatinine Est GFR (CKD-EPI)AfAm Est GFR (CKD-EPI)NonAf Random Glucose Calcium Total Bilirubin AST ALT Alkaline Phosphatase Total Protein Albumin POC Urine HCG, Qual Negative Syphilis Serology COVID-19 (CARLO) Not detected labs noted aaox3 ambulating no acute distress Assessment: 05/24/20 13:19 withdrawals Plan: continue detox
[2020-05-24] MEDS: MELATONIN 5 MG TABLETS PO SCH (23:04)
[2020-05-24] MEDS: THIAMINE HCL 100 MG TABLET (FP) PO SCH (23:04)
[2020-05-25] MEDS ORDERED: METHADONE HCL 10 MG TABLET ONE (07:01)
[2020-05-25] MEDS ORDERED: METHADONE HCL 40 MG DISPERSABLE TABLET ONE (07:01)
[2020-05-25] MEDS: METHADONE 40 MG, METHADONE 10 MG PO SCH (07:03)
[2020-05-25] MEDS: diazePAM 5 MG TABLET PO SCH ×2 (07:03→17:17)
[2020-05-25] MEDS: PRENATAL VITAMINS W/ FOLIC ACID TABLET (FP) PO SCH (10:19)
[2020-05-25] MEDS: hydrOXYzine PAMOATE 25 MG CAPSULE (FP) PO PRN (10:19)
[2020-05-25] MEDS: NICOTINE 14 MG/24 HOURS TOPICAL PATCH TD SCH (10:19)
[2020-05-25] MEDS: IBUPROFEN 400 MG TABLET (FP) PO PRN ×2 (11:31→17:17)
--- NOTE | 2020-05-25 12:29 | PN ---
S CIWA - CIWA Score Nausea/Vomitin-No Nausea/No Vomiting Muscle Tremors: 1-None Visible, but [place] Anxiety: 1-Mildly Anxious Agitation: 0-Normal Activity Paroxysmal Sweats: 1-Minimal Palms Moist Orientation: 0-Oriented Tacttile Disturbances: 0-None Auditory Disturbances: 0-None Visual Disturbances: 0-None Headache: 0-None Present CIWA-Ar Total Score: 3 BHS Progress Note (SOAP) Subjective: sweats restless Objective: 05/25/20 12:27 Vital Signs Temperature 98.2 F 05/25/20 08:50 Pulse Rate 84 05/25/20 08:50 Respiratory Rate 18 05/25/20 08:50 Blood Pressure 134/77 05/25/20 08:50 O2 Sat by Pulse Oximetry (%) 99 05/25/20 08:50 Laboratory Tests 05/22/20 05/22/20 05/22/20 07:00 07:00 07:00 WBC 4.7 RBC 3.87 Hgb 11.4 Hct 33.9 MCV 87.6 MCH 29.4 MCHC 33.6 RDW 13.5 Plt Count 275 D MPV 8.6 Sodium 138 Potassium 4.3 Chloride 104 Carbon Dioxide 28 Anion Gap 6 L BUN 18.2 H Creatinine 0.9 Est GFR (CKD-EPI)AfAm 86.41 Est GFR (CKD-EPI)NonAf 74.55 Random Glucose 92 Calcium 8.7 Total Bilirubin 0.5 AST 12 L ALT 13 Alkaline Phosphatase 74 Total Protein 6.8 Albumin 3.6 POC Urine HCG, Qual Syphilis Serology Non-reactive COVID-19 (CARLO) 05/22/20 05/22/20 18:35 19:25 WBC RBC Hgb Hct MCV MCH MCHC RDW Plt Count MPV Sodium Potassium Chloride Carbon Dioxide Anion Gap BUN Creatinine Est GFR (CKD-EPI)AfAm Est GFR (CKD-EPI)NonAf Random Glucose Calcium Total Bilirubin AST ALT Alkaline Phosphatase Total Protein Albumin POC Urine HCG, Qual Negative Syphilis Serology COVID-19 (CARLO) Not detected labs noted aaox3 ambulating no acute distress Assessment: 05/25/20 12:28 withdrawals Plan: continue detox d/c in am
[2020-05-25] MEDS: THIAMINE HCL 100 MG TABLET (FP) PO SCH (23:26)
[2020-05-25] MEDS: MELATONIN 5 MG TABLETS PO SCH (23:26)
[2020-05-26] MEDS ORDERED: METHADONE HCL 10 MG TABLET ONE (04:56)
[2020-05-26] MEDS ORDERED: METHADONE HCL 40 MG DISPERSABLE TABLET ONE (04:56)
[2020-05-26] MEDS: METHADONE 40 MG, METHADONE 10 MG PO SCH (05:56)
[2020-05-26] MEDS ORDERED: diazePAM 5 MG TABLET PO ONE (06:00)
[2020-05-26 06:42] VITALS: BP 147/78; PULSE 76; TEMP 97.1
--- NOTE | 2020-05-26 14:33 | DS ---
[facility] Detox Discharge Summary Admission Date: 05/22/20 Discharge Date: 05/26/20 - History Present History: Alcohol Dependence, MMTP - Physical Exam Results Vital Signs: Vital Signs Temperature 97.1 F L 05/26/20 06:41 Pulse Rate 76 05/26/20 06:41 Respiratory Rate 20 05/26/20 06:41 Blood Pressure 147/78 05/26/20 06:41 O2 Sat by Pulse Oximetry (%) 100 05/26/20 06:41 Pertinent Admission Physical Exam Findings: Vital Signs Temperature 97.1 F L 05/26/20 06:41 Pulse Rate 76 05/26/20 06:41 Respiratory Rate 20 05/26/20 06:41 Blood Pressure 147/78 05/26/20 06:41 O2 Sat by Pulse Oximetry (%) 100 05/26/20 06:41 Laboratory Tests 05/22/20 05/22/20 05/22/20 07:00 07:00 07:00 WBC 4.7 RBC 3.87 Hgb 11.4 Hct 33.9 MCV 87.6 MCH 29.4 MCHC 33.6 RDW 13.5 Plt Count 275 D MPV 8.6 Sodium 138 Potassium 4.3 Chloride 104 Carbon Dioxide 28 Anion Gap 6 L BUN 18.2 H Creatinine 0.9 Est GFR (CKD-EPI)AfAm 86.41 Est GFR (CKD-EPI)NonAf 74.55 Random Glucose 92 Calcium 8.7 Total Bilirubin 0.5 AST 12 L ALT 13 Alkaline Phosphatase 74 Total Protein 6.8 Albumin 3.6 POC Urine HCG, Qual Syphilis Serology Non-reactive COVID-19 (CARLO) 05/22/20 05/22/20 18:35 19:25 WBC RBC Hgb Hct MCV MCH MCHC RDW Plt Count MPV Sodium Potassium Chloride Carbon Dioxide Anion Gap BUN Creatinine Est GFR (CKD-EPI)AfAm Est GFR (CKD-EPI)NonAf Random Glucose Calcium Total Bilirubin AST ALT Alkaline Phosphatase Total Protein Albumin POC Urine HCG, Qual Negative Syphilis Serology COVID-19 (CARLO) Not detected aaox3 ambulating no acute distress - Treatment Hospital Course: Detox Protocol Followed, Detoxed Safely, Responded well, D ischarged Condition Good, Rehab Referral Accepted - Medication Discharge Medications: Ambulatory Orders NK [No Known Home Medication] 11/19/18 - Diagnosis (1) Alcohol dependence Status: Acute Qualifiers: Substance use status: in withdrawal Complication of substance-induced condition: uncomplicated Qualified Code(s): F10.230 - Alcohol dependence with withdrawal, uncomplicated (2) Cocaine dependence, uncomplicated Status: Acute (3) Hematuria Status: Acute (4) Methadone maintenance therapy patient Status: Acute (5) Nicotine dependence Status: Acute Qualifiers: Nicotine product type: cigarettes Substance use status: uncomplicated Qualified Code(s): F17.210 - Nicotine dependence, cigarettes, uncomplicated (6) Opioid dependence Status: Acute Qualifiers: Substance use status: uncomplicated Qualified Code(s): F11.20 - Opioid dependence, uncomplicated (7) Weight loss Status: Acute (8) Opioid dependence with withdrawal Status: Chronic (9) Sickle cell trait Status: Suspected (10) Substance-induced sleep disorder Status: Suspected - AMA Did Patient Leave Against Medical Advice: No
== END 2020-05-26 08:03 | disposition home or self-care (01) | DRG 773 ==
LOC: YASAS 15:36 → Y6N 19:38
PROVIDERS: ADMIT Allergy & Immunology; ATTEND Allergy & Immunology
PROC: HZ2ZZZZ Detoxification Services for Substance Abuse Treatment (ICD-10-PCS; principal; 2020-05-22)
DX: F10.230 Alcohol dependence with withdrawal, uncomplicated (principal); F11.20 Opioid dependence, uncomplicated; F14.20 Cocaine dependence, uncomplicated; F17.210 Nicotine dependence, cigarettes, uncomplicated; F19.282 Other psychoactive substance dependence with psychoactive substance-induced sleep disorder; D57.3 Sickle-cell trait; R31.9 Hematuria, unspecified; R63.4 Abnormal weight loss; Z68.25 Body mass index [BMI] 25.0-25.9, adult
CPT/HCPCS: 36415; 80053; 81025; 85027; 86780; C9803; U0003

== ENCOUNTER 2020-07-08 12:37 | Inpatient (IN) | payer OTHER ==
[2020-07-08] MEDS ORDERED: MENTHOL/PHENOL 1 EACH UD MM PRN (15:14)
[2020-07-08] MEDS ORDERED: MAGNESIUM CITRATE 300 ML BOTTLE PO PRN (15:14)
[2020-07-08] MEDS ORDERED: ACETAMINOPHEN 325 MG TABLET (FP) PO PRN (15:14)
[2020-07-08] MEDS ORDERED: NICOTINE POLACRILEX 2 MG GUM BUC PRN (15:14)
[2020-07-08] MEDS ORDERED: BISMUTH SUBSALICYLATE 524 MG/30 ML UD PO PRN (15:14)
[2020-07-08] MEDS ORDERED: ONDANSETRON *ODT* 4 MG TABLET SL PRN (15:14)
[2020-07-08] MEDS ORDERED: MAGNESIUM HYDROX 2400MG/30ML ORAL SUSPENSION 30 ML CUP PO PRN (15:14)
[2020-07-08 15:35] VITALS: BMI 25.8
[2020-07-08] MEDS: diazePAM 5 MG TABLET PO SCH ×2 (17:18→22:40)
[2020-07-08] MEDS: hydrOXYzine PAMOATE 25 MG CAPSULE (FP) PO SCH ×2 (17:18→22:40)
[2020-07-08] MEDS: THIAMINE HCL 100 MG TABLET (FP) PO SCH (22:40)
[2020-07-08] MEDS: MELATONIN 5 MG TABLETS PO SCH (22:41)
[2020-07-09] MEDS ORDERED: METHADONE HCL 10 MG TABLET ONE (04:58)
[2020-07-09] MEDS ORDERED: METHADONE HCL 40 MG DISPERSABLE TABLET ONE (04:58)
[2020-07-09] MEDS ORDERED: METHADONE HCL 10 MG TABLET PO ONE (06:00)
[2020-07-09] MEDS ORDERED: METHADONE 40 MG, METHADONE 10 MG PO ONE (06:00)
[2020-07-09] MEDS: diazePAM 5 MG TABLET PO SCH ×4 (06:20→22:14)
[2020-07-09] MEDS: hydrOXYzine PAMOATE 25 MG CAPSULE (FP) PO SCH ×5 (06:20→22:14)
[2020-07-09] MEDS: PRENATAL VITAMINS W/ FOLIC ACID TABLET (FP) PO SCH (10:54)
[2020-07-09] MEDS: METHOCARBAMOL 500 MG TABLET PO PRN (10:55)
[2020-07-09] MEDS: IBUPROFEN 400 MG TABLET (FP) PO PRN (10:55)
[2020-07-09 12:28] LABS: HEMATOCRIT 31.3 % (32.4-45.2); HEMOGLOBIN 10.4 GM/dL (10.7-15.3); MCH 29.9 pg (25.7-33.7); MCHC 33.3 g/dl (32.0-36.0); MEAN CELL VOLUME 89.7 fl (80-96); MEAN PLT VOLUME 8.8 fl (7.5-11.1); PLATELET COUNT 225 K/MM3 (134-434); RBC 3.49 M/mm3 (3.60-5.2); RDW 13.9 % (11.6-15.6); WHITE BLOOD COUNT 4.9 K/mm3 (4.0-10.0)
[2020-07-09 12:48] LABS: POTASSIUM 4.4 mmol/L (3.5-5.1)
[2020-07-09 12:55] LABS: ALBUMIN 3.4 g/dl (3.4-5.0); BLOOD UREA NITROGEN 13.8 mg/dL (7-18)
[2020-07-09 12:56] LABS: CALCIUM 8.5 mg/dL (8.5-10.1)
[2020-07-09 12:57] LABS: BILIRUBIN,TOTAL 0.3 mg/dL (0.2-1); CREATININE 0.8 mg/dL (0.55-1.3); TOT PROT 6.2 g/dl (6.4-8.2)
[2020-07-09 13:47] LABS: HIV INTERPRETATION NEGATIVE (NEGATIVE)
[2020-07-09] MEDS: ACETAMINOPHEN 325 MG TABLET (FP) PO PRN (15:12)
[2020-07-09] MEDS: THIAMINE HCL 100 MG TABLET (FP) PO SCH (22:14)
[2020-07-09] MEDS: MELATONIN 5 MG TABLETS PO SCH (22:15)
[2020-07-10] MEDS: diazePAM 5 MG TABLET PO SCH ×3 (05:29→22:14)
[2020-07-10] MEDS: hydrOXYzine PAMOATE 25 MG CAPSULE (FP) PO SCH (05:29)
[2020-07-10] MEDS: IBUPROFEN 400 MG TABLET (FP) PO PRN ×2 (05:37→19:20)
[2020-07-10] MEDS ORDERED: METHADONE HCL 40 MG DISPERSABLE TABLET PO ONE (09:45)
[2020-07-10] MEDS: PRENATAL VITAMINS W/ FOLIC ACID TABLET (FP) PO SCH (10:24)
[2020-07-10] MEDS: MAG HYDROX/AL HYDROX/SIMETH 30 ML UNIT-DOSE CUP PO PRN ×2 (15:46→21:52)
[2020-07-10] MEDS: PANTOPRAZOLE 40 MG TABLET PO SCH (17:28)
[2020-07-10] MEDS: diazePAM 5 MG TABLET PO PRN (19:20)
[2020-07-10] MEDS: MELATONIN 5 MG TABLETS PO SCH (22:14)
[2020-07-10] MEDS: THIAMINE HCL 100 MG TABLET (FP) PO SCH (22:14)
[2020-07-11] MEDS: diazePAM 5 MG TABLET PO SCH ×2 (05:29→17:19)
[2020-07-11] MEDS: METHADONE HCL 40 MG DISPERSABLE TABLET PO SCH (05:30)
[2020-07-11] MEDS: PRENATAL VITAMINS W/ FOLIC ACID TABLET (FP) PO SCH (10:18)
[2020-07-11] MEDS: PANTOPRAZOLE 40 MG TABLET PO SCH (10:18)
[2020-07-11] MEDS: diazePAM 5 MG TABLET PO PRN (14:44)
[2020-07-11] MEDS: hydrOXYzine PAMOATE 25 MG CAPSULE (FP) PO PRN ×2 (17:19→22:17)
[2020-07-11] MEDS: MELATONIN 5 MG TABLETS PO SCH (22:17)
[2020-07-11] MEDS: THIAMINE HCL 100 MG TABLET (FP) PO SCH (22:17)
[2020-07-12] MEDS: IBUPROFEN 400 MG TABLET (FP) PO PRN ×2 (04:20→13:36)
[2020-07-12] MEDS: METHADONE HCL 40 MG DISPERSABLE TABLET PO SCH (05:39)
[2020-07-12] MEDS ORDERED: diazePAM 5 MG TABLET PO ONE (06:00)
[2020-07-12] MEDS: ACETAMINOPHEN 325 MG TABLET (FP) PO PRN (08:42)
[2020-07-12] MEDS: METHOCARBAMOL 500 MG TABLET PO PRN (08:42)
[2020-07-12 09:58] VITALS: PULSE 86
[2020-07-12] MEDS: PANTOPRAZOLE 40 MG TABLET PO SCH (10:03)
[2020-07-12] MEDS: PRENATAL VITAMINS W/ FOLIC ACID TABLET (FP) PO SCH (10:03)
[2020-07-12 13:23] VITALS: BP 137/75; TEMP 97.1
== END 2020-07-12 13:50 | disposition other institution (70) | DRG 773 ==
LOC: YASAS 12:37 → Y6N 15:27
PROVIDERS: ADMIT Allergy & Immunology; ATTEND Allergy & Immunology
PROC: HZ2ZZZZ Detoxification Services for Substance Abuse Treatment (ICD-10-PCS; principal; 2020-07-08)
DX: F10.230 Alcohol dependence with withdrawal, uncomplicated (principal); F11.23 Opioid dependence with withdrawal; F14.20 Cocaine dependence, uncomplicated; F17.210 Nicotine dependence, cigarettes, uncomplicated; F19.282 Other psychoactive substance dependence with psychoactive substance-induced sleep disorder; D64.9 Anemia, unspecified; D57.3 Sickle-cell trait; R63.4 Abnormal weight loss; Z68.25 Body mass index [BMI] 25.0-25.9, adult
CPT/HCPCS: 36415; 80053; 85027; 86780; 87389; C9803; U0003

== ENCOUNTER 2020-07-12 12:54 | Inpatient (IN) | payer OTHER ==
[2020-07-12] MEDS ORDERED: MAGNESIUM HYDROX 2400MG/30ML ORAL SUSPENSION 30 ML CUP PO PRN (14:55)
[2020-07-12] MEDS ORDERED: guaiFENesin 200 MG/10 ML 10 ML UNIT-DOSE CUPS PO PRN (14:55)
[2020-07-12] MEDS ORDERED: P-EPHED 60MG/TRIPROLIDI 2.5MG TABLET PO PRN (14:55)
[2020-07-12] MEDS ORDERED: LOPERAMIDE HCL 2 MG CAPSULE PO PRN (14:55)
[2020-07-12] MEDS ORDERED: MENTHOL/PHENOL 1 EACH UD MM PRN (14:55)
[2020-07-12] MEDS ORDERED: MAGNESIUM CITRATE 300 ML BOTTLE PO PRN (14:55)
[2020-07-12] MEDS ORDERED: ONDANSETRON *ODT* 4 MG TABLET SL PRN (14:57)
[2020-07-12] MEDS: LIDOCAINE 5% TOPICAL PATCH TP SCH (15:12)
[2020-07-12] MEDS: IBUPROFEN 600 MG TABLET (FP) PO PRN (15:13)
[2020-07-12] MEDS: METHOCARBAMOL 500 MG TABLET PO SCH ×2 (17:02→21:25)
[2020-07-12] MEDS: THIAMINE HCL 100 MG TABLET (FP) PO SCH (21:25)
[2020-07-12] MEDS: hydrOXYzine PAMOATE 25 MG CAPSULE (FP) PO PRN (21:26)
[2020-07-12] MEDS: MELATONIN 5 MG TABLETS PO SCH (21:27)
[2020-07-12] MEDS: LIDOCAINE PATCH REMOVAL MC SCH (21:27)
[2020-07-13] MEDS: IBUPROFEN 600 MG TABLET (FP) PO PRN ×2 (06:10→21:32)
[2020-07-13] MEDS: METHADONE HCL 40 MG DISPERSABLE TABLET PO SCH (06:10)
[2020-07-13] MEDS: LIDOCAINE 5% TOPICAL PATCH TP SCH (09:57)
[2020-07-13] MEDS: PANTOPRAZOLE 40 MG TABLET PO SCH (09:58)
[2020-07-13] MEDS: PRENATAL VITAMINS W/ FOLIC ACID TABLET (FP) PO SCH (09:58)
[2020-07-13] MEDS: METHOCARBAMOL 500 MG TABLET PO SCH ×4 (09:58→21:31)
[2020-07-13] MEDS: NICOTINE 7 MG/24 HOURS TOPICAL PATCH TD SCH (09:58)
[2020-07-13] MEDS: hydrOXYzine PAMOATE 25 MG CAPSULE (FP) PO PRN ×2 (09:59→21:33)
[2020-07-13] MEDS: NICOTINE POLACRILEX 2 MG GUM BUC PRN (10:01)
[2020-07-13] MEDS: THIAMINE HCL 100 MG TABLET (FP) PO SCH (21:31)
[2020-07-13] MEDS: MELATONIN 5 MG TABLETS PO SCH (21:31)
[2020-07-13] MEDS: LIDOCAINE PATCH REMOVAL MC SCH (21:33)
[2020-07-14] MEDS: METHADONE HCL 40 MG DISPERSABLE TABLET PO SCH (06:01)
[2020-07-14] MEDS: IBUPROFEN 600 MG TABLET (FP) PO PRN ×3 (06:53→17:14)
[2020-07-14] MEDS: PANTOPRAZOLE 40 MG TABLET PO SCH (10:25)
[2020-07-14] MEDS: METHOCARBAMOL 500 MG TABLET PO SCH ×4 (10:25→21:23)
[2020-07-14] MEDS: PRENATAL VITAMINS W/ FOLIC ACID TABLET (FP) PO SCH (10:25)
[2020-07-14] MEDS: hydrOXYzine PAMOATE 25 MG CAPSULE (FP) PO PRN ×2 (10:25→14:51)
[2020-07-14] MEDS: LIDOCAINE 5% TOPICAL PATCH TP SCH (10:26)
[2020-07-14] MEDS: NICOTINE 7 MG/24 HOURS TOPICAL PATCH TD SCH (10:26)
[2020-07-14] MEDS: FERROUS SO4 325 MG TABLET (FP) PO SCH ×2 (10:29→21:23)
[2020-07-14 17:25] LABS: EPI CELLS 7 /uL (0-25.1); HYALINE CASTS 1 /uL (0-3.1); URINE APPEARANCE CLEAR; URINE BACTERIA 15 /uL (0-1359); URINE BILIRUBIN NEGATIVE (NEGATIVE); URINE COLOR YELLOW; URINE GLUCOSE (UA) NEGATIVE (NEGATIVE); URINE KETONE NEGATIVE (NEGATIVE); URINE LEUK ESTERASE NEGATIVE (NEGATIVE); URINE NITRITE NEGATIVE (NEGATIVE); URINE PROTEIN NEGATIVE (NEGATIVE); URINE RBC 32 /uL (0-23.9); URINE UROBILINOGEN 0.2 mg/dL (0.2-1.0); URINE WBC 2 /uL (0-25.8)
[2020-07-14] MEDS: THIAMINE HCL 100 MG TABLET (FP) PO SCH (21:23)
[2020-07-14] MEDS: MELATONIN 5 MG TABLETS PO SCH (21:23)
[2020-07-14] MEDS: LIDOCAINE PATCH REMOVAL MC SCH (21:24)
[2020-07-15] MEDS: IBUPROFEN 600 MG TABLET (FP) PO PRN ×3 (06:06→21:18)
[2020-07-15] MEDS: METHADONE HCL 40 MG DISPERSABLE TABLET PO SCH (06:06)
[2020-07-15] MEDS: PRENATAL VITAMINS W/ FOLIC ACID TABLET (FP) PO SCH (09:44)
[2020-07-15] MEDS: PANTOPRAZOLE 40 MG TABLET PO SCH (09:44)
[2020-07-15] MEDS: LIDOCAINE 5% TOPICAL PATCH TP SCH (09:44)
[2020-07-15] MEDS: NICOTINE POLACRILEX 2 MG GUM BUC PRN (09:45)
[2020-07-15] MEDS: METHOCARBAMOL 500 MG TABLET PO SCH ×4 (09:45→21:17)
[2020-07-15] MEDS: FERROUS SO4 325 MG TABLET (FP) PO SCH ×2 (09:45→21:18)
[2020-07-15] MEDS: NICOTINE 7 MG/24 HOURS TOPICAL PATCH TD SCH (09:45)
[2020-07-15] MEDS: hydrOXYzine PAMOATE 25 MG CAPSULE (FP) PO PRN (21:18)
[2020-07-15] MEDS: THIAMINE HCL 100 MG TABLET (FP) PO SCH (21:18)
[2020-07-15] MEDS: MELATONIN 5 MG TABLETS PO SCH (21:18)
[2020-07-15] MEDS: LIDOCAINE PATCH REMOVAL MC SCH (21:19)
[2020-07-16] MEDS: METHADONE HCL 40 MG DISPERSABLE TABLET PO SCH (06:02)
[2020-07-16] MEDS: IBUPROFEN 600 MG TABLET (FP) PO PRN ×2 (06:02→21:31)
[2020-07-16] MEDS: FERROUS SO4 325 MG TABLET (FP) PO SCH ×2 (09:47→21:29)
[2020-07-16] MEDS: LIDOCAINE 5% TOPICAL PATCH TP SCH (09:48)
[2020-07-16] MEDS: PANTOPRAZOLE 40 MG TABLET PO SCH (09:48)
[2020-07-16] MEDS: PRENATAL VITAMINS W/ FOLIC ACID TABLET (FP) PO SCH (09:48)
[2020-07-16] MEDS: NICOTINE 7 MG/24 HOURS TOPICAL PATCH TD SCH (09:48)
[2020-07-16] MEDS: CHOLECALCIFEROL (VIT D3) 1,000 UNIT (25 MCG) TABLET PO SCH (09:49)
[2020-07-16] MEDS: METHOCARBAMOL 500 MG TABLET PO SCH ×4 (09:49→21:29)
[2020-07-16] MEDS ORDERED: COLLOIDAL OATMEAL 1 BAR EACH TP PRN (10:55)
[2020-07-16] MEDS ORDERED: PT OWN MED DRAWER 7, Y5N ONE (13:37)
[2020-07-16] MEDS: NICOTINE POLACRILEX 2 MG GUM BUC PRN (17:57)
[2020-07-16] MEDS: MELATONIN 5 MG TABLETS PO SCH (21:29)
[2020-07-16] MEDS: THIAMINE HCL 100 MG TABLET (FP) PO SCH (21:29)
[2020-07-16] MEDS: LIDOCAINE PATCH REMOVAL MC SCH (21:32)
[2020-07-16] MEDS: AMOXICILLIN 500 MG CAPSULE (FP) PO SCH (22:00)
[2020-07-17] MEDS: METHADONE HCL 40 MG DISPERSABLE TABLET PO SCH (06:19)
[2020-07-17] MEDS: AMMONIUM LACTATE 12% LOTION 225 GM BOTTLE TP PRN (07:15)
[2020-07-17] MEDS ORDERED: PT OWN MED DRAWER 7, Y5N ONE (09:20)
[2020-07-17] MEDS: AMOXICILLIN 500 MG CAPSULE (FP) PO SCH ×2 (10:23→21:14)
[2020-07-17] MEDS: FERROUS SO4 325 MG TABLET (FP) PO SCH ×2 (11:03→21:14)
[2020-07-17] MEDS: CHOLECALCIFEROL (VIT D3) 1,000 UNIT (25 MCG) TABLET PO SCH (11:03)
[2020-07-17] MEDS: PANTOPRAZOLE 40 MG TABLET PO SCH (11:03)
[2020-07-17] MEDS: LIDOCAINE 5% TOPICAL PATCH TP SCH (11:03)
[2020-07-17] MEDS: PRENATAL VITAMINS W/ FOLIC ACID TABLET (FP) PO SCH (11:03)
[2020-07-17] MEDS: METHOCARBAMOL 500 MG TABLET PO SCH ×4 (11:03→21:14)
[2020-07-17] MEDS: NICOTINE 7 MG/24 HOURS TOPICAL PATCH TD SCH (11:03)
[2020-07-17] MEDS: IBUPROFEN 600 MG TABLET (FP) PO PRN (11:04)
[2020-07-17] MEDS: MAG HYDROX/AL HYDROX/SIMETH 30 ML UNIT-DOSE CUP PO PRN ×2 (11:23→20:10)
[2020-07-17] MEDS: NICOTINE POLACRILEX 2 MG GUM BUC PRN (11:24)
[2020-07-17] MEDS ORDERED: hydrOXYzine PAMOATE 50 MG CAPSULE (FP) PO PRN (14:26)
[2020-07-17] MEDS: THIAMINE HCL 100 MG TABLET (FP) PO SCH (21:15)
[2020-07-17] MEDS: MELATONIN 5 MG TABLETS PO SCH (21:15)
[2020-07-17] MEDS: LIDOCAINE PATCH REMOVAL MC SCH (21:17)
[2020-07-18] MEDS: IBUPROFEN 600 MG TABLET (FP) PO PRN ×3 (06:00→19:35)
[2020-07-18] MEDS: METHADONE HCL 40 MG DISPERSABLE TABLET PO SCH (06:01)
[2020-07-18] MEDS: METHOCARBAMOL 500 MG TABLET PO SCH ×4 (09:39→21:18)
[2020-07-18] MEDS: PRENATAL VITAMINS W/ FOLIC ACID TABLET (FP) PO SCH (09:39)
[2020-07-18] MEDS: PANTOPRAZOLE 40 MG TABLET PO SCH (09:39)
[2020-07-18] MEDS: AMOXICILLIN 500 MG CAPSULE (FP) PO SCH ×2 (09:39→21:18)
[2020-07-18] MEDS: FERROUS SO4 325 MG TABLET (FP) PO SCH ×2 (09:39→21:18)
[2020-07-18] MEDS: CHOLECALCIFEROL (VIT D3) 1,000 UNIT (25 MCG) TABLET PO SCH (09:39)
[2020-07-18] MEDS: LIDOCAINE 5% TOPICAL PATCH TP SCH (09:42)
[2020-07-18] MEDS: NICOTINE 7 MG/24 HOURS TOPICAL PATCH TD SCH (09:42)
[2020-07-18] MEDS: NICOTINE POLACRILEX 2 MG GUM BUC PRN (10:40)
[2020-07-18] MEDS: THIAMINE HCL 100 MG TABLET (FP) PO SCH (21:18)
[2020-07-18] MEDS: MELATONIN 5 MG TABLETS PO SCH (21:18)
[2020-07-18] MEDS: LIDOCAINE PATCH REMOVAL MC SCH (21:19)
[2020-07-18] MEDS: SUVOREXANT 10 MG TABLET PO PRN (21:19)
[2020-07-19] MEDS: METHADONE HCL 40 MG DISPERSABLE TABLET PO SCH (06:21)
[2020-07-19] MEDS: IBUPROFEN 600 MG TABLET (FP) PO PRN ×2 (07:22→16:52)
[2020-07-19] MEDS: AMOXICILLIN 500 MG CAPSULE (FP) PO SCH ×2 (09:34→21:04)
[2020-07-19] MEDS: METHOCARBAMOL 500 MG TABLET PO SCH ×4 (09:34→21:04)
[2020-07-19] MEDS: PANTOPRAZOLE 40 MG TABLET PO SCH (09:34)
[2020-07-19] MEDS: PRENATAL VITAMINS W/ FOLIC ACID TABLET (FP) PO SCH (09:34)
[2020-07-19] MEDS: CHOLECALCIFEROL (VIT D3) 1,000 UNIT (25 MCG) TABLET PO SCH (09:34)
[2020-07-19] MEDS: FERROUS SO4 325 MG TABLET (FP) PO SCH ×2 (09:34→21:04)
[2020-07-19] MEDS: NICOTINE 7 MG/24 HOURS TOPICAL PATCH TD SCH (09:35)
[2020-07-19] MEDS: LIDOCAINE 5% TOPICAL PATCH TP SCH (09:35)
[2020-07-19] MEDS: THIAMINE HCL 100 MG TABLET (FP) PO SCH (21:04)
[2020-07-19] MEDS: hydrOXYzine PAMOATE 25 MG CAPSULE (FP) PO PRN (21:04)
[2020-07-19] MEDS: MELATONIN 5 MG TABLETS PO SCH (21:04)
[2020-07-19] MEDS: SUVOREXANT 10 MG TABLET PO PRN (21:05)
[2020-07-19] MEDS: LIDOCAINE PATCH REMOVAL MC SCH (21:06)
[2020-07-20] MEDS: METHADONE HCL 40 MG DISPERSABLE TABLET PO SCH (06:20)
[2020-07-20] MEDS: PRENATAL VITAMINS W/ FOLIC ACID TABLET (FP) PO SCH (09:58)
[2020-07-20] MEDS: hydrOXYzine PAMOATE 25 MG CAPSULE (FP) PO PRN (09:59)
[2020-07-20] MEDS: PANTOPRAZOLE 40 MG TABLET PO SCH (09:59)
[2020-07-20] MEDS: AMOXICILLIN 500 MG CAPSULE (FP) PO SCH ×2 (09:59→21:28)
[2020-07-20] MEDS: FERROUS SO4 325 MG TABLET (FP) PO SCH ×2 (09:59→21:28)
[2020-07-20] MEDS: LIDOCAINE 5% TOPICAL PATCH TP SCH (09:59)
[2020-07-20] MEDS: CHOLECALCIFEROL (VIT D3) 1,000 UNIT (25 MCG) TABLET PO SCH (09:59)
[2020-07-20] MEDS: NICOTINE 7 MG/24 HOURS TOPICAL PATCH TD SCH (09:59)
[2020-07-20] MEDS: METHOCARBAMOL 500 MG TABLET PO SCH ×4 (09:59→21:29)
[2020-07-20] MEDS: IBUPROFEN 600 MG TABLET (FP) PO PRN (09:59)
[2020-07-20] MEDS: NICOTINE POLACRILEX 2 MG GUM BUC PRN (10:01)
[2020-07-20] MEDS: THIAMINE HCL 100 MG TABLET (FP) PO SCH (21:28)
[2020-07-20] MEDS: MELATONIN 5 MG TABLETS PO SCH (21:28)
[2020-07-20] MEDS: SUVOREXANT 10 MG TABLET PO PRN (21:29)
[2020-07-20] MEDS: LIDOCAINE PATCH REMOVAL MC SCH (21:30)
[2020-07-21] MEDS: METHADONE HCL 40 MG DISPERSABLE TABLET PO SCH (06:26)
[2020-07-21] MEDS: AMOXICILLIN 500 MG CAPSULE (FP) PO SCH ×2 (10:32→21:06)
[2020-07-21] MEDS: CHOLECALCIFEROL (VIT D3) 1,000 UNIT (25 MCG) TABLET PO SCH (10:32)
[2020-07-21] MEDS: PANTOPRAZOLE 40 MG TABLET PO SCH (10:32)
[2020-07-21] MEDS: FERROUS SO4 325 MG TABLET (FP) PO SCH ×2 (10:32→21:06)
[2020-07-21] MEDS: PRENATAL VITAMINS W/ FOLIC ACID TABLET (FP) PO SCH (10:33)
[2020-07-21] MEDS: METHOCARBAMOL 500 MG TABLET PO SCH ×4 (10:33→21:06)
[2020-07-21] MEDS: IBUPROFEN 600 MG TABLET (FP) PO PRN (10:34)
[2020-07-21] MEDS: LIDOCAINE 5% TOPICAL PATCH TP SCH (10:35)
[2020-07-21] MEDS: NICOTINE 7 MG/24 HOURS TOPICAL PATCH TD SCH (10:35)
[2020-07-21] MEDS: THIAMINE HCL 100 MG TABLET (FP) PO SCH (21:05)
[2020-07-21] MEDS: MELATONIN 5 MG TABLETS PO SCH (21:05)
[2020-07-21] MEDS: SUVOREXANT 10 MG TABLET PO PRN (21:06)
[2020-07-21] MEDS: hydrOXYzine PAMOATE 25 MG CAPSULE (FP) PO PRN (21:06)
[2020-07-21] MEDS: LIDOCAINE PATCH REMOVAL MC SCH (21:07)
[2020-07-22] MEDS: METHADONE HCL 40 MG DISPERSABLE TABLET PO SCH (06:24)
[2020-07-22] MEDS: IBUPROFEN 600 MG TABLET (FP) PO PRN (07:23)
[2020-07-22] MEDS: PANTOPRAZOLE 40 MG TABLET PO SCH (10:08)
[2020-07-22] MEDS: CHOLECALCIFEROL (VIT D3) 1,000 UNIT (25 MCG) TABLET PO SCH (10:08)
[2020-07-22] MEDS: METHOCARBAMOL 500 MG TABLET PO SCH ×4 (10:08→21:52)
[2020-07-22] MEDS: PRENATAL VITAMINS W/ FOLIC ACID TABLET (FP) PO SCH (10:09)
[2020-07-22] MEDS: FERROUS SO4 325 MG TABLET (FP) PO SCH ×2 (10:09→21:51)
[2020-07-22] MEDS: AMOXICILLIN 500 MG CAPSULE (FP) PO SCH ×2 (10:09→21:51)
[2020-07-22] MEDS: LIDOCAINE 5% TOPICAL PATCH TP SCH (10:10)
[2020-07-22] MEDS: NICOTINE 7 MG/24 HOURS TOPICAL PATCH TD SCH (10:10)
[2020-07-22] MEDS: hydrOXYzine PAMOATE 25 MG CAPSULE (FP) PO PRN (13:38)
[2020-07-22] MEDS ORDERED: MASKS NR ONE (20:30)
[2020-07-22] MEDS: LIDOCAINE PATCH REMOVAL MC SCH (21:51)
[2020-07-22] MEDS: MELATONIN 5 MG TABLETS PO SCH (21:52)
[2020-07-22] MEDS: THIAMINE HCL 100 MG TABLET (FP) PO SCH (21:52)
[2020-07-23] MEDS: METHADONE HCL 40 MG DISPERSABLE TABLET PO SCH (06:15)
[2020-07-23] MEDS: IBUPROFEN 600 MG TABLET (FP) PO PRN ×2 (06:17→16:39)
[2020-07-23] MEDS: PANTOPRAZOLE 40 MG TABLET PO SCH (10:14)
[2020-07-23] MEDS: AMOXICILLIN 500 MG CAPSULE (FP) PO SCH ×2 (10:14→21:30)
[2020-07-23] MEDS: METHOCARBAMOL 500 MG TABLET PO SCH ×4 (10:14→21:30)
[2020-07-23] MEDS: FERROUS SO4 325 MG TABLET (FP) PO SCH ×2 (10:14→21:30)
[2020-07-23] MEDS: PRENATAL VITAMINS W/ FOLIC ACID TABLET (FP) PO SCH (10:14)
[2020-07-23] MEDS: hydrOXYzine PAMOATE 25 MG CAPSULE (FP) PO PRN (10:15)
[2020-07-23] MEDS: CHOLECALCIFEROL (VIT D3) 1,000 UNIT (25 MCG) TABLET PO SCH (10:15)
[2020-07-23] MEDS: NICOTINE 7 MG/24 HOURS TOPICAL PATCH TD SCH (10:15)
[2020-07-23] MEDS: LIDOCAINE 5% TOPICAL PATCH TP SCH (10:15)
[2020-07-23] MEDS: AMMONIUM LACTATE 12% LOTION 225 GM BOTTLE TP PRN (10:16)
[2020-07-23] MEDS: THIAMINE HCL 100 MG TABLET (FP) PO SCH (21:30)
[2020-07-23] MEDS: LIDOCAINE PATCH REMOVAL MC SCH (21:32)
[2020-07-23] MEDS: MELATONIN 5 MG TABLETS PO SCH (21:33)
[2020-07-23] MEDS ORDERED: SUVOREXANT 10 MG TABLET PO PRN (22:00)
[2020-07-24] MEDS: METHADONE HCL 40 MG DISPERSABLE TABLET PO SCH (06:09)
[2020-07-24] MEDS: IBUPROFEN 600 MG TABLET (FP) PO PRN ×2 (06:15→10:27)
[2020-07-24] MEDS: FERROUS SO4 325 MG TABLET (FP) PO SCH ×2 (10:26→21:34)
[2020-07-24] MEDS: LIDOCAINE 5% TOPICAL PATCH TP SCH (10:26)
[2020-07-24] MEDS: CHOLECALCIFEROL (VIT D3) 1,000 UNIT (25 MCG) TABLET PO SCH (10:26)
[2020-07-24] MEDS: hydrOXYzine PAMOATE 25 MG CAPSULE (FP) PO PRN ×2 (10:26→21:36)
[2020-07-24] MEDS: AMOXICILLIN 500 MG CAPSULE (FP) PO SCH ×2 (10:26→21:34)
[2020-07-24] MEDS: NICOTINE 7 MG/24 HOURS TOPICAL PATCH TD SCH (10:26)
[2020-07-24] MEDS: PRENATAL VITAMINS W/ FOLIC ACID TABLET (FP) PO SCH (10:26)
[2020-07-24] MEDS: METHOCARBAMOL 500 MG TABLET PO SCH ×4 (10:26→21:34)
[2020-07-24] MEDS: PANTOPRAZOLE 40 MG TABLET PO SCH (10:26)
[2020-07-24] MEDS: THIAMINE HCL 100 MG TABLET (FP) PO SCH (21:34)
[2020-07-24] MEDS: MELATONIN 5 MG TABLETS PO SCH (21:34)
[2020-07-24] MEDS: LIDOCAINE PATCH REMOVAL MC SCH (21:36)
[2020-07-25] MEDS: METHADONE HCL 40 MG DISPERSABLE TABLET PO SCH (06:17)
[2020-07-25] MEDS: IBUPROFEN 600 MG TABLET (FP) PO PRN (06:18)
[2020-07-25] MEDS: PRENATAL VITAMINS W/ FOLIC ACID TABLET (FP) PO SCH (09:52)
[2020-07-25] MEDS: FERROUS SO4 325 MG TABLET (FP) PO SCH ×2 (09:52→21:06)
[2020-07-25] MEDS: PANTOPRAZOLE 40 MG TABLET PO SCH (09:53)
[2020-07-25] MEDS: NICOTINE POLACRILEX 2 MG GUM BUC PRN (09:53)
[2020-07-25] MEDS: METHOCARBAMOL 500 MG TABLET PO SCH ×4 (09:53→21:06)
[2020-07-25] MEDS: LIDOCAINE 5% TOPICAL PATCH TP SCH (09:53)
[2020-07-25] MEDS: AMOXICILLIN 500 MG CAPSULE (FP) PO SCH ×2 (09:53→21:06)
[2020-07-25] MEDS: NICOTINE 7 MG/24 HOURS TOPICAL PATCH TD SCH (09:53)
[2020-07-25] MEDS: CHOLECALCIFEROL (VIT D3) 1,000 UNIT (25 MCG) TABLET PO SCH (09:53)
[2020-07-25] MEDS: hydrOXYzine PAMOATE 25 MG CAPSULE (FP) PO PRN (09:54)
[2020-07-25] MEDS ORDERED: SUVOREXANT 5 MG TABLET PO PRN (17:20)
[2020-07-25] MEDS: THIAMINE HCL 100 MG TABLET (FP) PO SCH (21:06)
[2020-07-25] MEDS: MELATONIN 5 MG TABLETS PO SCH (21:06)
[2020-07-25] MEDS: LIDOCAINE PATCH REMOVAL MC SCH (21:07)
[2020-07-26] MEDS: METHADONE HCL 40 MG DISPERSABLE TABLET PO SCH (05:47)
[2020-07-26] MEDS: IBUPROFEN 600 MG TABLET (FP) PO PRN ×2 (05:48→10:34)
[2020-07-26] MEDS: AMOXICILLIN 500 MG CAPSULE (FP) PO SCH (10:33)
[2020-07-26] MEDS: LIDOCAINE 5% TOPICAL PATCH TP SCH (10:33)
[2020-07-26] MEDS: CHOLECALCIFEROL (VIT D3) 1,000 UNIT (25 MCG) TABLET PO SCH (10:33)
[2020-07-26] MEDS: PRENATAL VITAMINS W/ FOLIC ACID TABLET (FP) PO SCH (10:33)
[2020-07-26] MEDS: METHOCARBAMOL 500 MG TABLET PO SCH ×4 (10:33→22:18)
[2020-07-26] MEDS: NICOTINE 7 MG/24 HOURS TOPICAL PATCH TD SCH (10:33)
[2020-07-26] MEDS: FERROUS SO4 325 MG TABLET (FP) PO SCH ×2 (10:33→22:18)
[2020-07-26] MEDS: PANTOPRAZOLE 40 MG TABLET PO SCH (10:33)
[2020-07-26] MEDS: hydrOXYzine PAMOATE 25 MG CAPSULE (FP) PO PRN (10:33)
[2020-07-26] MEDS: NICOTINE POLACRILEX 2 MG GUM BUC PRN (10:36)
[2020-07-26] MEDS: THIAMINE HCL 100 MG TABLET (FP) PO SCH (22:18)
[2020-07-26] MEDS: MELATONIN 5 MG TABLETS PO SCH (22:18)
[2020-07-26] MEDS: LIDOCAINE PATCH REMOVAL MC SCH (22:20)
[2020-07-27] MEDS: METHADONE HCL 40 MG DISPERSABLE TABLET PO SCH (05:55)
[2020-07-27] MEDS: hydrOXYzine PAMOATE 25 MG CAPSULE (FP) PO PRN (10:15)
[2020-07-27] MEDS: PRENATAL VITAMINS W/ FOLIC ACID TABLET (FP) PO SCH (10:15)
[2020-07-27] MEDS: PANTOPRAZOLE 40 MG TABLET PO SCH (10:15)
[2020-07-27] MEDS: FERROUS SO4 325 MG TABLET (FP) PO SCH ×2 (10:15→22:08)
[2020-07-27] MEDS: CHOLECALCIFEROL (VIT D3) 1,000 UNIT (25 MCG) TABLET PO SCH (10:15)
[2020-07-27] MEDS: METHOCARBAMOL 500 MG TABLET PO SCH ×4 (10:15→22:09)
[2020-07-27] MEDS: IBUPROFEN 600 MG TABLET (FP) PO PRN (10:16)
[2020-07-27] MEDS: NICOTINE 7 MG/24 HOURS TOPICAL PATCH TD SCH (10:17)
[2020-07-27] MEDS: LIDOCAINE 5% TOPICAL PATCH TP SCH (10:17)
[2020-07-27] MEDS: LIDOCAINE PATCH REMOVAL MC SCH (22:08)
[2020-07-27] MEDS: THIAMINE HCL 100 MG TABLET (FP) PO SCH (22:09)
[2020-07-27] MEDS: MELATONIN 5 MG TABLETS PO SCH (22:09)
[2020-07-28] MEDS: METHADONE HCL 40 MG DISPERSABLE TABLET PO SCH (06:02)
[2020-07-28] MEDS: IBUPROFEN 600 MG TABLET (FP) PO PRN ×2 (06:04→10:33)
[2020-07-28] MEDS: PRENATAL VITAMINS W/ FOLIC ACID TABLET (FP) PO SCH (10:32)
[2020-07-28] MEDS: NICOTINE 7 MG/24 HOURS TOPICAL PATCH TD SCH (10:32)
[2020-07-28] MEDS: CHOLECALCIFEROL (VIT D3) 1,000 UNIT (25 MCG) TABLET PO SCH (10:32)
[2020-07-28] MEDS: PANTOPRAZOLE 40 MG TABLET PO SCH (10:32)
[2020-07-28] MEDS: LIDOCAINE 5% TOPICAL PATCH TP SCH (10:32)
[2020-07-28] MEDS: METHOCARBAMOL 500 MG TABLET PO SCH ×4 (10:32→21:30)
[2020-07-28] MEDS: FERROUS SO4 325 MG TABLET (FP) PO SCH ×2 (10:32→21:29)
[2020-07-28] MEDS: NICOTINE POLACRILEX 2 MG GUM BUC PRN (10:33)
[2020-07-28] MEDS: MELATONIN 5 MG TABLETS PO SCH (21:30)
[2020-07-28] MEDS: THIAMINE HCL 100 MG TABLET (FP) PO SCH (21:30)
[2020-07-28] MEDS: LIDOCAINE PATCH REMOVAL MC SCH (21:30)
[2020-07-28] MEDS ORDERED: SUVOREXANT 15 MG TABLET PO PRN (22:00)
[2020-07-29] MEDS: METHADONE HCL 40 MG DISPERSABLE TABLET PO SCH (06:28)
[2020-07-29] MEDS ORDERED: PT OWN MED DRAWER 7, Y5N ONE (08:13)
[2020-07-29] MEDS: IBUPROFEN 600 MG TABLET (FP) PO PRN (08:32)
[2020-07-29] MEDS: FERROUS SO4 325 MG TABLET (FP) PO SCH ×2 (09:44→21:22)
[2020-07-29] MEDS: LIDOCAINE 5% TOPICAL PATCH TP SCH (09:45)
[2020-07-29] MEDS: NICOTINE 7 MG/24 HOURS TOPICAL PATCH TD SCH (09:45)
[2020-07-29] MEDS: PANTOPRAZOLE 40 MG TABLET PO SCH (09:45)
[2020-07-29] MEDS: PRENATAL VITAMINS W/ FOLIC ACID TABLET (FP) PO SCH (09:45)
[2020-07-29] MEDS: CHOLECALCIFEROL (VIT D3) 1,000 UNIT (25 MCG) TABLET PO SCH (09:46)
[2020-07-29] MEDS: METHOCARBAMOL 500 MG TABLET PO SCH ×4 (09:46→21:22)
[2020-07-29] MEDS: NICOTINE POLACRILEX 2 MG GUM BUC PRN (09:47)
[2020-07-29] MEDS: hydrOXYzine PAMOATE 25 MG CAPSULE (FP) PO PRN (09:47)
[2020-07-29] MEDS: MELATONIN 5 MG TABLETS PO SCH (21:22)
[2020-07-29] MEDS: LIDOCAINE PATCH REMOVAL MC SCH (21:22)
[2020-07-29] MEDS: THIAMINE HCL 100 MG TABLET (FP) PO SCH (21:22)
[2020-07-30] MEDS: METHADONE HCL 40 MG DISPERSABLE TABLET PO SCH (06:24)
[2020-07-30] MEDS: IBUPROFEN 600 MG TABLET (FP) PO PRN (06:25)
[2020-07-30] MEDS: FERROUS SO4 325 MG TABLET (FP) PO SCH ×2 (09:30→21:40)
[2020-07-30] MEDS: LIDOCAINE 5% TOPICAL PATCH TP SCH (09:31)
[2020-07-30] MEDS: CHOLECALCIFEROL (VIT D3) 1,000 UNIT (25 MCG) TABLET PO SCH (09:31)
[2020-07-30] MEDS: METHOCARBAMOL 500 MG TABLET PO SCH ×4 (09:31→21:41)
[2020-07-30] MEDS: NICOTINE 7 MG/24 HOURS TOPICAL PATCH TD SCH (09:31)
[2020-07-30] MEDS: PANTOPRAZOLE 40 MG TABLET PO SCH (09:31)
[2020-07-30] MEDS: PRENATAL VITAMINS W/ FOLIC ACID TABLET (FP) PO SCH (09:31)
[2020-07-30] MEDS: hydrOXYzine PAMOATE 25 MG CAPSULE (FP) PO PRN ×2 (09:32→17:32)
[2020-07-30] MEDS: LIDOCAINE PATCH REMOVAL MC SCH (21:40)
[2020-07-30] MEDS: MELATONIN 5 MG TABLETS PO SCH (21:40)
[2020-07-30] MEDS: THIAMINE HCL 100 MG TABLET (FP) PO SCH (21:41)
[2020-07-31] MEDS: METHADONE HCL 40 MG DISPERSABLE TABLET PO SCH (06:32)
[2020-07-31] MEDS: IBUPROFEN 600 MG TABLET (FP) PO PRN ×2 (06:32→15:41)
[2020-07-31] MEDS: FERROUS SO4 325 MG TABLET (FP) PO SCH ×2 (09:46→21:25)
[2020-07-31] MEDS: METHOCARBAMOL 500 MG TABLET PO SCH ×4 (09:46→21:26)
[2020-07-31] MEDS: LIDOCAINE 5% TOPICAL PATCH TP SCH (09:46)
[2020-07-31] MEDS: PRENATAL VITAMINS W/ FOLIC ACID TABLET (FP) PO SCH (09:46)
[2020-07-31] MEDS: NICOTINE POLACRILEX 2 MG GUM BUC PRN (09:47)
[2020-07-31] MEDS: CHOLECALCIFEROL (VIT D3) 1,000 UNIT (25 MCG) TABLET PO SCH (09:47)
[2020-07-31] MEDS: hydrOXYzine PAMOATE 25 MG CAPSULE (FP) PO PRN ×2 (09:47→15:40)
[2020-07-31] MEDS: PANTOPRAZOLE 40 MG TABLET PO SCH (09:47)
[2020-07-31] MEDS: NICOTINE 7 MG/24 HOURS TOPICAL PATCH TD SCH (09:48)
[2020-07-31] MEDS: THIAMINE HCL 100 MG TABLET (FP) PO SCH (21:26)
[2020-07-31] MEDS: MELATONIN 5 MG TABLETS PO SCH (21:26)
[2020-07-31] MEDS: LIDOCAINE PATCH REMOVAL MC SCH (21:26)
[2020-08-01] MEDS: METHADONE HCL 40 MG DISPERSABLE TABLET PO SCH (06:16)
[2020-08-01] MEDS: IBUPROFEN 600 MG TABLET (FP) PO PRN (06:16)
[2020-08-01 06:59] VITALS: TEMP 98.2
[2020-08-01] MEDS ORDERED: PT OWN MED DRAWER 7, Y5N ONE ×3 (08:22→16:00)
[2020-08-01] MEDS: FERROUS SO4 325 MG TABLET (FP) PO SCH ×2 (09:41→21:24)
[2020-08-01] MEDS: LIDOCAINE 5% TOPICAL PATCH TP SCH (09:41)
[2020-08-01] MEDS: METHOCARBAMOL 500 MG TABLET PO SCH ×4 (09:42→21:24)
[2020-08-01] MEDS: hydrOXYzine PAMOATE 25 MG CAPSULE (FP) PO PRN ×2 (09:42→21:24)
[2020-08-01] MEDS: NICOTINE 7 MG/24 HOURS TOPICAL PATCH TD SCH (09:42)
[2020-08-01] MEDS: CHOLECALCIFEROL (VIT D3) 1,000 UNIT (25 MCG) TABLET PO SCH (09:42)
[2020-08-01] MEDS: PANTOPRAZOLE 40 MG TABLET PO SCH (09:42)
[2020-08-01] MEDS: PRENATAL VITAMINS W/ FOLIC ACID TABLET (FP) PO SCH (09:42)
[2020-08-01] MEDS: NICOTINE POLACRILEX 2 MG GUM BUC PRN (09:43)
[2020-08-01] MEDS: MELATONIN 5 MG TABLETS PO SCH (21:23)
[2020-08-01] MEDS: THIAMINE HCL 100 MG TABLET (FP) PO SCH (21:23)
[2020-08-01] MEDS: LIDOCAINE PATCH REMOVAL MC SCH (21:24)
[2020-08-02] MEDS ORDERED: METHADONE HCL 40 MG DISPERSABLE TABLET PO SCH (06:00)
[2020-08-02] MEDS: IBUPROFEN 600 MG TABLET (FP) PO PRN (06:42)
[2020-08-02 06:59] VITALS: BP 144/80; PULSE 79
[2020-08-02] MEDS ORDERED: PT OWN MED DRAWER 7, Y5N ONE (08:48)
== END 2020-08-02 08:54 | disposition home or self-care (01) | DRG 772 ==
LOC: YASAS 12:54 → Y3W 12:55 → Y3E 07-28 12:07
PROVIDERS: ADMIT Allergy & Immunology; ATTEND Allergy & Immunology
PROC: HZ42ZZZ Group Counseling for Substance Abuse Treatment, Cognitive-Behavioral (ICD-10-PCS; principal; 2020-07-12)
DX: F10.20 Alcohol dependence, uncomplicated (principal); F11.20 Opioid dependence, uncomplicated; F12.20 Cannabis dependence, uncomplicated; F17.210 Nicotine dependence, cigarettes, uncomplicated; F19.282 Other psychoactive substance dependence with psychoactive substance-induced sleep disorder; D64.9 Anemia, unspecified; R12 Heartburn; R63.4 Abnormal weight loss
CPT/HCPCS: 81003; 82306; 87077; 87086; 93005; 93010

== ENCOUNTER 2020-09-29 13:27 | Inpatient (IN) | payer OTHER ==
[2020-09-29 15:41] VITALS: BMI 30.3
[2020-09-29] MEDS ORDERED: ONDANSETRON *ODT* 4 MG TABLET SL PRN (17:44)
[2020-09-29] MEDS ORDERED: NICOTINE POLACRILEX 2 MG GUM BUC PRN (17:44)
[2020-09-29] MEDS ORDERED: BISMUTH SUBSALICYLATE 524 MG/30 ML UD PO PRN (17:44)
[2020-09-29] MEDS ORDERED: MAGNESIUM HYDROX 2400MG/30ML ORAL SUSPENSION 30 ML CUP PO PRN (17:44)
[2020-09-29] MEDS ORDERED: cloNIDine HCL 0.1 MG TABLET PO PRN (17:44)
[2020-09-29] MEDS ORDERED: MAG HYDROX/AL HYDROX/SIMETH 30 ML UNIT-DOSE CUP PO PRN (17:44)
[2020-09-29] MEDS ORDERED: MAGNESIUM CITRATE 300 ML BOTTLE PO PRN (17:44)
[2020-09-29] MEDS ORDERED: MENTHOL/PHENOL 1 EACH UD MM PRN (17:44)
[2020-09-29] MEDS ORDERED: ACETAMINOPHEN 325 MG TABLET (FP) PO PRN ×2 (17:44)
[2020-09-29] MEDS: IBUPROFEN 400 MG TABLET (FP) PO PRN (20:46)
[2020-09-29] MEDS: THIAMINE HCL 100 MG TABLET (FP) PO SCH (22:35)
[2020-09-29] MEDS: MELATONIN 5 MG TABLETS PO PRN (22:38)
[2020-09-29] MEDS ORDERED: METHADONE HCL 10 MG TABLET (FOR DETOX USE ONLY) PO ONE (23:00)
[2020-09-30] MEDS ORDERED: METHADONE HCL 5 MG TABLET (FOR DETOX USE ONLY) ONE (09:00)
[2020-09-30] MEDS ORDERED: METHADONE HCL 10 MG TABLET (FOR DETOX USE ONLY) ONE (09:00)
[2020-09-30] MEDS ORDERED: METHADONE (DETOX) 20 MG, METHADONE (DETOX) 5 MG PO ONE (10:00)
[2020-09-30] MEDS: METHOCARBAMOL 500 MG TABLET PO PRN ×2 (10:13→22:27)
[2020-09-30] MEDS: NICOTINE 14 MG/24 HOURS TOPICAL PATCH TD SCH (10:13)
[2020-09-30] MEDS: IBUPROFEN 400 MG TABLET (FP) PO PRN ×2 (10:13→22:25)
[2020-09-30] MEDS: PRENATAL VITAMINS W/ FOLIC ACID TABLET (FP) PO SCH (10:13)
[2020-09-30] MEDS: hydrOXYzine PAMOATE 25 MG CAPSULE (FP) PO PRN ×2 (10:45→22:23)
[2020-09-30 12:05] LABS: HEMATOCRIT 32.2 % (32.4-45.2); HEMOGLOBIN 10.9 GM/dL (10.7-15.3); MCHC 33.9 g/dl (32.0-36.0); MEAN CELL VOLUME 88.5 fl (80-96); MEAN PLT VOLUME 8.4 fl (7.5-11.1); PLATELET COUNT 265 K/MM3 (134-434); RBC 3.64 M/mm3 (3.60-5.2); RDW 13.4 % (11.6-15.6); WHITE BLOOD COUNT 4.3 K/mm3 (4.0-10.0)
[2020-09-30 12:09] LABS: POTASSIUM 4.5 mmol/L (3.5-5.1)
[2020-09-30 12:13] LABS: ALBUMIN 3.2 g/dl (3.4-5.0); CALCIUM 8.7 mg/dL (8.5-10.1)
[2020-09-30 12:14] LABS: BLOOD UREA NITROGEN 8.3 mg/dL (7-18)
[2020-09-30 12:16] LABS: CREATININE 0.8 mg/dL (0.55-1.3)
[2020-09-30 12:18] LABS: BILIRUBIN,TOTAL 0.4 mg/dL (0.2-1); TOT PROT 6.3 g/dl (6.4-8.2)
[2020-09-30] MEDS ORDERED: diazePAM 5 MG TABLET PO ONE (14:00)
[2020-09-30] MEDS: MELATONIN 5 MG TABLETS PO PRN (22:24)
[2020-09-30] MEDS: THIAMINE HCL 100 MG TABLET (FP) PO SCH (22:24)
[2020-10-01] MEDS: METHOCARBAMOL 500 MG TABLET PO PRN ×3 (09:51→22:24)
[2020-10-01] MEDS: hydrOXYzine PAMOATE 25 MG CAPSULE (FP) PO PRN ×3 (09:51→22:24)
[2020-10-01] MEDS: IBUPROFEN 400 MG TABLET (FP) PO PRN (09:52)
[2020-10-01] MEDS: NICOTINE 14 MG/24 HOURS TOPICAL PATCH TD SCH (09:54)
[2020-10-01] MEDS: PRENATAL VITAMINS W/ FOLIC ACID TABLET (FP) PO SCH (09:54)
[2020-10-01] MEDS ORDERED: METHADONE HCL 10 MG TABLET (FOR DETOX USE ONLY) PO ONE (10:00)
[2020-10-01] MEDS ORDERED: LOPERAMIDE HCL 2 MG CAPSULE PO ONE (13:06)
[2020-10-01] MEDS: MELATONIN 5 MG TABLETS PO PRN (22:23)
[2020-10-01] MEDS: THIAMINE HCL 100 MG TABLET (FP) PO SCH (22:23)
[2020-10-02] MEDS ORDERED: METHADONE HCL 10 MG TABLET (FOR DETOX USE ONLY) ONE (08:53)
[2020-10-02] MEDS ORDERED: METHADONE HCL 5 MG TABLET (FOR DETOX USE ONLY) ONE (08:53)
[2020-10-02] MEDS ORDERED: METHADONE (DETOX) 10 MG, METHADONE (DETOX) 5 MG PO ONE (10:00)
[2020-10-02] MEDS: hydrOXYzine PAMOATE 25 MG CAPSULE (FP) PO PRN ×3 (10:21→22:26)
[2020-10-02] MEDS: NICOTINE 14 MG/24 HOURS TOPICAL PATCH TD SCH (10:21)
[2020-10-02] MEDS: METHOCARBAMOL 500 MG TABLET PO PRN ×3 (10:21→22:28)
[2020-10-02] MEDS: PRENATAL VITAMINS W/ FOLIC ACID TABLET (FP) PO SCH (10:51)
[2020-10-02] MEDS: diazePAM 5 MG TABLET PO PRN ×3 (12:13→22:28)
[2020-10-02] MEDS: IBUPROFEN 400 MG TABLET (FP) PO PRN (14:29)
[2020-10-02] MEDS: THIAMINE HCL 100 MG TABLET (FP) PO SCH (22:26)
[2020-10-03] MEDS: diazePAM 5 MG TABLET PO PRN ×4 (08:50→22:23)
[2020-10-03] MEDS: METHOCARBAMOL 500 MG TABLET PO PRN ×3 (08:50→22:22)
[2020-10-03] MEDS ORDERED: METHADONE HCL 10 MG TABLET (FOR DETOX USE ONLY) PO ONE (10:00)
[2020-10-03] MEDS: PRENATAL VITAMINS W/ FOLIC ACID TABLET (FP) PO SCH (10:34)
[2020-10-03] MEDS: NICOTINE 14 MG/24 HOURS TOPICAL PATCH TD SCH (10:34)
[2020-10-03] MEDS: hydrOXYzine PAMOATE 25 MG CAPSULE (FP) PO PRN (18:19)
[2020-10-03] MEDS: THIAMINE HCL 100 MG TABLET (FP) PO SCH (22:22)
[2020-10-03] MEDS: MELATONIN 5 MG TABLETS PO PRN (22:23)
[2020-10-04] MEDS: IBUPROFEN 400 MG TABLET (FP) PO PRN (05:59)
[2020-10-04] MEDS ORDERED: METHADONE HCL 5 MG TABLET (FOR DETOX USE ONLY) PO ONE (06:00)
[2020-10-04] MEDS: diazePAM 5 MG TABLET PO PRN (06:50)
[2020-10-04 07:14] VITALS: BP 156/95; PULSE 89; TEMP 97.8
== END 2020-10-04 07:50 | disposition home or self-care (01) | DRG 773 ==
LOC: YASAS 13:27 → Y6N 15:55
PROVIDERS: ADMIT Allergy & Immunology; ATTEND Allergy & Immunology
PROC: HZ2ZZZZ Detoxification Services for Substance Abuse Treatment (ICD-10-PCS; principal; 2020-09-29)
DX: F11.23 Opioid dependence with withdrawal (principal); F14.20 Cocaine dependence, uncomplicated; F13.10 Sedative, hypnotic or anxiolytic abuse, uncomplicated; F17.210 Nicotine dependence, cigarettes, uncomplicated; D50.9 Iron deficiency anemia, unspecified; D57.3 Sickle-cell trait; R03.0 Elevated blood-pressure reading, without diagnosis of hypertension; R63.4 Abnormal weight loss; Z68.30 Body mass index [BMI] 30.0-30.9, adult
CPT/HCPCS: 36415; 80053; 81025; 85027; 86780; C9803; J0735; U0003

== ENCOUNTER 2020-10-28 14:30 | Inpatient (IN) | payer OTHER ==
[2020-10-28] MEDS ORDERED: MENTHOL/PHENOL 1 EACH UD MM PRN (19:11)
[2020-10-28] MEDS ORDERED: ONDANSETRON *ODT* 4 MG TABLET SL PRN (19:11)
[2020-10-28] MEDS ORDERED: BISMUTH SUBSALICYLATE 524 MG/30 ML UD PO PRN (19:11)
[2020-10-28] MEDS ORDERED: MAGNESIUM CITRATE 300 ML BOTTLE PO PRN (19:11)
[2020-10-28] MEDS ORDERED: NICOTINE POLACRILEX 2 MG GUM BUC PRN (19:11)
[2020-10-28] MEDS ORDERED: cloNIDine HCL 0.1 MG TABLET PO PRN (19:11)
[2020-10-28] MEDS ORDERED: METHOCARBAMOL 500 MG TABLET PO PRN (19:11)
[2020-10-28] MEDS ORDERED: MAG HYDROX/AL HYDROX/SIMETH 30 ML UNIT-DOSE CUP PO PRN (19:11)
[2020-10-28] MEDS ORDERED: ACETAMINOPHEN 325 MG TABLET (FP) PO PRN ×2 (19:11)
[2020-10-28] MEDS ORDERED: MAGNESIUM HYDROX 2400MG/30ML ORAL SUSPENSION 30 ML CUP PO PRN (19:11)
[2020-10-28 19:42] VITALS: BMI 25.8
[2020-10-28] MEDS ORDERED: METHADONE HCL 10 MG TABLET (FOR DETOX USE ONLY) PO ONE (22:15)
[2020-10-28] MEDS: MELATONIN 5 MG TABLETS PO SCH (23:47)
[2020-10-28] MEDS: THIAMINE HCL 100 MG TABLET (FP) PO SCH (23:47)
[2020-10-28] MEDS: hydrOXYzine PAMOATE 25 MG CAPSULE (FP) PO SCH (23:48)
[2020-10-29] MEDS: hydrOXYzine PAMOATE 25 MG CAPSULE (FP) PO SCH ×5 (07:29→22:41)
[2020-10-29] MEDS: diazePAM 5 MG TABLET PO PRN ×3 (07:29→19:39)
[2020-10-29] MEDS ORDERED: METHADONE HCL 5 MG TABLET (FOR DETOX USE ONLY) ONE (08:47)
[2020-10-29] MEDS ORDERED: METHADONE HCL 10 MG TABLET (FOR DETOX USE ONLY) ONE (08:47)
[2020-10-29] MEDS ORDERED: METHADONE (DETOX) 20 MG, METHADONE (DETOX) 5 MG PO ONE (10:00)
[2020-10-29 10:16] LABS: HEMATOCRIT 34.2 % (32.4-45.2); HEMOGLOBIN 11.7 GM/dL (10.7-15.3); MCH 30.2 pg (25.7-33.7); MCHC 34.2 g/dl (32.0-36.0); MEAN CELL VOLUME 88.3 fl (80-96); MEAN PLT VOLUME 9.3 fl (7.5-11.1); PLATELET COUNT 263 K/MM3 (134-434); RBC 3.87 M/mm3 (3.60-5.2); RDW 13.4 % (11.6-15.6)
[2020-10-29 10:18] LABS: POTASSIUM 4.3 mmol/L (3.5-5.1)
[2020-10-29 10:24] LABS: ALBUMIN 3.4 g/dl (3.4-5.0); BLOOD UREA NITROGEN 13.4 mg/dL (7-18); CALCIUM 8.8 mg/dL (8.5-10.1)
[2020-10-29 10:27] LABS: CREATININE 0.9 mg/dL (0.55-1.3)
[2020-10-29 10:29] LABS: BILIRUBIN,TOTAL 0.2 mg/dL (0.2-1); TOT PROT 6.3 g/dl (6.4-8.2)
[2020-10-29] MEDS: PRENATAL VITAMINS W/ FOLIC ACID TABLET (FP) PO SCH (10:33)
[2020-10-29] MEDS: IBUPROFEN 400 MG TABLET (FP) PO PRN (14:42)
[2020-10-29] MEDS: MELATONIN 5 MG TABLETS PO SCH (22:41)
[2020-10-29] MEDS: THIAMINE HCL 100 MG TABLET (FP) PO SCH (22:41)
[2020-10-30] MEDS: diazePAM 5 MG TABLET PO PRN ×4 (04:14→20:48)
[2020-10-30] MEDS: hydrOXYzine PAMOATE 25 MG CAPSULE (FP) PO SCH ×5 (07:53→22:45)
[2020-10-30] MEDS: PRENATAL VITAMINS W/ FOLIC ACID TABLET (FP) PO SCH (09:12)
[2020-10-30] MEDS: IBUPROFEN 400 MG TABLET (FP) PO PRN ×2 (09:14→17:28)
[2020-10-30] MEDS ORDERED: METHADONE HCL 10 MG TABLET (FOR DETOX USE ONLY) PO ONE (10:00)
[2020-10-30] MEDS: THIAMINE HCL 100 MG TABLET (FP) PO SCH (22:45)
[2020-10-30] MEDS: MELATONIN 5 MG TABLETS PO SCH (22:45)
[2020-10-31] MEDS: diazePAM 5 MG TABLET PO PRN ×2 (01:35→06:36)
[2020-10-31] MEDS: hydrOXYzine PAMOATE 25 MG CAPSULE (FP) PO SCH ×2 (06:28→06:35)
[2020-10-31] MEDS: IBUPROFEN 400 MG TABLET (FP) PO PRN (06:37)
[2020-10-31] MEDS ORDERED: METHADONE HCL 10 MG TABLET (FOR DETOX USE ONLY) ONE (08:56)
[2020-10-31] MEDS ORDERED: METHADONE HCL 5 MG TABLET (FOR DETOX USE ONLY) ONE (08:56)
[2020-10-31] MEDS ORDERED: METHADONE (DETOX) 10 MG, METHADONE (DETOX) 5 MG PO ONE (10:00)
[2020-10-31 10:24] VITALS: BP 129/76; PULSE 78; TEMP 97.3
[2020-10-31] MEDS: PRENATAL VITAMINS W/ FOLIC ACID TABLET (FP) PO SCH (10:29)
[2020-11-01] MEDS ORDERED: METHADONE HCL 10 MG TABLET (FOR DETOX USE ONLY) PO ONE (10:00)
[2020-11-02] MEDS ORDERED: METHADONE HCL 5 MG TABLET (FOR DETOX USE ONLY) PO ONE (06:00)
== END 2020-10-31 11:19 | disposition left against medical advice (07) | DRG 770 ==
LOC: YASAS 14:30 → Y3N 22:03
PROVIDERS: ADMIT Allergy & Immunology; ATTEND Allergy & Immunology
PROC: HZ2ZZZZ Detoxification Services for Substance Abuse Treatment (ICD-10-PCS; principal; 2020-10-28)
DX: F11.23 Opioid dependence with withdrawal (principal); F14.20 Cocaine dependence, uncomplicated; F17.210 Nicotine dependence, cigarettes, uncomplicated; D57.3 Sickle-cell trait; D50.9 Iron deficiency anemia, unspecified; R63.4 Abnormal weight loss; Z68.25 Body mass index [BMI] 25.0-25.9, adult
CPT/HCPCS: 36415; 80053; 81025; 85027; 86780; C9803; U0003

== ENCOUNTER 2021-04-14 09:18 | Inpatient (IN) | payer OTHER ==
[2021-04-14 10:33] VITALS: BMI 29.5
[2021-04-14] MEDS ORDERED: MAG HYDROX/AL HYDROX/SIMETH 30 ML UNIT-DOSE CUP PO PRN (10:59)
[2021-04-14] MEDS ORDERED: NICOTINE 10 MG CARTRIDGE (INHALER) IH PRN (10:59)
[2021-04-14] MEDS ORDERED: MAGNESIUM HYDROX 2400MG/30ML ORAL SUSPENSION 30 ML CUP PO PRN (10:59)
[2021-04-14] MEDS ORDERED: MENTHOL/PHENOL 1 EACH UD MM PRN (10:59)
[2021-04-14] MEDS ORDERED: BISMUTH SUBSALICYLATE 524 MG/30 ML PO PRN (10:59)
[2021-04-14] MEDS ORDERED: NICOTINE POLACRILEX 2 MG GUM BUC PRN (10:59)
[2021-04-14] MEDS ORDERED: methaDONE HCL 10 MG TABLET (FOR DETOX USE ONLY) PO ONE (10:59)
[2021-04-14] MEDS ORDERED: ACETAMINOPHEN 325 MG TABLET (FP) PO PRN ×2 (10:59)
[2021-04-14] MEDS ORDERED: METHOCARBAMOL 500 MG TABLET PO PRN (10:59)
[2021-04-14] MEDS ORDERED: ONDANSETRON *ODT* 4 MG TABLET SL PRN (10:59)
[2021-04-14] MEDS ORDERED: MAGNESIUM CITRATE 300 ML BOTTLE PO PRN (10:59)
[2021-04-14] MEDS ORDERED: methaDONE HCL 10 MG TABLET (FOR DETOX USE ONLY) ONE (11:41)
[2021-04-14] MEDS: IBUPROFEN 400 MG TABLET (FP) PO PRN (13:09)
[2021-04-14] MEDS: diazePAM 5 MG TABLET PO PRN ×2 (13:10→19:43)
[2021-04-14] MEDS: hydrOXYzine PAMOATE 25 MG CAPSULE (FP) PO SCH ×3 (13:17→22:22)
[2021-04-14] MEDS: THIAMINE HCL 100 MG TABLET (FP) PO SCH (22:22)
[2021-04-14] MEDS: MELATONIN 5 MG TABLETS PO SCH (22:22)
[2021-04-15] MEDS: hydrOXYzine PAMOATE 25 MG CAPSULE (FP) PO SCH ×5 (05:49→21:54)
[2021-04-15] MEDS ORDERED: methaDONE HCL 10 MG TABLET (FOR DETOX USE ONLY) ONE (09:30)
[2021-04-15] MEDS: diazePAM 5 MG TABLET PO PRN ×2 (10:19→14:57)
[2021-04-15] MEDS: PRENATAL VITAMINS W/ FOLIC ACID TABLET (FP) PO SCH (10:22)
[2021-04-15] MEDS: MELATONIN 5 MG TABLETS PO SCH (21:54)
[2021-04-15] MEDS: THIAMINE HCL 100 MG TABLET (FP) PO SCH (21:54)
[2021-04-16] MEDS: hydrOXYzine PAMOATE 25 MG CAPSULE (FP) PO SCH ×5 (06:27→22:08)
[2021-04-16] MEDS ORDERED: methaDONE HCL 10 MG TABLET (FOR DETOX USE ONLY) PO ONE (10:00)
[2021-04-16] MEDS: PRENATAL VITAMINS W/ FOLIC ACID TABLET (FP) PO SCH (10:33)
[2021-04-16] MEDS: diazePAM 5 MG TABLET PO PRN ×3 (10:34→22:10)
[2021-04-16] MEDS: IBUPROFEN 400 MG TABLET (FP) PO PRN (10:34)
[2021-04-16 14:05] LABS: HEMATOCRIT 33.1 % (32.4-45.2); HEMOGLOBIN 11.3 GM/dL (10.7-15.3); MCH 30.1 pg (25.7-33.7); MCHC 34.2 g/dl (32.0-36.0); MEAN CELL VOLUME 87.9 fl (80-96); MEAN PLT VOLUME 9.2 fl (7.5-11.1); PLATELET COUNT 234 10^3/uL (134-434); RBC 3.76 M/mm3 (3.60-5.2); WHITE BLOOD COUNT 4.1 K/mm3 (4.0-10.0)
[2021-04-16 14:29] LABS: ALBUMIN 3.2 g/dl (3.4-5.0)
[2021-04-16 14:30] LABS: BLOOD UREA NITROGEN 8.9 mg/dL (7-18)
[2021-04-16 14:31] LABS: CALCIUM 8.4 mg/dL (8.5-10.1)
[2021-04-16 14:34] LABS: BILIRUBIN,TOTAL 0.5 mg/dL (0.2-1); TOT PROT 5.9 g/dl (6.4-8.2)
[2021-04-16 14:35] LABS: CREATININE 0.9 mg/dL (0.55-1.3)
[2021-04-16 16:53] LABS: HIV INTERPRETATION NEGATIVE (NEGATIVE)
[2021-04-16] MEDS: THIAMINE HCL 100 MG TABLET (FP) PO SCH (22:07)
[2021-04-16] MEDS: MELATONIN 5 MG TABLETS PO SCH (22:08)
[2021-04-17] MEDS: diazePAM 5 MG TABLET PO PRN ×2 (06:00→10:22)
[2021-04-17] MEDS: hydrOXYzine PAMOATE 25 MG CAPSULE (FP) PO SCH ×5 (06:01→22:57)
[2021-04-17] MEDS ORDERED: methaDONE HCL 10 MG TABLET (FOR DETOX USE ONLY) ONE (08:59)
[2021-04-17] MEDS: PRENATAL VITAMINS W/ FOLIC ACID TABLET (FP) PO SCH (10:20)
[2021-04-17] MEDS: IBUPROFEN 400 MG TABLET (FP) PO PRN (10:24)
[2021-04-17] MEDS: AMOXICILLIN 500 MG CAPSULE (FP) PO SCH ×2 (12:59→22:57)
[2021-04-17] MEDS: THIAMINE HCL 100 MG TABLET (FP) PO SCH (22:57)
[2021-04-17] MEDS: MELATONIN 5 MG TABLETS PO SCH (22:57)
[2021-04-18] MEDS: IBUPROFEN 400 MG TABLET (FP) PO PRN ×2 (04:58→16:05)
[2021-04-18] MEDS: AMOXICILLIN 500 MG CAPSULE (FP) PO SCH ×3 (04:59→22:07)
[2021-04-18] MEDS: hydrOXYzine PAMOATE 25 MG CAPSULE (FP) PO SCH ×5 (04:59→22:07)
[2021-04-18] MEDS ORDERED: methaDONE HCL 10 MG TABLET (FOR DETOX USE ONLY) PO ONE (10:00)
[2021-04-18] MEDS ORDERED: LACTOBACILLUS ACIDOPHILUS 1 TABLET PO SCH (10:00)
[2021-04-18] MEDS: PRENATAL VITAMINS W/ FOLIC ACID TABLET (FP) PO SCH (10:30)
[2021-04-18] MEDS: MELATONIN 5 MG TABLETS PO SCH (22:07)
[2021-04-18] MEDS: THIAMINE HCL 100 MG TABLET (FP) PO SCH (22:07)
[2021-04-19] MEDS: hydrOXYzine PAMOATE 25 MG CAPSULE (FP) PO SCH (05:39)
[2021-04-19] MEDS: AMOXICILLIN 500 MG CAPSULE (FP) PO SCH (05:39)
[2021-04-19] MEDS: IBUPROFEN 400 MG TABLET (FP) PO PRN (05:42)
[2021-04-19 06:31] VITALS: BP 155/93; PULSE 90; TEMP 97.1
[2021-04-19] MEDS ORDERED: MASKS NR ONE (07:11)
== END 2021-04-19 08:57 | disposition home or self-care (01) | DRG 773 ==
LOC: YASAS 09:18 → Y6N 11:07
PROVIDERS: ADMIT Allergy & Immunology; ATTEND Allergy & Immunology
PROC: HZ2ZZZZ Detoxification Services for Substance Abuse Treatment (ICD-10-PCS; principal; 2021-04-14)
DX: F11.23 Opioid dependence with withdrawal (principal); F14.20 Cocaine dependence, uncomplicated; F17.210 Nicotine dependence, cigarettes, uncomplicated; D57.3 Sickle-cell trait; K08.89 Other specified disorders of teeth and supporting structures; Z88.8 Allergy status to other drugs, medicaments and biological substances
CPT/HCPCS: 36415; 80053; 81025; 85027; 86780; 87389; C9803; U0003; U0005

== ENCOUNTER 2021-06-06 09:28 | Inpatient (IN) | payer OTHER ==
[2021-06-06 10:55] VITALS: BMI 29.0
[2021-06-06] MEDS ORDERED: diazePAM 5 MG TABLET PO SCH (11:00)
[2021-06-06] MEDS ORDERED: MAGNESIUM HYDROX 2400MG/30ML ORAL SUSPENSION 30 ML CUP PO PRN (11:29)
[2021-06-06] MEDS ORDERED: MAG HYDROX/AL HYDROX/SIMETH 30 ML UNIT-DOSE CUP PO PRN (11:29)
[2021-06-06] MEDS ORDERED: NICOTINE 10 MG CARTRIDGE (INHALER) IH PRN (11:29)
[2021-06-06] MEDS ORDERED: BISMUTH SUBSALICYLATE 262 MG/15 ML BTL PO PRN (11:29)
[2021-06-06] MEDS ORDERED: MENTHOL/PHENOL 1 EACH UD MM PRN (11:29)
[2021-06-06] MEDS ORDERED: diazePAM 5 MG TABLET PO PRN (11:29)
[2021-06-06] MEDS ORDERED: ACETAMINOPHEN 325 MG TABLET (FP) PO PRN ×2 (11:29)
[2021-06-06] MEDS ORDERED: ONDANSETRON *ODT* 4 MG TABLET SL PRN (11:29)
[2021-06-06] MEDS ORDERED: MAGNESIUM CITRATE 300 ML BOTTLE PO PRN (11:29)
[2021-06-06] MEDS ORDERED: cloNIDine HCL 0.1 MG TABLET PO PRN (12:04)
[2021-06-06] MEDS ORDERED: methaDONE HCL 10 MG TABLET (FOR DETOX USE ONLY) PO ONE (12:04)
[2021-06-06] MEDS: PRENATAL VITAMINS W/ FOLIC ACID TABLET (FP) PO SCH (12:18)
[2021-06-06] MEDS: METHOCARBAMOL 500 MG TABLET PO PRN (12:21)
[2021-06-06] MEDS: hydrOXYzine PAMOATE 25 MG CAPSULE (FP) PO SCH ×3 (14:03→22:18)
[2021-06-06 14:42] LABS: HEMATOCRIT 33.5 % (32.4-45.2); HEMOGLOBIN 11.5 GM/dL (10.7-15.3); MCHC 34.5 g/dl (32.0-36.0); MEAN CELL VOLUME 87.1 fl (80-96); MEAN PLT VOLUME 7.9 fl (7.5-11.1); PLATELET COUNT 299 10^3/uL (134-434); RBC 3.85 M/mm3 (3.60-5.2); RDW 13.9 % (11.6-15.6); WHITE BLOOD COUNT 5.6 K/mm3 (4.0-10.0)
[2021-06-06 14:58] LABS: CALCIUM 9.1 mg/dL (8.5-10.1)
[2021-06-06 15:00] LABS: ALBUMIN 3.8 g/dl (3.4-5.0)
[2021-06-06 15:02] LABS: CREATININE 0.9 mg/dL (0.55-1.3)
[2021-06-06 15:03] LABS: BILIRUBIN,TOTAL 0.5 mg/dL (0.2-1); TOT PROT 7.5 g/dl (6.4-8.2)
[2021-06-06] MEDS: MELATONIN 5 MG TABLETS PO SCH (22:18)
[2021-06-06] MEDS: THIAMINE HCL 100 MG TABLET (FP) PO SCH (22:18)
[2021-06-07] MEDS: hydrOXYzine PAMOATE 25 MG CAPSULE (FP) PO SCH ×5 (06:11→21:22)
[2021-06-07] MEDS ORDERED: methaDONE HCL 10 MG TABLET (FOR DETOX USE ONLY) ONE (09:43)
[2021-06-07] MEDS: PRENATAL VITAMINS W/ FOLIC ACID TABLET (FP) PO SCH (10:24)
[2021-06-07] MEDS: METHOCARBAMOL 500 MG TABLET PO PRN (10:24)
[2021-06-07] MEDS: IBUPROFEN 400 MG TABLET (FP) PO PRN (10:27)
[2021-06-07] MEDS: diazePAM 5 MG TABLET PO PRN ×2 (12:25→17:04)
[2021-06-07] MEDS: MELATONIN 5 MG TABLETS PO SCH (21:22)
[2021-06-07] MEDS: THIAMINE HCL 100 MG TABLET (FP) PO SCH (21:23)
[2021-06-08] MEDS: diazePAM 5 MG TABLET PO PRN ×4 (03:22→21:56)
[2021-06-08] MEDS: IBUPROFEN 400 MG TABLET (FP) PO PRN (03:22)
[2021-06-08] MEDS ORDERED: diazePAM 5 MG TABLET PO SCH (06:00)
[2021-06-08] MEDS: hydrOXYzine PAMOATE 25 MG CAPSULE (FP) PO SCH ×3 (06:22→13:12)
[2021-06-08] MEDS: PRENATAL VITAMINS W/ FOLIC ACID TABLET (FP) PO SCH (09:04)
[2021-06-08] MEDS: METHOCARBAMOL 500 MG TABLET PO PRN ×2 (09:04→21:56)
[2021-06-08] MEDS ORDERED: methaDONE HCL 10 MG TABLET (FOR DETOX USE ONLY) PO ONE (10:00)
[2021-06-08] MEDS ORDERED: DICYCLOMINE HCL 10 MG CAPSULE PO PRN (13:16)
[2021-06-08] MEDS: hydrOXYzine PAMOATE 25 MG CAPSULE (FP) PO PRN (21:55)
[2021-06-08] MEDS: THIAMINE HCL 100 MG TABLET (FP) PO SCH (21:56)
[2021-06-08] MEDS: MELATONIN 5 MG TABLETS PO SCH (21:56)
[2021-06-09] MEDS: hydrOXYzine PAMOATE 25 MG CAPSULE (FP) PO PRN ×3 (05:55→15:23)
[2021-06-09] MEDS: METHOCARBAMOL 500 MG TABLET PO PRN ×2 (05:55→15:23)
[2021-06-09] MEDS ORDERED: diazePAM 5 MG TABLET PO SCH (06:00)
[2021-06-09] MEDS ORDERED: methaDONE HCL 10 MG TABLET (FOR DETOX USE ONLY) ONE (09:07)
[2021-06-09] MEDS: PRENATAL VITAMINS W/ FOLIC ACID TABLET (FP) PO SCH (10:13)
[2021-06-09] MEDS: IBUPROFEN 400 MG TABLET (FP) PO PRN (10:14)
[2021-06-09] MEDS: BACITRACIN 0.9 GM PACKET TP SCH ×2 (13:28→23:32)
[2021-06-09] MEDS: THIAMINE HCL 100 MG TABLET (FP) PO SCH (23:32)
[2021-06-09] MEDS: MELATONIN 5 MG TABLETS PO SCH (23:32)
[2021-06-10] MEDS ORDERED: diazePAM 5 MG TABLET PO ONE (06:00)
[2021-06-10] MEDS ORDERED: methaDONE HCL 10 MG TABLET (FOR DETOX USE ONLY) PO ONE (10:00)
[2021-06-10] MEDS: PRENATAL VITAMINS W/ FOLIC ACID TABLET (FP) PO SCH (10:06)
[2021-06-10] MEDS: hydrOXYzine PAMOATE 25 MG CAPSULE (FP) PO PRN ×2 (10:06→15:43)
[2021-06-10] MEDS: METHOCARBAMOL 500 MG TABLET PO PRN (10:06)
[2021-06-10] MEDS: BACITRACIN 0.9 GM PACKET TP SCH ×2 (10:06→23:20)
[2021-06-10] MEDS: MELATONIN 5 MG TABLETS PO SCH (23:21)
[2021-06-10] MEDS: THIAMINE HCL 100 MG TABLET (FP) PO SCH (23:21)
[2021-06-11 09:38] VITALS: BP 123/81; PULSE 83; TEMP 97.7
== END 2021-06-11 09:40 | disposition home or self-care (01) | DRG 773 ==
LOC: YASAS 09:28 → Y6N 11:23
PROVIDERS: ADMIT Allergy & Immunology; ATTEND Allergy & Immunology
PROC: HZ2ZZZZ Detoxification Services for Substance Abuse Treatment (ICD-10-PCS; principal; 2021-06-06)
DX: F11.23 Opioid dependence with withdrawal (principal); F14.20 Cocaine dependence, uncomplicated; F17.210 Nicotine dependence, cigarettes, uncomplicated; D50.9 Iron deficiency anemia, unspecified; D57.3 Sickle-cell trait; Z88.8 Allergy status to other drugs, medicaments and biological substances
CPT/HCPCS: 36415; 80053; 85027; 86780; C9803; U0003; U0005

== ENCOUNTER 2021-07-14 09:16 | Inpatient (IN) | payer OTHER ==
[2021-07-14 09:46] VITALS: BMI 27.4
[2021-07-14] MEDS ORDERED: MENTHOL/PHENOL 1 EACH UD MM PRN (10:18)
[2021-07-14] MEDS ORDERED: MAGNESIUM CITRATE 300 ML BOTTLE PO PRN (10:18)
[2021-07-14] MEDS ORDERED: BISMUTH SUBSALICYLATE 524 MG/30 ML PO PRN (10:18)
[2021-07-14] MEDS ORDERED: MAG HYDROX/AL HYDROX/SIMETH 30 ML UNIT-DOSE CUP PO PRN (10:18)
[2021-07-14] MEDS ORDERED: NICOTINE POLACRILEX 4 MG GUM BUC PRN (10:18)
[2021-07-14] MEDS ORDERED: ACETAMINOPHEN 325 MG TABLET (FP) PO PRN ×2 (10:18)
[2021-07-14] MEDS ORDERED: MAGNESIUM HYDROX 2400MG/30ML ORAL SUSPENSION 30 ML CUP PO PRN (10:18)
[2021-07-14] MEDS ORDERED: NICOTINE 10 MG CARTRIDGE (INHALER) IH PRN (10:18)
[2021-07-14] MEDS ORDERED: methaDONE HCL 10 MG TABLET (FOR DETOX USE ONLY) PO ONE (10:18)
[2021-07-14] MEDS ORDERED: ONDANSETRON *ODT* 4 MG TABLET SL PRN (10:18)
[2021-07-14] MEDS ORDERED: METHYL SALICYLATE/MENTHOL OINT 30 GM TUBE TP PRN (10:21)
[2021-07-14] MEDS: PRENATAL VITAMINS W/ FOLIC ACID TABLET (FP) PO SCH (12:05)
[2021-07-14] MEDS: IBUPROFEN 400 MG TABLET (FP) PO PRN ×2 (13:51→22:17)
[2021-07-14] MEDS: diazePAM 5 MG TABLET PO SCH ×2 (17:48→22:14)
[2021-07-14] MEDS ORDERED: MELATONIN 5 MG TABLETS PO SCH (22:00)
[2021-07-14] MEDS: THIAMINE HCL 100 MG TABLET (FP) PO SCH (22:13)
[2021-07-14] MEDS: METHOCARBAMOL 500 MG TABLET PO PRN (22:13)
[2021-07-15] MEDS: diazePAM 5 MG TABLET PO SCH ×4 (05:32→22:04)
[2021-07-15] MEDS ORDERED: methaDONE HCL 10 MG TABLET (FOR DETOX USE ONLY) ONE (09:30)
[2021-07-15] MEDS: PRENATAL VITAMINS W/ FOLIC ACID TABLET (FP) PO SCH (10:05)
[2021-07-15] MEDS: METHOCARBAMOL 500 MG TABLET PO PRN (10:07)
[2021-07-15] MEDS: IBUPROFEN 400 MG TABLET (FP) PO PRN (10:09)
[2021-07-15 10:50] LABS: HEMATOCRIT 29.7 % (32.4-45.2); HEMOGLOBIN 10.2 GM/dL (10.7-15.3); MCH 29.9 pg (25.7-33.7); MCHC 34.1 g/dl (32.0-36.0); MEAN CELL VOLUME 87.6 fl (80-96); MEAN PLT VOLUME 8.3 fl (7.5-11.1); PLATELET COUNT 213 10^3/uL (134-434); RDW 13.6 % (11.6-15.6); WHITE BLOOD COUNT 3.8 K/mm3 (4.0-10.0)
[2021-07-15 11:12] LABS: CALCIUM 8.5 mg/dL (8.5-10.1)
[2021-07-15 11:13] LABS: ALBUMIN 3.2 g/dl (3.4-5.0)
[2021-07-15 11:16] LABS: CREATININE 0.8 mg/dL (0.55-1.3)
[2021-07-15 11:17] LABS: BILIRUBIN,TOTAL 0.3 mg/dL (0.2-1); TOT PROT 6.2 g/dl (6.4-8.2)
[2021-07-15] MEDS: THIAMINE HCL 100 MG TABLET (FP) PO SCH (22:05)
[2021-07-15] MEDS: SUVOREXANT 10 MG TABLET PO PRN (22:06)
[2021-07-16] MEDS: METHOCARBAMOL 500 MG TABLET PO PRN (05:30)
[2021-07-16] MEDS: diazePAM 5 MG TABLET PO SCH ×3 (05:30→22:24)
[2021-07-16] MEDS ORDERED: methaDONE HCL 10 MG TABLET (FOR DETOX USE ONLY) PO ONE (10:00)
[2021-07-16] MEDS: PRENATAL VITAMINS W/ FOLIC ACID TABLET (FP) PO SCH (10:08)
[2021-07-16] MEDS: IBUPROFEN 400 MG TABLET (FP) PO PRN (10:10)
[2021-07-16] MEDS: amLODIPine BESYLATE 5 MG TABLET (FP) PO SCH (13:52)
[2021-07-16] MEDS: THIAMINE HCL 100 MG TABLET (FP) PO SCH (22:24)
[2021-07-16] MEDS: SUVOREXANT 10 MG TABLET PO PRN (22:25)
[2021-07-17] MEDS: diazePAM 5 MG TABLET PO SCH ×2 (05:58→17:50)
[2021-07-17] MEDS ORDERED: methaDONE HCL 10 MG TABLET (FOR DETOX USE ONLY) ONE (09:28)
[2021-07-17] MEDS: PRENATAL VITAMINS W/ FOLIC ACID TABLET (FP) PO SCH (10:19)
[2021-07-17] MEDS: METHOCARBAMOL 500 MG TABLET PO PRN ×2 (10:19→21:44)
[2021-07-17] MEDS: amLODIPine BESYLATE 5 MG TABLET (FP) PO SCH (10:20)
[2021-07-17] MEDS: IBUPROFEN 400 MG TABLET (FP) PO PRN ×2 (10:21→21:44)
[2021-07-17] MEDS ORDERED: amLODIPine BESYLATE 5 MG TABLET (FP) PO SCH (13:43)
[2021-07-17] MEDS: LISINOPRIL 10 MG TABLET PO SCH (15:51)
[2021-07-17] MEDS: THIAMINE HCL 100 MG TABLET (FP) PO SCH (21:44)
[2021-07-17] MEDS ORDERED: SUVOREXANT 15 MG TABLET PO PRN (22:00)
[2021-07-18] MEDS: IBUPROFEN 400 MG TABLET (FP) PO PRN (05:39)
[2021-07-18] MEDS ORDERED: diazePAM 5 MG TABLET PO ONE (06:00)
[2021-07-18] MEDS ORDERED: methaDONE HCL 10 MG TABLET (FOR DETOX USE ONLY) PO ONE (10:00)
[2021-07-18] MEDS ORDERED: amLODIPine BESYLATE 5 MG TABLET (FP) PO SCH (10:00)
[2021-07-18] MEDS: PRENATAL VITAMINS W/ FOLIC ACID TABLET (FP) PO SCH (10:25)
[2021-07-18] MEDS: amLODIPine BESYLATE 10 MG TABLET (FP) PO SCH (10:29)
[2021-07-18] MEDS: METHOCARBAMOL 500 MG TABLET PO PRN (10:29)
[2021-07-18] MEDS: LISINOPRIL 10 MG TABLET PO SCH (10:29)
[2021-07-18] MEDS: THIAMINE HCL 100 MG TABLET (FP) PO SCH (23:04)
[2021-07-19] MEDS: IBUPROFEN 400 MG TABLET (FP) PO PRN (06:00)
[2021-07-19 06:24] VITALS: TEMP 98
[2021-07-19] MEDS: PRENATAL VITAMINS W/ FOLIC ACID TABLET (FP) PO SCH (10:28)
[2021-07-19] MEDS: amLODIPine BESYLATE 10 MG TABLET (FP) PO SCH (10:28)
[2021-07-19] MEDS: METHOCARBAMOL 500 MG TABLET PO PRN (10:29)
[2021-07-19] MEDS: LISINOPRIL 10 MG TABLET PO SCH (10:29)
[2021-07-19 10:36] VITALS: BP 113/68; PULSE 72
== END 2021-07-19 11:43 | disposition other institution (70) | DRG 773 ==
LOC: YASAS 09:16 → Y6N 10:24
PROVIDERS: ADMIT Allergy & Immunology; ATTEND Allergy & Immunology
PROC: HZ2ZZZZ Detoxification Services for Substance Abuse Treatment (ICD-10-PCS; principal; 2021-07-14)
DX: F11.23 Opioid dependence with withdrawal (principal); F14.20 Cocaine dependence, uncomplicated; F17.210 Nicotine dependence, cigarettes, uncomplicated; F19.282 Other psychoactive substance dependence with psychoactive substance-induced sleep disorder; R03.0 Elevated blood-pressure reading, without diagnosis of hypertension; M17.11 Unilateral primary osteoarthritis, right knee; D57.3 Sickle-cell trait; D50.9 Iron deficiency anemia, unspecified; Z88.8 Allergy status to other drugs, medicaments and biological substances; Z56.0 Unemployment, unspecified
CPT/HCPCS: 36415; 80053; 81025; 85027; 86780; C9803; Q0162; U0003; U0005

== ENCOUNTER 2021-07-19 12:20 | Inpatient (IN) | payer OTHER ==
[2021-07-19] MEDS ORDERED: NICOTINE 10 MG CARTRIDGE (INHALER) IH PRN (13:55)
[2021-07-19] MEDS ORDERED: MAGNESIUM CITRATE 300 ML BOTTLE PO PRN (13:55)
[2021-07-19] MEDS ORDERED: NICOTINE POLACRILEX 4 MG GUM BUC PRN (13:55)
[2021-07-19] MEDS ORDERED: MENTHOL/PHENOL 1 EACH UD MM PRN (13:55)
[2021-07-19] MEDS ORDERED: LOPERAMIDE HCL 2 MG CAPSULE PO PRN (13:55)
[2021-07-19] MEDS ORDERED: MAGNESIUM HYDROX 2400MG/30ML ORAL SUSPENSION 30 ML CUP PO PRN (13:55)
[2021-07-19] MEDS ORDERED: MAG HYDROX/AL HYDROX/SIMETH 30 ML UNIT-DOSE CUP PO PRN (13:55)
[2021-07-19] MEDS: IBUPROFEN 400 MG TABLET (FP) PO PRN (14:25)
[2021-07-19] MEDS: METHOCARBAMOL 500 MG TABLET PO PRN (16:10)
[2021-07-19] MEDS: ACETAMINOPHEN 325 MG TABLET (FP) PO PRN (21:52)
[2021-07-19] MEDS: THIAMINE HCL 100 MG TABLET (FP) PO SCH (21:55)
[2021-07-19] MEDS ORDERED: MELATONIN 5 MG TABLETS PO SCH (22:00)
[2021-07-19] MEDS ORDERED: SUVOREXANT 20 MG TABLET PO PRN (22:00)
[2021-07-20] MEDS: hydrOXYzine PAMOATE 25 MG CAPSULE (FP) PO PRN (07:47)
[2021-07-20] MEDS: IBUPROFEN 400 MG TABLET (FP) PO PRN (07:47)
[2021-07-20] MEDS: PRENATAL VITAMINS W/ FOLIC ACID TABLET (FP) PO SCH (09:44)
[2021-07-20 10:27] LABS: BASO % 0.6 % (0-2.0); EOS % 2.7 % (0-4.5); HEMATOCRIT 33.6 % (32.4-45.2); HEMOGLOBIN 11.4 GM/dL (10.7-15.3); LYMPH % 58.1 % (8-40); MCH 29.7 pg (25.7-33.7); MCHC 33.8 g/dl (32.0-36.0); MEAN CELL VOLUME 87.8 fl (80-96); MEAN PLT VOLUME 8.6 fl (7.5-11.1); MONO % 6.7 % (3.8-10.2); NEUT % 31.9 % (42.8-82.8); PLATELET COUNT 301 10^3/uL (134-434); RBC 3.82 M/mm3 (3.60-5.2); RDW 13.4 % (11.6-15.6); WHITE BLOOD COUNT 4.8 K/mm3 (4.0-10.0)
[2021-07-20] MEDS: LISINOPRIL 10 MG TABLET PO SCH (10:47)
[2021-07-20] MEDS: amLODIPine BESYLATE 5 MG TABLET (FP) PO SCH (10:48)
[2021-07-20] MEDS ORDERED: CHOLECALCIFEROL (VIT D3) 1,000 UNIT (25 MCG) TABLET PO SCH (15:39)
[2021-07-20 19:25] LABS: HIV INTERPRETATION NEGATIVE (NEGATIVE)
[2021-07-20] MEDS: THIAMINE HCL 100 MG TABLET (FP) PO SCH (23:38)
[2021-07-21] MEDS: hydrOXYzine PAMOATE 25 MG CAPSULE (FP) PO PRN (06:23)
[2021-07-21] MEDS: ACETAMINOPHEN 325 MG TABLET (FP) PO PRN ×2 (06:23→16:59)
[2021-07-21] MEDS: amLODIPine BESYLATE 5 MG TABLET (FP) PO SCH (09:09)
[2021-07-21] MEDS: PRENATAL VITAMINS W/ FOLIC ACID TABLET (FP) PO SCH (09:09)
[2021-07-21] MEDS: LISINOPRIL 10 MG TABLET PO SCH (09:09)
[2021-07-21] MEDS ORDERED: PT OWN MED DRAWER 7, Y5N ONE (10:38)
[2021-07-21 11:08] LABS: SARS-CoV-2 NAA Not Detected (Not Detected)
[2021-07-21] MEDS: METHOCARBAMOL 500 MG TABLET PO PRN (16:59)
[2021-07-21] MEDS: THIAMINE HCL 100 MG TABLET (FP) PO SCH (22:01)
[2021-07-22] MEDS: ACETAMINOPHEN 325 MG TABLET (FP) PO PRN (07:10)
[2021-07-22] MEDS: hydrOXYzine PAMOATE 25 MG CAPSULE (FP) PO PRN (07:10)
[2021-07-22] MEDS ORDERED: PT OWN MED DRAWER 7, Y5N ONE (09:00)
[2021-07-22] MEDS: PRENATAL VITAMINS W/ FOLIC ACID TABLET (FP) PO SCH (09:25)
[2021-07-22] MEDS: LISINOPRIL 10 MG TABLET PO SCH (09:25)
[2021-07-22] MEDS: amLODIPine BESYLATE 10 MG TABLET (FP) PO SCH (09:25)
[2021-07-22] MEDS: IBUPROFEN 400 MG TABLET (FP) PO PRN (19:05)
[2021-07-22] MEDS: METHOCARBAMOL 500 MG TABLET PO PRN (19:06)
[2021-07-22] MEDS ORDERED: SUVOREXANT 20 MG TABLET PO PRN (22:00)
[2021-07-22] MEDS: THIAMINE HCL 100 MG TABLET (FP) PO SCH (22:24)
[2021-07-23] MEDS: IBUPROFEN 400 MG TABLET (FP) PO PRN ×2 (06:20→18:09)
[2021-07-23] MEDS: amLODIPine BESYLATE 10 MG TABLET (FP) PO SCH (09:26)
[2021-07-23] MEDS: PRENATAL VITAMINS W/ FOLIC ACID TABLET (FP) PO SCH (09:26)
[2021-07-23] MEDS: hydrOXYzine PAMOATE 25 MG CAPSULE (FP) PO PRN (09:26)
[2021-07-23] MEDS: LISINOPRIL 10 MG TABLET PO SCH (09:26)
[2021-07-23] MEDS ORDERED: BUPRENORPHINE/NALOXONE 2 MG/0.5 MG FILM PACKET SL ONE (12:00)
[2021-07-23] MEDS: METHOCARBAMOL 500 MG TABLET PO PRN (18:09)
[2021-07-23] MEDS: THIAMINE HCL 100 MG TABLET (FP) PO SCH (21:12)
[2021-07-24] MEDS: PRENATAL VITAMINS W/ FOLIC ACID TABLET (FP) PO SCH (09:33)
[2021-07-24] MEDS ORDERED: PT OWN MED DRAWER 7, Y5N ONE (09:34)
[2021-07-24] MEDS: CHOLECALCIFEROL (VIT D3) 1,000 UNIT (25 MCG) TABLET PO SCH (09:35)
[2021-07-24] MEDS: IBUPROFEN 400 MG TABLET (FP) PO PRN (09:35)
[2021-07-24] MEDS: BUPRENORPHINE/NALOXONE 4 MG/1 MG FILM PACKET SL SCH (09:35)
[2021-07-24] MEDS: hydrOXYzine PAMOATE 25 MG CAPSULE (FP) PO PRN (21:05)
[2021-07-24] MEDS: METHOCARBAMOL 500 MG TABLET PO PRN (21:06)
[2021-07-24] MEDS: ACETAMINOPHEN 325 MG TABLET (FP) PO PRN (21:06)
[2021-07-24] MEDS: THIAMINE HCL 100 MG TABLET (FP) PO SCH (22:13)
[2021-07-25] MEDS: hydrOXYzine PAMOATE 25 MG CAPSULE (FP) PO PRN (06:35)
[2021-07-25] MEDS: ACETAMINOPHEN 325 MG TABLET (FP) PO PRN ×2 (06:35→19:45)
[2021-07-25] MEDS ORDERED: PT OWN MED DRAWER 7, Y5N ONE (08:51)
[2021-07-25] MEDS: CHOLECALCIFEROL (VIT D3) 1,000 UNIT (25 MCG) TABLET PO SCH (09:28)
[2021-07-25] MEDS: PRENATAL VITAMINS W/ FOLIC ACID TABLET (FP) PO SCH (09:28)
[2021-07-25] MEDS: BUPRENORPHINE/NALOXONE 4 MG/1 MG FILM PACKET SL SCH (09:30)
[2021-07-25] MEDS: METHOCARBAMOL 500 MG TABLET PO PRN (12:41)
[2021-07-25] MEDS ORDERED: SUVOREXANT 20 MG TABLET PO PRN (22:00)
[2021-07-25] MEDS: THIAMINE HCL 100 MG TABLET (FP) PO SCH (22:15)
[2021-07-26] MEDS: IBUPROFEN 400 MG TABLET (FP) PO PRN (06:01)
[2021-07-26] MEDS: hydrOXYzine PAMOATE 25 MG CAPSULE (FP) PO PRN (06:02)
[2021-07-26 07:15] VITALS: BP 123/72; PULSE 87; TEMP 97.9
[2021-07-26] MEDS: PRENATAL VITAMINS W/ FOLIC ACID TABLET (FP) PO SCH (09:01)
[2021-07-26] MEDS ORDERED: PT OWN MED DRAWER 7, Y5N ONE (09:03)
[2021-07-26] MEDS: CHOLECALCIFEROL (VIT D3) 1,000 UNIT (25 MCG) TABLET PO SCH (09:03)
[2021-07-26] MEDS ORDERED: BUPRENORPHINE/NALOXONE 2 MG/0.5 MG FILM PACKET SL SCH (10:00)
== END 2021-07-26 09:15 | disposition home or self-care (01) | DRG 772 ==
LOC: YASAS 12:20 → Y5N 12:21
PROVIDERS: ADMIT Allergy & Immunology; ATTEND Allergy & Immunology
PROC: HZ42ZZZ Group Counseling for Substance Abuse Treatment, Cognitive-Behavioral (ICD-10-PCS; principal; 2021-07-19)
DX: F11.20 Opioid dependence, uncomplicated (principal); F14.20 Cocaine dependence, uncomplicated; F17.210 Nicotine dependence, cigarettes, uncomplicated; D50.9 Iron deficiency anemia, unspecified; M17.11 Unilateral primary osteoarthritis, right knee; Z20.822 Contact with and (suspected) exposure to COVID-19; Z86.59 Personal history of other mental and behavioral disorders
CPT/HCPCS: 36415; 85025; 87389; C9803; U0003; U0005

== ENCOUNTER 2021-09-03 12:41 | Inpatient (IN) | payer OTHER ==
[2021-09-03] MEDS ORDERED: ONDANSETRON *ODT* 4 MG TABLET SL PRN (13:51)
[2021-09-03] MEDS ORDERED: MAGNESIUM HYDROX 2400MG/30ML ORAL SUSPENSION 30 ML CUP PO PRN (13:51)
[2021-09-03] MEDS ORDERED: cloNIDine HCL 0.1 MG TABLET PO PRN (13:51)
[2021-09-03] MEDS ORDERED: MENTHOL/PHENOL 1 EACH UD MM PRN (13:51)
[2021-09-03] MEDS ORDERED: BISMUTH SUBSALICYLATE 262 MG/15 ML BTL PO PRN (13:51)
[2021-09-03] MEDS ORDERED: MAGNESIUM CITRATE 300 ML BOTTLE PO PRN (13:51)
[2021-09-03] MEDS ORDERED: ACETAMINOPHEN 325 MG TABLET (FP) PO PRN (13:51)
[2021-09-03] MEDS ORDERED: MAG HYDROX/AL HYDROX/SIMETH 30 ML UNIT-DOSE CUP PO PRN (13:51)
[2021-09-03] MEDS ORDERED: NICOTINE 10 MG CARTRIDGE (INHALER) IH PRN (13:51)
[2021-09-03 14:56] VITALS: BMI 29.8
[2021-09-03] MEDS ORDERED: methaDONE HCL 10 MG TABLET (FOR DETOX USE ONLY) PO ONE (15:00)
[2021-09-03] MEDS: PETROLATUM, WHITE 30 GM TUBE TP SCH (16:30)
[2021-09-03] MEDS: hydrOXYzine PAMOATE 25 MG CAPSULE (FP) PO SCH ×3 (16:30→22:29)
[2021-09-03] MEDS: IBUPROFEN 400 MG TABLET (FP) PO PRN (19:38)
[2021-09-03] MEDS: diazePAM 5 MG TABLET PO PRN (22:12)
[2021-09-03] MEDS: THIAMINE HCL 100 MG TABLET (FP) PO SCH (22:14)
[2021-09-03] MEDS: MELATONIN 5 MG TABLETS PO SCH (22:14)
[2021-09-04] MEDS: METHOCARBAMOL 500 MG TABLET PO PRN ×3 (00:48→22:14)
[2021-09-04] MEDS: ACETAMINOPHEN 325 MG TABLET (FP) PO PRN (06:16)
[2021-09-04] MEDS: hydrOXYzine PAMOATE 25 MG CAPSULE (FP) PO SCH ×5 (06:17→22:14)
[2021-09-04] MEDS: diazePAM 5 MG TABLET PO PRN ×3 (06:19→18:19)
[2021-09-04] MEDS ORDERED: methaDONE HCL 10 MG TABLET (FOR DETOX USE ONLY) ONE (09:28)
[2021-09-04] MEDS: PETROLATUM, WHITE 30 GM TUBE TP SCH (10:29)
[2021-09-04] MEDS: PRENATAL VITAMINS W/ FOLIC ACID TABLET (FP) PO SCH (10:29)
[2021-09-04 13:27] LABS: HEMATOCRIT 30.8 % (32.4-45.2); HEMOGLOBIN 10.4 GM/dL (10.7-15.3); MCH 29.3 pg (25.7-33.7); MCHC 33.7 g/dl (32.0-36.0); MEAN CELL VOLUME 87.1 fl (80-96); MEAN PLT VOLUME 8.1 fl (7.5-11.1); PLATELET COUNT 299 10^3/uL (134-434); RBC 3.54 M/mm3 (3.60-5.2); RDW 13.8 % (11.6-15.6); WHITE BLOOD COUNT 5.5 K/mm3 (4.0-10.0)
[2021-09-04 13:30] LABS: BLOOD UREA NITROGEN 11.3 mg/dL (7-18)
[2021-09-04 13:32] LABS: CREATININE 0.9 mg/dL (0.55-1.3)
[2021-09-04 13:33] LABS: ALBUMIN 3.5 g/dl (3.4-5.0); BILIRUBIN,TOTAL 0.3 mg/dL (0.2-1); TOT PROT 6.6 g/dl (6.4-8.2)
[2021-09-04] MEDS: LIDOCAINE 5% TOPICAL PATCH TP SCH (13:46)
[2021-09-04] MEDS: IBUPROFEN 400 MG TABLET (FP) PO PRN (13:47)
[2021-09-04] MEDS: LIDOCAINE PATCH REMOVAL MC SCH (22:05)
[2021-09-04] MEDS: MELATONIN 5 MG TABLETS PO SCH (22:14)
[2021-09-04] MEDS: THIAMINE HCL 100 MG TABLET (FP) PO SCH (22:14)
[2021-09-05] MEDS: hydrOXYzine PAMOATE 25 MG CAPSULE (FP) PO SCH ×5 (06:00→22:02)
[2021-09-05] MEDS ORDERED: methaDONE HCL 10 MG TABLET (FOR DETOX USE ONLY) PO ONE (10:00)
[2021-09-05] MEDS: METHOCARBAMOL 500 MG TABLET PO PRN ×2 (10:04→17:29)
[2021-09-05] MEDS: PRENATAL VITAMINS W/ FOLIC ACID TABLET (FP) PO SCH (10:04)
[2021-09-05] MEDS: diazePAM 5 MG TABLET PO PRN (10:05)
[2021-09-05] MEDS: LIDOCAINE 5% TOPICAL PATCH TP SCH (10:06)
[2021-09-05] MEDS: PETROLATUM, WHITE 30 GM TUBE TP SCH (10:06)
[2021-09-05] MEDS: IBUPROFEN 400 MG TABLET (FP) PO PRN (11:39)
[2021-09-05] MEDS: amLODIPine BESYLATE 5 MG TABLET (FP) PO SCH (15:16)
[2021-09-05] MEDS: MELATONIN 5 MG TABLETS PO SCH (22:01)
[2021-09-05] MEDS: THIAMINE HCL 100 MG TABLET (FP) PO SCH (22:02)
[2021-09-05] MEDS: LIDOCAINE PATCH REMOVAL MC SCH (22:02)
[2021-09-06] MEDS: diazePAM 5 MG TABLET PO PRN ×2 (03:11→10:14)
[2021-09-06] MEDS: hydrOXYzine PAMOATE 25 MG CAPSULE (FP) PO SCH ×5 (06:31→22:24)
[2021-09-06] MEDS: METHOCARBAMOL 500 MG TABLET PO PRN ×2 (06:38→12:12)
[2021-09-06] MEDS ORDERED: methaDONE HCL 10 MG TABLET (FOR DETOX USE ONLY) ONE (09:42)
[2021-09-06] MEDS: amLODIPine BESYLATE 5 MG TABLET (FP) PO SCH (10:13)
[2021-09-06] MEDS: LIDOCAINE 5% TOPICAL PATCH TP SCH (10:13)
[2021-09-06] MEDS: PRENATAL VITAMINS W/ FOLIC ACID TABLET (FP) PO SCH (10:18)
[2021-09-06] MEDS: PETROLATUM, WHITE 30 GM TUBE TP SCH (12:11)
[2021-09-06] MEDS: IBUPROFEN 400 MG TABLET (FP) PO PRN ×2 (12:12→22:25)
[2021-09-06] MEDS: LIDOCAINE VISCOUS 2% ORAL/TOP 100 ML BOTTLE MM SCH ×2 (14:33→20:29)
[2021-09-06] MEDS: THIAMINE HCL 100 MG TABLET (FP) PO SCH (22:24)
[2021-09-06] MEDS: MELATONIN 5 MG TABLETS PO SCH (22:24)
[2021-09-06] MEDS: LIDOCAINE PATCH REMOVAL MC SCH (23:42)
[2021-09-07] MEDS: LIDOCAINE VISCOUS 2% ORAL/TOP 100 ML BOTTLE MM SCH ×3 (03:50→19:18)
[2021-09-07] MEDS: hydrOXYzine PAMOATE 25 MG CAPSULE (FP) PO SCH ×5 (06:51→22:16)
[2021-09-07] MEDS ORDERED: methaDONE HCL 10 MG TABLET (FOR DETOX USE ONLY) PO ONE (10:00)
[2021-09-07] MEDS: METHOCARBAMOL 500 MG TABLET PO PRN (10:14)
[2021-09-07] MEDS: IBUPROFEN 400 MG TABLET (FP) PO PRN ×2 (10:14→22:17)
[2021-09-07] MEDS: PRENATAL VITAMINS W/ FOLIC ACID TABLET (FP) PO SCH (10:14)
[2021-09-07] MEDS: amLODIPine BESYLATE 5 MG TABLET (FP) PO SCH (10:14)
[2021-09-07] MEDS: LIDOCAINE 5% TOPICAL PATCH TP SCH (10:17)
[2021-09-07] MEDS: PETROLATUM, WHITE 30 GM TUBE TP SCH (10:40)
[2021-09-07] MEDS: LIDOCAINE VISCOUS 2% ORAL/TOP 15 ML UNIT-DOSE CUP MM SCH (21:41)
[2021-09-07] MEDS: LIDOCAINE PATCH REMOVAL MC SCH (22:15)
[2021-09-07] MEDS: THIAMINE HCL 100 MG TABLET (FP) PO SCH (22:16)
[2021-09-07] MEDS: MELATONIN 5 MG TABLETS PO SCH (22:16)
[2021-09-08] MEDS: hydrOXYzine PAMOATE 25 MG CAPSULE (FP) PO SCH ×5 (05:03→22:52)
[2021-09-08] MEDS: LIDOCAINE VISCOUS 2% ORAL/TOP 15 ML UNIT-DOSE CUP MM SCH ×2 (05:05→15:18)
[2021-09-08] MEDS: LIDOCAINE 5% TOPICAL PATCH TP SCH (10:09)
[2021-09-08] MEDS: PETROLATUM, WHITE 30 GM TUBE TP SCH (10:10)
[2021-09-08] MEDS: PRENATAL VITAMINS W/ FOLIC ACID TABLET (FP) PO SCH (10:10)
[2021-09-08] MEDS: amLODIPine BESYLATE 5 MG TABLET (FP) PO SCH (10:10)
[2021-09-08 14:19] VITALS: PULSE 91
[2021-09-08] MEDS: ACETAMINOPHEN 325 MG TABLET (FP) PO PRN (15:15)
[2021-09-08] MEDS: IBUPROFEN 400 MG TABLET (FP) PO PRN (18:38)
[2021-09-08] MEDS: MELATONIN 5 MG TABLETS PO SCH (22:51)
[2021-09-08] MEDS: LIDOCAINE PATCH REMOVAL MC SCH (22:51)
[2021-09-08] MEDS: THIAMINE HCL 100 MG TABLET (FP) PO SCH (22:52)
[2021-09-08 23:30] VITALS: BP 130/75; TEMP 97.8
[2021-09-09] MEDS: LIDOCAINE VISCOUS 2% ORAL/TOP 15 ML UNIT-DOSE CUP MM SCH (00:52)
[2021-09-09] MEDS: hydrOXYzine PAMOATE 25 MG CAPSULE (FP) PO SCH (06:27)
== END 2021-09-09 09:54 | disposition home or self-care (01) | DRG 773 ==
LOC: YASAS 12:41 → Y6N 14:57
PROVIDERS: ADMIT Allergy & Immunology; ATTEND Allergy & Immunology
PROC: HZ2ZZZZ Detoxification Services for Substance Abuse Treatment (ICD-10-PCS; principal; 2021-09-03)
DX: F11.23 Opioid dependence with withdrawal (principal); F14.20 Cocaine dependence, uncomplicated; F17.210 Nicotine dependence, cigarettes, uncomplicated; D50.9 Iron deficiency anemia, unspecified; D57.3 Sickle-cell trait; I10 Essential (primary) hypertension; M17.11 Unilateral primary osteoarthritis, right knee; M54.50 Low back pain, unspecified; Z88.8 Allergy status to other drugs, medicaments and biological substances
CPT/HCPCS: 36415; 80053; 85027; 86780; C9803; U0003; U0005

== ENCOUNTER 2021-10-16 18:04 | Inpatient (IN) | payer OTHER ==
[2021-10-16] MEDS ORDERED: MAGNESIUM CITRATE 300 ML BOTTLE PO PRN (19:43)
[2021-10-16] MEDS ORDERED: MENTHOL/PHENOL 1 EACH UD MM PRN (19:43)
[2021-10-16] MEDS ORDERED: NICOTINE POLACRILEX 2 MG GUM BUC PRN (19:43)
[2021-10-16] MEDS ORDERED: ACETAMINOPHEN 325 MG TABLET (FP) PO PRN (19:43)
[2021-10-16] MEDS ORDERED: NALOXONE HCL 0.4 MG/ML VIAL IM PRN (19:43)
[2021-10-16] MEDS ORDERED: ONDANSETRON *ODT* 4 MG TABLET SL PRN (19:43)
[2021-10-16] MEDS ORDERED: BISMUTH SUBSALICYLATE 524 MG/30 ML PO PRN (19:43)
[2021-10-16] MEDS ORDERED: MAG HYDROX/AL HYDROX/SIMETH 30 ML UNIT-DOSE CUP PO PRN (19:43)
[2021-10-16] MEDS ORDERED: DICYCLOMINE HCL 10 MG CAPSULE PO PRN (19:43)
[2021-10-16] MEDS ORDERED: LOPERAMIDE HCL 2 MG CAPSULE PO PRN (19:43)
[2021-10-16] MEDS ORDERED: MAGNESIUM HYDROX 2400MG/30ML ORAL SUSPENSION 30 ML CUP PO PRN (19:43)
[2021-10-16] MEDS ORDERED: IBUPROFEN 400 MG TABLET (FP) PO PRN (19:43)
[2021-10-16] MEDS ORDERED: NALOXONE (NARCAN) HCL 4 MG/0.1 ML SPRAY NS PRN (19:43)
[2021-10-17] MEDS ORDERED: methaDONE HCL 10 MG TABLET (FOR DETOX USE ONLY) PO ONE ×2 (00:28→10:00)
[2021-10-17 00:42] VITALS: BMI 28.3
[2021-10-17] MEDS: THIAMINE HCL 100 MG TABLET (FP) PO SCH ×2 (01:06→22:10)
[2021-10-17] MEDS: MELATONIN 5 MG TABLETS PO SCH ×2 (01:06→22:10)
[2021-10-17] MEDS: PRENATAL VITAMINS W/ FOLIC ACID TABLET (FP) PO SCH (10:06)
[2021-10-17] MEDS: NICOTINE 14 MG/24 HOURS TOPICAL PATCH TD SCH (10:06)
[2021-10-17] MEDS: ACETAMINOPHEN 325 MG TABLET (FP) PO PRN ×2 (11:23→18:54)
[2021-10-17 14:13] LABS: HEMATOCRIT 29.4 % (32.4-45.2); HEMOGLOBIN 10.2 GM/dL (10.7-15.3); MCH 30.2 pg (25.7-33.7); MCHC 34.7 g/dl (32.0-36.0); MEAN CELL VOLUME 87.2 fl (80-96); PLATELET COUNT 300 10^3/uL (134-434); RBC 3.37 M/mm3 (3.60-5.2); RDW 13.8 % (11.6-15.6)
[2021-10-17 14:26] LABS: CALCIUM 8.9 mg/dL (8.5-10.1)
[2021-10-17 14:27] LABS: ALBUMIN 3.8 g/dl (3.4-5.0); BLOOD UREA NITROGEN 18.2 mg/dL (7-18)
[2021-10-17 14:30] LABS: CREATININE 0.9 mg/dL (0.55-1.3)
[2021-10-17 14:31] LABS: BILIRUBIN,TOTAL 0.8 mg/dL (0.2-1)
[2021-10-17 15:27] LABS: HIV INTERPRETATION NEGATIVE (NEGATIVE)
[2021-10-17] MEDS: METHOCARBAMOL 500 MG TABLET PO PRN (22:11)
[2021-10-18] MEDS: ACETAMINOPHEN 325 MG TABLET (FP) PO PRN ×2 (06:23→14:22)
[2021-10-18] MEDS ORDERED: methaDONE HCL 10 MG TABLET (FOR DETOX USE ONLY) ONE (10:00)
[2021-10-18] MEDS: PRENATAL VITAMINS W/ FOLIC ACID TABLET (FP) PO SCH (10:17)
[2021-10-18] MEDS: NICOTINE 14 MG/24 HOURS TOPICAL PATCH TD SCH (10:17)
[2021-10-18 14:08] LABS: SARS-CoV-2 NAA Not Detected (Not Detected)
[2021-10-18] MEDS: METHOCARBAMOL 500 MG TABLET PO PRN ×2 (14:22→22:20)
[2021-10-18] MEDS: THIAMINE HCL 100 MG TABLET (FP) PO SCH (22:20)
[2021-10-18] MEDS: MELATONIN 5 MG TABLETS PO SCH (22:20)
[2021-10-19] MEDS ORDERED: methaDONE HCL 10 MG TABLET (FOR DETOX USE ONLY) PO ONE (10:00)
[2021-10-19] MEDS: NICOTINE 14 MG/24 HOURS TOPICAL PATCH TD SCH (10:10)
[2021-10-19] MEDS: PRENATAL VITAMINS W/ FOLIC ACID TABLET (FP) PO SCH (10:10)
[2021-10-19] MEDS: ACETAMINOPHEN 325 MG TABLET (FP) PO PRN (17:44)
[2021-10-19] MEDS: THIAMINE HCL 100 MG TABLET (FP) PO SCH (22:06)
[2021-10-19] MEDS: METHOCARBAMOL 500 MG TABLET PO PRN (22:06)
[2021-10-19] MEDS: MELATONIN 5 MG TABLETS PO SCH (22:06)
[2021-10-20] MEDS: ACETAMINOPHEN 325 MG TABLET (FP) PO PRN ×2 (06:00→17:10)
[2021-10-20] MEDS ORDERED: methaDONE HCL 10 MG TABLET (FOR DETOX USE ONLY) ONE (09:52)
[2021-10-20] MEDS: PRENATAL VITAMINS W/ FOLIC ACID TABLET (FP) PO SCH (10:15)
[2021-10-20] MEDS: NICOTINE 14 MG/24 HOURS TOPICAL PATCH TD SCH (11:08)
[2021-10-20] MEDS: THIAMINE HCL 100 MG TABLET (FP) PO SCH (22:03)
[2021-10-20] MEDS: METHOCARBAMOL 500 MG TABLET PO PRN (22:03)
[2021-10-20] MEDS: MELATONIN 5 MG TABLETS PO SCH (22:03)
[2021-10-21] MEDS ORDERED: methaDONE HCL 10 MG TABLET (FOR DETOX USE ONLY) PO ONE (10:00)
[2021-10-21] MEDS: NICOTINE 14 MG/24 HOURS TOPICAL PATCH TD SCH (10:09)
[2021-10-21] MEDS: PRENATAL VITAMINS W/ FOLIC ACID TABLET (FP) PO SCH (10:09)
[2021-10-21] MEDS: THIAMINE HCL 100 MG TABLET (FP) PO SCH (23:45)
[2021-10-21] MEDS: MELATONIN 5 MG TABLETS PO SCH (23:45)
[2021-10-22 06:38] VITALS: BP 127/67; PULSE 79; TEMP 98.2
[2021-10-22] MEDS: ACETAMINOPHEN 325 MG TABLET (FP) PO PRN (10:26)
[2021-10-22] MEDS: PRENATAL VITAMINS W/ FOLIC ACID TABLET (FP) PO SCH (10:26)
== END 2021-10-22 11:58 | disposition home or self-care (01) | DRG 773 ==
LOC: YASAS 18:04 → Y3N 22:39
PROVIDERS: ADMIT Allergy & Immunology; ATTEND Allergy & Immunology
PROC: HZ2ZZZZ Detoxification Services for Substance Abuse Treatment (ICD-10-PCS; principal; 2021-10-16)
DX: F11.23 Opioid dependence with withdrawal (principal); F14.20 Cocaine dependence, uncomplicated; F17.210 Nicotine dependence, cigarettes, uncomplicated; D50.9 Iron deficiency anemia, unspecified; D57.3 Sickle-cell trait; Z88.8 Allergy status to other drugs, medicaments and biological substances
CPT/HCPCS: 36415; 80053; 81025; 82947; 85027; 86780; 87389; C9803; U0003; U0005

== ENCOUNTER 2021-10-23 09:01 | Inpatient (IN) | payer OTHER ==
[2021-10-23 09:32] VITALS: BMI 29.3
[2021-10-23] MEDS ORDERED: MAGNESIUM CITRATE 300 ML BOTTLE PO PRN (11:17)
[2021-10-23] MEDS ORDERED: P-EPHED 60MG/TRIPROLIDI 2.5MG TABLET PO PRN (11:17)
[2021-10-23] MEDS ORDERED: MAGNESIUM HYDROX 2400MG/30ML ORAL SUSPENSION 30 ML CUP PO PRN (11:17)
[2021-10-23] MEDS ORDERED: MAG HYDROX/AL HYDROX/SIMETH 30 ML UNIT-DOSE CUP PO PRN (11:17)
[2021-10-23] MEDS ORDERED: LOPERAMIDE HCL 2 MG CAPSULE PO PRN (11:17)
[2021-10-23] MEDS ORDERED: guaiFENesin 200 MG/10 ML 10 ML UNIT-DOSE CUPS PO PRN (11:17)
[2021-10-23] MEDS ORDERED: NICOTINE 10 MG CARTRIDGE (INHALER) IH PRN (11:17)
[2021-10-23] MEDS ORDERED: IBUPROFEN 400 MG TABLET (FP) PO PRN (11:17)
[2021-10-23] MEDS: hydrOXYzine PAMOATE 25 MG CAPSULE (FP) PO SCH ×3 (13:12→21:46)
[2021-10-23] MEDS: THIAMINE HCL 100 MG TABLET (FP) PO SCH (21:46)
[2021-10-23] MEDS: MELATONIN 5 MG TABLETS PO SCH (21:46)
[2021-10-24] MEDS: ACETAMINOPHEN 325 MG TABLET (FP) PO PRN (06:03)
[2021-10-24] MEDS: hydrOXYzine PAMOATE 25 MG CAPSULE (FP) PO SCH ×2 (06:04→10:44)
[2021-10-24] MEDS: NICOTINE 7 MG/24 HOURS TOPICAL PATCH TD SCH (10:44)
[2021-10-24] MEDS: PRENATAL VITAMINS W/ FOLIC ACID TABLET (FP) PO SCH (10:44)
[2021-10-24] MEDS ORDERED: cloNIDine HCL 0.1 MG TABLET PO PRN (21:35)
[2021-10-24] MEDS: MELATONIN 5 MG TABLETS PO SCH (21:40)
[2021-10-24] MEDS: THIAMINE HCL 100 MG TABLET (FP) PO SCH (21:40)
[2021-10-25] MEDS: ACETAMINOPHEN 325 MG TABLET (FP) PO PRN (06:06)
[2021-10-25] MEDS: NICOTINE 7 MG/24 HOURS TOPICAL PATCH TD SCH (10:16)
[2021-10-25] MEDS: PRENATAL VITAMINS W/ FOLIC ACID TABLET (FP) PO SCH (10:16)
[2021-10-25] MEDS: hydrOXYzine PAMOATE 25 MG CAPSULE (FP) PO PRN (10:16)
[2021-10-25] MEDS ORDERED: NICOTINE POLACRILEX 2 MG GUM BUC PRN (10:22)
[2021-10-25] MEDS: MELATONIN 5 MG TABLETS PO SCH (21:34)
[2021-10-25] MEDS: THIAMINE HCL 100 MG TABLET (FP) PO SCH (21:34)
[2021-10-26] MEDS: PRENATAL VITAMINS W/ FOLIC ACID TABLET (FP) PO SCH (10:27)
[2021-10-26] MEDS: ACETAMINOPHEN 325 MG TABLET (FP) PO PRN (10:27)
[2021-10-26] MEDS: hydrOXYzine PAMOATE 25 MG CAPSULE (FP) PO PRN (10:28)
[2021-10-26] MEDS: MELATONIN 5 MG TABLETS PO SCH (22:57)
[2021-10-26] MEDS: THIAMINE HCL 100 MG TABLET (FP) PO SCH (22:57)
[2021-10-27] MEDS: ACETAMINOPHEN 325 MG TABLET (FP) PO PRN (11:01)
[2021-10-27] MEDS: PRENATAL VITAMINS W/ FOLIC ACID TABLET (FP) PO SCH (11:01)
[2021-10-27] MEDS: hydrOXYzine PAMOATE 25 MG CAPSULE (FP) PO PRN (11:02)
[2021-10-27 14:07] LABS: SARS-CoV-2 NAA Not Detected (Not Detected)
[2021-10-27] MEDS: THIAMINE HCL 100 MG TABLET (FP) PO SCH (22:05)
[2021-10-27] MEDS: MELATONIN 5 MG TABLETS PO SCH (22:05)
[2021-10-28] MEDS: ACETAMINOPHEN 325 MG TABLET (FP) PO PRN (08:52)
[2021-10-28] MEDS: PRENATAL VITAMINS W/ FOLIC ACID TABLET (FP) PO SCH (10:30)
[2021-10-28] MEDS: hydrOXYzine PAMOATE 25 MG CAPSULE (FP) PO PRN (10:31)
[2021-10-28] MEDS: THIAMINE HCL 100 MG TABLET (FP) PO SCH (22:26)
[2021-10-28] MEDS: MELATONIN 5 MG TABLETS PO SCH (22:26)
[2021-10-29] MEDS: PRENATAL VITAMINS W/ FOLIC ACID TABLET (FP) PO SCH (10:27)
[2021-10-29] MEDS: hydrOXYzine PAMOATE 25 MG CAPSULE (FP) PO PRN ×2 (10:27→16:57)
[2021-10-29] MEDS: ACETAMINOPHEN 325 MG TABLET (FP) PO PRN ×2 (10:28→16:57)
[2021-10-30] MEDS: MELATONIN 5 MG TABLETS PO SCH (00:20)
[2021-10-30] MEDS: THIAMINE HCL 100 MG TABLET (FP) PO SCH (00:20)
[2021-10-30] MEDS: ACETAMINOPHEN 325 MG TABLET (FP) PO PRN (06:12)
[2021-10-30 07:33] VITALS: BP 126/69; PULSE 74; TEMP 97.8
[2021-10-30] MEDS: PRENATAL VITAMINS W/ FOLIC ACID TABLET (FP) PO SCH (11:19)
== END 2021-10-30 11:50 | disposition home or self-care (01) | DRG 772 ==
LOC: YASAS 09:01 → Y5N 11:39
PROVIDERS: ADMIT Allergy & Immunology; ATTEND Allergy & Immunology
PROC: HZ42ZZZ Group Counseling for Substance Abuse Treatment, Cognitive-Behavioral (ICD-10-PCS; principal; 2021-10-23)
DX: F11.20 Opioid dependence, uncomplicated (principal); F14.20 Cocaine dependence, uncomplicated; F17.210 Nicotine dependence, cigarettes, uncomplicated; I10 Essential (primary) hypertension; M17.11 Unilateral primary osteoarthritis, right knee; Z86.2 Personal history of diseases of the blood and blood-forming organs and certain disorders involving the immune mechanism; Z88.8 Allergy status to other drugs, medicaments and biological substances
CPT/HCPCS: 81025; 87811; C9803; U0003; U0005

== ENCOUNTER 2022-01-10 09:45 | Inpatient (IN) | payer OTHER ==
[2022-01-10] MEDS: hydrOXYzine PAMOATE 25 MG CAPSULE (FP) PO SCH ×3 (00:25→18:13)
[2022-01-10 10:15] VITALS: BMI 27.9
[2022-01-10] MEDS ORDERED: DICYCLOMINE HCL 10 MG CAPSULE PO PRN (10:28)
[2022-01-10] MEDS ORDERED: MAGNESIUM CITRATE 300 ML BOTTLE PO PRN (10:28)
[2022-01-10] MEDS ORDERED: LOPERAMIDE HCL 2 MG CAPSULE PO PRN (10:28)
[2022-01-10] MEDS ORDERED: BISMUTH SUBSALICYLATE 524 MG/30 ML PO PRN (10:28)
[2022-01-10] MEDS ORDERED: ONDANSETRON *ODT* 4 MG TABLET SL PRN (10:28)
[2022-01-10] MEDS ORDERED: MAG HYDROX/AL HYDROX/SIMETH 30 ML UNIT-DOSE CUP PO PRN (10:28)
[2022-01-10] MEDS ORDERED: NICOTINE POLACRILEX 2 MG GUM BUC PRN (10:28)
[2022-01-10] MEDS ORDERED: BENZOCAINE/MENTHOL (CHLORASEPTIC ) LOZENGE MM PRN (10:28)
[2022-01-10] MEDS ORDERED: MAGNESIUM HYDROX 2400MG/30ML ORAL SUSPENSION 30 ML CUP PO PRN (10:28)
[2022-01-10] MEDS ORDERED: ACETAMINOPHEN 325 MG TABLET (FP) PO PRN (10:28)
[2022-01-10] MEDS ORDERED: NICOTINE 10 MG CARTRIDGE (INHALER) IH PRN (10:28)
[2022-01-10] MEDS ORDERED: IBUPROFEN 400 MG TABLET (FP) PO ONE (11:10)
[2022-01-10] MEDS: IBUPROFEN 400 MG TABLET (FP) PO PRN ×2 (11:13→18:13)
[2022-01-10] MEDS: diazePAM 5 MG TABLET PO PRN ×2 (11:44→18:14)
[2022-01-10] MEDS: PRENATAL VITAMINS W/ FOLIC ACID TABLET (FP) PO SCH (11:46)
[2022-01-10] MEDS ORDERED: methaDONE HCL 10 MG TABLET (FOR DETOX USE ONLY) PO ONE (12:30)
[2022-01-10] MEDS: THIAMINE HCL 100 MG TABLET (FP) PO SCH (18:25)
[2022-01-10] MEDS: MELATONIN 5 MG TABLETS PO SCH (22:23)
[2022-01-11] MEDS: hydrOXYzine PAMOATE 25 MG CAPSULE (FP) PO SCH ×5 (05:51→22:58)
[2022-01-11] MEDS ORDERED: methaDONE HCL 10 MG TABLET (FOR DETOX USE ONLY) ONE (09:26)
[2022-01-11 10:27] LABS: HEMATOCRIT 35.1 % (32.4-45.2); HEMOGLOBIN 11.4 GM/dL (10.7-15.3); MCH 28.9 pg (25.7-33.7); MCHC 32.5 g/dl (32.0-36.0); MEAN CELL VOLUME 88.7 fl (80-96); MEAN PLT VOLUME 9.3 fl (7.5-11.1); PLATELET COUNT 352 10^3/uL (134-434); RBC 3.95 M/mm3 (3.60-5.2); RDW 13.5 % (11.6-15.6); WHITE BLOOD COUNT 9.2 K/mm3 (4.0-10.0)
[2022-01-11] MEDS: PRENATAL VITAMINS W/ FOLIC ACID TABLET (FP) PO SCH (11:00)
[2022-01-11] MEDS: IBUPROFEN 400 MG TABLET (FP) PO PRN (11:02)
[2022-01-11 11:39] LABS: ALBUMIN 4.5 g/dl (3.4-5.0); BILIRUBIN,TOTAL 0.7 mg/dL (0.2-1); BLOOD UREA NITROGEN 11.6 mg/dL (7-18); CALCIUM 9.4 mg/dL (8.5-10.1); CREATININE 0.8 mg/dL (0.55-1.3); TOT PROT 8.2 g/dl (6.4-8.2)
[2022-01-11] MEDS: THIAMINE HCL 100 MG TABLET (FP) PO SCH (22:58)
[2022-01-11] MEDS: MELATONIN 5 MG TABLETS PO SCH (22:58)
[2022-01-12] MEDS: hydrOXYzine PAMOATE 25 MG CAPSULE (FP) PO SCH ×5 (06:08→22:30)
[2022-01-12] MEDS ORDERED: methaDONE HCL 10 MG TABLET (FOR DETOX USE ONLY) PO ONE (10:00)
[2022-01-12] MEDS: diazePAM 5 MG TABLET PO PRN (10:28)
[2022-01-12] MEDS: PRENATAL VITAMINS W/ FOLIC ACID TABLET (FP) PO SCH (10:29)
[2022-01-12] MEDS: IBUPROFEN 400 MG TABLET (FP) PO PRN (10:29)
[2022-01-12] MEDS: METHOCARBAMOL 500 MG TABLET PO PRN ×2 (10:29→22:30)
[2022-01-12] MEDS: MELATONIN 5 MG TABLETS PO SCH (22:30)
[2022-01-12] MEDS: THIAMINE HCL 100 MG TABLET (FP) PO SCH (22:30)
[2022-01-13] MEDS: hydrOXYzine PAMOATE 25 MG CAPSULE (FP) PO SCH ×5 (05:28→23:35)
[2022-01-13] MEDS ORDERED: methaDONE HCL 10 MG TABLET (FOR DETOX USE ONLY) ONE (09:36)
[2022-01-13] MEDS: IBUPROFEN 400 MG TABLET (FP) PO PRN (10:49)
[2022-01-13] MEDS: METHOCARBAMOL 500 MG TABLET PO PRN (10:49)
[2022-01-13] MEDS: PRENATAL VITAMINS W/ FOLIC ACID TABLET (FP) PO SCH (10:50)
[2022-01-13] MEDS: MELATONIN 5 MG TABLETS PO SCH (23:34)
[2022-01-13] MEDS: THIAMINE HCL 100 MG TABLET (FP) PO SCH (23:35)
[2022-01-14] MEDS: hydrOXYzine PAMOATE 25 MG CAPSULE (FP) PO SCH ×5 (05:39→23:31)
[2022-01-14] MEDS ORDERED: methaDONE HCL 10 MG TABLET (FOR DETOX USE ONLY) PO ONE (10:00)
[2022-01-14] MEDS: ACETAMINOPHEN 325 MG TABLET (FP) PO PRN (10:06)
[2022-01-14] MEDS: METHOCARBAMOL 500 MG TABLET PO PRN (10:06)
[2022-01-14] MEDS: PRENATAL VITAMINS W/ FOLIC ACID TABLET (FP) PO SCH (10:06)
[2022-01-14] MEDS: MELATONIN 5 MG TABLETS PO SCH (23:31)
[2022-01-14] MEDS: THIAMINE HCL 100 MG TABLET (FP) PO SCH (23:31)
[2022-01-15] MEDS: hydrOXYzine PAMOATE 25 MG CAPSULE (FP) PO SCH ×2 (05:29→10:09)
[2022-01-15 09:31] VITALS: BP 108/77; PULSE 85; TEMP 97.2
[2022-01-15] MEDS: PRENATAL VITAMINS W/ FOLIC ACID TABLET (FP) PO SCH (10:08)
[2022-01-15] MEDS: ACETAMINOPHEN 325 MG TABLET (FP) PO PRN (10:09)
== END 2022-01-15 12:40 | disposition home or self-care (01) | DRG 773 ==
LOC: YASAS 09:45 → Y6N 10:55
PROVIDERS: ADMIT Allergy & Immunology; ATTEND Surgery
PROC: HZ2ZZZZ Detoxification Services for Substance Abuse Treatment (ICD-10-PCS; principal; 2022-01-10)
DX: F11.23 Opioid dependence with withdrawal (principal); F14.20 Cocaine dependence, uncomplicated; F17.213 Nicotine dependence, cigarettes, with withdrawal; D50.9 Iron deficiency anemia, unspecified; D57.3 Sickle-cell trait; I10 Essential (primary) hypertension; M17.11 Unilateral primary osteoarthritis, right knee; Z88.8 Allergy status to other drugs, medicaments and biological substances
CPT/HCPCS: 36415; 80053; 81025; 85027; 86780; C9803-CS; U0003; U0005

== ENCOUNTER 2022-02-18 00:38 | Inpatient (IN) | payer OTHER ==
[2022-02-18 01:17] VITALS: BMI 27.7
[2022-02-18] MEDS ORDERED: MAGNESIUM CITRATE 300 ML BOTTLE PO PRN (01:48)
[2022-02-18] MEDS ORDERED: DICYCLOMINE HCL 10 MG CAPSULE PO PRN (01:48)
[2022-02-18] MEDS ORDERED: MAG HYDROX/AL HYDROX/SIMETH 30 ML UNIT-DOSE CUP PO PRN (01:48)
[2022-02-18] MEDS ORDERED: methaDONE HCL 10 MG TABLET (FOR DETOX USE ONLY) PO ONE (01:48)
[2022-02-18] MEDS ORDERED: BENZOCAINE/MENTHOL (CHLORASEPTIC ) LOZENGE MM PRN (01:48)
[2022-02-18] MEDS ORDERED: IBUPROFEN 400 MG TABLET (FP) PO PRN (01:48)
[2022-02-18] MEDS ORDERED: BISMUTH SUBSALICYLATE 524 MG/30 ML PO PRN (01:48)
[2022-02-18] MEDS ORDERED: MAGNESIUM HYDROX 2400MG/30ML ORAL SUSPENSION 30 ML CUP PO PRN (01:48)
[2022-02-18] MEDS ORDERED: ACETAMINOPHEN 325 MG TABLET (FP) PO PRN (01:48)
[2022-02-18] MEDS ORDERED: ONDANSETRON *ODT* 4 MG TABLET SL PRN (01:48)
[2022-02-18] MEDS ORDERED: NICOTINE 10 MG CARTRIDGE (INHALER) IH PRN (01:48)
[2022-02-18] MEDS ORDERED: cloNIDine HCL 0.1 MG TABLET PO PRN (01:48)
[2022-02-18] MEDS: METHOCARBAMOL 500 MG TABLET PO PRN ×2 (02:28→10:24)
[2022-02-18] MEDS: ACETAMINOPHEN 325 MG TABLET (FP) PO PRN (02:31)
[2022-02-18] MEDS: LOPERAMIDE HCL 2 MG CAPSULE PO PRN (07:56)
[2022-02-18] MEDS: PRENATAL VITAMINS W/ FOLIC ACID TABLET (FP) PO SCH (10:24)
[2022-02-18] MEDS: IBUPROFEN 600 MG TABLET (FP) PO PRN (10:26)
[2022-02-18] MEDS ORDERED: amLODIPine BESYLATE 10 MG TABLET (FP) PO ONE (14:58)
[2022-02-18] MEDS: THIAMINE HCL 100 MG TABLET (FP) PO SCH (22:32)
[2022-02-18] MEDS: MELATONIN 5 MG TABLETS PO SCH (22:32)
[2022-02-19] MEDS ORDERED: methaDONE HCL 10 MG TABLET (FOR DETOX USE ONLY) ONE (09:26)
[2022-02-19] MEDS: amLODIPine BESYLATE 5 MG TABLET (FP) PO SCH (10:12)
[2022-02-19] MEDS: METHOCARBAMOL 500 MG TABLET PO PRN ×2 (10:18→17:40)
[2022-02-19] MEDS: ACETAMINOPHEN 325 MG TABLET (FP) PO PRN (10:19)
[2022-02-19] MEDS: clonazePAM 0.5 MG ODT TABLETS SL PRN (11:30)
[2022-02-19] MEDS: PRENATAL VITAMINS W/ FOLIC ACID TABLET (FP) PO SCH (11:34)
[2022-02-19 14:40] LABS: MCH 29.3 pg (25.7-33.7); MCHC 33.4 g/dl (32.0-36.0); MEAN CELL VOLUME 87.9 fl (80-96); MEAN PLT VOLUME 9.6 fl (7.5-11.1); PLATELET COUNT 297 10^3/uL (134-434); RBC 3.75 M/mm3 (3.60-5.2); RDW 13.6 % (11.6-15.6); WHITE BLOOD COUNT 6.1 K/mm3 (4.0-10.0)
[2022-02-19 15:25] LABS: HIV INTERPRETATION NEGATIVE (NEGATIVE)
[2022-02-19 16:07] LABS: ALBUMIN 3.1 g/dl (3.4-5.0); BLOOD UREA NITROGEN 5.5 mg/dL (7-18); CALCIUM 8.5 mg/dL (8.5-10.1)
[2022-02-19 16:10] LABS: CREATININE 0.5 mg/dL (0.55-1.3)
[2022-02-19 16:12] LABS: BILIRUBIN,TOTAL 0.3 mg/dL (0.2-1); TOT PROT 6.1 g/dl (6.4-8.2)
[2022-02-19] MEDS: THIAMINE HCL 100 MG TABLET (FP) PO SCH (22:28)
[2022-02-19] MEDS: MELATONIN 5 MG TABLETS PO SCH (22:28)
[2022-02-19] MEDS: IBUPROFEN 600 MG TABLET (FP) PO PRN (22:29)
[2022-02-20] MEDS: LOPERAMIDE HCL 2 MG CAPSULE PO PRN (07:49)
[2022-02-20] MEDS: clonazePAM 0.5 MG ODT TABLETS SL PRN (07:50)
[2022-02-20] MEDS ORDERED: methaDONE HCL 10 MG TABLET (FOR DETOX USE ONLY) PO ONE (10:00)
[2022-02-20] MEDS: amLODIPine BESYLATE 5 MG TABLET (FP) PO SCH (10:36)
[2022-02-20] MEDS: PRENATAL VITAMINS W/ FOLIC ACID TABLET (FP) PO SCH (10:37)
[2022-02-20] MEDS: METHOCARBAMOL 500 MG TABLET PO PRN (10:40)
[2022-02-20] MEDS: diazePAM 5 MG TABLET PO PRN ×3 (13:22→22:26)
[2022-02-20] MEDS: MELATONIN 5 MG TABLETS PO SCH (22:25)
[2022-02-20] MEDS: THIAMINE HCL 100 MG TABLET (FP) PO SCH (22:25)
[2022-02-21] MEDS: diazePAM 5 MG TABLET PO PRN ×4 (05:43→22:16)
[2022-02-21] MEDS: IBUPROFEN 600 MG TABLET (FP) PO PRN (05:43)
[2022-02-21] MEDS ORDERED: methaDONE HCL 10 MG TABLET (FOR DETOX USE ONLY) ONE (09:28)
[2022-02-21] MEDS: PRENATAL VITAMINS W/ FOLIC ACID TABLET (FP) PO SCH (10:31)
[2022-02-21] MEDS: METHOCARBAMOL 500 MG TABLET PO PRN ×2 (10:31→22:17)
[2022-02-21] MEDS: amLODIPine BESYLATE 5 MG TABLET (FP) PO SCH (11:31)
[2022-02-21] MEDS: THIAMINE HCL 100 MG TABLET (FP) PO SCH (22:16)
[2022-02-21] MEDS: MELATONIN 5 MG TABLETS PO SCH (22:16)
[2022-02-22] MEDS: diazePAM 5 MG TABLET PO PRN ×4 (03:57→22:06)
[2022-02-22] MEDS ORDERED: methaDONE HCL 10 MG TABLET (FOR DETOX USE ONLY) PO ONE (10:00)
[2022-02-22] MEDS: METHOCARBAMOL 500 MG TABLET PO PRN (10:10)
[2022-02-22] MEDS: PRENATAL VITAMINS W/ FOLIC ACID TABLET (FP) PO SCH (10:15)
[2022-02-22] MEDS: amLODIPine BESYLATE 5 MG TABLET (FP) PO SCH (10:15)
[2022-02-22] MEDS: ACETAMINOPHEN 325 MG TABLET (FP) PO PRN (17:32)
[2022-02-22] MEDS: THIAMINE HCL 100 MG TABLET (FP) PO SCH (22:06)
[2022-02-22] MEDS: MELATONIN 5 MG TABLETS PO SCH (22:06)
[2022-02-22] MEDS: IBUPROFEN 600 MG TABLET (FP) PO PRN (22:07)
[2022-02-23] MEDS: diazePAM 5 MG TABLET PO PRN ×2 (02:57→08:15)
[2022-02-23] MEDS: IBUPROFEN 600 MG TABLET (FP) PO PRN (08:15)
[2022-02-23 09:30] VITALS: BP 140/87; PULSE 89; TEMP 96.9
[2022-02-23] MEDS: PRENATAL VITAMINS W/ FOLIC ACID TABLET (FP) PO SCH (10:11)
[2022-02-23] MEDS: amLODIPine BESYLATE 5 MG TABLET (FP) PO SCH (10:11)
== END 2022-02-23 13:28 | disposition other institution (70) | DRG 773 ==
LOC: YASAS 00:38 → Y3N 01:56
PROVIDERS: ADMIT Allergy & Immunology; ATTEND Allergy & Immunology
PROC: HZ2ZZZZ Detoxification Services for Substance Abuse Treatment (ICD-10-PCS; principal; 2022-02-18)
DX: F11.23 Opioid dependence with withdrawal (principal); F14.20 Cocaine dependence, uncomplicated; F17.210 Nicotine dependence, cigarettes, uncomplicated; I10 Essential (primary) hypertension; D57.3 Sickle-cell trait; D50.9 Iron deficiency anemia, unspecified; M19.90 Unspecified osteoarthritis, unspecified site
CPT/HCPCS: 36415; 80053; 81025; 85027; 86780; 87389; C9803-CS; U0003; U0005

== ENCOUNTER 2022-02-23 13:30 | Inpatient (IN) | payer OTHER ==
[2022-02-23] MEDS ORDERED: MAGNESIUM CITRATE 300 ML BOTTLE PO PRN (16:16)
[2022-02-23] MEDS ORDERED: P-EPHED 60MG/TRIPROLIDI 2.5MG TABLET PO PRN (16:16)
[2022-02-23] MEDS ORDERED: MAGNESIUM HYDROX 2400MG/30ML ORAL SUSPENSION 30 ML CUP PO PRN (16:16)
[2022-02-23] MEDS ORDERED: LOPERAMIDE HCL 2 MG CAPSULE PO PRN (16:16)
[2022-02-23] MEDS ORDERED: guaiFENesin 200 MG/10 ML 10 ML UNIT-DOSE CUPS PO PRN (16:16)
[2022-02-23] MEDS: PRENATAL VITAMINS W/ FOLIC ACID TABLET (FP) PO SCH (19:42)
[2022-02-23] MEDS: NICOTINE 7 MG/24 HOURS TOPICAL PATCH TD SCH (19:42)
[2022-02-23] MEDS: hydrOXYzine PAMOATE 25 MG CAPSULE (FP) PO SCH ×2 (19:43→21:52)
[2022-02-23] MEDS: NICOTINE 10 MG CARTRIDGE (INHALER) IH PRN (20:02)
[2022-02-23] MEDS: THIAMINE HCL 100 MG TABLET (FP) PO SCH (21:52)
[2022-02-23] MEDS ORDERED: MELATONIN 5 MG TABLETS PO SCH (22:00)
[2022-02-24] MEDS: ACETAMINOPHEN 325 MG TABLET (FP) PO PRN ×2 (05:51→15:55)
[2022-02-24] MEDS: hydrOXYzine PAMOATE 25 MG CAPSULE (FP) PO SCH ×5 (05:51→22:18)
[2022-02-24] MEDS: NICOTINE 7 MG/24 HOURS TOPICAL PATCH TD SCH (10:46)
[2022-02-24] MEDS: PRENATAL VITAMINS W/ FOLIC ACID TABLET (FP) PO SCH (10:46)
[2022-02-24] MEDS: MAG HYDROX/AL HYDROX/SIMETH 30 ML UNIT-DOSE CUP PO PRN (10:47)
[2022-02-24] MEDS: THIAMINE HCL 100 MG TABLET (FP) PO SCH (22:18)
[2022-02-25] MEDS: IBUPROFEN 400 MG TABLET (FP) PO PRN (06:39)
[2022-02-25] MEDS: hydrOXYzine PAMOATE 25 MG CAPSULE (FP) PO SCH ×5 (06:40→22:05)
[2022-02-25] MEDS: NICOTINE 7 MG/24 HOURS TOPICAL PATCH TD SCH (10:38)
[2022-02-25] MEDS: PRENATAL VITAMINS W/ FOLIC ACID TABLET (FP) PO SCH (10:38)
[2022-02-25] MEDS: ACETAMINOPHEN 325 MG TABLET (FP) PO PRN (10:39)
[2022-02-25] MEDS: MAG HYDROX/AL HYDROX/SIMETH 30 ML UNIT-DOSE CUP PO PRN (15:57)
[2022-02-25] MEDS: NICOTINE 10 MG CARTRIDGE (INHALER) IH PRN (16:39)
[2022-02-25] MEDS: SUVOREXANT 10 MG TABLET PO PRN (21:14)
[2022-02-25] MEDS: THIAMINE HCL 100 MG TABLET (FP) PO SCH (21:14)
[2022-02-26] MEDS: hydrOXYzine PAMOATE 25 MG CAPSULE (FP) PO SCH ×2 (07:14→10:29)
[2022-02-26] MEDS: PRENATAL VITAMINS W/ FOLIC ACID TABLET (FP) PO SCH (10:28)
[2022-02-26] MEDS: NICOTINE 7 MG/24 HOURS TOPICAL PATCH TD SCH (10:29)
[2022-02-26] MEDS: ACETAMINOPHEN 325 MG TABLET (FP) PO PRN (10:30)
[2022-02-26] MEDS ORDERED: FAMOTIDINE 20 MG TABLET PO ONE (10:51)
[2022-02-26] MEDS ORDERED: AMOXICILLIN 500 MG CAPSULE (FP) PO ONE (11:10)
[2022-02-26] MEDS: AMOXICILLIN 500 MG CAPSULE (FP) PO SCH ×2 (14:25→21:09)
[2022-02-26] MEDS: hydrOXYzine PAMOATE 25 MG CAPSULE (FP) PO PRN (21:09)
[2022-02-26] MEDS: THIAMINE HCL 100 MG TABLET (FP) PO SCH (21:09)
[2022-02-26] MEDS: FAMOTIDINE 20 MG TABLET PO SCH (21:11)
[2022-02-26] MEDS: SUVOREXANT 10 MG TABLET PO PRN (21:11)
[2022-02-27] MEDS: AMOXICILLIN 500 MG CAPSULE (FP) PO SCH ×3 (06:41→21:38)
[2022-02-27] MEDS: IBUPROFEN 400 MG TABLET (FP) PO PRN (06:41)
[2022-02-27] MEDS: ACETAMINOPHEN 325 MG TABLET (FP) PO PRN ×2 (08:27→16:49)
[2022-02-27] MEDS: PRENATAL VITAMINS W/ FOLIC ACID TABLET (FP) PO SCH (10:33)
[2022-02-27] MEDS: NICOTINE 7 MG/24 HOURS TOPICAL PATCH TD SCH (10:33)
[2022-02-27] MEDS: FAMOTIDINE 20 MG TABLET PO SCH ×2 (10:33→21:38)
[2022-02-27] MEDS: THIAMINE HCL 100 MG TABLET (FP) PO SCH (21:39)
[2022-02-27] MEDS ORDERED: SUVOREXANT 10 MG TABLET PO PRN (22:00)
[2022-02-28] MEDS: AMOXICILLIN 500 MG CAPSULE (FP) PO SCH ×3 (06:47→21:05)
[2022-02-28] MEDS ORDERED: BUPRENORPHINE/NALOXONE 2 MG/0.5 MG FILM PACKET SL ONE (10:19)
[2022-02-28] MEDS: PRENATAL VITAMINS W/ FOLIC ACID TABLET (FP) PO SCH (10:45)
[2022-02-28] MEDS: NICOTINE 7 MG/24 HOURS TOPICAL PATCH TD SCH (10:45)
[2022-02-28] MEDS: FAMOTIDINE 20 MG TABLET PO SCH ×2 (10:46→21:05)
[2022-02-28] MEDS: NICOTINE 10 MG CARTRIDGE (INHALER) IH PRN (12:28)
[2022-02-28] MEDS: IBUPROFEN 400 MG TABLET (FP) PO PRN (18:12)
[2022-02-28] MEDS: THIAMINE HCL 100 MG TABLET (FP) PO SCH (21:05)
[2022-03-01] MEDS: AMOXICILLIN 500 MG CAPSULE (FP) PO SCH ×3 (07:06→21:02)
[2022-03-01] MEDS ORDERED: BUPRENORPHINE/NALOXONE 4 MG/1 MG FILM PACKET SL SCH (10:00)
[2022-03-01] MEDS: NICOTINE 7 MG/24 HOURS TOPICAL PATCH TD SCH (10:14)
[2022-03-01] MEDS: PRENATAL VITAMINS W/ FOLIC ACID TABLET (FP) PO SCH (10:14)
[2022-03-01] MEDS: IBUPROFEN 400 MG TABLET (FP) PO PRN (10:15)
[2022-03-01] MEDS: FAMOTIDINE 20 MG TABLET PO SCH ×2 (10:15→21:02)
[2022-03-01] MEDS: THIAMINE HCL 100 MG TABLET (FP) PO SCH (21:03)
[2022-03-02] MEDS: ACETAMINOPHEN 325 MG TABLET (FP) PO PRN (06:45)
[2022-03-02] MEDS: AMOXICILLIN 500 MG CAPSULE (FP) PO SCH ×3 (06:45→23:13)
[2022-03-02] MEDS: PRENATAL VITAMINS W/ FOLIC ACID TABLET (FP) PO SCH (11:00)
[2022-03-02] MEDS: FAMOTIDINE 20 MG TABLET PO SCH ×2 (11:01→23:13)
[2022-03-02] MEDS: BUPRENORPHINE/NALOXONE 2 MG/0.5 MG FILM PACKET SL SCH (11:01)
[2022-03-02] MEDS: NICOTINE 7 MG/24 HOURS TOPICAL PATCH TD SCH (11:01)
[2022-03-02] MEDS: IBUPROFEN 400 MG TABLET (FP) PO PRN (11:03)
[2022-03-02] MEDS: THIAMINE HCL 100 MG TABLET (FP) PO SCH (23:14)
[2022-03-03] MEDS: AMOXICILLIN 500 MG CAPSULE (FP) PO SCH ×3 (07:07→21:36)
[2022-03-03] MEDS: ACETAMINOPHEN 325 MG TABLET (FP) PO PRN ×2 (07:09→21:38)
[2022-03-03] MEDS: PRENATAL VITAMINS W/ FOLIC ACID TABLET (FP) PO SCH (10:41)
[2022-03-03] MEDS: NICOTINE 7 MG/24 HOURS TOPICAL PATCH TD SCH (10:42)
[2022-03-03] MEDS: FAMOTIDINE 20 MG TABLET PO SCH ×2 (10:42→21:36)
[2022-03-03] MEDS: BUPRENORPHINE/NALOXONE 2 MG/0.5 MG FILM PACKET SL SCH (10:43)
[2022-03-03] MEDS: IBUPROFEN 400 MG TABLET (FP) PO PRN (10:44)
[2022-03-03] MEDS: hydrOXYzine PAMOATE 25 MG CAPSULE (FP) PO PRN (21:36)
[2022-03-03] MEDS: THIAMINE HCL 100 MG TABLET (FP) PO SCH (21:36)
[2022-03-04] MEDS: ACETAMINOPHEN 325 MG TABLET (FP) PO PRN (06:16)
[2022-03-04] MEDS: AMOXICILLIN 500 MG CAPSULE (FP) PO SCH ×3 (06:17→21:32)
[2022-03-04] MEDS: FAMOTIDINE 20 MG TABLET PO SCH ×2 (10:44→21:32)
[2022-03-04] MEDS: PRENATAL VITAMINS W/ FOLIC ACID TABLET (FP) PO SCH (10:44)
[2022-03-04] MEDS: BUPRENORPHINE/NALOXONE 2 MG/0.5 MG FILM PACKET SL SCH (10:45)
[2022-03-04] MEDS: NICOTINE 7 MG/24 HOURS TOPICAL PATCH TD SCH (10:45)
[2022-03-04] MEDS: THIAMINE HCL 100 MG TABLET (FP) PO SCH (21:32)
[2022-03-05] MEDS: ACETAMINOPHEN 325 MG TABLET (FP) PO PRN ×2 (06:01→16:46)
[2022-03-05] MEDS: AMOXICILLIN 500 MG CAPSULE (FP) PO SCH (06:01)
[2022-03-05] MEDS: PRENATAL VITAMINS W/ FOLIC ACID TABLET (FP) PO SCH (10:35)
[2022-03-05] MEDS: FAMOTIDINE 20 MG TABLET PO SCH ×2 (10:35→21:42)
[2022-03-05] MEDS: BUPRENORPHINE/NALOXONE 2 MG/0.5 MG FILM PACKET SL SCH (10:36)
[2022-03-05] MEDS: NICOTINE 7 MG/24 HOURS TOPICAL PATCH TD SCH (10:39)
[2022-03-05] MEDS: THIAMINE HCL 100 MG TABLET (FP) PO SCH (21:42)
[2022-03-05] MEDS: hydrOXYzine PAMOATE 25 MG CAPSULE (FP) PO PRN (21:43)
[2022-03-05] MEDS ORDERED: SUVOREXANT 10 MG TABLET PO PRN (22:00)
[2022-03-06] MEDS: PRENATAL VITAMINS W/ FOLIC ACID TABLET (FP) PO SCH (10:27)
[2022-03-06] MEDS: NICOTINE 7 MG/24 HOURS TOPICAL PATCH TD SCH (10:27)
[2022-03-06] MEDS: FAMOTIDINE 20 MG TABLET PO SCH ×2 (10:28→22:49)
[2022-03-06] MEDS: BUPRENORPHINE/NALOXONE 2 MG/0.5 MG FILM PACKET SL SCH (10:28)
[2022-03-06] MEDS: IBUPROFEN 400 MG TABLET (FP) PO PRN (15:35)
[2022-03-06] MEDS: THIAMINE HCL 100 MG TABLET (FP) PO SCH (22:49)
[2022-03-07] MEDS: ACETAMINOPHEN 325 MG TABLET (FP) PO PRN ×2 (06:22→10:54)
[2022-03-07] MEDS: PRENATAL VITAMINS W/ FOLIC ACID TABLET (FP) PO SCH (10:54)
[2022-03-07] MEDS: FAMOTIDINE 20 MG TABLET PO SCH ×2 (10:54→22:03)
[2022-03-07] MEDS: NICOTINE 7 MG/24 HOURS TOPICAL PATCH TD SCH (10:55)
[2022-03-07] MEDS: BUPRENORPHINE/NALOXONE 2 MG/0.5 MG FILM PACKET SL SCH (10:57)
[2022-03-07] MEDS: IBUPROFEN 400 MG TABLET (FP) PO PRN (16:39)
[2022-03-07] MEDS: hydrOXYzine PAMOATE 25 MG CAPSULE (FP) PO PRN (16:39)
[2022-03-07] MEDS: THIAMINE HCL 100 MG TABLET (FP) PO SCH (22:03)
[2022-03-08] MEDS: ACETAMINOPHEN 325 MG TABLET (FP) PO PRN ×2 (07:01→12:23)
[2022-03-08] MEDS: FAMOTIDINE 20 MG TABLET PO SCH ×2 (10:31→21:52)
[2022-03-08] MEDS: NICOTINE 7 MG/24 HOURS TOPICAL PATCH TD SCH (10:31)
[2022-03-08] MEDS: BUPRENORPHINE/NALOXONE 2 MG/0.5 MG FILM PACKET SL SCH (10:32)
[2022-03-08] MEDS: PRENATAL VITAMINS W/ FOLIC ACID TABLET (FP) PO SCH (10:32)
[2022-03-08] MEDS: hydrOXYzine PAMOATE 25 MG CAPSULE (FP) PO PRN (12:23)
[2022-03-08] MEDS: THIAMINE HCL 100 MG TABLET (FP) PO SCH (21:52)
[2022-03-08] MEDS ORDERED: SUVOREXANT 10 MG TABLET PO PRN (22:00)
[2022-03-09] MEDS: ACETAMINOPHEN 325 MG TABLET (FP) PO PRN (05:35)
[2022-03-09 07:25] VITALS: RESP 18
[2022-03-09] MEDS: BUPRENORPHINE/NALOXONE 2 MG/0.5 MG FILM PACKET SL SCH (10:33)
[2022-03-09] MEDS: NICOTINE 7 MG/24 HOURS TOPICAL PATCH TD SCH (10:33)
[2022-03-09] MEDS: PRENATAL VITAMINS W/ FOLIC ACID TABLET (FP) PO SCH (10:33)
[2022-03-09] MEDS: FAMOTIDINE 20 MG TABLET PO SCH ×2 (10:33→22:06)
[2022-03-09] MEDS: THIAMINE HCL 100 MG TABLET (FP) PO SCH (22:06)
[2022-03-10] MEDS: NICOTINE 7 MG/24 HOURS TOPICAL PATCH TD SCH (10:15)
[2022-03-10] MEDS: BUPRENORPHINE/NALOXONE 2 MG/0.5 MG FILM PACKET SL SCH (10:15)
[2022-03-10] MEDS: FAMOTIDINE 20 MG TABLET PO SCH ×2 (10:15→22:25)
[2022-03-10] MEDS: PRENATAL VITAMINS W/ FOLIC ACID TABLET (FP) PO SCH (10:15)
[2022-03-10] MEDS: ACETAMINOPHEN 325 MG TABLET (FP) PO PRN ×2 (12:10→17:34)
[2022-03-10] MEDS: THIAMINE HCL 100 MG TABLET (FP) PO SCH (22:25)
[2022-03-11] MEDS: ACETAMINOPHEN 325 MG TABLET (FP) PO PRN ×2 (05:42→14:13)
[2022-03-11] MEDS: NICOTINE 7 MG/24 HOURS TOPICAL PATCH TD SCH (10:05)
[2022-03-11] MEDS: PRENATAL VITAMINS W/ FOLIC ACID TABLET (FP) PO SCH (10:06)
[2022-03-11] MEDS: BUPRENORPHINE/NALOXONE 2 MG/0.5 MG FILM PACKET SL SCH (10:06)
[2022-03-11] MEDS: FAMOTIDINE 20 MG TABLET PO SCH ×2 (10:06→23:06)
[2022-03-11] MEDS: hydrOXYzine PAMOATE 25 MG CAPSULE (FP) PO PRN (10:06)
[2022-03-11] MEDS ORDERED: NICOTINE POLACRILEX 2 MG GUM BUC PRN (12:50)
[2022-03-11] MEDS ORDERED: SUVOREXANT 10 MG TABLET PO PRN (22:00)
[2022-03-11] MEDS: THIAMINE HCL 100 MG TABLET (FP) PO SCH (23:06)
[2022-03-12] MEDS: NICOTINE 7 MG/24 HOURS TOPICAL PATCH TD SCH (10:20)
[2022-03-12] MEDS: FAMOTIDINE 20 MG TABLET PO SCH ×2 (10:20→21:55)
[2022-03-12] MEDS: PRENATAL VITAMINS W/ FOLIC ACID TABLET (FP) PO SCH (10:20)
[2022-03-12] MEDS: BUPRENORPHINE/NALOXONE 2 MG/0.5 MG FILM PACKET SL SCH (10:20)
[2022-03-12] MEDS: THIAMINE HCL 100 MG TABLET (FP) PO SCH (21:55)
[2022-03-13] MEDS: ACETAMINOPHEN 325 MG TABLET (FP) PO PRN (05:58)
[2022-03-13 07:54] VITALS: BP 130/72; PULSE 77; TEMP 97.5
[2022-03-13] MEDS ORDERED: BUPRENORPHINE/NALOXONE 2 MG/0.5 MG FILM PACKET SL SCH (08:00)
[2022-03-13] MEDS: FAMOTIDINE 20 MG TABLET PO SCH (09:03)
[2022-03-13] MEDS: PRENATAL VITAMINS W/ FOLIC ACID TABLET (FP) PO SCH (09:04)
[2022-03-13] MEDS: NICOTINE 7 MG/24 HOURS TOPICAL PATCH TD SCH (09:04)
== END 2022-03-13 09:20 | disposition other institution (70) | DRG 772 ==
LOC: YASAS 13:30 → Y5N 13:31
PROVIDERS: ADMIT Allergy & Immunology; ATTEND Psychiatry & Neurology Pain Medicine
PROC: HZ42ZZZ Group Counseling for Substance Abuse Treatment, Cognitive-Behavioral (ICD-10-PCS; principal; 2022-02-23)
DX: F11.20 Opioid dependence, uncomplicated (principal); F14.20 Cocaine dependence, uncomplicated; F17.210 Nicotine dependence, cigarettes, uncomplicated; F19.282 Other psychoactive substance dependence with psychoactive substance-induced sleep disorder; F19.280 Other psychoactive substance dependence with psychoactive substance-induced anxiety disorder; F19.24 Other psychoactive substance dependence with psychoactive substance-induced mood disorder; F32.9 Major depressive disorder, single episode, unspecified; D50.9 Iron deficiency anemia, unspecified; D57.3 Sickle-cell trait; J02.9 Acute pharyngitis, unspecified; M19.90 Unspecified osteoarthritis, unspecified site; R10.13 Epigastric pain
CPT/HCPCS: 36415; 86803

== ENCOUNTER 2022-04-22 08:11 | Inpatient (IN) | payer OTHER ==
[2022-04-22 09:28] VITALS: BMI 29.0
[2022-04-22] MEDS ORDERED: BENZOCAINE/MENTHOL (CHLORASEPTIC ) LOZENGE MM PRN (10:36)
[2022-04-22] MEDS ORDERED: ACETAMINOPHEN 325 MG TABLET (FP) PO PRN (10:36)
[2022-04-22] MEDS ORDERED: MAG HYDROX/AL HYDROX/SIMETH 30 ML UNIT-DOSE CUP PO PRN (10:36)
[2022-04-22] MEDS ORDERED: NICOTINE POLACRILEX 2 MG GUM BUC PRN (10:36)
[2022-04-22] MEDS ORDERED: IBUPROFEN 400 MG TABLET (FP) PO PRN (10:36)
[2022-04-22] MEDS ORDERED: ONDANSETRON *ODT* 4 MG TABLET SL PRN (10:36)
[2022-04-22] MEDS ORDERED: BISMUTH SUBSALICYLATE 524 MG/30 ML PO PRN (10:36)
[2022-04-22] MEDS ORDERED: NICOTINE 10 MG CARTRIDGE (INHALER) IH PRN (10:36)
[2022-04-22] MEDS ORDERED: MAGNESIUM CITRATE 300 ML BOTTLE PO PRN (10:36)
[2022-04-22] MEDS ORDERED: MAGNESIUM HYDROX 2400MG/30ML ORAL SUSPENSION 30 ML CUP PO PRN (10:36)
[2022-04-22] MEDS ORDERED: DICYCLOMINE HCL 10 MG CAPSULE PO PRN (10:36)
[2022-04-22] MEDS ORDERED: LOPERAMIDE HCL 2 MG CAPSULE PO PRN (10:36)
[2022-04-22] MEDS ORDERED: methaDONE HCL 10 MG TABLET (FOR DETOX USE ONLY) PO ONE (11:00)
[2022-04-22] MEDS: METHOCARBAMOL 500 MG TABLET PO PRN (12:18)
[2022-04-22] MEDS: PRENATAL VITAMINS W/ FOLIC ACID TABLET (FP) PO SCH (12:18)
[2022-04-22] MEDS: hydrOXYzine PAMOATE 25 MG CAPSULE (FP) PO SCH ×3 (14:12→23:13)
[2022-04-22] MEDS: ACETAMINOPHEN 325 MG TABLET (FP) PO PRN (14:24)
[2022-04-22] MEDS ORDERED: SUVOREXANT 10 MG TABLET PO PRN (22:00)
[2022-04-22] MEDS ORDERED: MELATONIN 5 MG TABLETS PO SCH (22:00)
[2022-04-22] MEDS: THIAMINE HCL 100 MG TABLET (FP) PO SCH (23:13)
[2022-04-23] MEDS: IBUPROFEN 600 MG TABLET (FP) PO PRN ×2 (01:09→16:51)
[2022-04-23] MEDS: hydrOXYzine PAMOATE 25 MG CAPSULE (FP) PO SCH ×5 (05:50→22:55)
[2022-04-23] MEDS: METHOCARBAMOL 500 MG TABLET PO PRN ×2 (10:20→16:52)
[2022-04-23] MEDS: ACETAMINOPHEN 325 MG TABLET (FP) PO PRN (10:20)
[2022-04-23] MEDS: PRENATAL VITAMINS W/ FOLIC ACID TABLET (FP) PO SCH (10:22)
[2022-04-23] MEDS: THIAMINE HCL 100 MG TABLET (FP) PO SCH (22:55)
[2022-04-24] MEDS: hydrOXYzine PAMOATE 25 MG CAPSULE (FP) PO SCH ×5 (05:24→23:21)
[2022-04-24] MEDS: IBUPROFEN 600 MG TABLET (FP) PO PRN (09:35)
[2022-04-24] MEDS ORDERED: methaDONE HCL 10 MG TABLET (FOR DETOX USE ONLY) PO ONE (10:00)
[2022-04-24] MEDS: METHOCARBAMOL 500 MG TABLET PO PRN ×2 (10:13→17:19)
[2022-04-24] MEDS: PRENATAL VITAMINS W/ FOLIC ACID TABLET (FP) PO SCH (10:13)
[2022-04-24 14:07] LABS: HEMATOCRIT 34.9 % (32.4-45.2); HEMOGLOBIN 11.5 GM/dL (10.7-15.3); MCH 28.7 pg (25.7-33.7); MEAN CELL VOLUME 86.9 fl (80-96); MEAN PLT VOLUME 9.2 fl (7.5-11.1); PLATELET COUNT 334 10^3/uL (134-434); RBC 4.01 M/mm3 (3.60-5.2); RDW 13.7 % (11.6-15.6); WHITE BLOOD COUNT 4.5 K/mm3 (4.0-10.0)
[2022-04-24 14:14] LABS: ALBUMIN 3.5 g/dl (3.4-5.0); CALCIUM 9.3 mg/dL (8.5-10.1)
[2022-04-24 14:15] LABS: BLOOD UREA NITROGEN 8.1 mg/dL (7-18)
[2022-04-24 14:17] LABS: CREATININE 0.8 mg/dL (0.55-1.3)
[2022-04-24 14:19] LABS: BILIRUBIN,TOTAL 0.4 mg/dL (0.2-1); TOT PROT 6.6 g/dl (6.4-8.2)
[2022-04-24] MEDS: diazePAM 5 MG TABLET PO PRN (17:19)
[2022-04-24] MEDS: THIAMINE HCL 100 MG TABLET (FP) PO SCH (23:21)
[2022-04-25] MEDS: diazePAM 5 MG TABLET PO PRN ×3 (04:05→22:19)
[2022-04-25] MEDS: METHOCARBAMOL 500 MG TABLET PO PRN ×3 (04:05→22:21)
[2022-04-25] MEDS: hydrOXYzine PAMOATE 25 MG CAPSULE (FP) PO SCH ×5 (06:40→23:11)
[2022-04-25] MEDS: PRENATAL VITAMINS W/ FOLIC ACID TABLET (FP) PO SCH (11:04)
[2022-04-25] MEDS: IBUPROFEN 600 MG TABLET (FP) PO PRN (13:11)
[2022-04-25] MEDS: THIAMINE HCL 100 MG TABLET (FP) PO SCH (22:20)
[2022-04-26] MEDS: hydrOXYzine PAMOATE 25 MG CAPSULE (FP) PO SCH ×5 (05:56→23:10)
[2022-04-26] MEDS: diazePAM 5 MG TABLET PO PRN ×3 (06:28→17:48)
[2022-04-26] MEDS ORDERED: methaDONE HCL 10 MG TABLET (FOR DETOX USE ONLY) PO ONE (10:00)
[2022-04-26] MEDS: PRENATAL VITAMINS W/ FOLIC ACID TABLET (FP) PO SCH (10:10)
[2022-04-26] MEDS: METHOCARBAMOL 500 MG TABLET PO PRN ×2 (10:12→17:48)
[2022-04-26] MEDS: THIAMINE HCL 100 MG TABLET (FP) PO SCH (23:10)
[2022-04-27] MEDS: hydrOXYzine PAMOATE 25 MG CAPSULE (FP) PO SCH (05:37)
[2022-04-27] MEDS: diazePAM 5 MG TABLET PO PRN (07:24)
[2022-04-27 09:41] VITALS: BP 139/93; PULSE 96; RESP 17; TEMP 98.1
== END 2022-04-27 08:56 | disposition home or self-care (01) | DRG 773 ==
LOC: YASAS 08:11 → Y6N 11:07
PROVIDERS: ADMIT Allergy & Immunology; ATTEND Surgery
PROC: HZ2ZZZZ Detoxification Services for Substance Abuse Treatment (ICD-10-PCS; principal; 2022-04-22)
DX: F11.23 Opioid dependence with withdrawal (principal); F14.20 Cocaine dependence, uncomplicated; F17.210 Nicotine dependence, cigarettes, uncomplicated; F19.282 Other psychoactive substance dependence with psychoactive substance-induced sleep disorder; F32.9 Major depressive disorder, single episode, unspecified; D50.9 Iron deficiency anemia, unspecified; M17.11 Unilateral primary osteoarthritis, right knee; Z91.410 Personal history of adult physical and sexual abuse; Z88.8 Allergy status to other drugs, medicaments and biological substances
CPT/HCPCS: 36415; 80053; 81025; 85027; 86780; 87811; C9803-CS; U0003; U0005

== ENCOUNTER 2022-07-06 16:38 | Inpatient (IN) | payer OTHER ==
[2022-07-06 17:15] VITALS: BMI 26.9
[2022-07-06] MEDS ORDERED: NICOTINE 10 MG CARTRIDGE (INHALER) IH PRN (21:04)
[2022-07-06] MEDS ORDERED: ACETAMINOPHEN 325 MG TABLET (FP) PO PRN (21:04)
[2022-07-06] MEDS ORDERED: DICYCLOMINE HCL 10 MG CAPSULE PO PRN (21:04)
[2022-07-06] MEDS ORDERED: LOPERAMIDE HCL 2 MG CAPSULE PO PRN (21:04)
[2022-07-06] MEDS ORDERED: cloNIDine HCL 0.1 MG TABLET PO PRN (21:04)
[2022-07-06] MEDS ORDERED: BISMUTH SUBSALICYLATE 524 MG/30 ML PO PRN (21:04)
[2022-07-06] MEDS ORDERED: NICOTINE POLACRILEX 2 MG GUM BUC PRN (21:04)
[2022-07-06] MEDS ORDERED: MAGNESIUM HYDROX 2400MG/30ML ORAL SUSPENSION 30 ML CUP PO PRN (21:04)
[2022-07-06] MEDS ORDERED: NALOXONE HCL (KLOXXADO) 8 MG SPRAY NS PRN (21:04)
[2022-07-06] MEDS ORDERED: methaDONE HCL 10 MG TABLET (FOR DETOX USE ONLY) PO ONE (21:04)
[2022-07-06] MEDS ORDERED: MAG HYDROX/AL HYDROX/SIMETH 30 ML UNIT-DOSE CUP PO PRN (21:04)
[2022-07-06] MEDS ORDERED: BENZOCAINE/MENTHOL (CHLORASEPTIC ) LOZENGE MM PRN (21:04)
[2022-07-06] MEDS ORDERED: ONDANSETRON *ODT* 4 MG TABLET SL PRN (21:04)
[2022-07-06] MEDS ORDERED: IBUPROFEN 400 MG TABLET (FP) PO PRN (21:04)
[2022-07-06] MEDS ORDERED: POLYETHYLENE GLYCOL (HEALTHYLAX) 3350 17 GM PACKET PO PRN (21:04)
[2022-07-06] MEDS: METHOCARBAMOL 500 MG TABLET PO PRN (21:58)
[2022-07-06] MEDS: MELATONIN 5 MG TABLETS PO SCH (21:59)
[2022-07-06] MEDS: THIAMINE HCL 100 MG TABLET (FP) PO SCH (22:00)
[2022-07-07] MEDS: PRENATAL VITAMINS W/ FOLIC ACID TABLET (FP) PO SCH (09:26)
[2022-07-07] MEDS: METHOCARBAMOL 500 MG TABLET PO PRN ×2 (09:28→22:35)
[2022-07-07] MEDS: IBUPROFEN 600 MG TABLET (FP) PO PRN ×2 (09:28→22:35)
[2022-07-07 11:40] LABS: HEMATOCRIT 29.6 % (32.4-45.2); HEMOGLOBIN 10.1 GM/dL (10.7-15.3); MCH 29.7 pg (25.7-33.7); MCHC 34.1 g/dl (32.0-36.0); MEAN CELL VOLUME 87.1 fl (80-96); MEAN PLT VOLUME 8.5 fl (7.5-11.1); PLATELET COUNT 237 10^3/uL (134-434); WHITE BLOOD COUNT 5.6 K/mm3 (4.0-10.0)
[2022-07-07 11:44] LABS: ALBUMIN 3.1 g/dl (3.4-5.0); BLOOD UREA NITROGEN 8.5 mg/dL (7-18); CALCIUM 8.3 mg/dL (8.5-10.1)
[2022-07-07 11:48] LABS: CREATININE 0.8 mg/dL (0.55-1.3)
[2022-07-07 11:49] LABS: BILIRUBIN,TOTAL 0.4 mg/dL (0.2-1); TOT PROT 5.9 g/dl (6.4-8.2)
[2022-07-07] MEDS: MELATONIN 5 MG TABLETS PO SCH (22:35)
[2022-07-07] MEDS: THIAMINE HCL 100 MG TABLET (FP) PO SCH (22:35)
[2022-07-08] MEDS: IBUPROFEN 600 MG TABLET (FP) PO PRN (05:31)
[2022-07-08] MEDS: METHOCARBAMOL 500 MG TABLET PO PRN ×2 (05:31→18:00)
[2022-07-08] MEDS ORDERED: methaDONE HCL 10 MG TABLET (FOR DETOX USE ONLY) PO ONE (10:00)
[2022-07-08] MEDS: PRENATAL VITAMINS W/ FOLIC ACID TABLET (FP) PO SCH (10:17)
[2022-07-08] MEDS: diazePAM 5 MG TABLET PO PRN ×2 (12:54→17:59)
[2022-07-08] MEDS ORDERED: POTASSIUM CHLORIDE TABS 20 MEQ TABLET.ER (FP) PO ONE (15:40)
[2022-07-08] MEDS: FERROUS SO4 325 MG TABLET (FP) PO SCH (17:59)
[2022-07-08] MEDS: ACETAMINOPHEN 325 MG TABLET (FP) PO PRN (18:00)
[2022-07-08] MEDS: THIAMINE HCL 100 MG TABLET (FP) PO SCH (23:07)
[2022-07-08] MEDS: MELATONIN 5 MG TABLETS PO SCH (23:07)
[2022-07-09] MEDS: diazePAM 5 MG TABLET PO PRN ×4 (02:01→18:29)
[2022-07-09] MEDS: FERROUS SO4 325 MG TABLET (FP) PO SCH ×3 (07:50→18:29)
[2022-07-09] MEDS: PRENATAL VITAMINS W/ FOLIC ACID TABLET (FP) PO SCH (09:40)
[2022-07-09] MEDS: METHOCARBAMOL 500 MG TABLET PO PRN ×2 (09:42→18:29)
[2022-07-09] MEDS: ACETAMINOPHEN 325 MG TABLET (FP) PO PRN (18:29)
[2022-07-09] MEDS: THIAMINE HCL 100 MG TABLET (FP) PO SCH (23:12)
[2022-07-09] MEDS: MELATONIN 5 MG TABLETS PO SCH (23:12)
[2022-07-10] MEDS: diazePAM 5 MG TABLET PO PRN ×4 (02:06→17:38)
[2022-07-10] MEDS: METHOCARBAMOL 500 MG TABLET PO PRN ×2 (02:07→17:38)
[2022-07-10] MEDS: FERROUS SO4 325 MG TABLET (FP) PO SCH ×3 (07:52→17:38)
[2022-07-10] MEDS ORDERED: methaDONE HCL 10 MG TABLET (FOR DETOX USE ONLY) PO ONE (10:00)
[2022-07-10] MEDS: PRENATAL VITAMINS W/ FOLIC ACID TABLET (FP) PO SCH (10:03)
[2022-07-10] MEDS: IBUPROFEN 600 MG TABLET (FP) PO PRN (13:06)
[2022-07-10] MEDS: ACETAMINOPHEN 325 MG TABLET (FP) PO PRN (17:40)
[2022-07-10] MEDS: THIAMINE HCL 100 MG TABLET (FP) PO SCH (23:05)
[2022-07-10] MEDS: MELATONIN 5 MG TABLETS PO SCH (23:05)
[2022-07-11] MEDS: diazePAM 5 MG TABLET PO PRN ×2 (05:23→10:10)
[2022-07-11 08:03] VITALS: RESP 17
[2022-07-11] MEDS: FERROUS SO4 325 MG TABLET (FP) PO SCH ×2 (08:03→11:02)
[2022-07-11 09:34] VITALS: BP 121/60; PULSE 88; TEMP 97.3
[2022-07-11] MEDS: PRENATAL VITAMINS W/ FOLIC ACID TABLET (FP) PO SCH (10:10)
[2022-07-11] MEDS: METHOCARBAMOL 500 MG TABLET PO PRN (10:10)
== END 2022-07-11 11:03 | disposition home or self-care (01) | DRG 773 ==
LOC: YASAS 16:38 → Y6N 21:20
PROVIDERS: ADMIT Allergy & Immunology; ATTEND Surgery
PROC: HZ2ZZZZ Detoxification Services for Substance Abuse Treatment (ICD-10-PCS; principal; 2022-07-06)
DX: F11.23 Opioid dependence with withdrawal (principal); F14.20 Cocaine dependence, uncomplicated; F12.20 Cannabis dependence, uncomplicated; F17.210 Nicotine dependence, cigarettes, uncomplicated; D57.3 Sickle-cell trait; D50.9 Iron deficiency anemia, unspecified; M19.90 Unspecified osteoarthritis, unspecified site; R73.03 Prediabetes; Z88.8 Allergy status to other drugs, medicaments and biological substances
CPT/HCPCS: 36415; 80053; 81025; 85027; 86780; C9803-CS; U0003; U0005

== ENCOUNTER 2022-08-15 14:50 | Inpatient (IN) | payer OTHER ==
[2022-08-15] MEDS ORDERED: methaDONE HCL 10 MG TABLET (FOR DETOX USE ONLY) PO ONE (19:17)
[2022-08-15] MEDS ORDERED: DICYCLOMINE HCL 10 MG CAPSULE PO PRN (19:17)
[2022-08-15] MEDS ORDERED: LOPERAMIDE HCL 2 MG CAPSULE PO PRN (19:17)
[2022-08-15] MEDS ORDERED: ACETAMINOPHEN 325 MG TABLET (FP) PO PRN (19:17)
[2022-08-15] MEDS ORDERED: IBUPROFEN 400 MG TABLET (FP) PO PRN (19:17)
[2022-08-15] MEDS ORDERED: MAGNESIUM HYDROX 2400MG/30ML ORAL SUSPENSION 30 ML CUP PO PRN (19:17)
[2022-08-15] MEDS ORDERED: NICOTINE 10 MG CARTRIDGE (INHALER) IH PRN (19:17)
[2022-08-15] MEDS ORDERED: BISMUTH SUBSALICYLATE 524 MG/30 ML PO PRN (19:17)
[2022-08-15] MEDS ORDERED: MAG HYDROX/AL HYDROX/SIMETH 30 ML UNIT-DOSE CUP PO PRN (19:17)
[2022-08-15] MEDS ORDERED: NALOXONE HCL (KLOXXADO) 8 MG SPRAY NS PRN (19:17)
[2022-08-15] MEDS ORDERED: BENZOCAINE/MENTHOL (CHLORASEPTIC ) LOZENGE MM PRN (19:17)
[2022-08-15] MEDS ORDERED: NICOTINE POLACRILEX 2 MG GUM BUC PRN (19:17)
[2022-08-15] MEDS ORDERED: POLYETHYLENE GLYCOL (HEALTHYLAX) 3350 17 GM PACKET PO PRN (19:17)
[2022-08-15] MEDS: diazePAM 5 MG TABLET PO PRN (20:16)
[2022-08-15] MEDS ORDERED: methaDONE HCL 10 MG TABLET (FOR DETOX USE ONLY) ONE (20:30)
[2022-08-15] MEDS ORDERED: diazePAM 5 MG TABLET ONE (20:31)
[2022-08-15] MEDS: MELATONIN 5 MG TABLETS PO SCH (21:32)
[2022-08-15] MEDS: THIAMINE HCL 100 MG TABLET (FP) PO SCH (21:32)
[2022-08-15] MEDS: METHOCARBAMOL 500 MG TABLET PO PRN (21:32)
[2022-08-16] MEDS: diazePAM 5 MG TABLET PO PRN ×4 (04:47→20:37)
[2022-08-16] MEDS: PRENATAL VITAMINS W/ FOLIC ACID TABLET (FP) PO SCH (10:25)
[2022-08-16] MEDS: METHOCARBAMOL 500 MG TABLET PO PRN ×2 (14:27→20:37)
[2022-08-16 15:05] LABS: HEMATOCRIT 36.2 % (32.4-45.2); HEMOGLOBIN 11.6 GM/dL (10.7-15.3); MCH 28.3 pg (25.7-33.7); MCHC 32.1 g/dl (32.0-36.0); MEAN CELL VOLUME 88.3 fl (80-96); PLATELET COUNT 277 10^3/uL (134-434); RDW 15.1 % (11.6-15.6)
[2022-08-16 15:36] LABS: CALCIUM 9.4 mg/dL (8.5-10.1)
[2022-08-16 15:37] LABS: ALBUMIN 3.8 g/dl (3.4-5.0); BLOOD UREA NITROGEN 12.4 mg/dL (7-18)
[2022-08-16 15:40] LABS: CREATININE 0.7 mg/dL (0.55-1.3)
[2022-08-16 15:41] LABS: BILIRUBIN,TOTAL 0.4 mg/dL (0.2-1); TOT PROT 7.3 g/dl (6.4-8.2)
[2022-08-16] MEDS: THIAMINE HCL 100 MG TABLET (FP) PO SCH (22:55)
[2022-08-16] MEDS: MELATONIN 5 MG TABLETS PO SCH (22:55)
[2022-08-17] MEDS: diazePAM 5 MG TABLET PO PRN ×4 (00:54→18:12)
[2022-08-17] MEDS: IBUPROFEN 600 MG TABLET (FP) PO PRN (09:25)
[2022-08-17] MEDS: PRENATAL VITAMINS W/ FOLIC ACID TABLET (FP) PO SCH (09:25)
[2022-08-17] MEDS ORDERED: methaDONE HCL 10 MG TABLET (FOR DETOX USE ONLY) PO ONE (10:00)
[2022-08-17] MEDS: METHOCARBAMOL 500 MG TABLET PO PRN (18:11)
[2022-08-17] MEDS: MELATONIN 5 MG TABLETS PO SCH (22:35)
[2022-08-17] MEDS: THIAMINE HCL 100 MG TABLET (FP) PO SCH (22:35)
[2022-08-18] MEDS: diazePAM 5 MG TABLET PO PRN ×5 (00:38→19:00)
[2022-08-18] MEDS: ACETAMINOPHEN 325 MG TABLET (FP) PO PRN ×2 (00:39→17:55)
[2022-08-18] MEDS: PRENATAL VITAMINS W/ FOLIC ACID TABLET (FP) PO SCH (09:16)
[2022-08-18] MEDS: METHOCARBAMOL 500 MG TABLET PO PRN ×3 (09:16→23:58)
[2022-08-18] MEDS: IBUPROFEN 600 MG TABLET (FP) PO PRN (09:16)
[2022-08-18] MEDS: THIAMINE HCL 100 MG TABLET (FP) PO SCH (23:33)
[2022-08-18] MEDS: MELATONIN 5 MG TABLETS PO SCH (23:33)
[2022-08-19] MEDS: PRENATAL VITAMINS W/ FOLIC ACID TABLET (FP) PO SCH (09:58)
[2022-08-19] MEDS: METHOCARBAMOL 500 MG TABLET PO PRN ×2 (09:58→16:58)
[2022-08-19] MEDS ORDERED: methaDONE HCL 10 MG TABLET (FOR DETOX USE ONLY) PO ONE (10:00)
[2022-08-19] MEDS: MELATONIN 5 MG TABLETS PO SCH (22:12)
[2022-08-19] MEDS: THIAMINE HCL 100 MG TABLET (FP) PO SCH (22:13)
[2022-08-20] MEDS: ACETAMINOPHEN 325 MG TABLET (FP) PO PRN (05:36)
[2022-08-20] MEDS: IBUPROFEN 600 MG TABLET (FP) PO PRN (07:57)
[2022-08-20 09:17] VITALS: BP 121/67; PULSE 69; RESP 18; TEMP 97.4
[2022-08-20] MEDS: PRENATAL VITAMINS W/ FOLIC ACID TABLET (FP) PO SCH (10:00)
[2022-08-20] MEDS: METHOCARBAMOL 500 MG TABLET PO PRN (10:00)
== END 2022-08-20 10:53 | disposition home or self-care (01) | DRG 773 ==
LOC: YASAS 14:50 → Y6N 20:03
PROVIDERS: ADMIT Allergy & Immunology; ATTEND Surgery
PROC: HZ2ZZZZ Detoxification Services for Substance Abuse Treatment (ICD-10-PCS; principal; 2022-08-15)
DX: F11.23 Opioid dependence with withdrawal (principal); F14.20 Cocaine dependence, uncomplicated; F17.210 Nicotine dependence, cigarettes, uncomplicated; D50.8 Other iron deficiency anemias; D57.3 Sickle-cell trait; M19.90 Unspecified osteoarthritis, unspecified site
CPT/HCPCS: 36415; 80053; 85027; 86780; C9803-CS; U0003; U0005

== ENCOUNTER 2022-10-08 07:59 | Inpatient (IN) | payer OTHER ==
[2022-10-08 08:44] VITALS: BMI 25.8
[2022-10-08] MEDS ORDERED: MAG HYDROX/AL HYDROX/SIMETH 30 ML UNIT-DOSE CUP PO PRN (09:12)
[2022-10-08] MEDS ORDERED: BISMUTH SUBSALICYLATE 262 MG/15 ML BTL PO PRN (09:12)
[2022-10-08] MEDS ORDERED: MAGNESIUM HYDROX 2400MG/30ML ORAL SUSPENSION 30 ML CUP PO PRN (09:12)
[2022-10-08] MEDS ORDERED: LOPERAMIDE HCL 2 MG CAPSULE PO PRN (09:12)
[2022-10-08] MEDS ORDERED: ACETAMINOPHEN 325 MG TABLET (FP) PO PRN ×2 (09:12)
[2022-10-08] MEDS ORDERED: NICOTINE POLACRILEX 2 MG GUM BUC PRN (09:12)
[2022-10-08] MEDS ORDERED: NICOTINE 10 MG CARTRIDGE (INHALER) IH PRN (09:12)
[2022-10-08] MEDS ORDERED: cloNIDine HCL 0.1 MG TABLET PO PRN (09:12)
[2022-10-08] MEDS ORDERED: NALOXONE HCL (KLOXXADO) 8 MG SPRAY NS PRN (09:12)
[2022-10-08] MEDS ORDERED: BENZOCAINE/MENTHOL (CHLORASEPTIC ) LOZENGE MM PRN (09:12)
[2022-10-08] MEDS ORDERED: DICYCLOMINE HCL 10 MG CAPSULE PO PRN (09:12)
[2022-10-08] MEDS ORDERED: IBUPROFEN 400 MG TABLET (FP) PO PRN (09:12)
[2022-10-08] MEDS ORDERED: POLYETHYLENE GLYCOL (HEALTHYLAX) 3350 17 GM PACKET PO PRN (09:12)
[2022-10-08] MEDS ORDERED: ONDANSETRON *ODT* 4 MG TABLET SL PRN (09:12)
[2022-10-08] MEDS ORDERED: methaDONE HCL 10 MG TABLET (FOR DETOX USE ONLY) ONE (09:54)
[2022-10-08] MEDS ORDERED: PRENATAL VITAMINS W/ FOLIC ACID TABLET (FP) PO ONE (09:55)
[2022-10-08] MEDS ORDERED: methaDONE HCL 10 MG TABLET (FOR DETOX USE ONLY) PO ONE (10:00)
[2022-10-08] MEDS: PRENATAL VITAMINS W/ FOLIC ACID TABLET (FP) PO SCH (10:00)
[2022-10-08] MEDS: IBUPROFEN 600 MG TABLET (FP) PO PRN ×2 (10:20→23:06)
[2022-10-08] MEDS: NICOTINE 14 MG/24 HOURS TOPICAL PATCH TD SCH (10:55)
[2022-10-08] MEDS: METHOCARBAMOL 500 MG TABLET PO PRN (18:04)
[2022-10-08 20:15] LABS: HIV INTERPRETATION NEGATIVE (NEGATIVE)
[2022-10-08] MEDS: THIAMINE HCL 100 MG TABLET (FP) PO SCH ×2 (22:46→23:07)
[2022-10-08] MEDS: MELATONIN 5 MG TABLETS PO SCH (22:46)
[2022-10-08] MEDS: hydrOXYzine PAMOATE 25 MG CAPSULE (FP) PO PRN (23:06)
[2022-10-09] MEDS: NICOTINE 14 MG/24 HOURS TOPICAL PATCH TD SCH (09:19)
[2022-10-09] MEDS: PRENATAL VITAMINS W/ FOLIC ACID TABLET (FP) PO SCH (09:21)
[2022-10-09] MEDS: IBUPROFEN 600 MG TABLET (FP) PO PRN ×2 (09:26→20:46)
[2022-10-09] MEDS: METHOCARBAMOL 500 MG TABLET PO PRN ×2 (09:26→17:35)
[2022-10-09 11:08] LABS: HEMATOCRIT 31.4 % (32.4-45.2); HEMOGLOBIN 10.9 GM/dL (10.7-15.3); MCH 30.6 pg (25.7-33.7); MCHC 34.6 g/dl (32.0-36.0); MEAN CELL VOLUME 88.5 fl (80-96); MEAN PLT VOLUME 9.1 fl (7.5-11.1); PLATELET COUNT 229 10^3/uL (134-434); RBC 3.55 M/mm3 (3.60-5.2); RDW 13.8 % (11.6-15.6)
[2022-10-09 11:44] LABS: ALBUMIN 3.7 g/dl (3.4-5.0); BLOOD UREA NITROGEN 12.2 mg/dL (7-18)
[2022-10-09 11:45] LABS: CALCIUM 8.8 mg/dL (8.5-10.1)
[2022-10-09 11:47] LABS: CREATININE 0.9 mg/dL (0.55-1.3)
[2022-10-09 11:49] LABS: BILIRUBIN,TOTAL 0.3 mg/dL (0.2-1); TOT PROT 6.5 g/dl (6.4-8.2)
[2022-10-09] MEDS: hydrOXYzine PAMOATE 25 MG CAPSULE (FP) PO PRN (14:30)
[2022-10-09] MEDS: MELATONIN 5 MG TABLETS PO SCH (22:39)
[2022-10-09] MEDS: THIAMINE HCL 100 MG TABLET (FP) PO SCH (22:40)
[2022-10-10] MEDS: hydrOXYzine PAMOATE 25 MG CAPSULE (FP) PO PRN (06:56)
[2022-10-10] MEDS: METHOCARBAMOL 500 MG TABLET PO PRN (06:59)
[2022-10-10 08:56] VITALS: BP 147/63; PULSE 81; RESP 17; TEMP 97.7
[2022-10-10] MEDS ORDERED: methaDONE HCL 10 MG TABLET (FOR DETOX USE ONLY) PO ONE (10:00)
[2022-10-10] MEDS: PRENATAL VITAMINS W/ FOLIC ACID TABLET (FP) PO SCH (10:11)
[2022-10-10] MEDS: NICOTINE 14 MG/24 HOURS TOPICAL PATCH TD SCH (10:11)
[2022-10-12] MEDS ORDERED: methaDONE HCL 10 MG TABLET (FOR DETOX USE ONLY) PO ONE (10:00)
== END 2022-10-10 13:05 | disposition home or self-care (01) | DRG 773 ==
LOC: YASAS 07:59 → Y6N 10:09
PROVIDERS: ADMIT Allergy & Immunology; ATTEND Surgery
PROC: HZ2ZZZZ Detoxification Services for Substance Abuse Treatment (ICD-10-PCS; principal; 2022-10-08)
DX: F11.23 Opioid dependence with withdrawal (principal); F14.20 Cocaine dependence, uncomplicated; F17.210 Nicotine dependence, cigarettes, uncomplicated; D50.9 Iron deficiency anemia, unspecified; D57.3 Sickle-cell trait; Z88.8 Allergy status to other drugs, medicaments and biological substances
CPT/HCPCS: 36415; 80053; 81025; 85027; 86780; 87389; 87811; C9803-CS; U0003; U0005

== ENCOUNTER 2023-01-07 20:07 | Inpatient (IN) | payer OTHER ==
[2023-01-07 21:12] VITALS: BMI 27.4
[2023-01-07] MEDS ORDERED: guaiFENesin 600 MG TABLET.ER (FP) PO PRN (22:11)
[2023-01-07] MEDS ORDERED: POLYETHYLENE GLYCOL (HEALTHYLAX) 3350 17 GM PACKET PO PRN (22:11)
[2023-01-07] MEDS ORDERED: NALOXONE HCL (KLOXXADO) 8 MG SPRAY NS PRN (22:11)
[2023-01-07] MEDS ORDERED: IBUPROFEN 400 MG TABLET (FP) PO PRN (22:11)
[2023-01-07] MEDS ORDERED: BENZONATATE 200 MG CAPSULE PO PRN (22:11)
[2023-01-07] MEDS ORDERED: LOPERAMIDE HCL 2 MG CAPSULE PO PRN (22:11)
[2023-01-07] MEDS ORDERED: BENZOCAINE/MENTHOL (CHLORASEPTIC ) LOZENGE MM PRN (22:11)
[2023-01-07] MEDS ORDERED: NALOXONE HCL 0.4 MG/ML VIAL IM PRN (22:11)
[2023-01-07] MEDS ORDERED: BISMUTH SUBSALICYLATE 524 MG/30 ML PO PRN (22:11)
[2023-01-07] MEDS ORDERED: NICOTINE POLACRILEX 2 MG GUM BUC PRN (22:11)
[2023-01-07] MEDS ORDERED: MAG HYDROX/AL HYDROX/SIMETH 30 ML UNIT-DOSE CUP PO PRN (22:11)
[2023-01-07] MEDS ORDERED: DICYCLOMINE HCL 10 MG CAPSULE PO PRN (22:11)
[2023-01-07] MEDS ORDERED: MAGNESIUM HYDROX 2400MG/30ML ORAL SUSPENSION 30 ML CUP PO PRN (22:11)
[2023-01-07] MEDS ORDERED: ONDANSETRON *ODT* 4 MG TABLET SL PRN (22:11)
[2023-01-07] MEDS ORDERED: ACETAMINOPHEN 325 MG TABLET (FP) PO PRN (22:11)
[2023-01-08] MEDS ORDERED: methaDONE HCL 10 MG TABLET (FOR DETOX USE ONLY) PO ONE ×2 (01:14→10:00)
[2023-01-08] MEDS ORDERED: methaDONE HCL 10 MG TABLET (FOR DETOX USE ONLY) ONE (02:07)
[2023-01-08] MEDS: diazePAM 5 MG TABLET PO PRN ×4 (06:18→20:46)
[2023-01-08] MEDS: PRENATAL VITAMINS W/ FOLIC ACID TABLET (FP) PO SCH (09:50)
[2023-01-08] MEDS: NICOTINE 14 MG/24 HOURS TOPICAL PATCH TD SCH (09:51)
[2023-01-08] MEDS: METHOCARBAMOL 500 MG TABLET PO PRN (11:00)
[2023-01-08 11:42] LABS: HEMOGLOBIN 12.2 GM/dL (10.7-15.3); MCH 29.3 pg (25.7-33.7); MCHC 33.9 g/dl (32.0-36.0); MEAN CELL VOLUME 86.5 fl (80-96); MEAN PLT VOLUME 9.1 fl (7.5-11.1); PLATELET COUNT 228 10^3/uL (134-434); RBC 4.16 M/mm3 (3.60-5.2); RDW 14.4 % (11.6-15.6); WHITE BLOOD COUNT 4.7 K/mm3 (4.0-10.0)
[2023-01-08 12:01] LABS: POTASSIUM 4.5 mmol/L (3.5-5.1)
[2023-01-08 12:15] LABS: ALBUMIN 3.8 g/dl (3.4-5.0); BLOOD UREA NITROGEN 11.9 mg/dL (7-18); CALCIUM 9.6 mg/dL (8.5-10.1)
[2023-01-08 12:19] LABS: CREATININE 0.7 mg/dL (0.55-1.3)
[2023-01-08 12:20] LABS: BILIRUBIN,TOTAL 0.5 mg/dL (0.2-1)
[2023-01-08] MEDS: IBUPROFEN 600 MG TABLET (FP) PO PRN (15:58)
[2023-01-08] MEDS ORDERED: THIAMINE HCL 100 MG TABLET (FP) PO SCH (22:00)
[2023-01-08] MEDS ORDERED: MELATONIN 5 MG TABLETS PO SCH (22:00)
[2023-01-09] MEDS: IBUPROFEN 600 MG TABLET (FP) PO PRN ×2 (00:29→09:55)
[2023-01-09] MEDS: METHOCARBAMOL 500 MG TABLET PO PRN ×3 (00:29→15:27)
[2023-01-09] MEDS: diazePAM 5 MG TABLET PO PRN ×2 (07:05→15:27)
[2023-01-09 09:43] VITALS: RESP 16
[2023-01-09] MEDS: NICOTINE 14 MG/24 HOURS TOPICAL PATCH TD SCH (09:55)
[2023-01-09] MEDS: PRENATAL VITAMINS W/ FOLIC ACID TABLET (FP) PO SCH (09:55)
[2023-01-09 12:48] VITALS: BP 172/95; PULSE 89; TEMP 96.9
[2023-01-10] MEDS ORDERED: methaDONE HCL 10 MG TABLET (FOR DETOX USE ONLY) PO ONE (10:00)
[2023-01-12] MEDS ORDERED: methaDONE HCL 10 MG TABLET (FOR DETOX USE ONLY) PO ONE (10:00)
== END 2023-01-09 16:10 | disposition left against medical advice (07) | DRG 770 ==
LOC: YASAS 20:07 → Y3N 01-08 01:51
PROVIDERS: ADMIT Allergy & Immunology; ATTEND Surgery
PROC: HZ2ZZZZ Detoxification Services for Substance Abuse Treatment (ICD-10-PCS; principal; 2023-01-08)
DX: F11.23 Opioid dependence with withdrawal (principal); F10.230 Alcohol dependence with withdrawal, uncomplicated; F14.20 Cocaine dependence, uncomplicated; F12.20 Cannabis dependence, uncomplicated; F17.210 Nicotine dependence, cigarettes, uncomplicated; Z86.2 Personal history of diseases of the blood and blood-forming organs and certain disorders involving the immune mechanism
CPT/HCPCS: 36415; 80053; 81025; 85027; 86780; C9803-CS; U0003; U0005